=== PATIENT | female | born 1970 | race Caucasian/White ===

== ENCOUNTER → 2017-01-02 | Outpatient (REF) | payer OTHER ==
[~2017-01-02] MED LIST: AUGM875T28 PO; BACL10TA2 PO; DOCU10CA PO; GABA-283 PO; GABA600T PO; MILKSUS PO; OMEP20CA3 PO; OXYC10TA12 PO; OXYC5CAP28 PO; SIME180C PO; XYZA5TAB2 PO
== END ==
LOC: M SFHCLERA 16:32
PROVIDERS: ATTEND Physician Assistant
DX: L02.01 Cutaneous abscess of face (principal)

== ENCOUNTER → 2017-03-02 | Outpatient (REF) | payer OTHER | LOC: M SFHCWAGY 10:16 | PROVIDERS: ATTEND Nurse Practitioner Women's Health | DX: Z12.4 Encounter for screening for malignant neoplasm of cervix (principal) ==

== ENCOUNTER → 2017-03-02 | Outpatient (CLI) | payer OTHER ==
--- NOTE | 2017-03-02 09:06 | REPMRS ---
Patient History The patient states she had a clinical breast exam in 02/2017. Patient is nulliparous. Family history of prostate cancer in father at age 50 or over and colorectal cancer in maternal grandfather at age 50 or over. Taking hormonal contraceptives for 1 year 3 months. Digital Woman Screen Mammo: March 02, 2017 - Exam #: [id number] Bilateral CC and MLO view(s) were taken. Technologist: Usha Dill Technologist Prior study comparison: February 26, 2015, digital woman screen mammo performed at [facility]. January 23, 2014, digital woman screen mammo performed at [facility]. December 08, 2011, digital woman screen mammo performed at [facility]. FINDINGS: There are scattered fibroglandular densities. There is a moderate amount of residual fibroglandular tissue which is fairly symmetric. There is no interval development of dominant mass, architectural distortion, or clustered microcalcification typical of malignancy. There has been no change in the appearance of the mammogram from the prior studies. ASSESSMENT: BI-RADS/ACR category 1 mammogram. Negative. Recommendation Routine screening mammogram of both breasts in 1 year (for women over age 40). This mammogram was interpreted with the aid of an FDA-approved computer-aided dectection system. Electronically Signed By: Wilfredo Carpenter MD 03/02/17 0906
== END ==
LOC: M WHC 08:10
PROVIDERS: ATTEND Nurse Practitioner Women's Health
DX: Z12.31 Encounter for screening mammogram for malignant neoplasm of breast (principal); Z92.0 Personal history of contraception; Z80.42 Family history of malignant neoplasm of prostate; Z80.0 Family history of malignant neoplasm of digestive organs

== ENCOUNTER 2017-10-02 09:24 | Emergency (ER) | payer OTHER | END 2017-10-02 11:08 | disposition home or self-care (01) | LOC: M ED 09:24 | DX: M17.12 Unilateral primary osteoarthritis, left knee (principal); S80.02XA Contusion of left knee, initial encounter; W01.0XXA Fall on same level from slipping, tripping and stumbling without subsequent striking against object, initial encounter; Y92.59 Other trade areas as the place of occurrence of the external cause; Y99.0 Civilian activity done for income or pay; K21.9 Gastro-esophageal reflux disease without esophagitis; Z79.899 Other long term (current) drug therapy | CPT/HCPCS: 73564 ==

== ENCOUNTER → 2017-10-12 | Outpatient (CLI) | payer OTHER ==
[2017-10-12 08:17] LABS: BASO # 0.1 10^3/uL (0.0-0.2); BASO % 0.8 % (0.0-1.0); EOS # 0.1 10^3/uL (0.0-0.50); EOS % 1.5 % (0.0-3.0); HEMATOCRIT 43.5 % (36.0-47.0); HEMOGLOBIN 14.6 g/dl (12.0-15.5); IMMATURE GRANULOCYTE % 0.4 % (0-3.0); LYMPH % 41.7 % (24.0-44.0); MEAN CORPUSCULAR HEMOGLOBIN 29.7 pg (27.0-33.0); MEAN CORPUSCULAR HGB CONC 33.6 g/dl (32.0-36.5); MEAN CORPUSCULAR VOLUME 88.6 fl (80.0-96.0); MONO # 0.8 10^3/uL (0.0-0.8); MONO % 11.1 % (0.0-5.0); NEUTROPHILS # 3.2 10^3/uL (1.8-7.7); NEUTROPHILS % 44.5 % (36.0-66.0); PLATELET COUNT, AUTOMATED 323 10^3/uL (150-450); RED BLOOD COUNT 4.91 10^6/uL (4.00-5.40); RED CELL DISTRIBUTION WIDTH 13.3 % (11.5-14.5); WHITE BLOOD COUNT 7.2 10^3/uL (4.0-10.0)
[2017-10-12 08:56] LABS: ALBUMIN 3.2 GM/DL (3.2-5.2); ALBUMIN/GLOBULIN RATIO 0.91 (1.00-1.93); ALKALINE PHOSPHATASE 112 U/L (45-117); ALT/SGPT 25 U/L (12-78); ANION GAP 7 MEQ/L (8-16); AST/SGOT 18 U/L (7-37); BILIRUBIN,TOTAL 0.5 MG/DL (0.2-1.0); BLOOD UREA NITROGEN 11 MG/DL (7-18); CALCIUM LEVEL 8.2 MG/DL (8.5-10.1); CARBON DIOXIDE LEVEL 27 MEQ/L (21-32); CHLORIDE LEVEL 107 MEQ/L (98-107); CHOLESTEROL LEVEL 176 MG/DL (<200); CREATININE FOR GFR 0.79 MG/DL (0.55-1.30); FREE T4 1.32 NG/DL (0.76-1.46); GLOMERULAR FILTRATION RATE > 60.0 (>58); GLUCOSE, FASTING 84 MG/DL (70-100); HDL CHOLESTEROL 42 MG/DL (>40); LDL CHOLESTEROL 107.2 MG/DL (<100); NON-HDL-C 134 MG/DL; POTASSIUM SERUM 4.1 MEQ/L (3.5-5.1); SODIUM LEVEL 141 MEQ/L (136-145); TOTAL PROTEIN 6.7 GM/DL (6.4-8.2); TRIGLYCERIDES LEVEL 134 MG/DL (<150)
[2017-10-12 09:53] LABS: ESTIMATED AVERAGE GLUCOSE 123 MG/DL (60-110); HEMOGLOBIN A1c 5.9 %
== END ==
LOC: M LAB 07:19
DX: E66.01 Morbid (severe) obesity due to excess calories (principal); K21.9 Gastro-esophageal reflux disease without esophagitis
CPT/HCPCS: 84443

== ENCOUNTER → 2018-03-01 | Outpatient (REF) | payer OTHER | LOC: M SFHCWAGY 09:57 | DX: Z12.4 Encounter for screening for malignant neoplasm of cervix (principal) ==

== ENCOUNTER → 2018-05-31 | Outpatient (CLI) | payer OTHER ==
[2018-05-31 14:33] LABS: ANION GAP 8 MEQ/L (8-16); BLOOD UREA NITROGEN 15 MG/DL (7-18); CARBON DIOXIDE LEVEL 26 MEQ/L (21-32); CHLORIDE LEVEL 105 MEQ/L (98-107); CHOLESTEROL LEVEL 198 MG/DL (<200); CHOLESTEROL RISK RATIO 4.304 (<5); CREATININE FOR GFR 0.73 MG/DL (0.55-1.30); FREE T4 1.19 NG/DL (0.76-1.46); GLOMERULAR FILTRATION RATE > 60.0 (>58); GLUCOSE, FASTING 99 MG/DL (70-100); HDL CHOLESTEROL 46 MG/DL (>40); LDL CHOLESTEROL 131 MG/DL (<100); NON-HDL-C 152 MG/DL; POTASSIUM SERUM 4.5 MEQ/L (3.5-5.1); SODIUM LEVEL 139 MEQ/L (136-145); TRIGLYCERIDES LEVEL 105 MG/DL (<150)
== END ==
LOC: M SMT 09:09
DX: E66.01 Morbid (severe) obesity due to excess calories (principal)
CPT/HCPCS: 84443

== ENCOUNTER → 2019-02-28 | Outpatient (CLI) | payer OTHER ==
[~2019-02-28] MED LIST changes: +ADDE1TAB14 PO; +CELE100C PO; -GABA-283 PO; +GABA-845 PO; -GABA600T PO; +GABA600T4 PO; +MILK120011 PO; -MILKSUS PO; -OMEP20CA3 PO; +OMEP20CA4 PO; +bcp PO
[2019-02-28 11:22] LABS: BLOOD UREA NITROGEN 9 MG/DL (7-18); CALCIUM LEVEL 8.5 MG/DL (8.5-10.1); CARBON DIOXIDE LEVEL 25 MEQ/L (21-32); CHLORIDE LEVEL 106 MEQ/L (98-107); CHOLESTEROL LEVEL 173 MG/DL (<200); CHOLESTEROL RISK RATIO 4.219 (<5); CREATININE FOR GFR 0.76 MG/DL (0.55-1.30); FREE T4 1.11 NG/DL (0.76-1.46); GLOMERULAR FILTRATION RATE > 60.0 (>51); GLUCOSE, FASTING 89 MG/DL (70-100); HDL CHOLESTEROL 41 MG/DL (>40); LDL CHOLESTEROL 89 MG/DL (<100); NON-HDL-C 132 MG/DL; POTASSIUM SERUM 4.2 MEQ/L (3.5-5.1); SODIUM LEVEL 140 MEQ/L (136-145); TRIGLYCERIDES LEVEL 213 MG/DL (<150)
== END ==
LOC: M SMT 08:17
PROVIDERS: ATTEND Physician Assistant
DX: E66.01 Morbid (severe) obesity due to excess calories (principal)

== ENCOUNTER → 2019-03-21 | Outpatient (CLI) | payer OTHER ==
--- NOTE | 2019-03-21 13:42 | REPMRS ---
Patient History The patient states she had a clinical breast exam in 03/2019. Patient is nulliparous. Family history of colorectal cancer at age 50 or over in maternal grandfather, prostate cancer at age 50 or over in father. Taking hormonal contraceptives for 3 years 4 months. 3D TOMOSYNTHESIS WAS PERFORMED. The [facility] lifetime risk for breast cancer is 10.7%. Digital Woman Screen Mammo: March 21, 2019 - Exam #: [id number] Bilateral CC and MLO view(s) were taken. Technologist: Usha Dill, Technologist Prior study comparison: March 02, 2017, digital woman screen mammo performed at [facility]. February 26, 2015, digital woman screen mammo performed at [facility]. FINDINGS: The breast tissue is heterogeneously dense. This may lower the sensitivity of mammography. There has been no change in the appearance of the mammogram from the prior studies. There is a moderate amount of residual fibroglandular tissue which is fairly symmetric. There is no interval development of dominant mass, areas of architectural distortion, or clustered microcalcification typical of malignancy. Assessment: BI-RADS/ACR category 1 mammogram. Negative Mammogram. Recommendation Routine screening mammogram in 1 year (for women over age 40). This mammogram was interpreted with the aid of an FDA-approved computer-aided dectection system. Electronically Signed By: Deshawn Granger MD 03/21/19 5329
== END ==
LOC: M WHC 09:51
PROVIDERS: ATTEND Nurse Practitioner Family
DX: Z12.31 Encounter for screening mammogram for malignant neoplasm of breast (principal)

== ENCOUNTER → 2019-03-21 | Outpatient (REF) | payer OTHER ==
[2019-03-26 08:19] LABS: HPV HYBRID CAPTURE II Negative (Negative)
== END ==
LOC: M SFHCWAGY 11:03
PROVIDERS: ATTEND Nurse Practitioner Family
DX: Z12.4 Encounter for screening for malignant neoplasm of cervix (principal)

== ENCOUNTER → 2019-05-22 | Outpatient (CLI) | payer OTHER ==
[2019-05-22 14:37] LABS: BLOOD UREA NITROGEN 9 MG/DL (7-18); CALCIUM LEVEL 8.2 MG/DL (8.5-10.1); CARBON DIOXIDE LEVEL 27 MEQ/L (21-32); CHLORIDE LEVEL 108 MEQ/L (98-107); GLOMERULAR FILTRATION RATE > 60.0 (>51); GLUCOSE, FASTING 94 MG/DL (70-100); POTASSIUM SERUM 3.9 MEQ/L (3.5-5.1); SODIUM LEVEL 141 MEQ/L (136-145)
[2019-05-22 15:10] LABS: HEMOGLOBIN A1c 6.5 %
== END ==
LOC: M PLALAB 09:24
PROVIDERS: ATTEND Physician Assistant
DX: R73.01 Impaired fasting glucose (principal)

== ENCOUNTER → 2019-08-15 | Outpatient (CLI) | payer OTHER ==
[~2019-08-15] MED LIST changes: +OMEP1CAP73 PO; -OMEP20CA4 PO
[2019-08-15 11:47] LABS: CREATININE, URINE 75.1 MG/DL; MALB URINE SIEMENS 12.8 MG/L
[2019-08-15 11:47] LABS: ALBUMIN 3.4 GM/DL (3.2-5.2); ALT/SGPT 29 U/L (12-78); BILIRUBIN,TOTAL 0.6 MG/DL (0.2-1.0); BLOOD UREA NITROGEN 11 MG/DL (7-18); CALCIUM LEVEL 8.7 MG/DL (8.5-10.1); CARBON DIOXIDE LEVEL 28 MEQ/L (21-32); CHLORIDE LEVEL 105 MEQ/L (98-107); CHOLESTEROL LEVEL 192 MG/DL (<200); CHOLESTEROL RISK RATIO 4.682 (<5); CREATININE FOR GFR 0.81 MG/DL (0.55-1.30); GLOMERULAR FILTRATION RATE > 60.0 (>51); GLUCOSE, FASTING 96 MG/DL (70-100); HDL CHOLESTEROL 41 MG/DL (>40); LDL CHOLESTEROL 110 MG/DL (<100); NON-HDL-C 151 MG/DL; POTASSIUM SERUM 4.1 MEQ/L (3.5-5.1); SODIUM LEVEL 138 MEQ/L (136-145); TOTAL PROTEIN 7.1 GM/DL (6.4-8.2); TRIGLYCERIDES LEVEL 204 MG/DL (<150)
== END ==
LOC: M LAB 10:34
PROVIDERS: ATTEND Physician Assistant
DX: E11.9 Type 2 diabetes mellitus without complications (principal)

== ENCOUNTER → 2019-11-21 | Outpatient (CLI) | payer OTHER ==
[2019-11-21 10:06] LABS: BLOOD UREA NITROGEN 10 MG/DL (7-18); CALCIUM LEVEL 8.3 MG/DL (8.5-10.1); CARBON DIOXIDE LEVEL 24 MEQ/L (21-32); CHLORIDE LEVEL 106 MEQ/L (98-107); CREATININE FOR GFR 0.85 MG/DL (0.55-1.30); GLOMERULAR FILTRATION RATE > 60.0 (>51); GLUCOSE, FASTING 104 MG/DL (70-100); POTASSIUM SERUM 4.6 MEQ/L (3.5-5.1); SODIUM LEVEL 140 MEQ/L (136-145)
[2019-11-21 10:29] LABS: HEMOGLOBIN A1c 6.4 %
== END ==
LOC: M PLALAB 08:14
PROVIDERS: ATTEND Physician Assistant
DX: E11.9 Type 2 diabetes mellitus without complications (principal)

== ENCOUNTER → 2020-02-03 | Outpatient (REF) | payer OTHER, MEDICAID ==
[2020-03-22 21:57] LABS: BASO # 0.1 10^3/uL (0.0-0.2); BASO % 0.8 % (0.0-1.0); EOS # 0.2 10^3/uL (0.0-0.5); EOS % 1.5 % (0.0-3.0); HEMATOCRIT 44.5 % (36.0-47.0); HEMOGLOBIN 14.5 g/dl (12.0-15.5); LYMPH # 4.2 10^3/uL (1.5-5.0); LYMPH % 35.8 % (24.0-44.0); MEAN CORPUSCULAR HEMOGLOBIN 28.9 pg (27.0-33.0); MEAN CORPUSCULAR HGB CONC 32.6 g/dl (32.0-36.5); MEAN CORPUSCULAR VOLUME 88.8 fl (80.0-96.0); MONO # 1.1 10^3/uL (0.0-0.8); MONO % 9.2 % (0.0-5.0); NEUTROPHILS % 51.8 % (36.0-66.0); PLATELET COUNT, AUTOMATED 315 10^3/uL (150-450); RED BLOOD COUNT 5.01 10^6/uL (4.00-5.40); WHITE BLOOD COUNT 11.6 10^3/uL (4.0-10.0)
[2020-03-29 04:54] LABS: ALBUMIN 3.1 GM/DL (3.2-5.2); ALT/SGPT 32 U/L (12-78); BILIRUBIN,TOTAL 0.3 MG/DL (0.2-1.0); BLOOD UREA NITROGEN 12 MG/DL (7-18); CALCIUM LEVEL 8.5 MG/DL (8.5-10.1); CARBON DIOXIDE LEVEL 24 MEQ/L (21-32); CHLORIDE LEVEL 108 MEQ/L (98-107); CHOLESTEROL LEVEL 190 MG/DL (<200); CREATININE FOR GFR 0.84 MG/DL (0.55-1.30); GLOMERULAR FILTRATION RATE > 60.0 (>51); GLUCOSE, FASTING 96 MG/DL (70-100); HDL CHOLESTEROL 38 MG/DL (>40); HEMOGLOBIN A1c 5.9 %; LDL CHOLESTEROL 111 MG/DL (<100); NON-HDL-C 152 MG/DL; POTASSIUM SERUM 4.3 MEQ/L (3.5-5.1); SODIUM LEVEL 139 MEQ/L (136-145); TOTAL PROTEIN 6.5 GM/DL (6.4-8.2); TRIGLYCERIDES LEVEL 203 MG/DL (<150)
== END ==
LOC: M PLALAB 12:14
PROVIDERS: ATTEND Family Medicine
DX: E11.9 Type 2 diabetes mellitus without complications (principal); E78.2 Mixed hyperlipidemia

== ENCOUNTER → 2020-03-26 | Outpatient (CLI) | payer OTHER ==
--- NOTE | 2020-03-26 09:52 | REPMRS ---
Patient History The patient states she had a clinical breast exam in March 2020. Patient is nulliparous. Family history of colorectal cancer at age 50 or over in maternal grandfather, prostate cancer at age 75 in father. Taking hormonal contraceptives for 3 years 4 months. 3D TOMOSYNTHESIS WAS PERFORMED. The [facility] lifetime risk for breast cancer is 10.8%. VOLPARA DENSITY B. Digital Woman Screen Mammo: March 26, 2020 - Exam #: [id number] Bilateral CC and MLO view(s) were taken. Technologist: Isabella Fuentes, Technologist Prior study comparison: March 21, 2019, bilateral digital woman screen mammo performed at [facility]. March 02, 2017, digital woman screen mammo performed at [facility]. FINDINGS: The breast tissue is heterogeneously dense. This may lower the sensitivity of mammography. There has been no change in the appearance of the mammogram from the prior studies. There is a moderate amount of residual fibroglandular tissue which is fairly symmetric. There is no interval development of dominant mass, areas of architectural distortion, or clustered microcalcification typical of malignancy. Assessment: BI-RADS/ACR category 1 mammogram. Negative Mammogram. Recommendation Routine screening mammogram in 1 year (for women over age 40). This mammogram was interpreted with the aid of an FDA-approved computer-aided dectection system. Electronically Signed By: Deshawn Granger MD 03/26/20 0951
== END ==
LOC: M WHC 08:14
PROVIDERS: ATTEND Nurse Practitioner Family
DX: Z12.31 Encounter for screening mammogram for malignant neoplasm of breast (principal); Z79.3 Long term (current) use of hormonal contraceptives

== ENCOUNTER → 2020-03-26 | Outpatient (REF) | payer OTHER | LOC: M SFHCWAGY 18:18 | PROVIDERS: ATTEND Nurse Practitioner Family | DX: Z12.4 Encounter for screening for malignant neoplasm of cervix (principal) ==

== ENCOUNTER → 2020-05-07 | Outpatient (CLI) | payer OTHER ==
[2020-05-07 11:32] LABS: BLOOD UREA NITROGEN 16 MG/DL (7-18); CALCIUM LEVEL 8.2 MG/DL (8.5-10.1); CARBON DIOXIDE LEVEL 26 MEQ/L (21-32); CHLORIDE LEVEL 107 MEQ/L (98-107); CREATININE FOR GFR 0.85 MG/DL (0.55-1.30); GLOMERULAR FILTRATION RATE > 60.0 (>51); GLUCOSE, FASTING 93 MG/DL (70-100); HEMOGLOBIN A1c 5.8 %; POTASSIUM SERUM 4.2 MEQ/L (3.5-5.1); SODIUM LEVEL 140 MEQ/L (136-145)
== END ==
LOC: M PLALAB 08:23
PROVIDERS: ATTEND Physician Assistant
DX: E11.9 Type 2 diabetes mellitus without complications (principal)

== ENCOUNTER → 2020-05-10 | Outpatient (REF) | payer OTHER ==
[2020-05-10 11:37] LABS: MALB URINE SIEMENS 8.4 MG/L; MAU/CREAT RATIO 7.3 MCG/MG (0.0-30.0)
== END ==
LOC: M LAB REF 10:05
PROVIDERS: ATTEND Physician Assistant
DX: E11.9 Type 2 diabetes mellitus without complications (principal)

== ENCOUNTER → 2020-07-09 | Outpatient (CLI) | payer OTHER ==
[2020-07-09 15:42] LABS: BASO # 0.1 10^3/uL (0.0-0.2); BASO % 0.7 % (0.0-1.0); EOS # 0.2 10^3/uL (0.0-0.5); HEMATOCRIT 44.3 % (36.0-47.0); HEMATOCRIT 44.4 % (36.0-47.0); HEMOGLOBIN 14.1 g/dl (12.0-15.5); LYMPH # 2.4 10^3/uL (1.5-5.0); MEAN CORPUSCULAR HEMOGLOBIN 28.5 pg (27.0-33.0); MEAN CORPUSCULAR HGB CONC 31.8 g/dl (32.0-36.5); MEAN CORPUSCULAR VOLUME 89.9 fl (80.0-96.0); MONO # 0.8 10^3/uL (0.0-0.8); MONO % 9.6 % (0.0-5.0); NEUTROPHILS # 4.7 10^3/uL (1.5-8.5); NEUTROPHILS % 57.2 % (36.0-66.0); PLATELET COUNT, AUTOMATED 341 10^3/uL (150-450); RED BLOOD COUNT 4.94 10^6/uL (4.00-5.40); WHITE BLOOD COUNT 8.1 10^3/uL (4.0-10.0)
[2020-07-09 16:00] LABS: HEMOGLOBIN A1c 5.7 %
[2020-07-09 16:19] LABS: ALBUMIN 3.6 GM/DL (3.2-5.2); ALT/SGPT 56 U/L (12-78); BILIRUBIN,TOTAL 0.4 MG/DL (0.2-1.0); BLOOD UREA NITROGEN 10 MG/DL (7-18); CALCIUM LEVEL 8.9 MG/DL (8.5-10.1); CARBON DIOXIDE LEVEL 28 MEQ/L (21-32); CHLORIDE LEVEL 105 MEQ/L (98-107); CREATININE FOR GFR 0.86 MG/DL (0.55-1.30); FERRITIN 70 NG/ML (8-252); GLOMERULAR FILTRATION RATE > 60.0 (>51); GLUCOSE, FASTING 84 MG/DL (70-100); IRON (FE) 55 UG/DL (50-170); PERCENT SATURATION 16.3 % (13.2-45.0); PHOSPHORUS LEVEL 3.3 MG/DL (2.5-4.9); POTASSIUM SERUM 4.4 MEQ/L (3.5-5.1); SODIUM LEVEL 139 MEQ/L (136-145); TOTAL IRON BINDING CAPACITY 338 UG/DL (250-450); TOTAL PROTEIN 6.6 GM/DL (6.4-8.2)
[2020-07-09 17:06] LABS: TOTAL 25(OH) VITAMIN D 46.2 NG/ML (30.0-100.0); VITAMIN B12 LEVEL 945 PG/ML (247-911)
== END ==
LOC: M PLALAB 13:22
PROVIDERS: ATTEND Surgery
DX: K91.2 Postsurgical malabsorption, not elsewhere classified (principal); E55.9 Vitamin D deficiency, unspecified; Z98.84 Bariatric surgery status

== ENCOUNTER → 2020-07-23 | Outpatient (REF) | payer OTHER | LOC: M LAB REF 21:12 | PROVIDERS: ATTEND Physician Assistant | DX: L03.818 Cellulitis of other sites (principal) ==

== ENCOUNTER → 2020-08-02 | Outpatient (CLI) | payer OTHER ==
[2020-08-02 10:29] LABS: BASO # 0.1 10^3/uL (0.0-0.2); BASO % 0.9 % (0.0-1.0); EOS # 0.1 10^3/uL (0.0-0.5); EOS % 1.5 % (0.0-3.0); HEMATOCRIT 46.1 % (36.0-47.0); HEMOGLOBIN 14.2 g/dl (12.0-15.5); LYMPH # 3.4 10^3/uL (1.5-5.0); LYMPH % 43.5 % (24.0-44.0); MEAN CORPUSCULAR HEMOGLOBIN 27.7 pg (27.0-33.0); MEAN CORPUSCULAR HGB CONC 30.8 g/dl (32.0-36.5); MONO # 0.6 10^3/uL (0.0-0.8); MONO % 7.3 % (2.0-8.0); NEUTROPHILS # 3.6 10^3/uL (1.5-8.5); NEUTROPHILS % 46.4 % (36.0-66.0); PLATELET COUNT, AUTOMATED 432 10^3/uL (150-450); RED BLOOD COUNT 5.12 10^6/uL (4.00-5.40); WHITE BLOOD COUNT 7.8 10^3/uL (4.0-10.0)
[2020-08-02 10:52] LABS: HEMOGLOBIN A1c 5.5 %
[2020-08-02 10:58] LABS: ALBUMIN 3.4 GM/DL (3.2-5.2); ALT/SGPT 53 U/L (12-78); BILIRUBIN,TOTAL 0.4 MG/DL (0.2-1.0); BLOOD UREA NITROGEN 10 MG/DL (7-18); CALCIUM LEVEL 9.1 MG/DL (8.5-10.1); CARBON DIOXIDE LEVEL 28 MEQ/L (21-32); CHLORIDE LEVEL 105 MEQ/L (98-107); CREATININE FOR GFR 0.96 MG/DL (0.55-1.30); GLOMERULAR FILTRATION RATE > 60.0 (>51); GLUCOSE, FASTING 97 MG/DL (70-100); POTASSIUM SERUM 4.1 MEQ/L (3.5-5.1); SODIUM LEVEL 140 MEQ/L (136-145); TOTAL PROTEIN 6.8 GM/DL (6.4-8.2)
== END ==
LOC: M PLALAB 08:12
PROVIDERS: ATTEND Family Medicine
DX: E11.9 Type 2 diabetes mellitus without complications (principal)

== ENCOUNTER → 2020-12-07 | Outpatient (CLI) | payer OTHER ==
[~2020-12-07] MED LIST changes: +GABA-283 PO; -GABA-845 PO; -SIME180C PO; +SIME180C25 PO
[2020-12-07 15:37] LABS: BASO # 0.1 10^3/uL (0.0-0.2); BASO % 0.7 % (0.0-1.0); EOS # 0.1 10^3/uL (0.0-0.5); EOS % 1.1 % (0.0-3.0); HEMATOCRIT 44.1 % (36.0-47.0); HEMOGLOBIN 14.1 g/dl (12.0-15.5); LYMPH # 3.1 10^3/uL (1.5-5.0); LYMPH % 36.7 % (24.0-44.0); MEAN CORPUSCULAR HEMOGLOBIN 29.4 pg (27.0-33.0); MEAN CORPUSCULAR VOLUME 92.1 fl (80.0-96.0); MONO # 0.9 10^3/uL (0.0-0.8); MONO % 10.4 % (2.0-8.0); NEUTROPHILS # 4.3 10^3/uL (1.5-8.5); NEUTROPHILS % 50.7 % (36.0-66.0); PLATELET COUNT, AUTOMATED 269 10^3/uL (150-450); RED BLOOD COUNT 4.79 10^6/uL (4.00-5.40); WHITE BLOOD COUNT 8.5 10^3/uL (4.0-10.0)
[2020-12-07 15:52] LABS: HEMOGLOBIN A1c 5.5 %
[2020-12-07 16:02] LABS: HEMATOCRIT 44.1 % (36.0-47.0)
[2020-12-07 16:06] LABS: ALBUMIN 3.3 GM/DL (3.2-5.2); ALT/SGPT 38 U/L (12-78); BILIRUBIN,TOTAL 0.6 MG/DL (0.2-1.0); BLOOD UREA NITROGEN 10 MG/DL (7-18); CALCIUM LEVEL 8.7 MG/DL (8.5-10.1); CARBON DIOXIDE LEVEL 27 MEQ/L (21-32); CHLORIDE LEVEL 108 MEQ/L (98-107); CREATININE FOR GFR 0.69 MG/DL (0.55-1.30); FERRITIN 92 NG/ML (8-252); GLOMERULAR FILTRATION RATE > 60.0 (>51); GLUCOSE, FASTING 88 MG/DL (70-100); IRON (FE) 104 UG/DL (50-170); MAGNESIUM LEVEL 2.1 MG/DL (1.8-2.4); PERCENT SATURATION 34.9 % (13.2-45.0); PHOSPHORUS LEVEL 3.2 MG/DL (2.5-4.9); POTASSIUM SERUM 4.5 MEQ/L (3.5-5.1); SODIUM LEVEL 141 MEQ/L (136-145); TOTAL IRON BINDING CAPACITY 298 UG/DL (250-450); TOTAL PROTEIN 6.1 GM/DL (6.4-8.2)
[2020-12-07 16:12] LABS: TOTAL 25(OH) VITAMIN D 48.3 NG/ML (30.0-100.0)
[2020-12-07 16:13] LABS: VITAMIN B12 LEVEL > 2000 PG/ML (247-911)
== END ==
LOC: M PLALAB 11:58
PROVIDERS: ATTEND Surgery
DX: K91.2 Postsurgical malabsorption, not elsewhere classified (principal); Z98.84 Bariatric surgery status; E55.9 Vitamin D deficiency, unspecified; Z86.39 Personal history of other endocrine, nutritional and metabolic disease

== ENCOUNTER → 2021-02-01 | Outpatient (CLI) | payer OTHER ==
[2021-02-01 10:35] LABS: BASO # 0.1 10^3/uL (0.0-0.2); BASO % 0.7 % (0.0-1.0); EOS # 0.2 10^3/uL (0.0-0.5); EOS % 1.6 % (0.0-3.0); HEMATOCRIT 44.5 % (36.0-47.0); HEMOGLOBIN 14.5 g/dl (12.0-15.5); LYMPH # 3.8 10^3/uL (1.5-5.0); LYMPH % 40.3 % (24.0-44.0); MEAN CORPUSCULAR HEMOGLOBIN 29.6 pg (27.0-33.0); MEAN CORPUSCULAR HGB CONC 32.6 g/dl (32.0-36.5); MEAN CORPUSCULAR VOLUME 90.8 fl (80.0-96.0); MONO # 0.8 10^3/uL (0.0-0.8); MONO % 8.5 % (2.0-8.0); NEUTROPHILS # 4.5 10^3/uL (1.5-8.5); NEUTROPHILS % 48.5 % (36.0-66.0); PLATELET COUNT, AUTOMATED 339 10^3/uL (150-450); WHITE BLOOD COUNT 9.3 10^3/uL (4.0-10.0)
[2021-02-01 10:56] LABS: ALBUMIN 3.3 GM/DL (3.2-5.2); ALT/SGPT 43 U/L (12-78); BILIRUBIN,TOTAL 0.5 MG/DL (0.2-1.0); BLOOD UREA NITROGEN 13 MG/DL (7-18); CALCIUM LEVEL 8.1 MG/DL (8.5-10.1); CARBON DIOXIDE LEVEL 27 MEQ/L (21-32); CHLORIDE LEVEL 107 MEQ/L (98-107); CHOLESTEROL LEVEL 188 MG/DL (<200); CHOLESTEROL RISK RATIO 4.086 (<5); CREATININE FOR GFR 0.78 MG/DL (0.55-1.30); GLOMERULAR FILTRATION RATE > 60.0 (>51); GLUCOSE, FASTING 86 MG/DL (70-100); HDL CHOLESTEROL 46 MG/DL (>40); LDL CHOLESTEROL 117 MG/DL (<100); NON-HDL-C 142 MG/DL; POTASSIUM SERUM 4.3 MEQ/L (3.5-5.1); SODIUM LEVEL 140 MEQ/L (136-145); TOTAL PROTEIN 6.5 GM/DL (6.4-8.2); TRIGLYCERIDES LEVEL 127 MG/DL (<150)
[2021-02-01 10:58] LABS: HEMOGLOBIN A1c 5.4 %
== END ==
LOC: M PLALAB 07:57
PROVIDERS: ATTEND Family Medicine
DX: E11.9 Type 2 diabetes mellitus without complications (principal)

== ENCOUNTER → 2021-02-11 | Outpatient (CLI) | payer OTHER ==
[~2021-02-11] MED LIST changes: +PROHANCE 279.3MG/ML 15ML VIAL ONE; +PROHANCE 279.3MG/ML 5ML VIAL ONE
--- NOTE | 2021-02-11 14:18 | REPVR ---
PROCEDURE INFORMATION: Exam: MR Head Without and With Contrast Exam date and time: 02/11/2021 10:42 AM Age: 50 years old Clinical indication: Benign neoplasm of brain. TECHNIQUE: Imaging protocol: MR of the head without and with intravenous contrast. Contrast material: PROHANCE; Contrast volume: 19 ml; Contrast route: INTRAVENOUS (IV); COMPARISON: No relevant prior studies available. FINDINGS: Brain: There are occasional nonspecific foci of high signal abnormality in the foster radiata and centrum semiovale. These are best seen on the flair images. These foci may represent areas of gliosis, demyelination, and/or chronic ischemic change. Cerebral ventricles: Normal. No ventriculomegaly. Bones/joints: There is evidence of prior right parietal craniotomy. There is a postsurgical cavity with surrounding gliosis/vasogenic edema deep to the craniotomy. There is mild nodular leptomeningeal enhancement along the anterior margin of the right middle cranial fossa. Residual tumor cannot be excluded. Paranasal sinuses: Normal as visualized. No acute sinusitis. Mastoid air cells: Normal as visualized. No mastoid effusion. Orbital cavity: Unremarkable. Soft tissues: Unremarkable. Other findings: Close clinical and imaging followup is recommended. IMPRESSION: 1. There is evidence of prior right parietal craniotomy. There is a postsurgical cavity with surrounding gliosis/vasogenic edema deep to the craniotomy. There is mild nodular leptomeningeal enhancement along the anterior margin of the right middle cranial fossa. Residual tumor cannot be excluded. Direct comparison to prior studies is recommended. Close clinical and imaging followup is also recommended. 2. There are occasional nonspecific foci of high signal abnormality in the foster radiata and centrum semiovale. These are best seen on the flair images. These foci may represent areas of gliosis, demyelination, and/or chronic ischemic change. No acute infarct is identified. Electronically signed by: Jean Claude Horta On 02/11/2021 14:18:12 PM
== END ==
LOC: M PLAIMG 09:42
PROVIDERS: ATTEND Physician Assistant
DX: D32.0 Benign neoplasm of cerebral meninges (principal)
CPT/HCPCS: 70553; A9576

== ENCOUNTER → 2021-03-29 | Outpatient (CLI) | payer OTHER ==
[~2021-03-29] MED LIST changes: -PROHANCE 279.3MG/ML 15ML VIAL ONE; -PROHANCE 279.3MG/ML 5ML VIAL ONE
[2021-03-29 11:57] LABS: BASO # 0.1 10^3/uL (0.0-0.2); BASO % 0.7 % (0.0-1.0); EOS # 0.1 10^3/uL (0.0-0.5); EOS % 1.5 % (0.0-3.0); HEMATOCRIT 44.2 % (36.0-47.0); HEMOGLOBIN 14.3 g/dl (12.0-15.5); LYMPH # 4.3 10^3/uL (1.5-5.0); LYMPH % 48.6 % (24.0-44.0); MEAN CORPUSCULAR HEMOGLOBIN 29.5 pg (27.0-33.0); MEAN CORPUSCULAR HGB CONC 32.4 g/dl (32.0-36.5); MEAN CORPUSCULAR VOLUME 91.3 fl (80.0-96.0); MONO # 0.7 10^3/uL (0.0-0.8); MONO % 8.2 % (2.0-8.0); NEUTROPHILS # 3.5 10^3/uL (1.5-8.5); NEUTROPHILS % 40.5 % (36.0-66.0); PLATELET COUNT, AUTOMATED 351 10^3/uL (150-450); RED BLOOD COUNT 4.84 10^6/uL (4.00-5.40); WHITE BLOOD COUNT 8.7 10^3/uL (4.0-10.0)
[2021-03-29 12:10] LABS: ALBUMIN 3.2 GM/DL (3.2-5.2); ALT/SGPT 34 U/L (12-78); BILIRUBIN,TOTAL 0.5 MG/DL (0.2-1.0); BLOOD UREA NITROGEN 7 MG/DL (7-18); CALCIUM LEVEL 8.9 MG/DL (8.5-10.1); CARBON DIOXIDE LEVEL 27 MEQ/L (21-32); CHLORIDE LEVEL 109 MEQ/L (98-107); CREATININE FOR GFR 0.83 MG/DL (0.55-1.30); GLOMERULAR FILTRATION RATE > 60.0 (>51); GLUCOSE, FASTING 92 MG/DL (70-100); IRON (FE) 89 UG/DL (50-170); PERCENT SATURATION 30.9 % (13.2-45.0); POTASSIUM SERUM 3.7 MEQ/L (3.5-5.1); SODIUM LEVEL 141 MEQ/L (136-145); TOTAL IRON BINDING CAPACITY 288 UG/DL (250-450); TOTAL PROTEIN 6.4 GM/DL (6.4-8.2)
[2021-03-29 12:16] LABS: VITAMIN B12 LEVEL > 2000 PG/ML (247-911)
[2021-03-29 12:19] LABS: ERYTHROCYTE SEDIMENTATION RATE 12 mm/hr (0-30)
[2021-03-29 13:21] LABS: HEMOGLOBIN A1c 5.4 %
== END ==
LOC: M PLALAB 08:31
PROVIDERS: ATTEND Family Medicine
DX: R20.2 Paresthesia of skin (principal)

== ENCOUNTER → 2021-04-05 | Outpatient (CLI) | payer OTHER ==
--- NOTE | 2021-04-05 10:37 | REPMRS ---
Patient History The patient states she had a clinical breast exam in March 2021. Patient is nulliparous. Family history of colorectal cancer at age 50 or over in maternal grandfather, prostate cancer at age 75 in father. Took hormonal contraceptives for 3 years 4 months. Patient states no breast complaints today. Patient has signed MRS History Sheet. Digital Woman Screen Mammo: April 05, 2021 - Exam #: [id number] Bilateral CC and MLO view(s) were taken. Technologist: Isabella Fuentes, Technologist Prior study comparison: March 26, 2020, bilateral digital woman screen mammo performed at [facility]. March 21, 2019, bilateral digital woman screen mammo performed at [facility]. FINDINGS: The breast tissue is heterogeneously dense. This may lower the sensitivity of mammography. Screening. Digital screening (2D) mammography was performed bilaterally in the CC and MLO projections. Additionally, breast tomosynthesis (3D mammography) was performed bilaterally in the CC and MLO projections. Todays exam was compared to the prior exam/exams. By history, the patient has no complaints of a palpable breast abnormality or other significant breast complaints. The breasts are unchanged in size and shape.Once again, dense heterogenous fibroglandular elements are seen bilaterally in a stable appearing pattern but to such a degree that the sensitivity of the mammogram in detecting cancer is decreased. There are no mario-soft tissue densities or spiculated masses. There is no internal architectural distortion. There are no suspicious mario-calcific clusters. Skin thickening or nipple retraction is not present. IMPRESSION: BI-RADS Category 2- Benign Findings. There is no evidence of malignant alteration of the breasts. Followup examination recommended in one year. The Volpara volumetric breast density category is C, there are scattered areas of fibroglandular densities. This mammogram was read with the assistance of [employer]an FDA approved computer aided detection system for mammography. The lifetime Tyrer-Cuzick score is 10.8 % Due to the density of the breasts or Tyrer Cuzick score of 20% or greater, MRI/whole breast screening ultrasound is warranted. Negative x-ray reports should not delay surgical consultation if a dominant or clinically suspicious mass is present. Not all breast cancers can be identified by mammography. Therefore, we recommend that you continue to perform regular breast self-examination and physical examination and then promptly contact your physician of any concerns or changes. Adenosis and dense breasts may obscure an underlying neoplasm. Assessment: BI-RADS/ACR category 2 mammogram. Benign Findings. Recommendation Routine screening mammogram of both breasts in 1 year. Electronically Signed By: Ronal Chin DO 04/05/21 1035
== END ==
LOC: M WHC 08:29
PROVIDERS: ATTEND Nurse Practitioner Women's Health
DX: Z12.31 Encounter for screening mammogram for malignant neoplasm of breast (principal)

== ENCOUNTER 2021-05-13 16:58 | Emergency (ER) | payer OTHER ==
[~2021-05-13] VITALS: Ht 154.9 cm; Wt 94.2 kg
--- OUTSIDE RECORDS SUMMARY | 2021-05-13 17:10 | CCD | Summary of Care ---
Author Author [facility] Organization [facility] Address Unknown Phone Unavailable Care Team Providers Care Scrap Iron Loader Name Role Phone Lucía Cardoza DO PCP Reason for Referral * Diagnostic Radiology (Routine) Referred By Contact Referred To Contact Status Reason Specialty Diagnoses / Procedures Devan Vela NP [address] [facility] 1st Floor [address] [place] [phone] Email: [email or web address] Radiology Diagnoses Status post gamma knife treatment Recurrent meningioma of the brain P rocedures MR Brain with and without Contrast Electronically signed by Devan Vela NP at Reason for Visit * Reason Comments Follow-up Encounter Details Care Team Description Date Type Department Mejia Solano MD [address] [facility] [address] [place] [phone] Status post gamma knife treatment (Prima ry Dx); Recurrent meningioma of the brain; History of craniotomy 02/16/2021 Telemedicine [facility] [address] [facility] 1st Floor [address] [place] [phone] Allergies Comments Active Allergy Reactions Severity Noted Date Hallucinations Amitriptyline 03/10/2020 documented as of this encounter (statuses as of 02/16/2021) Medications End Date Status Medication Sig Dispensed Refills Start Date Active levocetirizine (XYZAL) 5 Take 5 mg by 0 MG tablet mouth every evening Active amphetamine-dextroampheta Take 20 mg by 0 mine (ADDERALL XR) 15 MG mouth every 24 hr capsule morning Active celecoxib (CELEBREX) 200 Take 200 mg 0 MG capsule by mouth Two Times Daily Active omeprazole (PRILOSEC) 20 Take 20 mg by 0 MG capsule mouth daily Active sumatriptan (IMITREX) 25 Take 50 mg by 0 MG tablet mouth as needed for Migraine Active Levonorgest-Eth Estrad Take by mouth 0 91-Day (CAMRESE) 0.15-0.03 &0.01 MG TABS Active Cholecalciferol (VITAMIN Take 2,000 0 D PO) Int'l Units by mouth Active Loratadine 10 MG Oral Take 10 mg by 0 Tablet (CLARITIN) mouth daily Active Trulicity 0.75 MG/0.5ML Inject 0.75 0 Subcutaneous Solution mg into the Pen-injector skin once a (dulaglutide) week Active Baclofen 10 MG Oral Take 10 mg by 0 Tablet (LIORESAL) mouth Three times daily Active Emgality 120 MG/ML Inject into 0 Subcutaneous Solution the skin Prefilled Syringe every 30 (Galcanezumab-gnlm) (thirty) days Active Gabapentin 300 MG Oral Take 300 mg 0 Capsule (NEURONTIN) by mouth Three times daily documented as of this encounter (statuses as of 02/16/2021) Active Problems Problem Noted Date History of gastric bypass 02/16/2021 History of craniotomy 02/16/2021 Status post gamma knife treatment 02/28/2018 Benign meningioma 01/29/2018 Recurrent meningioma of the brain 12/06/2017 Right-sided headache 12/06/2017 documented as of this encounter (statuses as of 02/16/2021) Immunizations Name Administration Dates Next Due documented as of this encounter Social History Date Tobacco Use Types Packs/Day Years Used Never Smoker Smokeless Tobacco: Never Used Comments Alcohol Use Standard Drinks/Week No 0 (1 standard drink = 0.6 o z pure alcohol) Sex Assigned at Date Recorded Not on file documented as of this encounter Last Filed Vital Signs Not on filedocumented in this encounter Progress Notes * Devan Vela, ESTELA - 02/16/2021 1:15 PM EDT Sonja Nino has been called for a follow up visit. The telephone service wa s performed during the state of emergency during the COVID-19 outbreak. I have discussed this request and the patient has given their verbal consent to use Telecommunications in lieu of a [id number] visit in the office. she is a 50 y.o.female, with PMH of DM, migraines, recent gastric bypass surgery and right middle cranial fossa meningioma s/p resection per Dr. Clark in 3. Patient has subsequent recurrence of meningioma and is s/p gamma knife treatm ent per Dr. Solano in 01/2018. We have followed patient regularly with surveillanc e MRI's to evaluate for change in size of recurrent meningioma. It has remained stable and patient has remained asymptomatic. I spoke with patient today for follow up. She tells me she is doing well. She velez s been having her baseline migraines which are secondary to stress. She tells me she is no longer diabetic since her recent gastric bypass surgery in May. Otherwise doing well and denies any new neurological symptoms. Current Outpatient Medications Medication Sig Dispense Refill amphetamine-dextroamphetamine (ADDERALL XR) 15 MG 24 hr capsule Take 20 m g by mouth every morning Baclofen 10 MG Oral Tablet (LIORESAL) Take 10 mg by mouth Three times yolanda ly celecoxib (CELEBREX) 200 MG capsule Take 200 mg by mouth Two Times Daily Cholecalciferol (VITAMIN D PO) Take 2,000 Int'l Units by mouth Emgality 120 MG/ML Subcutaneous Solution Prefilled Syringe (Galcanezumab- gnlm) Inject into the skin every 30 (thirty) days Gabapentin 300 MG Oral Capsule (NEURONTIN) Take 300 mg by mouth Three eran es daily levocetirizine (XYZAL) 5 MG tablet Take 5 mg by mouth every evening Levonorgest-Eth Estrad - (CAMRESE) 0.15-0.03 &0.01 MG TABS Take by mouth Loratadine 10 MG Oral Tablet (CLARITIN) Take 10 mg by mouth daily omeprazole (PRILOSEC) 20 MG capsule Take 20 mg by mouth daily sumatriptan (IMITREX) 25 MG tablet Take 50 mg by mouth as needed for Daljit mattie Trulicity 0.75 MG/0.5ML Subcutaneous Solution Pen-injector (dulaglutide) Inject 0.75 mg into the skin once a week No current facility-administered medications for this visit. Past Medical History: Diagnosis Date GERD (gastroesophageal reflux disease) Headache Low back pain Meningioma 05/04/2003 right middle cranial fossa meningioma Morbid obesity Past Surgical History: Procedure Laterality Date BRAIN TUMOR EXCISION 2002 CARPAL TUNNEL RELEASE Bilateral CHOLECYSTECTOMY COLONOSCOPY KNEE SURGERY 1994 There were no vitals taken for this visit. Physical Exam: There has been no physical exam done secondary to this being a t elephone visit. Imaging/Labs: I examined the MRI Brain from 02/11/21 compared to 02/2020 and 02/03 scan, and it s hows no change in size of the residual/recurrent meningioma in the anterior port ion of the right middle cranial fossa Assessment: 1. Status post gamma knife treatment MR Brain with and without Contrast 2. Recurrent meningioma of the brain MR Brain with and without Contrast 3. History of craniotomy Patient doing well and remains asymptomatic of recurrent meningioma. Discussed i maging with patient today at length and explained the the residual meningioma ap pears stable with no growth. She verbalized understanding. Plan: Follow up in 1 year with MRI Brain I have spent 20 minutes, reviewing imaging and discussing current symptoms, find ings and recommendations. KAMARI Mccain [facility] Neurosurgery documented in this encounter Plan of Treatment Order Schedule Name Type Priority Associated Diag noses Expected: 02/16/2021, Expires: 2 MR Brain with and without Imaging Routine Stat us post gamma knife Contrast treatment Recurrent meningioma of the brain Health Maintenance Due Date Last Done Comments MMR Vaccines (1 of - 1969 Standard series) Varicella Vaccines (1 of 1969 2 - 2-dose childhood series) DTaP,Tdap,and Td Vaccines 12/12/1975 (1 - Tdap) HIV Screening 1981 Cervical Cancer Screening 1989 5 years Breast Cancer Screening 2 2018 years Colon Cancer Screening 10 2018 yrs Influenza Vaccine 03/18/2021 02/27/2020 Pneumococcal Vaccine: 65+ 2033 Years (1 of 1 - PPSV23) COVID-19 Vaccine Completed 09/08/2020, 08/18/2020 HIB Vaccines Aged Out No longer eligible based on patient's age to complete this topic Hepatitis A Vaccines Aged Out No longer eligibl e based on patient's age to complete this topic Hepatitis B Vaccines Aged Out No longer eligibl e based on patient's age to complete this topic IPV Vaccines Aged Out No longer eligible based on patient's age to complete this topic Pneumococcal Vaccine: Aged Out No longer eligib le based on patient's age to Pediatrics (0 to 5 Years) complete this topic and At-Risk Patients (6 to 64 Years) documented as of this encounter Results Not on filedocumented in this encounter Visit Diagnoses Diagnosis Status post gamma knife treatment - Trish estrada Recurrent meningioma of the brain History of craniotomy Other postprocedural status documented in this encounter
--- OUTSIDE RECORDS SUMMARY | 2021-05-13 17:10 | CCD | Continuity of Care Document ---
Author Author Sonja CARDOZA D.O. Organization Unknown Address [address] [place] [address] Phone [phone] Care Team Providers Care Freelance Graphic Designer Name Role Phone Lucía Cardoza D.O. AUTM [phone] [facility] AUTM [phone] Ramon Cleveland MD AUTM [phone] Varun May MD AUTM [phone] Iraj Chu M.D. AUTM [phone] Problems Active Problems Provider Date Headache RAVINDER Calderón Onset: 10/09/2017 Morbid obesity RAVINDER Calderón Onset: 10/09/2017 Difficulty speaking RAVINDER Calderón Onset: 10/09/2017 Gastroesophageal reflux disease RAVINDER Calderón Onset: 10/09/2017 Migraine without aura, not refractory RAVINDER Calderón O nset: 11/23/2017 History of benign meningioma of brain Lucía Cardoza D.O. Onset: 01/03/2018 Benign neoplasm of cerebral meninges Rosana Cook Onset: 03/01/2018 Type 2 diabetes mellitus RAVINDER Calderón Onset: 019 Social History Type Date Description Comments Sex Unknown ETOH Use Denies alcohol use Tobacco Use Start: Unknown Patient has never smoked Recreational Drug Use Denies Drug Use Smoking Status Reviewed: 02/07/21 Patient has never smoked Exercise Type/Frequency Does not exercise Sun Exposure Uses sunscreen Seat Belt/Car Seat Always uses seat belt Allergies, Adverse Reactions, Alerts Active Allergies Criticality Reaction | Severity Comments Date Amitriptyline Unable to assess criticality hallucinati ons 02/12/2020 Inactive Allergies NKDA Unable to assess criticality 09/17/2017 Medications Active Medications SIG Qnty Indications Ordering Provide r Date Omeprazole 20mg Capsules DR Take 1 capsule by mouth once daily 30caps Lucía Cardoza D.O. 0 12/06/2020 Eq Loratadine 10mg Tablets take 1 tablet by mouth once daily 30tabs Rosana Cook.O. 0 12/06/2020 Metronidazole 0.75% Cream apply to face twice a day after washing with gentle cleanser, avoid eyes 45gm L 71.9 Daija CookO. 10/14/2020 Amphetamine-Dextroamphetamine 5mg Tablets one tablet by mouth at 2 pm [id number] 30tabs Rosana Aguayo.O. 05/24/2020 Gabapentin 300mg Capsules take one capsule by mouth in the morning and two capsules in the evening 270caps M51. 16 Rosana Cook.O. 11/27/2019 Emgality 120mg/ml Solution Auto-In ject 1 injection subcutaneously monthly 3ml G43.009 Daija MckeonOPatel 11/07/2019 Amphetamine-Dextroamphet ER 20mg Caps ER 24HR one by mouth every day istop [id number] 30caps F90.0 Rosana Cook.O. 03/27/2019 Baclofen 10mg Tablets take 1 tablet by mouth three times daily as needed 270tabs Rosana Chu.O. 02/06/2019 Soma 350mg Tablets take one tablet by mouth once daily at bedtime as needed istop# [id number] 30tabs Rosana Chu.O. 01/09/2019 Fluconazole 150mg Tablets 1 tab by mouth as needed 1tabs Rosana Cook.O. 11/12 Imitrex 50mg Tablets 1 by mouth as needed if migraine still present after 2 hours repeat dose once max: 4 headaches per month 42tabs Rosana Cook.O. Vitamin B12 1000mcg Tablets ER 1 by mouth every day Unknown Bariatric Multivitamins/Iron Capsules Unknown Medications Administered in Office Medication SIG Qnty Indications Ordering Provider Date Injection Promethazine Hci To 50 MG Injection RAVINDER Calderón 018 Injection Ketorolac Tromethamine Per 15 MG (Toradol) Injection RAVINDER Amaya 03/21/2018 Therapeutic, Prophylactic Or Diagnostic Injection Subq/Im Injection RAVINDER Amaya 03/21/2018 Immunization Administration Single Or Co mbination Injection RAVINDER Calderón Immunizations CPT Code Status Date Vaccine Lot # [id number] Given 10/09/2017 Tetanus, Diphthe evelin Toxoids/Acellular Pertussis Vaccine 7 Or > [id number] Vital Signs Date Vital Result Comment 03/28/2021 1:02pm BP Systolic 138 mmHg BP Diastolic 78 mmHg Height 61.11 inches 5'1.11" Weight 207.38 lb BMI (Body Mass Index) 39.0 kg/m2 Heart Rate 102 /min Respiratory Rate 18 /min Body Temperature 98.3 F O2 % BldC Oximetry 98 % [place] Body Weight 105 lb 02/07/2021 8:54am BP Systolic 124 mmHg BP Diastolic 74 mmHg Height 61.11 inches 5'1.11" Weight 212.00 lb BMI (Body Mass Index) 39.9 kg/m2 Heart Rate 92 /min Respiratory Rate 18 /min Body Temperature 97.3 F O2 % BldC Oximetry 96 % [place] Body Weight 105 lb Results Test Acquired Date Facility Test Result H/L Range Note Comprehensive Metabolic Profil 02/01/2021 [place] [id number] [phone] Glucose, Fasting 86 mg/dL Normal 70-100 Blood Urea Nitrogen 13 mg/dL Normal 7-18 Creatinine For GFR 0.78 mg/dL Normal 0.55-1.30 Glomerular Filtration Rate > 60.0 Normal >51 1 Sodium Level 140 mEq/L Normal 136-145 Potassium Serum 4.3 mEq/L Normal 3.5-5.1 Chloride Level 107 mEq/L Normal 98-107 Carbon Dioxide Level 27 mEq/L Normal 21-32 Anion Gap 6 mEq/L Low 8-16 Calcium Level 8.1 mg/dL Low 8.5-10.1 Ast/Sgot 24 U/L Normal 7-37 Alt/SGPT 43 U/L Normal 12-78 Alkaline Phosphatase 189 U/L High 45-117 Bilirubin,Total 0.5 mg/dL Normal 0.2-1.0 Total Protein 6.5 GM/DL Normal 6.4-8.2 Albumin 3.3 GM/DL Normal 3.2-5.2 Albumin/Globulin Ratio 1.0 Low 1.2-2.2 Hemoglobin A1c 02/01/2021 [facility] n[facility] [address] [place] [address] [phone] Hemoglobin A1c 5.4 % Normal 2 Estimated Average Glucose 108 mg/dL Normal 60-110 CBC With Differential 02/01/[address] [address] [phone] White Blood Count 9.3 10 Normal 4.0-10.0 Red Blood Count 4.90 10 Normal 4.00-5.40 Hemoglobin 14.5 g/dL Normal 12.0-15.5 Hematocrit 44.5 % Normal 36.0-47.0 Mean Corpuscular Volume 90.8 fl Normal 80.0-96.0 Mean Corpuscular Hemoglobin 29.6 pg Normal 27.0-33.0 Mean Corpuscular HGB Conc 32.6 g/dL Normal 32.0-36.5 Red Cell Distribution Width 13.5 % Normal 11.5-14.5 Platelet Count, Automated 339 10 Normal 150-450 Neutrophils % 48.5 % Normal 36.0-66.0 Lymph % 40.3 % Normal 24.0-44.0 Hall % 8.5 % High 2.0-8.0 Eos % 1.6 % Normal 0.0-3.0 Baso % 0.7 % Normal 0.0-1.0 Immature Granulocyte % 0.4 % Normal 0-3.0 Nucleated Red Blood Cell % 0.0 % Normal 0-0 Neutrophils # 4.5 10 Normal 1.5-8.5 Lymph # 3.8 10 Normal 1.5-5.0 Hall # 0.8 10 Normal 0.0-0.8 Eos # 0.2 10 Normal 0.0-0.5 Baso # 0.1 10 Normal 0.0-0.2 Lipid Panel 02/01/2021 [facility] nter [address] [place] [address] [phone] Triglycerides Level 127 mg/dL Normal <150 Cholesterol Level 188 mg/dL Normal <200 HDL Cholesterol 46 mg/dL Normal >40 LDL Cholesterol 117 mg/dL High <100 Non-HDL-C 142 mg/dL Normal Cholesterol Risk Ratio 4.086 Normal <5 1 Units are mL/min/1.73 m2 Chronic Kidney Disease Staging per NKF: Stage I & II GFR >=60 Normal to Mildly Decreased Stage III GFR 30-59 Moderately Decreased Stage IV GFR 15-29 Severely Decreased Stage V GFR <15 Very Little GFR Left ESRD GFR <15 on PATIENT SAFETY COORDINATOR 2 REFERENCE RANGES: <=5.6% NORMAL 5.7-6.4% SUGGESTS IMPAIRED GLUCOSE META BOLISM/PREDIABETIC >= 6.5% ABNORMAL Procedures Date Code Description Status 03/28/2021 34248 Office/Outpatient Established Mo d MDM 30-39 Min Completed 02/07/2021 37407 Office/Outpatient Established Mo d MDM 30-39 Min Completed 10/14/2020 65112 Office/Outpatient Established Lo w MDM 20-29 Min Completed Medical Devices Description No Information Available Encounters Type Date Location Provider Dx Diagnosis Office Visit 03/28/2021 1:00p Family [facility] Lucía Cardoza D.O. 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, lumbar region E78.2 Mixed hyperlipidemia K21.9 Gastro-esophageal reflux dis ease without esophagitis I10 Essential (primary) hyperten herberth D32.0 Benign neoplasm of cerebral meninges Office Visit 10/14/2020 9:20a [facility] Rosana Cook.OPatel L71.9 Rosacea, unspecified Assessments Date Code Description Provider 03/28/2021 R20.2 Paresthesia of skin Rosana Marin.OPatel 03/28/2021 E11.9 Type 2 diabetes mellitus without complications Rosana Chu.OPatel 03/28/2021 Z98.84 Bariatric surgery status Rosana Ko.OPatel 03/28/2021 M51.16 Intervertebral disc disorders with radiculopathy, lumbar region Rosana Cook.OPatel 03/28/2021 E78.2 Mixed hyperlipidemia Rosana Avila.OPatel 03/28/2021 K21.9 Gastro-esophageal reflux disease without esophagitis Rosana Cook.OPatel 03/28/2021 I10 Essential (primary) hypertension Rosana Cook.OPatel 03/28/2021 D32.0 Benign neoplasm of cerebral meni debbiees Rosana Cook.OPatel 02/07/2021 E11.9 Type 2 diabetes mellitus without complications RAVINDER Calderón 02/07/2021 Z98.84 Bariatric surgery status RAVINDER Calderón 02/07/2021 M51.16 Intervertebral disc disorders with radiculopathy, lumbar region RAVINDER Calderón 02/07/2021 E78.2 Mixed hyperlipidemia RAVINDER Wahl 02/07/2021 K21.9 Gastro-esophageal reflux disease without esophagitis RAVINDER Calderón 02/07/2021 I10 Essential (primary) hypertension RAVINDER Calderón 02/07/2021 D32.0 Benign neoplasm of cerebral meni nges RAVINDER Calderón 10/14/2020 L71.9 Rosacea, unspecified Rosana Avila.[place] Plan of Treatment Future Appointment(s):* 05/06/2021 8:20 am - Lucía Cardoza D.O. at [facility] * 08/11/2021 9:30 am - Lucía Cardoza D.O. at [facility] Functional Status Description No Information Available Mental Status Description No Information Available Referrals Refer to Reason for Referral Status Appt Date Iraj Chu M.D. This is a 50 year old female who has know lumbar radiculopathy and is experiencing numbness and tingling in bilateral hands and feet. She has a stable meningioma and is s/p gamma knife with recent stable MRI brain. She has had an ENG at your office previously, she tells me. Please evaluate and treat. Sent [facility] [address] [place] [address] [phone]
--- OUTSIDE RECORDS SUMMARY | 2021-05-13 17:10 | CCD ---
Author Author [employer] Organization [employer] Address Unknown Phone Unavailable Care Team Providers Care Administrative Assistant Front Desk Name Role Phone FrancineWendyNhung Unavailable PROBLEMS Type Condition ICD9-CM Code TPA16-ON Code Onset Dates Condition S tatus W/U Status Risk SNOMED Code Notes Problem Migraine without aura G43.009 Active confirmed 70397457 Problem Cervical high risk HPV (human papillomavirus) test positiv e R87.810 Active confirmed 470799469 Problem Lichenification and lichen simplex chronicus 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 Active confirmed 101473732 Problem Irregular menstrual cycle N92.6 Active confirmed 82717654 ALLERGIES Allergen (clinical drug ingredient) Drug/Non Drug Allergy do cumented on EMR Reaction Allergy Type Onset Date Status tramadol Tramadol([facility] Code:[address]-97) H/A Drug Allergy Active ENCOUNTERS from 1968 to 2021-04-06 Encounter Location Date Provider Diagnosis [facility] [address] [phone] [place] [address] Mar, Nhung Escamilla Routine gynecologica l examination Z01.419 ; Breast cancer screening by mammogram Z12.31 and Asymptomatic postmenopausal status Z78.0 IMMUNIZATIONS Vaccine Route Administration Date Status Influenza 6mo & up Fluzone Unknown January 02, 2017 Other s SOCIAL HISTORY Tobacco Use: Social History Observation Description Date Details (start date - stop date) Never Smoker Sex Assigned At : Social History Observation Description Sex Assigned At Unknown Education: Question Answer Notes Level of Education: Finished High School Audit Question Answer Notes Total Score: 0 Interpretation: Alcohol Education Language: Question Answer Notes Languages spoken: Maori Sikh: Question Answer Notes Sikh 13 Gnosticism Sexual Hx: Question Answer Notes Had sex in the last 12 months (vaginal, oral, or anal)? Yes LMP: 11/2017 Have you ever had an STD? No Prevention Strategies discussed: Condoms with Men only Use protection? Yes How often? All of the time Drug and Alcohol Question Answer Notes Total Score: 0 Interpretation: No problems reported Alcohol Screening: Question Answer Notes Did you have a drink containing alcohol in the past year? No Points 0 Interpretation Negative BMI Care Goal Follow-Up Question Answer Notes Above Normal BMI Follow-Up Giving encouragement to exercise Tobacco Use: Question Answer Notes Are you a: never smoker never smoker REASON FOR REFERRAL No Information VITAL SIGNS Weight 207 lbs Mar, Height 61 in Mar, BMI 39.11 kg/m2 Mar, Blood pressure systolic 118 mm Hg Mar, Blood pressure diastolic 80 mm Hg Mar, MEDICATIONS Medication SIG (Take, Route, Frequency, Duration) Notes Start Da te End Date Status Xyzal 5 MG 1 tablet in the evening Orally Once a day for 30 day(s) Not-Taking Adderall XR 20 MG 1 capsule in the morning Orally Once a day Active Saxenda 18 MG/3ML Subcutaneous Daily Not-Taking Multivital Active Emgality 120 MG/ML as directed Subcutaneous Active SUMAtriptan Succinate 50 MG 1 tablet at least 2 hours between doses as needed Orally as needed Active Gabapentin 300 MG 1 capsule Orally 1 a.m., 2 tabs hs Active Claritin 10 MG 1 tablet Orally Once a day for 30 day(s) Active Jolessa 0.15-0.03 MG 1 tablet Orally Once a day for 91 day(s) October, Not-Taking LoSeasonique 0.1-0.02 & 0.01 MG 1 tablet Orally Once a day for 9 1 day(s) Dec, Not-Taking Baclofen 10 MG 1 tablet with food or milk O rally Three times a day for 30 day(s) Active CeleBREX 200 MG 1 capsule with food Orally Once a day Not-Taking Adderall 15 MG 1 tablet Orally Daily Not-Taking Biotin 10 MG 1 tablet Orally Once a day for 30 day(s) Active Ajovy 225 MG/1.5ML 1.5 ml Subcutaneous for 30 day(s) Not-Taking Bactrim DS 800-160 MG 1 tablet Orally Twice a day for 10 day(s) Dec, Not-Taking Naproxen 500 MG 1 tablet as needed Orally bid for 10 day(s) Dec, Not-Taking Omeprazole 20mg 20mg 1 oral daily Ac tive Vitamin D 1000 UNIT 1 tablet Orally Once a day for 30 day(s) Active Diflucan 150 MG 1 tablet Orally Daily for 1 dose(s) Dec Not-Taking PROCEDURES No Information RESULTS No Results REASON FOR VISIT annual/mammo MEDICAL (GENERAL) HISTORY Type Description Date Medical History brain tumor benign 2002 with recurrence 2017 with Gamma knife shrinking as of 2018 Medical History seasonal allergies Medical History migraine headache Surgical History carpal tunnel release/nestor. 2003, 2009. Surgical History foot surgery 2009 Surgical History arthroscopic knee surgery/left 2011 Surgical History brain tumor-no chemo, no radiation 2002 Surgical History cholycystecotmy 11/02/14 Surgical History colonoscopy/ EGD 08/2014 Surgical History Gastric bypass 05/2020 Hospitalization History gemma knife laser radiation on brain 01/29/2018 Goals Section No Information Health Concerns No Information MEDICAL EQUIPMENT No Information MENTAL STATUS No Information FUNCTIONAL STATUS No Information ASSESSMENTS Encounter Date Diagnosis Assessment Notes Treatment Notes Treatm ent Clinical Notes Mar, Routine gynecological examination (ICD-10 - Z01. 419) Mar, Breast cancer screening by mammogram (ICD-10 - Z 12.31) Mar, Asymptomatic postmenopausal status (ICD-10 - Z78 .0) Pt to report any episodes of pmb or pelvic pain. Advise regular physical activity including weight bearing exercise most days of the week. Reviewed calcium rich foods. HCRA completed and reviewed PLAN OF TREATMENT Treatment Notes Assessment Notes Clinical Notes Asymptomatic postmenopausal status Pt to report any episodes of pmb or pelvic pain. Advise regular physical activity including weight bearing exercise most days of the week. Reviewed calcium rich foods.HCRA completed and reviewed Treatment Notes Test Name Order Date WMM DIGITAL MAMMO SCREENING BILAT (Ultra sound if indicated) [facility] 2021-04-05 Next Appt Details 1 Year Reason:annual/mammo Follow Up:1 Yearannual/mammo Insurance Providers Payer Name Payer Address Payer Phone Insured Name Patient Relati onship to Insured Coverage Start Date Coverage End Date [facility] [employer] [address] [facility] [id number] GRACE AGUILAR self
--- OUTSIDE RECORDS SUMMARY | 2021-05-13 17:10 | CCD | Continuity of Care Document ---
Author Author Sonja ROCK MD Organization Unknown Address [address] [place] [address] Phone [phone] Care Team Providers Care Wholesale Diamond Broker Name Role Phone Ld Aguilar RPA AUTM [phone] Juan Wallace RPA AUTM [phone] Abby Rios MD AUTM [phone] Problems Description No Active Problems Social History Type Date Description Comments Sex Unknown ETOH Use Denies alcohol use ETOH Use Never used alcohol Tobacco Use Start: Unknown Denies Smoking Tobacco Use Start: Unknown Patient has never smoked Smoking Status Reviewed: 03/18/20 Patient has never smoked Allergies and adverse reactions Description No Known Drug Allergies Medications Active Medications SIG Qnty Indications Ordering Provide r Date Gabapentin 600mg Tablets Unknown Imitrex 50mg Tablets Unknown Claritin 10mg Tablets 1 by mouth every day Unknown Omeprazole 20mg Capsules DR Unknown Baclofen 10mg Tablets Juan Wallace [facility] Emgality 120mg/ml Solution Auto-Inject Juan Wallace [facility] Trulicity 0.75mg/0.5 ML Solution Pen-Inject Inject 0.75MG ( 1 Syringe) Subcutaneously Once Weekly Unknown Immunizations Description No Information Available Vital Signs Date Vital Result Comment 04/15/2021 9:20am Height 61 inches 5'1" Weight 206.50 lb BMI (Body Mass Index) 39.0 kg/m2 07/19/2020 8:57am Body Temperature 96.3 F Results Description No Information Available Procedures Description No Information Available Medical Devices Description No Information Available Encounters Description No Information Available Assessments Date Code Description Provider 04/15/2021 M54.16 Radiculopathy, lumbar region Bru nirmala Rock MD 04/15/2021 M47.896 Other spondylosis, lumbar region Iraj Rock MD 04/15/2021 M48.061 Spinal stenosis, lum bar region without neurogenic claudication Iraj Rock MD Plan of Treatment 04/15/2021 - Iraj Rock MD* M54.16 Radiculopathy, lumbar region* Follow up: * f/u after apt with ncn with BLB * M47.896 Other spondylosis, lumbar region * M48.061 Spinal stenosis, lumbar region without neurogenic claudication Functional Status Description No Information Available Mental Status Description No Information Available Referrals Refer to Reason for Referral Status Appt Date Sourav Bradley, PAValenciaC R20.2 PARESTHESIA OF SKIN Created [address] [place] [address] [place] [address] [phone]
--- OUTSIDE RECORDS SUMMARY | 2021-05-13 17:10 | CCD | Continuity of Care Document ---
Author Author Sonja CARDOZA D.O. Organization Unknown Address [address] [place] [address] Phone [phone] Care Team Providers Care Ornamental Rail Installer Name Role Phone Lucía Cardoza D.O. AUTM Gianluca Physical Therapy AUTM [phone] Ramon Cleveland MD AUTM [phone] Varun May MD AUTM [phone] Iraj Chu M.D. AUTM [phone] Problems Active Problems Provider Date Headache RAVINDER [...] one tablet by mouth at 2 pm [id number] 30tabs Rosana Aguayo.O. 05/24/2020 Gabapentin 300mg Capsules take one capsule by mouth in the morning and two capsules in the evening 270caps M51. 16 Rosana Cook.O. 11/27/2019 Emgality 120mg/ml Solution Auto-In ject 1 injection subcutaneously monthly 3ml G43.009 Daija MckeonOPatel 11/07/2019 Amphetamine-Dextroamphet ER 20mg Caps ER 24HR one by mouth every day istop [id number] 30caps F90.0 Rosana Cook.O. 03/27/2019 Baclofen 10mg Tablets take 1 tablet by mouth three times daily as needed 270tabs Rosana Chu.O. 02/06/2019 Soma 350mg Tablets take one tablet by mouth once daily at bedtime as needed istop# [id number] 30tabs Rosana Chu.O. 01/09/2019 Fluconazole 150mg Tablets [...] CPT Code Status Date Vaccine Lot # [id number] Given 10/09/2017 Tetanus, Diphthe evelin Toxoids/Acellular Pertussis Vaccine 7 Or > [id number] Vital Signs Date Vital Result Comment 03/28/2021 1:02pm BP Systolic 138 mmHg BP Diastolic 78 mmHg Height 61.11 inches 5'1.11" Weight 207.38 lb BMI (Body Mass Index) 39.0 kg/m2 Heart Rate 102 /min Respiratory Rate 18 /min Body Temperature 98.3 F O2 % BldC Oximetry 98 % [place] Body Weight 105 lb 02/07/2021 8:54am BP Systolic 124 mmHg BP Diastolic 74 mmHg Height 61.11 inches 5'1.11" Weight 212.00 lb BMI (Body Mass Index) 39.9 kg/m2 Heart Rate 92 /min Respiratory Rate 18 /min Body Temperature 97.3 F O2 % BldC Oximetry 96 % [place] Body Weight 105 lb Results Test Acquired Date Facility Test Result H/L Range Note Comprehensive Metabolic Profil 02/01/2021 [place] [id number] [phone] Glucose, Fasting 86 mg/dL Normal 70-100 Blood [...] Ratio 1.0 Low 1.2-2.2 Hemoglobin A1c 02/01/2021 [facility] [address] [place] [address] [phone] Hemoglobin A1c 5.4 % Normal 2 Estimated Average Glucose 108 mg/dL Normal 60-110 CBC With Differential 02/01/[address] [address] [phone] White Blood Count 9.3 10 Normal 4.0-10.0 [...] 36.0-66.0 Lymph % 40.3 % Normal 24.0-44.0 Josephine % 8.5 % High 2.0-8.0 Eos % 1.6 % Normal 0.0-3.0 Baso % 0.7 % Normal 0.0-1.0 Immature Granulocyte % 0.4 % Normal 0-3.0 Nucleated Red Blood Cell % 0.0 % Normal 0-0 Neutrophils # 4.5 10 Normal 1.5-8.5 Lymph # 3.8 10 Normal 1.5-5.0 Josephine # 0.8 10 Normal 0.0-0.8 Eos # 0.2 10 Normal 0.0-0.5 Baso # 0.1 10 Normal 0.0-0.2 Lipid Panel 02/01/2021 [facility] [address] [place] [address] [phone] Triglycerides Level 127 mg/dL Normal <150 Cholesterol [...] Little GFR Left ESRD GFR <15 on TOP HAT BODY MAKER 2 REFERENCE RANGES: <=5.6% NORMAL 5.7-6.4% SUGGESTS IMPAIRED GLUCOSE META BOLISM/PREDIABETIC >= 6.5% ABNORMAL Procedures Date Code Description Status 03/28/2021 70266 Office/Outpatient Established Mo d MDM 30-39 Min Completed 02/07/2021 92834 Office/Outpatient Established Mo d MDM 30-39 Min Completed 10/14/2020 13043 Office/Outpatient Established Lo w MDM 20-29 Min Completed Medical Devices Description No Information Available Encounters Type Date Location Provider Dx Diagnosis Office Visit 03/28/2021 1:00p Family [facility] Lucía Cardoza D.O. 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, lumbar region E78.2 Mixed hyperlipidemia K21.9 Gastro-esophageal reflux dis ease without esophagitis I10 Essential (primary) hyperten herberth D32.0 Benign neoplasm of cerebral meninges Office Visit 02/07/2021 9:00a [facility] RAVINDER Calderón E11.9 Type 2 diabetes mellitus wit hout complications Z98.84 Bariatric surgery status M51.16 Intervertebral disc disorder s w radiculopathy, lumbar region E78.2 Mixed hyperlipidemia K21.9 Gastro-esophageal reflux dis ease without esophagitis I10 Essential (primary) hyperten herberth D32.0 Benign neoplasm of cerebral meninges Office Visit 10/14/2020 9:20a [facility] Rosana Cook.OPatel L71.9 Rosacea, unspecified Assessments [...] 8:20 am - Lucía Cardoza D.O. at [facility] * 08/11/2021 9:30 am - Lucía Cardoza D.O. at [facility] Functional Status Description No Information Available Mental [...] tells me. Please evaluate and treat. Sent [facility] [address] [place] [address] [phone]
--- OUTSIDE RECORDS SUMMARY | 2021-05-13 17:10 | CCD | Continuity of Care Document ---
Author Author Sonja CARDOZA D.O. Organization Unknown Address [address] [place] [address] Phone [phone] Care Team Providers Care Visual Basic .Net Developer Name Role Phone Lucía Cardoza D.O. AUTM [phone] AUTM [phone] Ramon Cleveland MD AUTM [phone] Varun May MD AUTM [phone] Iraj Chu M.D. AUTM [phone] Problems Active Problems Provider Date Headache RAVINDER [...] Seat Belt/Car Seat Always uses seat belt Allergies and adverse reactions Active Allergies Criticality Reaction | Severity Comments Date Amitriptyline Unable to assess criticality hallucinati ons 02/12/2020 Inactive Allergies NKDA Unable to assess criticality 09/17/2017 Medications Active Medications SIG Qnty Indications Ordering Provide r Date Vitamin B-12 500mcg Tablets Sub 1 by mouth every day Rosana Cook.OPatel 04/[address] Take 1 capsule by mouth once daily 30caps Lucía Cardoza D.O. 0 12/06/2020 Eq Loratadine 10mg Tablets take 1 tablet by mouth once daily 30tabs Lucía Cardoza D.O. 0 12/06/2020 Metronidazole 0.75% Cream apply to face twice a day after washing with gentle cleanser, avoid eyes 45gm L 71.9 Rosana Cook.O. 10/14/2020 Amphetamine-Dextroamphetamine 5mg Tablets one tablet by mouth at 2 pm [id number] 30tabs Lucía De Dios D.O. 05/24/2020 Gabapentin 300mg Capsules take one capsule by mouth in the morning and two capsules in the evening 270caps M51. 16 Rosana Cook.O. 11/27/2019 Emgality 120mg/ml Solution Auto-In ject 1 injection subcutaneously monthly 3ml G43.009 Rosana Mckeon.O. 11/07/2019 Amphetamine-Dextroamphet ER 20mg Caps ER 24HR one by mouth every day istop [id number] 30caps F90.0 Rosana Cook.O. 03/27/2019 Baclofen 10mg Tablets take 1 tablet by mouth three times daily as needed 270tabs Rosana Chu.O. 02/06/2019 Soma 350mg Tablets take one tablet by mouth once daily at bedtime as needed istop# [id number] 30tabs Lucía Marcelino D.O. 01/09/2019 Fluconazole 150mg Tablets 1 tab by mouth as needed 1tabs Rosana Cook.OPatel 11/12 Imitrex 50mg Tablets 1 by mouth as needed if migraine still present after 2 hours repeat dose once max: 4 headaches per month 42tabs Lucía Cardoza D.O. Vitamin B12 1000mcg Tablets ER 1 by [...] CPT Code Status Date Vaccine Lot # [id number] Given 10/09/2017 Tetanus, Diphthe evelin Toxoids/Acellular Pertussis Vaccine 7 Or > [id number] Vital Signs Date Vital Result Comment 03/28/2021 1:02pm BP Systolic 138 mmHg BP Diastolic 78 mmHg Height 61.11 inches 5'1.11" Weight 207.38 lb BMI (Body Mass Index) 39.0 kg/m2 Heart Rate 102 /min Respiratory Rate 18 /min Body Temperature 98.3 F O2 % BldC Oximetry 98 % [place] Body Weight 105 lb 02/07/2021 8:54am BP Systolic 124 mmHg BP Diastolic 74 mmHg Height 61.11 inches 5'1.11" Weight 212.00 lb BMI (Body Mass Index) 39.9 kg/m2 Heart Rate 92 /min Respiratory Rate 18 /min Body Temperature 97.3 F O2 % BldC Oximetry 96 % [place] Body Weight 105 lb Results Test Acquired Date Facility Test Result H/L Range Note Hemoglobin A1c 03/29/2021 [facility] [address] [place] [address] [id number] [phone] Hemoglobin A1c 5.4 % Normal 1 Estimated Average Glucose 108 mg/dL Normal 60-110 Comprehensive Metabolic Profil 03/29/[address] [phone] Glucose, Fasting 92 mg/dL Normal 70-100 Blood Urea Nitrogen 7 mg/dL Normal 7-18 Creatinine For GFR 0.83 mg/dL Normal 0.55-1.30 Glomerular Filtration Rate > 60.0 Normal >51 2 Sodium Level 141 mEq/L Normal 136-145 Potassium Serum 3.7 mEq/L Normal 3.5-5.1 Chloride Level 109 mEq/L High 98-107 Carbon Dioxide Level 27 mEq/L Normal 21-32 Anion Gap 5 mEq/L Low 8-16 Calcium Level 8.9 mg/dL Normal 8.5-10.1 Ast/Sgot 20 U/L Normal 7-37 Alt/SGPT 34 U/L Normal 12-78 Alkaline Phosphatase 185 U/L High 45-117 Bilirubin,Total 0.5 mg/dL Normal 0.2-1.0 Total Protein 6.4 GM/DL Normal 6.4-8.2 Albumin 3.2 GM/DL Normal 3.2-5.2 Albumin/Globulin Ratio 1.0 Low 1.2-2.2 CBC With Differential 03/29/2021 [place] [id number] [phone] White Blood Count 8.7 10 Normal 4.0-10.0 Red Blood Count 4.84 10 Normal 4.00-5.40 Hemoglobin 14.3 g/dL Normal 12.0-15.5 Hematocrit 44.2 % Normal 36.0-47.0 Mean Corpuscular Volume 91.3 fl Normal 80.0-96.0 Mean Corpuscular Hemoglobin 29.5 pg Normal 27.0-33.0 Mean Corpuscular HGB Conc 32.4 g/dL Normal 32.0-36.5 Red Cell Distribution Width 13.3 % Normal 11.5-14.5 Platelet Count, Automated 351 10 Normal 150-450 Neutrophils % 40.5 % Normal 36.0-66.0 Lymph % 48.6 % High 24.0-44.0 [place] % 8.2 % High 2.0-8.0 Eos % 1.5 % Normal 0.0-3.0 Baso % 0.7 % Normal 0.0-1.0 Immature Granulocyte % 0.5 % Normal 0-3.0 Nucleated Red Blood Cell % 0.0 % Normal 0-0 Neutrophils # 3.5 10 Normal 1.5-8.5 Lymph # 4.3 10 Normal 1.5-5.0 [place] # 0.7 10 Normal 0.0-0.8 Eos # 0.1 10 Normal 0.0-0.5 Baso # 0.1 10 Normal 0.0-0.2 Total Iron Binding Capacit 03/29/[address] [address] [phone] Iron (Fe) 89 g/dL Normal 50-170 Total Iron Binding Capacity 288 g/dL Normal 250-450 Percent Saturation 30.9 % Normal 13.2-45.0 Laboratory test finding 03/29/[address] [address] [phone] Vitamin B12 Level > 2000 pg/mL High 247-911 3 Erythrocyte Sedimentation Rate 12 mm/hr Normal 0-30 Lyme Disease SCRN With Confirm 03/29/[address] [address] [phone] Lyme Disease IgG/IgM Antibodie <0.91 ISR Normal 0 .00-0.90 4 Lyme Disease IgM Ab Quantitati <0.80 index Normal 0.00-0.79 5 Laboratory test finding 03/29/[address] [address] [phone] Vitamin B6,Pyridoxal Phosphate 44.4 ug/L High 2 .0-32.8 6 Comprehensive Metabolic Profil 02/01/[address] [address] [phone] Glucose, Fasting 86 mg/dL Normal 70-100 Blood Urea Nitrogen 13 mg/dL Normal 7-18 Creatinine For GFR 0.78 mg/dL Normal 0.55-1.30 Glomerular Filtration Rate > 60.0 Normal >51 7 Sodium Level 140 mEq/L Normal 136-145 Potassium [...] Ratio 1.0 Low 1.2-2.2 Hemoglobin A1c 02/01/[address] [address] [phone] Hemoglobin A1c 5.4 % Normal 8 Estimated Average Glucose 108 mg/dL Normal 60-110 CBC With Differential 02/01/[address] [address] [phone] White Blood Count 9.3 10 Normal 4.0-10.0 [...] 36.0-66.0 Lymph % 40.3 % Normal 24.0-44.0 [place] % 8.5 % High 2.0-8.0 Eos % 1.6 % Normal 0.0-3.0 Baso % 0.7 % Normal 0.0-1.0 Immature Granulocyte % 0.4 % Normal 0-3.0 Nucleated Red Blood Cell % 0.0 % Normal 0-0 Neutrophils # 4.5 10 Normal 1.5-8.5 Lymph # 3.8 10 Normal 1.5-5.0 [place] # 0.8 10 Normal 0.0-0.8 Eos # 0.2 10 Normal 0.0-0.5 Baso # 0.1 10 Normal 0.0-0.2 Lipid Panel 02/01/[address] [address] [phone] Triglycerides Level 127 mg/dL Normal <150 Cholesterol Level 188 mg/dL Normal <200 HDL Cholesterol 46 mg/dL Normal >40 LDL Cholesterol 117 mg/dL High <100 Non-HDL-C 142 mg/dL Normal Cholesterol Risk Ratio 4.086 Normal <5 1 REFERENCE RANGES: <=5.6% NORMAL 5.7-6.4% SUGGESTS IMPAIRED GLUCOSE META BOLISM/PREDIABETIC >= 6.5% ABNORMAL 2 Units are mL/min/1.73 m2 Chronic Kidney Disease Staging per NKF: Stage I & II GFR >=60 Normal to Mildly Decreased Stage III GFR 30-59 Moderately Decreased Stage IV GFR 15-29 Severely Decreased Stage V GFR <15 Very Little GFR Left ESRD GFR <15 on BELT POLISHER 3 VITAMIN B12 NORMAL RANGE NORMAL 247 - 911 PG/ML INDETERMINATE 211 - 246 PG/ML DEFICIENT LESS THAN 211 PG/ML 4 Negative <0.91 Equivocal 0.91 - 1.09 Positive >1.09 5 Negative <0.80 Equivocal 0.80 - 1.19 Positive >1.19 . IgM levels may peak at 3-6 weeks post infection, then gradually decline. 6 This test was developed and its performance characteristics determined by [employer]. It has not been cleared or approved by the Food and Drug Administration. Performed at: - [facility] [address] [id number] [facility]: Renee Trujillo MD, Phone: [phone] Performed at: - [facility] [address] [id number] [facility]: Rell Carver MD, Phone: [phone] Units are mL/min/1.73 m2 Chronic Kidney Disease Staging per NKF: Stage I & II GFR >=60 Normal to Mildly Decreased Stage III GFR 30-59 Moderately Decreased Stage IV GFR 15-29 Severely Decreased Stage V GFR <15 Very Little GFR Left ESRD GFR <15 on BELT POLISHER 8 REFERENCE RANGES: <=5.6% NORMAL 5.7-6.4% SUGGESTS IMPAIRED GLUCOSE META BOLISM/PREDIABETIC >= 6.5% ABNORMAL Procedures Date Code Description Status 03/28/2021 74536 Office/Outpatient Established Mo d MDM 30-39 Min Completed 02/07/2021 76410 Office/Outpatient Established Mo d MDM 30-39 Min Completed 10/14/2020 07302 Office/Outpatient Established Lo w MDM 20-29 Min Completed Medical Devices Description No Information Available Encounters Type Date Location Provider Dx Diagnosis Office Visit 03/28/2021 1:00p [facility] Lucía Cardoza D.O. 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, lumbar region E78.2 Mixed hyperlipidemia K21.9 Gastro-esophageal reflux dis ease without esophagitis I10 Essential (primary) hyperten herberth D32.0 Benign neoplasm of cerebral meninges Office Visit 10/14/2020 9:20a [facility] Rosana Cook.OPatel L71.9 Rosacea, unspecified Assessments Date Code Description Provider 03/28/2021 R20.2 Paresthesia of skin Rosana Marin.OPatel 03/28/2021 E11.9 Type 2 diabetes mellitus without complications Rosana Chu.OPatel 03/28/2021 Z98.84 Bariatric surgery status Rosana Ko.OPatel 03/28/2021 M51.16 Intervertebral disc disorders with radiculopathy, lumbar region Lucía Cardoza D.O. 03/28/2021 E78.2 Mixed hyperlipidemia Lucía Soto D.O. 03/28/2021 K21.9 Gastro-esophageal reflux disease without esophagitis Lucía Cardoza D.O. 03/28/2021 I10 Essential (primary) hypertension Lucía Cardoza D.O. 03/28/2021 D32.0 Benign neoplasm of cerebral meni nges Lucía Cardoza D.O. 02/07/2021 E11.9 Type 2 diabetes mellitus without [...] nges RAVINDER Calderón 10/14/2020 L71.9 Rosacea, unspecified Lucía Soto D.O. Plan of Treatment Future Appointment(s):* 05/06/2021 8:20 am - Lucía Cardoza D.O. at [facility] * 08/11/2021 9:30 am - Lucía Cardoza D.O. at [facility] Functional Status Description No Information Available Mental [...] tells me. Please evaluate and treat. Sent [facility] [address] [place] [address] [phone]
--- OUTSIDE RECORDS SUMMARY | 2021-05-13 17:10 | CCD | Continuity of Care Document ---
Author Author Sonja CARDOZA D.O. Organization Unknown Address [address] [place] [address] Phone [phone] Care Team Providers Care Indoor Landscaper/Gardener Name Role Phone Lucía Cardoza D.O. AUTM [phone] [facility] AUTM [phone] Ramon Cleveland MD AUTM [phone] Varun May MD AUTM [phone] Iraj Chu M.D. AUTM [phone] Problems Active Problems Provider Date Headache RAVINDER [...] one tablet by mouth at 2 pm [id number] 30tabs Rosana Aguayo.O. 05/24/2020 Gabapentin 300mg Capsules take one capsule by mouth in the morning and two capsules in the evening 270caps M51. 16 Lucía Cardoza D.O. 11/27/2019 Emgality 120mg/ml Solution Auto-In ject 1 injection subcutaneously monthly 3ml G43.009 Daija MckeonOPatel 11/07/2019 Amphetamine-Dextroamphet ER 20mg Caps ER 24HR one by mouth every day istop [id number] 30caps F90.0 Rosana Cook.O. 03/27/2019 Baclofen 10mg Tablets take 1 tablet by mouth three times daily as needed 270tabs Rosana Chu.O. 02/06/2019 Soma 350mg Tablets take one tablet by mouth once daily at bedtime as needed istop# [id number] 30tabs Rosana Chu.O. 01/09/2019 Fluconazole 150mg Tablets [...] CPT Code Status Date Vaccine Lot # [id number] Given 10/09/2017 Tetanus, Diphthe evelin Toxoids/Acellular Pertussis Vaccine 7 Or > [id number] Vital Signs Date Vital Result Comment 03/28/2021 1:02pm BP Systolic 138 mmHg BP Diastolic 78 mmHg Height 61.11 inches 5'1.11" Weight 207.38 lb BMI (Body Mass Index) 39.0 kg/m2 Heart Rate 102 /min Respiratory Rate 18 /min Body Temperature 98.3 F O2 % BldC Oximetry 98 % [place] Body Weight 105 lb 02/07/2021 8:54am BP Systolic 124 mmHg BP Diastolic 74 mmHg Height 61.11 inches 5'1.11" Weight 212.00 lb BMI (Body Mass Index) 39.9 kg/m2 Heart Rate 92 /min Respiratory Rate 18 /min Body Temperature 97.3 F O2 % BldC Oximetry 96 % [place] Body Weight 105 lb Results Test Acquired Date Facility Test Result H/L Range Note Comprehensive Metabolic Profil 02/01/2021 [place] [id number] [phone] Glucose, Fasting 86 mg/dL Normal 70-100 Blood [...] Ratio 1.0 Low 1.2-2.2 Hemoglobin A1c 02/01/2021 [facility] [address] [place] [address] [phone] Hemoglobin A1c 5.4 % Normal 2 Estimated Average Glucose 108 mg/dL Normal 60-110 CBC With Differential 02/01/[address] [address] [phone] White Blood Count 9.3 10 Normal 4.0-10.0 [...] 36.0-66.0 Lymph % 40.3 % Normal 24.0-44.0 [place] % 8.5 % High 2.0-8.0 Eos % 1.6 % Normal 0.0-3.0 Baso % 0.7 % Normal 0.0-1.0 Immature Granulocyte % 0.4 % Normal 0-3.0 Nucleated Red Blood Cell % 0.0 % Normal 0-0 Neutrophils # 4.5 10 Normal 1.5-8.5 Lymph # 3.8 10 Normal 1.5-5.0 [place] # 0.8 10 Normal 0.0-0.8 Eos # 0.2 10 Normal 0.0-0.5 Baso # 0.1 10 Normal 0.0-0.2 Lipid Panel 02/01/2021 [facility] [address] [place] [id number] [phone] Triglycerides Level 127 mg/dL Normal <150 Cholesterol [...] Little GFR Left ESRD GFR <15 on ADVISORY INTERN 2 REFERENCE RANGES: <=5.6% NORMAL 5.7-6.4% SUGGESTS IMPAIRED GLUCOSE META BOLISM/PREDIABETIC >= 6.5% ABNORMAL Procedures Date Code Description Status 03/28/2021 18931 Office/Outpatient Established Mo d MDM 30-39 Min Completed 02/07/2021 26595 Office/Outpatient Established Mo d MDM 30-39 Min Completed 10/14/2020 99866 Office/Outpatient Established Lo w MDM 20-29 Min Completed Medical Devices Description No Information Available Encounters Type Date Location Provider Dx Diagnosis Office Visit 03/28/2021 1:00p [facility] Lucía Cardoza D.O. 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 at [facility] * 08/11/2021 9:30 am - Lucía Cardoza D.O. at [facility] Functional Status Description No Information [...] Sent [facility] [address] [place] [address] [phone]
--- OUTSIDE RECORDS SUMMARY | 2021-05-13 17:12 | CCD ---
Author Author [facility] Address Unknown Phone Unavailable Care Team Providers [employer] Account Executive Name Role Phone Shailesh SCHULER [employer] ADVISER STACIE Unavailable [phone] HARINI, Bren. VETERANS ADVISER STACIE Unavailable [phone] HARINI, rBen. VETERANS ADVISER STACIE Unavailable [phone] HARINI, Bren. VETERANS ADVISER STACIE Unavailable [phone] HARINI, Bren. VETERANS ADVISER STACIE Unavailable [phone] HARINI, Bren. VETERANS ADVISER STACIE Unavailable [phone] HARINI, Bren. VETERANS ADVISER STACIE Unavailable [phone] HARINI, Bren. VETERANS ADVISER STACIE Unavailable [phone] HARINI, Bren. VETERANS ADVISER STACIE Unavailable [phone] HARINI, Bren. VETERANS ADVISER STACIE Unavailable [phone] HARINI, A. VETERANS ADVISER STACIE Unavailable [phone] HARINI, A. VETERANS ADVISER STACIE Unavailable [phone] HARINI, A. VETERANS ADVISER STACIE Unavailable [phone] HARINI, A. VETERANS ADVISER STACIE Unavailable [phone] HARINI, A. VETERANS ADVISER STACIE Unavailable [phone] HARINI, A. VETERANS ADVISER STACIE Unavailable [phone] Dusty MCNALLY MD Unavailable Unavailable Dusty MCNALLY MD Unavailable Unavailable Dusty MCNALLY MD Unavailable Unavailable Dusty MCNALLY MD Unavailable Unavailable Dusty MCNALLY MD Unavailable Unavailable Dusty MCNALLY MD Unavailable Unavailable Dusty MCNALLY MD Unavailable Unavailable Dusty MCNALLY MD Unavailable Unavailable Dusty MCNALLY MD Unavailable Unavailable Dusty MCNALLY MD Unavailable Unavailable Dusty MCNALLY MD Unavailable Unavailable Dusty MCNALLY MD Unavailable Unavailable Dusty MCNALLY MD Unavailable Unavailable Dusty MCNALLY MD Unavailable Unavailable Dusty MCNALLY MD Unavailable Unavailable Dusty MCNALLY MD Unavailable Unavailable Dusty MCNALLY MD Unavailable Unavailable Dusty MCNALLY MD Unavailable Unavailable Dusty MCNALLY MD Unavailable Unavailable Dusty MCNALLY MD Unavailable Unavailable Dusty MCNALLY MD Unavailable Unavailable Dusty MCNALLY MD Unavailable Unavailable Dusty MCNALLY MD Unavailable Unavailable Dusty MCNALLY MD Unavailable Unavailable Dusty MCNALLY MD Unavailable Unavailable Dusty MCNALLY MD Unavailable Unavailable Dusty MCNALLY MD Unavailable Unavailable Dusty MCNALLY MD Unavailable Unavailable Dusty MCNALLY MD Unavailable Unavailable Dusty MCNALLY MD Unavailable Unavailable Dusty MCNALLY MD Unavailable Unavailable Dusty MCNALLY MD Unavailable Unavailable Dusty MCNALLY MD Unavailable Unavailable Dusty MCNALLY MD Unavailable Unavailable Dusty MCNALLY MD Unavailable Unavailable Dusty MCNALLY MD Unavailable Unavailable Dusty MCNALLY MD Unavailable Unavailable Dusty MCNALLY MD Unavailable Unavailable Dusty MCNALLY MD Unavailable Unavailable Dusty MCNALLY MD Unavailable Unavailable Dusty MCNALLY MD Unavailable Unavailable Dusty MCNALLY MD Unavailable Unavailable Dusty MCNALLY MD Unavailable Unavailable Dusty MCNALLY MD Unavailable Unavailable Dusty MCNALLY MD Unavailable Unavailable Dusty MCNALLY MD Unavailable Unavailable Dusty MCNALLY MD Unavailable Unavailable Dusty MCNALLY MD Unavailable Unavailable Dusty MCNALLY MD Unavailable Unavailable Dusty MCNALLY MD Unavailable Unavailable Dusty MCNALLY MD Unavailable Unavailable Dusty MCNALLY MD Unavailable Unavailable Dusty MCNALLY MD Unavailable Unavailable Dusty MCNALLY MD Unavailable Unavailable Dusty MCNALLY MD Unavailable Unavailable Dusty MCNALLY MD Unavailable Unavailable Dusty MCNALLY MD Unavailable Unavailable Dusty MCNALLY MD Unavailable Unavailable Dusty MCNALLY MD Unavailable Unavailable Dusty MCNALLY MD Unavailable Unavailable Dusty MCNALLY MD Unavailable Unavailable Dusty MCNALLY MD Unavailable Unavailable Dusty MCNALLY MD Unavailable Unavailable Dusty MCNALLY MD Unavailable Unavailable Dusty MCNALLY MD Unavailable Unavailable Dusty MCNALLY MD Unavailable Unavailable Dusty MCNALLY MD Unavailable Unavailable Dusty MCNALLY MD Unavailable Unavailable Dusty MCNALLY MD Unavailable Unavailable Dusty MCNALLY MD Unavailable Unavailable Dusty MCNALLY MD Unavailable Unavailable Dusty MCNALLY MD Unavailable Unavailable Dusty MCNALLY MD Unavailable Unavailable Dusty MCNALLY MD Unavailable Unavailable Dusty MCNALLY MD Unavailable Unavailable Dusty MCNALLY MD Unavailable Unavailable Dusty MCNALLY MD Unavailable Unavailable Dusty MCNALLY MD Unavailable Unavailable Dusty MCNALLY MD Unavailable Unavailable Dusty MCNALLY MD Unavailable Unavailable Dusty MCNALLY MD Unavailable Unavailable Dusty MCNALLY MD Unavailable Unavailable Dusty MCNALLY MD Unavailable Unavailable Dusty MCNALLY MD Unavailable Unavailable Dusty MCNALLY MD Unavailable Unavailable Dusty MCNALLY MD Unavailable Unavailable Dusty MCNALLY MD Unavailable Unavailable Dusty MCNALLY MD Unavailable Unavailable Dusty MCNALLY MD Unavailable Unavailable Dusty MCNALLY MD Unavailable Unavailable Dusty MCNALLY MD Unavailable Unavailable Dusty MCNALLY MD Unavailable Unavailable Dusty MCNALLY MD Unavailable Unavailable Dusty MCNALLY MD Unavailable Unavailable Dusty MCNALLY MD Unavailable Unavailable Dusty MCNALLY MD Unavailable Unavailable Mandappa, Solange CASAC Unavailable Unavailable Mandappa, Solange CASAC Unavailable Unavailable Mandappa, Solange CASAC Unavailable Unavailable Mandappa, Solange CASAC Unavailable Unavailable ROBERT-AJITH, LUCÍA DO Unavailable Unavailable ROBERT-AJITH, LUCÍA DO Unavailable Unavailable ROBERT-AJITH, LUCÍA DO Unavailable Unavailable ROBERT-AJITH, LUCÍA DO Unavailable Unavailable ROBERT-AJITH, LUCÍA DO Unavailable Unavailable ROBERT-AJITH, LUCÍA DO Unavailable Unavailable ROBERT-AJITH, LUCÍA DO Unavailable Unavailable ROBERT-AJITH, LUCÍA DO Unavailable Unavailable ROBERT-AJITH, LUCÍA DO Unavailable Unavailable ROBERT-AJITH, LUCÍA DO Unavailable Unavailable ROBERT-AJITH, LUCÍA DO Unavailable Unavailable ROBERT-AJITH, LUCÍA DO Unavailable Unavailable ROBERT-AJITH, LUCÍA DO Unavailable Unavailable ROBERT-AJITH, LUCÍA DO Unavailable Unavailable ROBERT-AJITH, LUCÍA DO Unavailable Unavailable RBOERT-AJITH, LUCÍA DO Unavailable Unavailable ROBERT-AJITH, LUCÍA DO Unavailable Unavailable ROBERT-AJITH, LUCÍA DO Unavailable Unavailable ROBERT-AJITH, LUCÍA DO Unavailable Unavailable ROBERT-AJITH, LUCÍA DO Unavailable Unavailable ROBERT-AJITH, LUCÍA DO Unavailable Unavailable ROBERT-AJITH, LUCÍA DO Unavailable Unavailable ROBERT-AJITH, LUCÍA DO Unavailable Unavailable ROBERT-AJITH, LUCÍA DO Unavailable Unavailable ROBERT-AJITH, LUCÍA DO Unavailable Unavailable ROBERT-AJITH, LUCÍA DO Unavailable Unavailable ROBERT-AJITH, LUCÍA DO Unavailable Unavailable ROBERT-AJITH, LUCÍA DO Unavailable Unavailable ROBERT-AJITH, LUCÍA DO Unavailable Unavailable ROBERT-AJITH, LUCÍA DO Unavailable Unavailable ROBERT-AJITH, LUCÍA DO Unavailable Unavailable ROBERT-AJITH, LUCÍA DO Unavailable Unavailable ROBERT-JAITH, LUCÍA DO Unavailable Unavailable ROBERT-AJITH, LUCÍA DO Unavailable Unavailable ROBERT-AJITH, LUCÍA DO Unavailable Unavailable ROBERT-AJITH, LUCÍA DO Unavailable Unavailable ROBERT-AJITH, LUCÍA DO Unavailable Unavailable ROBERT-AJITH, LUCÍA DO Unavailable Unavailable ROBERT-AJITH, LUCÍA DO Unavailable Unavailable ROBERT-AJITH, LUCÍA DO Unavailable Unavailable ROBERT-AJITH, LUCÍA DO Unavailable Unavailable ROBERT-AJITH, LUCÍA DO Unavailable Unavailable ROBERT-AJITH, LUCÍA DO Unavailable Unavailable ROBERT-AJITH, LUCÍA DO Unavailable Unavailable ROBERT-AJITH, LUCÍA DO Unavailable Unavailable ROBERT-AJITH, LUCÍA DO Unavailable Unavailable ROBERT-AJITH, LUCÍA DO Unavailable Unavailable ROBERT-AJITH, LUCÍA DO Unavailable Unavailable ROBERT-AJITH, LUCÍA DO Unavailable Unavailable ROBERT-AJITH, LUCÍA DO Unavailable Unavailable ROBERT-AJITH, LUCÍA DO Unavailable Unavailable ROBERT-AJITH, LUCÍA DO Unavailable Unavailable ROBERT-AJITH, LUCÍA DO Unavailable Unavailable ROBERT-AJITH, LUCÍA DO Unavailable Unavailable ROBERT-AJITH, LUCÍA DO Unavailable Unavailable ROBERT-AJITH, LUCÍA DO Unavailable Unavailable ROBERT-AJITH, LUCÍA DO Unavailable Unavailable ROBERT-AJITH, LUCÍA DO Unavailable Unavailable ROBERT-AJITH, LUCÍA DO Unavailable Unavailable ROBERT-AJITH, LUCÍA DO Unavailable Unavailable ROBERT-AJITH, LUCÍA DO Unavailable Unavailable ROBERT-AJITH, LUCÍA DO Unavailable Unavailable ROBERT-AJITH, LUCÍA DO Unavailable Unavailable ROBERT-AJITH, LUCÍA DO Unavailable Unavailable ROBERT-AJITH, LUCÍA DO Unavailable Unavailable ROBERT-AJITH, LUCÍA DO Unavailable Unavailable ROBERT-AJITH, LUCÍA DO Unavailable Unavailable ROBERT-AJITH, LUCÍA DO Unavailable Unavailable ROBERT-AJITH, LUCÍA DO Unavailable Unavailable ROBERT-AJITH, LUCÍA DO Unavailable Unavailable ROBERT-AJITH, LUCÍA DO Unavailable Unavailable ROBERT-AJITH, LUCÍA DO Unavailable Unavailable ROBERT-AJITH, LUCÍA DO Unavailable Unavailable ROBERT-AJITH, LUCÍA DO Unavailable Unavailable ROBERT-AJITH, LUCÍA DO Unavailable Unavailable ROBERT-AJITH, LUCÍA DO Unavailable Unavailable ROBERT-AJITH, LUCÍA DO Unavailable Unavailable ROBERT-AJITH, LUCÍA DO Unavailable Unavailable ROBERT-AJITH, LUCÍA DO Unavailable Unavailable ROBERT-AJITH, LUCÍA DO Unavailable Unavailable ROBERT-AJITH, LUCÍA DO Unavailable Unavailable ROBERT-AJITH, LUCÍA DO Unavailable Unavailable ROBERT-AJITH, LUCÍA DO Unavailable Unavailable ROBERT-AJITH, LUCÍA DO Unavailable Unavailable Rodrigo, Juan PA Unavailable Unavailable Rodrigo, Juan PA Unavailable Unavailable Rodrigo, Juan PA Unavailable Unavailable Rodrigo, Juan PA Unavailable Unavailable Rodrigo, Juan PA Unavailable Unavailable Rodrigo, Juan PA Unavailable Unavailable Rodrigo, Juan PA Unavailable Unavailable Rodrigo, Juan PA Unavailable Unavailable Rodrigo, Juan PA Unavailable Unavailable Rodrigo, Juan PA Unavailable Unavailable Rodrigo, Juan PA Unavailable Unavailable Rodrigo, Juan PA Unavailable Unavailable Rodrigo, Juan PA Unavailable Unavailable Rodrigo, Juan PA Unavailable Unavailable Rodrigo, Juan PA Unavailable Unavailable Rodrigo, Juan PA Unavailable Unavailable Rodrigo, Juan PA Unavailable Unavailable Rodriog, Juan PA Unavailable Unavailable Rodrigo, Juan PA Unavailable Unavailable Rodrigo, Juan PA Unavailable Unavailable Rodrigo, Juan PA Unavailable Unavailable Rodrigo, Juan PA Unavailable Unavailable Rordigo, Juan PA Unavailable Unavailable Rodrigo, Juan PA Unavailable Unavailable Rodrigo, Juan PA Unavailable Unavailable Rodrigo, Juan PA Unavailable Unavailable Rodrigo, Juan PA Unavailable Unavailable Rodrigo, Juan PA Unavailable Unavailable Rodrigo, Juan PA Unavailable Unavailable Rodrigo, Juan PA Unavailable Unavailable Rodrigo, Juan PA Unavailable Unavailable Rodrigo, Juan PA Unavailable Unavailable Rodrigo, Juan PA Unavailable Unavailable Rodrigo, Juan PA Unavailable Unavailable Rodrigo, Juan PA Unavailable Unavailable Rodrigo, Juan PA Unavailable Unavailable Rodrigo, Juan PA Unavailable Unavailable Rodrigo, Juan PA Unavailable Unavailable Rodrigo, Juan PA Unavailable Unavailable Rodrigo, Juan PA Unavailable Unavailable Rodrigo, Juan PA Unavailable Unavailable Rodrigo, Juan PA Unavailable Unavailable Rodrigo, Juan PA Unavailable Unavailable Rodrigo, Juan PA Unavailable Unavailable Rodrigo, Juan PA Unavailable Unavailable Rodrigo, Juan PA Unavailable Unavailable Rodrigo, Juan PA Unavailable Unavailable Rodrigo, Juan PA Unavailable Unavailable Rodrigo, Juan PA Unavailable Unavailable Rodrigo, Juan PA Unavailable Unavailable Rodrigo, Juan PA Unavailable Unavailable Rodrigo, Juan PA Unavailable Unavailable Rodrigo, Juan PA Unavailable Unavailable Rodrigo, Juan PA Unavailable Unavailable Vasile Chu MD Unavailable Unavailable Vasile Chu MD Unavailable Unavailable Vasile Chu MD Unavailable Unavailable Vasile Chu MD Unavailable Unavailable Chu, Vasile Galo MD Unavailable Unavailable Chu, Vasile Galo MD Unavailable Unavailable Chu, Vasile Galo MD Unavailable Unavailable Chu, Vasile Galo MD Unavailable Unavailable Chu, Vasile Galo MD Unavailable Unavailable Chu, Vasile Galo MD Unavailable Unavailable Chu, Vasile Galo MD Unavailable Unavailable Chu, Vasile Galo MD Unavailable Unavailable Chu, Vasile Galo MD Unavailable Unavailable Chu, Vasile Galo MD Unavailable Unavailable Chu, Vasile Galo MD Unavailable Unavailable Chu, Vasile Galo MD Unavailable Unavailable Chu, Vasile Galo MD Unavailable Unavailable Chu, Vasile Galo MD Unavailable Unavailable Chu, Vasile Galo MD Unavailable Unavailable Chu, Vasile Galo MD Unavailable Unavailable Chu, Vasile Galo MD Unavailable Unavailable Chu, Vasile Galo MD Unavailable Unavailable Chu, Vasile Galo MD Unavailable Unavailable Chu, Vasile Galo MD Unavailable Unavailable Chu, Vasile Galo MD Unavailable Unavailable Chu, Vasile Galo MD Unavailable Unavailable Chu, Vasile Galo MD Unavailable Unavailable Chu, Vasile Galo MD Unavailable Unavailable Chu, Vasile Galo MD Unavailable Unavailable Chu, Vasile Galo MD Unavailable Unavailable Chu, Vasile Galo MD Unavailable Unavailable Chu, Vasile Galo MD Unavailable Unavailable Chu, Vasile Galo MD Unavailable Unavailable Chu, Vasile Galo MD Unavailable Unavailable Chu, Vasile Galo MD Unavailable Unavailable Chu, Vasile Galo MD Unavailable Unavailable Chu, Vasile Galo MD Unavailable Unavailable Chu, Vasile Galo MD Unavailable Unavailable Chu, Vasile Galo MD Unavailable Unavailable Chu, Vasile Galo MD Unavailable Unavailable Chu, Vasile Galo MD Unavailable Unavailable Chu, Vasile Galo MD Unavailable Unavailable Chu, Vasile Galo MD Unavailable Unavailable Chu, Vasile Galo MD Unavailable Unavailable Chu, Vasile Galo MD Unavailable Unavailable Chu, Vasile Galo MD Unavailable Unavailable Chu, Vasile Galo MD Unavailable Unavailable Chu, Vasile Galo MD Unavailable Unavailable Chu, Vasile Galo MD Unavailable Unavailable Chu, Vasile Galo MD Unavailable Unavailable Bradley, M Barratt PA Unavailable Unavailable Bradley, M Barratt PA Unavailable Unavailable Bradley, M Barratt PA Unavailable Unavailable Bradley, M Barratt PA Unavailable Unavailable Bradley, M Barratt PA Unavailable Unavailable Bradley, M Barratt PA Unavailable Unavailable Bradley, M Barratt PA Unavailable Unavailable Bradley, M Barratt PA Unavailable Unavailable Bradley, M Barratt PA Unavailable Unavailable Bradley, M Barratt PA Unavailable Unavailable Bradley, M Barratt PA Unavailable Unavailable Bradley, M Barratt PA Unavailable Unavailable Bradley, M Barratt PA Unavailable Unavailable Bradley, M Barratt PA Unavailable Unavailable Bradley, M Barratt PA Unavailable Unavailable Bradley, M Barratt PA Unavailable Unavailable Bradley, M Barratt PA Unavailable Unavailable Bradley, M Barratt PA Unavailable Unavailable Brdaley, M Barratt PA Unavailable Unavailable Bradley, M Barratt PA Unavailable Unavailable Bradley, M Barratt PA Unavailable Unavailable Bradley, M Barratt PA Unavailable Unavailable Bradley, M Barratt PA Unavailable Unavailable Bradley, M Barratt PA Unavailable Unavailable Bradley, M Barratt PA Unavailable Unavailable Bradley, M Barratt PA Unavailable Unavailable Bradley, M Barratt PA Unavailable Unavailable Bradley, M Barratt PA Unavailable Unavailable Bradley, M Barratt PA Unavailable Unavailable Nizam, Rayozzie TOMLINSON Unavailable Unavailable Nizam, Rayees MD Unavailable Unavailable Nizam, Rayozzie TOMLINSON Unavailable Unavailable Nizam Rayozzie TOMLINSON Unavailable Unavailable Nizam Rayozzie TOMLINSON Unavailable Unavailable Nizam Rayozzie MD Unavailable Unavailable Nizam Rayozzie TOMLINSON Unavailable Unavailable Nizam, Rayozzie MD Unavailable Unavailable Nizam, Rayozzie MD Unavailable Unavailable Nizam Rayozzie TOMLINSON Unavailable Unavailable Nizam Rayozzie MD Unavailable Unavailable Nizam Rayozzie TOMLINSON Unavailable Unavailable Nizam Rayozzie MD Unavailable Unavailable Nizam Rayozzie MD Unavailable Unavailable Nizam, Rayozzie MD Unavailable Unavailable Nizam, Rayozzie MD Unavailable Unavailable Nizam Rayozzie TOMLINSON Unavailable Unavailable Nizam Rayozzie TOMLINSON Unavailable Unavailable Nizam Rayozzie TOMLINSON Unavailable Unavailable Nizam Rayees MD Unavailable Unavailable Nizam Rayozzie MD Unavailable Unavailable Nizam Rayees MD Unavailable Unavailable Nizam Rayozzie MD Unavailable Unavailable Nizam Rayozzie MD Unavailable Unavailable Nizam Rayozzie MD Unavailable Unavailable Nizam Rayozzie MD Unavailable Unavailable Nizam, Rayees MD Unavailable Unavailable Nizam, Rayees MD Unavailable Unavailable Nizam, Rayees MD Unavailable Unavailable Nizam, Rayees MD Unavailable Unavailable Nizam, Rayozzie MD Unavailable Unavailable Nizam, Rayozzie MD Unavailable Unavailable Nizam, Rayozzie MD Unavailable Unavailable Nizam, Rayees MD Unavailable Unavailable Nizam, Rayees MD Unavailable Unavailable Nizam, Rayees MD Unavailable Unavailable Nizam, Rayees MD Unavailable Unavailable Nizam, Rayees MD Unavailable Unavailable Nizam, Rayozzie MD Unavailable Unavailable Nizam, Rayees MD Unavailable Unavailable Nizam, Rayees MD Unavailable Unavailable Nizam, Rayozzie TOMLINSON Unavailable Unavailable Nizam Rayozzie MD Unavailable Unavailable Nizam Rayees MD Unavailable Unavailable Nizam, Rayozzie MD Unavailable Unavailable Nizam, Rayees MD Unavailable Unavailable Nizam, Rayees MD Unavailable Unavailable Nizam, Rayees MD Unavailable Unavailable Nizam, Rayees MD Unavailable Unavailable Nizam Rayozzie MD Unavailable Unavailable Nizam, Rayozzie MD Unavailable Unavailable Nizam, Rayozzie MD Unavailable Unavailable Nizam, Rayees MD Unavailable Unavailable Nizam, Rayees MD Unavailable Unavailable Nizam, Rayees MD Unavailable Unavailable Nizam Rayozzie TOMLINSON Unavailable Unavailable Nizam Rayozzie TOMLINSON Unavailable Unavailable Nizam Rayozzie TOMLINSON Unavailable Unavailable Nizam, Rayozzie TOMLINSON Unavailable Unavailable Nizam, Rayees MD Unavailable Unavailable Nizam, Rayees MD Unavailable Unavailable Nizam, Rayees MD Unavailable Unavailable Nizam Rayozzie TOMLINSON Unavailable Unavailable Nizam Rayozzie MD Unavailable Unavailable Nizajay Rayozzie TOMLINSON Unavailable Unavailable Nizam Rayozzie TOMLINSON Unavailable Unavailable Nizam, Rayozzie TOMLINSON Unavailable Unavailable Nizam Rayozzie TOMLINSON Unavailable Unavailable Nizam Rayozzie TOMLINSON Unavailable Unavailable Nizam Rayozzie TOMLINSON Unavailable Unavailable Nizam Rayozzie TOMLINSON Unavailable Unavailable Nizam Rayozzie TOMLINSON Unavailable Unavailable Nizajay Rayozzie TOMLINSON Unavailable Unavailable Nizam Rayozzie TOMLINSON Unavailable Unavailable Nizam Rayees MD Unavailable Unavailable Nizam, Rayees MD Unavailable Unavailable Nataliazam, Rayees MD Unavailable Unavailable Daren SNELL MD Unavailable Unavailable Daren SNELL MD Unavailable Unavailable Daren SNELL MD Unavailable Unavailable Daren SNELL MD Unavailable Unavailable Daren SNELL MD Unavailable Unavailable Daren SNELL MD Unavailable Unavailable Daren SNELL MD Unavailable Unavailable Daren SNELL MD Unavailable Unavailable Daren SNELL MD Unavailable Unavailable Daren SNELL MD Unavailable Unavailable Daren SNELL MD Unavailable Unavailable Daren SNELL MD Unavailable Unavailable Daren SNELL MD Unavailable Unavailable Daren SNELL MD Unavailable Unavailable Daren SNELL MD Unavailable Unavailable Daren SNELL MD Unavailable Unavailable Daren SNELL MD Unavailable Unavailable Daren SNELL MD Unavailable Unavailable Daren SNELL MD Unavailable Unavailable Daren SNELL MD Unavailable Unavailable Daren SNELL MD Unavailable Unavailable Daren SNELL MD Unavailable Unavailable Daren SNELL MD Unavailable Unavailable Daren SNELL MD Unavailable Unavailable Daren SNELL MD Unavailable Unavailable Daren SNELL MD Unavailable Unavailable CHANNING S MELLISSA TOMLINSON Unavailable Unavailable CHANNING S MELLISSA TOMLINSON Unavailable Unavailable CHANNING S MELLISSA TOMLINSON Unavailable Unavailable CHANNING S MELLISSA TOMLINSON Unavailable Unavailable CAHNNING S MELLISSA TOMLINSON Unavailable Unavailable CHANNING S MELLISSA TOMLINSON Unavailable Unavailable CHANNING S MELLISSA TOMLINSON Unavailable Unavailable CHANNING S MELLISSA TOMLINSON Unavailable Unavailable CHANNING S MELLISSA TOMLINSON Unavailable Unavailable CHANNING S MELLISSA TOMLINSON Unavailable Unavailable CHANNING, S MELLISSA TOMLINSON Unavailable Unavailable CHANNING, S MELLISSA TOMLINSON Unavailable Unavailable CHANNING S MELLISSA TOMLINSON Unavailable Unavailable CHANNING, S MELLISSA TOMLINSON Unavailable Unavailable CHANNING, S MELLISSA TOMLINSON Unavailable Unavailable CHANNING, S MELLISSA TOMLINSON Unavailable Unavailable CHIN, S MELLISSA TOMLINSON Unavailable Unavailable CHANNING, S MELLISSA TOMLINSON Unavailable Unavailable CHANNING S MELLISSA TOMLINSON Unavailable Unavailable CHANNING, S MELLISSA TOMLINSON Unavailable Unavailable CHANNING, S MELLISSA TOMLINSON Unavailable Unavailable CHANNING S MELLISSA TOMLINSON Unavailable Unavailable CHANNING, S MELLISSA TOMLINSON Unavailable Unavailable CHANNING, S MELLISSA TOMLINSON Unavailable Unavailable CHANNING S MELLISSA TOMLINSON Unavailable Unavailable CHANNING S MELLISSA TOMLINSON Unavailable Unavailable CHANNING S MELLISSA TOMLINSON Unavailable Unavailable CHANNING S MELLISSA TOMLINSON Unavailable Unavailable CHANNING, S MELLISSA TOMLINSON Unavailable Unavailable CHANNING S MELLISSA TOMLINSON Unavailable Unavailable CHANNING S MELLISSA TOMLINSON Unavailable Unavailable CHANNING S MELLISSA TOMLINSON Unavailable Unavailable CHANNING S MELLISSA TOMLINSON Unavailable Unavailable CHANNING S MELLISSA TOMLINSON Unavailable Unavailable CHANNING S MELLISSA TOMLINSON Unavailable Unavailable CHANNING S MELLISSA TOMLINSON Unavailable Unavailable CHANNING S MELLISSA TOMLINSON Unavailable Unavailable CHANNING S MELLISSA TOMLINSON Unavailable Unavailable CHANNING S MELLISSA TOMLINSON Unavailable Unavailable CHANNING S MELLISSA TOMLINSON Unavailable Unavailable CHANNING S MELLISSA TOMLINSON Unavailable Unavailable CHANNING S MELLISSA TOMLINSON Unavailable Unavailable CHANNING S MELLISSA TOMLINSON Unavailable Unavailable CHANNING S MELLISSA TOMLINSON Unavailable Unavailable CHANNING S MELLISSA TOMLINSON Unavailable Unavailable CHANNING S MELLISSA TOMLINSON Unavailable Unavailable CHANNING S MELLISSA TOMLINSON Unavailable Unavailable Daren SNELL MD Unavailable Unavailable CHANNING S MELLISSA TOMLINSON Unavailable Unavailable CHANNING S MELLISSA TOMLINSON Unavailable Unavailable CHANNING S MELLISSA TOMLINSON Unavailable Unavailable CHANNING S MELLISSA TOMLINSON Unavailable Unavailable CHANNING S MELLISSA TOMLINSON Unavailable Unavailable CHANNING S MELLISSA TOMLINSON Unavailable Unavailable CHANNING S MELLISSA TOMLINSON Unavailable Unavailable CHANNING S MELLISSA TOMLINSON Unavailable Unavailable CHANNING S MELLISSA TOMLINSON Unavailable Unavailable CHANNIGN S MELLISSA TOMLINSON Unavailable Unavailable CHANNING S MELLISSA TOMLINSON Unavailable Unavailable CHANNING S MELLISSA TOMLINSON Unavailable Unavailable Maring, Dmitry PA Unavailable Unavailable Maring, Dmitry PA Unavailable Unavailable Maring, Dmitry PA Unavailable Unavailable Maring, Dmitry PA Unavailable Unavailable Maring, Dmitry PA Unavailable Unavailable Maring, Dmitry PA Unavailable Unavailable Maring, Dmitry PA Unavailable Unavailable Maring, Dmitry PA Unavailable Unavailable Maring, Dmitry PA Unavailable Unavailable Maring, Dmitry PA Unavailable Unavailable Maring, Dmitry PA Unavailable Unavailable Maring, Dmitry PA Unavailable Unavailable Maring, Dmitry PA Unavailable Unavailable Maring, Dmitry PA Unavailable Unavailable Maring, Dmitry PA Unavailable Unavailable Maring, Dmitry PA Unavailable Unavailable Jeremias Koch MD Unavailable Unavailable Jeremias Koch MD Unavailable Unavailable Jeremias Koch MD Unavailable Unavailable Jeremias Koch MD Unavailable Unavailable Jeremias Koch MD Unavailable Unavailable Jeremias Koch MD Unavailable Unavailable Jeremias Koch MD Unavailable Unavailable Jeremias Koch MD Unavailable Unavailable Obradovic, Vladan Unavailable Unavailable Obradovic, Vladan Unavailable Unavailable Obradovic, Vladan Unavailable Unavailable Obradovic, Vladan Unavailable Unavailable Obradovic, Vladan Unavailable Unavailable Obradovic, Vladan Unavailable Unavailable Obradovic, Vladan Unavailable Unavailable Obradovic, Vladan Unavailable Unavailable Obradovic, Vladan Unavailable Unavailable Obradovic, Vladan Unavailable Unavailable Obradovic, Vladan Unavailable Unavailable Obradovic, Vladan Unavailable Unavailable Obradovic, Vladan Unavailable Unavailable Obradovic, Vladan Unavailable Unavailable Obradovic, Vladan Unavailable Unavailable Obradovic, Vladan Unavailable Unavailable Obradovic, Vladan Unavailable Unavailable Obradovic, Vladan Unavailable Unavailable Obradovic, Vladan Unavailable Unavailable Obradovic, Vladan Unavailable Unavailable Obradovic, Vladan Unavailable Unavailable Obradovic, Vladan Unavailable Unavailable Obradovic, Vladan Unavailable Unavailable Obradovic, Vladan Unavailable Unavailable Obradovic, Vladan Unavailable Unavailable Obradovic, Vladan Unavailable Unavailable Obradovic, Vladan Unavailable Unavailable Obradovic, Vladan Unavailable Unavailable Obradovic, Vladan Unavailable Unavailable Obradovic, Vladan Unavailable Unavailable Obradovic, Vladan Unavailable Unavailable Obradovic, Vladan Unavailable Unavailable Obradovic, Vladan Unavailable Unavailable Obradovic, Vladan Unavailable Unavailable Obradovic, Vladan Unavailable Unavailable Obradovic, Vladan Unavailable Unavailable Obradovic, Vladan Unavailable Unavailable Obradovic, Vladan Unavailable Unavailable Obradovic, Vladan Unavailable Unavailable Obradovic, Vladan Unavailable Unavailable Obradovic, Vladan Unavailable Unavailable Obradovic, Vladan Unavailable Unavailable Obradovic, Vladan Unavailable Unavailable Obradovic, Vladan Unavailable Unavailable Obradovic, Vladan Unavailable Unavailable Obradovic, Vladan Unavailable Unavailable Obradovic, Vladan Unavailable Unavailable Obradovic, Vladan Unavailable Unavailable VanArnam JR, W Mazin PA Unavailable Unavailable VanArnam JR, W Mazin PA Unavailable Unavailable VanArnam JR, W Mazin PA Unavailable Unavailable VanArnam JR, W Mazin PA Unavailable Unavailable VanArnam JR, W Mazin PA Unavailable Unavailable VanArnam JR, W Mazin PA Unavailable Unavailable VanArnam JR, W Mazin PA Unavailable Unavailable VanArnam JR, W Mazin PA Unavailable Unavailable VanArnam JR, W Mazin PA Unavailable Unavailable VanArnam JR, W Mazin PA Unavailable Unavailable VanArnam JR, W Mazin PA Unavailable Unavailable VanArnam JR, W Mazin PA Unavailable Unavailable VanArnam JR, W Mazin PA Unavailable Unavailable VanArnam JR, W Mazin PA Unavailable Unavailable VanArnam JR, W Mazin PA Unavailable Unavailable VanArnam JR, W Mazin PA Unavailable Unavailable VanArnam JR, W Mazin PA Unavailable Unavailable VanArnam JR, W Mazin PA Unavailable Unavailable VanArnam JR, W Mazin PA Unavailable Unavailable VanArnam JR, W Mazin PA Unavailable Unavailable VanArnam JR, W Mazin PA Unavailable Unavailable VanArnam JR, W Mazin PA Unavailable Unavailable VanArnam JR, W Mazin PA Unavailable Unavailable VanArnam JR, W Mazin PA Unavailable Unavailable VanArnam JR, W Mazin PA Unavailable Unavailable VanArnam JR, W Mazin PA Unavailable Unavailable VanArnam JR, W Mazin PA Unavailable Unavailable VanArnam JR, W Mazin PA Unavailable Unavailable VanArnam JR, W Mazin PA Unavailable Unavailable VanArnam JR, W Mazin PA Unavailable Unavailable VanArnam JR, W Mazin PA Unavailable Unavailable VanArnam JR, W Mazin PA Unavailable Unavailable VanArnam JR, W Mazin PA Unavailable Unavailable VanArnam JR, W Mazin PA Unavailable Unavailable VanArnam JR, W Mazin PA Unavailable Unavailable VanArnam JR, W Mazin PA Unavailable Unavailable VanArnam JR, W Mazin PA Unavailable Unavailable VanArnam JR, W Mazin PA Unavailable Unavailable VanArnam JR, W Mazin PA Unavailable Unavailable VanArnam JR, W Mazin PA Unavailable Unavailable VanArnam JR, W Mazin PA Unavailable Unavailable VanArnam JR, W Mazin PA Unavailable Unavailable VanArnam JR, W Mazin PA Unavailable Unavailable Castilano, Uzma PA Unavailable Unavailable Castilano, Uzma PA Unavailable Unavailable Castilano, Uzma PA Unavailable Unavailable Castilano, Uzma PA Unavailable Unavailable Castilano, Uzma PA Unavailable Unavailable Castilano, Uzma PA Unavailable Unavailable Castilano, Uzma PA Unavailable Unavailable Castilano, Uzma PA Unavailable Unavailable Castilano, Uzma PA Unavailable Unavailable Castilano, Uzma PA Unavailable Unavailable Castilano, Uzma PA Unavailable Unavailable Castilano, Uzma PA Unavailable Unavailable Castilano, Uzma PA Unavailable Unavailable Castilano, Uzma PA Unavailable Unavailable Castilano, Uzma PA Unavailable Unavailable Castilano, Uzma PA Unavailable Unavailable Castilano, Uzma PA Unavailable Unavailable Castilano, Uzma PA Unavailable Unavailable Castilano, Uzma PA Unavailable Unavailable Castilano, Uzma PA Unavailable Unavailable Castilano, Uzma PA Unavailable Unavailable Castilano, Uzma PA Unavailable Unavailable Castilano, Uzma PA Unavailable Unavailable Castilano, Uzma PA Unavailable Unavailable Castilano, Uzma PA Unavailable Unavailable Castilano, Uzma PA Unavailable Unavailable Castilano, Uzma PA Unavailable Unavailable Castilano, Uzma PA Unavailable Unavailable Castilano, Uzma PA Unavailable Unavailable Castilano, Uzma PA Unavailable Unavailable Castilano, Uzma PA Unavailable Unavailable Castilano, Uzma PA Unavailable Unavailable Castilano, Uzma PA Unavailable Unavailable Castilano, Uzma PA Unavailable Unavailable Castilano, Uzma PA Unavailable Unavailable Castilano, Uzma PA Unavailable Unavailable Castilano, Uzma PA Unavailable Unavailable Castilano, Uzma PA Unavailable Unavailable Castilano, Uzma PA Unavailable Unavailable Castilano, Uzma PA Unavailable Unavailable Castilano, Uzma PA Unavailable Unavailable Castilano, Uzma PA Unavailable Unavailable Castilano, Uzma PA Unavailable Unavailable Castilano, Uzma PA Unavailable Unavailable Castilano, Uzma PA Unavailable Unavailable Castilano, Uzma PA Unavailable Unavailable Castilano, Uzma PA Unavailable Unavailable Castilano, Uzma PA Unavailable Unavailable Castilano, Uzma PA Unavailable Unavailable Castilano, Uzma PA Unavailable Unavailable Castilano, Uzma PA Unavailable Unavailable Castilano, Uzma PA Unavailable Unavailable Castilano, Uzma PA Unavailable Unavailable Castilano, Uzma PA Unavailable Unavailable Castilano, Uzma PA Unavailable Unavailable Castilano, Uzma PA Unavailable Unavailable Castilano, Uzma PA Unavailable Unavailable Castilano, Uzma PA Unavailable Unavailable Castilano, Uzma PA Unavailable Unavailable Uzma Gold Unavailable Unavailable Re-disclosure Warning The records that you are about to access may contain information from federally-assisted alcohol or drug abuse programs. If such information is present, then the following federally mandated warning applies: This information has been disclosed to you from records protected by federal confidentiality rules (42 CFR part 2). The federal rules prohibit you from making any further disclosure of this information unless further disclosure is expressly permitted by the written consent of the person to whom it pertains or as otherwise permitted by 42 CFR part 2. A general authorization for the release of medical or other information is NOT sufficient for this purpose. The Federal rules restrict any use of the information to criminally investigate or prosecute any alcohol or drug abuse patient.The records that you are about to access may contain highly sensitive health information, the redisclosure of which is protected by Article 27-F of the [place] Public Health law. If you continue you may have access to information: Regarding HIV / AIDS; Provided by facilities licensed or operated by the [place] Office of Mental Health; or Provided by the [place] Office for People With Developmental Disabilities. If such information is present, then the following [place] mandated warning applies: This information has been disclosed to you from confidential records which are protected by state law. State law prohibits you from making any further disclosure of this information without the specific written consent of the person to whom it pertains, or as otherwise permitted by law. Any unauthorized further disclosure in violation of state law may result in a fine or mcfp sentence or both. A general authorization for the release of medical or other information is NOT sufficient authorization for further disc losure. Allergies and Adverse Reactions Type Description Substance Reaction Status Data Source(s ) Propensity to adverse reactions AMITRIPTYLINE Amitriptyline Other (See Comments) High Active [facility] High Family History Family Member Name Family Member Gender Family Member Status Date o f Status Description Data Source(s) Unknown Male Problem MEDENT ([facility]) Unknown Unknown Problem MEDENT ([facility]) Unknown Male Problem MEDENT ([facility]) Unknown Female Problem MEDENT ([facility] Unknown Female Problem MEDENT ([facility] Unknown Female Problem MEDENT ([facility] Unknown Female Unknown Male Encounters Encounter Providers Location Date Indications Data Source(s ) Outpatient Attender: STACIE AGUIRRELLISTER 04/18 02:13:32 PM EST - 05/05/2021 02:57:46 PM EST DocuTap ([facility] ) Outpatient [address] [facility] [id number] 04/05/2021 12:00:00 AM EDT eCW1 ([facility]) Outpatient Attender: LUCÍA PENNINGTON [facility] 03/28/2021 01:00:00 PM EDT [facility] ([facility]) Outpatient Attender: MELLISSA SNELL MD [id number] 02/16/2021 12:00:00 AM EDT [facility] Outpatient Attender: Juan CASTELLON Family [facility] 02/07/2021 09:00:00 AM EDT MEDENT ([facility]) Unknown [address] [facility] [id number] 01/19/2021 12:00:00 AM EDT eCW1 ([facility]) Outpatient Attender: LUCÍA PENNINGTON [facility] 10/14/2020 09:20:00 AM EDT [facility] ([facility]) Outpatient Attender: Dmitry CASTELLON 10/10/19 01:03:18 PM EDT - 10/09/2020 01:40:17 PM EDT [facility] ([facility] ) Outpatient Attender: LUCÍA PENNINGTON [facility] 08/10/2020 08:30:00 AM EST [facility] ([facility]) Office Visit Attender: Sourav CASTELLON Physical Therapy 07:45:00 AM EST MEDENT ([facility]) Outpatient Attender: LUCÍA PENNINGTON [facility] 06/22/2020 08:30:00 AM EST [facility]ENT ([facility]) Outpatient Admitter: Greg LongoriaReferrer: Greg correacelina [facility] 06/09/2020 07:56:[address] [facility] Outpatient Attender: Greg Chacon mitter: Greg LongoriaReferrer: Greg Longoria MOB-MOB.PAT 05/31/2020 12:32:06 PM EST - 05/31/2020 01:43:16 PM EST [facility] Inpatient Attender: Greg LongoriaAdmitter: Greg pace [id number] 05/20/2020 01:37:55 PM EST - 06/15/2020 04:25:00 PM EST [facility] Patient discharged. Outpatient Attender: LUCÍA PENNINGTON DO [facility] 05/19/2020 08:30:00 AM EST MEDENT ([facility]) Outpatient Referrer: Michi Mack MD [facility]OB[facility]MOB.[facility] 2019 11:14:29 AM EST - 05/14/2020 11:14:[address] [facility] Outpatient Attender: HECTOR MCNALLY MDReferrer: LUCÍA DALTON DO 05/07/2020 10:13:25 AM EST [facility] Recurring Patient Referrer: LUCÍA PENNINGTON DO 05/07/2020 09:43:32 AM EST [facility] Outpatient Attender: Mazin Stout JRReferrer: LUCÍA JACOBS DO 04/20/2020 11:51:30 AM EST [facility] Outpatient Attender: Uzma Gold PA Attender: Michi Mack MDAdmitter: Michi Mack MDReferrer: José Miguel Koch MD ES1-SJ. 04/12/2020 01:07: 21 PM EDT - 05/18/2020 04:07:[address] [facility] Patient discharged. Recurring Patient Referrer: LUCÍA PENNINGTON DO 04/12/2020 09:55:10 AM EDT [facility] Recurring Patient Referrer: LUCÍA PENNINGTON DO 04/12/2020 09:43:16 AM EDT [facility] Recurring Patient Referrer: LUCÍA PENNINGTON DO 04/02/2020 10:30:49 AM EDT [facility] Recurring Patient Referrer: LUCÍA PENNINGTON DO 03/26/2020 01:05:32 PM EDT [facility] Outpatient [address] [facility] [address] [facility] [address] 03/26/2020 12:00:00 AM EDT eCW1 ([facility]) Recurring Patient Referrer: LUCÍA PENNINGTON DO 03/23/2020 12:31:55 PM EDT [facility] Recurring Patient Referrer: Solange Sharp CASAC 03/22/2020 10:45:56 AM EDT [facility] Office Visit Attender: Iraj Chu MD Physical Therapy 2019 09:45:00 AM EDT MEDENT ([facility]) Immunizations Vaccine Date Status Description Data Source(s) COVID-19 VACCINE Moderna 04/09/2021 12:00:00 AM EDT completed [facility] Vaccine Series Complete: YESThis Data wa s Submitted to [facility] Via [employer]. COVID-19 VACCINE Pfizer 09/08/2020 12:00:00 AM EDT completed [facility] Vaccine Series Complete: NOThis Data was Submitted to [facility] Via [employer]. COVID-19 VACCINE Pfizer 08/18/2020 12:00:00 AM EST completed [facility] Vaccine Series Complete: NOThis Data was Submitted to [facility] Via [employer]. Medications Medication Brand Name Start Date Product Form Dose Route Admi nistrative Instructions Pharmacy Instructions Status Indications Reaction Description Data Source(s) 150 mg 05/07/2021 12:00:00 AM EST tablet 2 TAKE ONE TABLET BY MOUTH ONCE ON DAY ONE, THEN TAKE 2ND TABLET IN 48 HOURS TAKE ONE TABLET BY MOUTH ONCE ON DAY ONE, THEN TAKE 2ND TABLET IN 48 HOURS SOLD: 05/07/2021 [facility] 875 mg 05/07/2021 12:00:00 AM EST tablet 20 TAKE ONE TABLET BY MOUTH EVERY 12 HOURS FOR 10 DAYS TAKE ONE TABLET BY MOUTH EVERY 12 HOURS FOR 10 DAYS SO LD: 05/07/2021 [facility] Fluticasone propionate 0.05 MG/ACTUAT Metered Dose Jose al [place] 50 mcg/actuation FLUTICASONE PROPIONATE 05/05/2021 12:00:00 AM EST spray,suspension 16 INSTILL 2 SPRAY IN EACH NOSTRIL ONCE DAILY INSTILL 2 SPRAY IN EACH NOSTRIL ONCE DAILY SOLD: 05/05/2021 [facility] Vitamin B 12 0.5 MG Oral Tablet Vitamin B-12 04/07/2021 12:00:00 AM E DT ORAL active MEDENT ([facility]) Omeprazole 20 MG Delayed Release Oral Capsule Omeprazole 12/06/2020 12:00:00 AM EDT ORAL active MEDENT ([facility]) Loratadine 10 MG Oral Tablet Eq Loratadine 12/06/2020 12:00:00 AM EDT ORAL active MEDENT ([facility]) Metronidazole 7.5 MG/ML Topical Cream Metronidazole 10/14/2020 12:00:00 AM EDT active MEDENT ( [facility]) 10 mg 10/09/2020 12:00:00 AM EDT tablet 12 TAKE ONE TABLET BY MOUTH FOUR TIMES A DAY FOR 3 DAYS TAKE ONE TABLET BY MOUTH FOUR TIMES A DAY FOR 3 DAYS SOLD: 10/09/2020 [facility] Cephalexin 500 MG Oral Capsule CEPHALEXIN 07/27/2020 12:00:00 AM EST capsule 30 TAKE ONE CAPSULE BY MOUTH THREE TIMES A DAY FOR 10 DAY S TAKE ONE CAPSULE BY MOUTH THREE TIMES A DAY FOR 10 DAYS SOLD: 07/27/2020 [facility] gabapentin 300 MG Oral Capsule gabapentin (NEURONTIN) capsule 300 mg gabapentin (NEURONTIN) capsule 300 mg 06/15/2020 09:00:00 AM EST 300 mg Oral active 300 mg, Oral, Every morning, First dose on Sun06/15/20 at 0900, Post-op [facility] Medication administered onsite lactated ringers bolus 1,000 mL [id number] 06/15/2020 06:00:00 AM EST 1000 mL Intravenous completed 1,000 mL , Intravenous, Administer over 2 Hours, Once, Sun06/15/20 at 0600, For 1 dose, Post-op [facility] Medication administered onsite ondansetron (ZOFRAN-ODT) disintegrating tablet 8 mg 06/15/2020 06:00:00 AM EST 8 mg Oral active [Order 1 Start] Name: ondansetron (ZOFRAN-ODT) disintegrating tablet 8 mg Signed Summary: 8 mg, Oral, Every 6 hours PRN, nausea, Starting Sun06/15/20 at 0600, Post-op [Order 1 End] [Order 2 Start] N regine: ondansetron (ZOFRAN) injection 8 mg Signed Summary: 8 mg, Intravenous, Every 6 hours PRN, nausea, severe nausea, Starting Sun06/15/20 at 0600, Post-op [Order 2 End] [facility] Medication administered onsite Insulin Lispro 100 UNT/ML Injectable Crystal ution insulin lispro (HumaLOG) injection 4-16 Units insulin lispro (HumaLOG) injection 4-16 Units 06/15/20 12:00:00 AM EST Subcutaneous active 4-1 6 Units, Subcutaneous, Q6HSS, First dose on Sun06/15/20 at 0000, Post-op
Blood Sugar Units of HumaLOG 145-170 4 units 171-220 6 units 221-270 8 units 271-320 10 units 321-370 12 units 371-420 14 units >420 16 units, Call MD
[facility] Medication administered onsite Acetaminophen 325 MG Oral Tablet acetaminophen (TYLENO L) 325 MG tablet acetaminophen (TYLENOL) 325 MG tablet 06/15/2020 12:00:00 AM EST 65 0 mg Oral active Take 2 tablets (650 mg total) by mouth every 6 (six) hours as needed for pain [facility] Ondansetron 4 MG Disintegrating Oral Tab let ondansetron (ZOFRAN-ODT) 4 MG disintegrating tablet ondansetron (ZOFRAN-ODT) 4 MG disintegrating tablet 06/15/2020 12:00:00 AM EST 4 mg Oral active Take 1 tablet (4 mg total) by mouth every 6 (six) hours as needed for nausea [facility] Omeprazole 40 MG Delayed Release Oral Ca psule omeprazole (PRILOSEC) 40 MG capsule omeprazole (PRILOSEC) 40 MG capsule 06/15/2020 12:00:00 AM EST 40 mg Oral active Take 1 capsule (40 m g total) by mouth daily [facility] Acetaminophen 325 MG Oral Tablet acetaminophen (TYLENO L) 325 MG tablet 650 mg acetaminophen (TYLENOL) 325 MG tablet 650 mg 06/15/2020 12:00:00 AM EST 650 mg Oral active 650 mg, Or al, Every 4 hours PRN, mild pain (1-3), for mild pain, headache, or temperature > 101, Starting Tu06/15/20 at 0000, Post- op
To begin after routine doses of tylenol.
[facility] Medication administered onsite 0.4 ML Enoxaparin sodium 100 MG/ML Prefi lled Syringe enoxaparin (LOVENOX) 40 MG/0.4ML SOLN enoxaparin (LOVENOX) 40 MG/0.4ML SOLN 06/15/2020 12:00:00 AM EST 40 mg Subcutaneous active Inject 0.4 mL (40 mg total) under the skin daily for 10 days [facility] Ascorbic Acid 60 MG / Beta Carotene 5000 UNT / Copper Sulfate 40 MG / dl-alpha tocopheryl acetate 30 UNT / Sodium Selenite 0.04 MG / Zinc Oxide 40 MG Oral Tablet Multiple Vitamins-Minerals (MULTIVITAMIN WITH MINERALS) tablet Multiple Vitamins-Minerals (MULTIVITAMIN WITH MINERALS) tablet 06/15/2020 12:00:00 AM EST 2 {tbl} Oral active Take 2 tablets b y mouth daily [facility] Vitamin B 12 0.5 MG Oral Tablet cyanocob alamin ([facility] VITAMIN B-12) 500 MCG tablet cyanocobalamin ([facility] VITAMIN B-12) 500 MCG tablet 06/15/2020 12:0 0:00 AM EST 1000 ug Oral active Take 2 tablets (1,000 mc g total) by mouth daily [facility] Simethicone 80 MG Chewable Tablet simethicone (MYLICON ) 80 MG chewable tablet simethicone (MYLICON) 80 MG chewable tablet 06/15/2020 12:00:00 AM EST 80 mg Oral active Chew 1 tablet (80 mg total) every 6 (six) hours as needed for flatulence [facility] heparin (porcine) injection 5,000 Units [id number] 06/14/20 11:00:00 PM EST 5000 U Subcutaneous active 5,000 Units , Subcutaneous, Every 8 hours (relative), First dose on Sun06/14/20 at 2300, Post-op
If platelet count is less than 100,000 or hematocrit is less than 25, or if there is a 5 point decrea se in hematocrit, do not give the dose and call physician/designee.
[facility] Medication administered onsite Baclofen 20 MG Oral Tablet baclofen (LIORESAL) tablet 10 mg baclofen (LIORESAL) tablet 10 mg 06/14/2020 10:00:00 PM EST 10 mg Oral activ e 10 mg, Oral, 3 times daily, First dose on Sun06/14/20 at 2200, Post-op [facility] Medication administered onsite normal saline flush 0.9 % injection 3 mL [id number] 06/14/2020 10:00:00 PM EST 3 mL Intravenous active 3 mL , Intravenous, QSHIFT, First dose on Sun06/14/20 at 2200, Post-op
Convert to saline lock after discontinuing D5LR IV.
[facility] Medication administered onsite Metoprolol Tartrate 25 MG Oral Tablet me toprolol tartrate (LOPRESSOR) tablet 25 mg metoprolol tartrate (LOPRESSOR) tablet 25 mg 06/14/2020 09:00:00 PM EST 25 mg Oral active 25 mg, Ora l, 2 times daily, First dose on Sun06/14/20 at 2100, Post-op
Hold Lopressor for SBP < 100 mmHg or HR < 60.
[facility] Medication administered onsite Losartan Potassium 25 MG Oral Tablet losartan (COZAAR) tablet 25 mg losartan (COZAAR) tablet 25 mg 06/14/2020 09:00:00 PM EST 25 mg Oral active 25 mg, Oral, Nightly, First dose on Sun06/14/20 at 2100, Post-op [facility] Medication administered onsite gabapentin 300 MG Oral Capsule gabapentin (NEURONTIN) capsule 600 mg gabapentin (NEURONTIN) capsule 600 mg 06/14/2020 09:00:00 PM EST 600 mg Oral active 600 mg, Oral, Nightly, First dose on Sun06/14/20 at 2100, Post-op [facility] Medication administered onsite 1 ML Ketorolac Tromethamine 30 MG/ML Car tridge ketorolac (TORADOL) injection 30 mg ketorolac (TORADOL) injection 30 mg 06/14/2020 08:30:00 PM EST 30 mg Intravenous active 30 mg, Intrav enous, Every 6 hours PRN, severe pain (7-10), Starting Sun06/14/20 at 2030, For 4 doses, Post-op [facility] Medication administered onsite Simethicone 80 MG Chewable Tablet simethicone (MYLICON ) chewable tablet 80 mg simethicone (MYLICON) chewable tablet 80 mg 06/14/2020 08:00:00 PM EST 80 mg Oral active 80 mg, Oral, E very 4 hours (scheduled), First dose on Sun06/14/20 at 2000, Post-op [facility] Medication administered onsite pantoprazole 40 MG Delayed Release Oral Tablet pantoprazole (PROTONIX) EC tablet 40 mg pantoprazole (PROTONIX) EC tablet 40 mg 06/14/2020 07:00:[address] 40 mg Oral active Stress Ulcer Prophylaxis 40 mg, Oral, Daily, Indications: Stress Ulcer Prophylaxis, First dose on Sun06/14/20 at 1900, Post-op [facility] Stress Ulcer Prophylaxis Medication administered onsite Ondansetron 4 MG Disintegrating Oral Tab let ondansetron (ZOFRAN-ODT) disintegrating tablet 8 mg ondansetron (ZOFRAN-ODT) disintegrating tablet 8 mg 06/14/2020 07:00:00 PM EST 8 mg Oral completed 8 mg, Oral, Every 6 hours (scheduled), First dose on Sun06/14/20 at 1900, For 24 hours, Post-op [facility] Medication administered onsite Calcium Chloride 0.001 MEQ/ML / Glucose 50 MG/ML / Potassium Chloride 0.004 MEQ/ML / Sodium Chloride 0.103 MEQ/ML / Sodium Lactate 0.028 MEQ/ML Injectable Solution dextrose 5 % in lactated ringers infusion dextrose 5 % in lactated ringers infusion 06/14/2020 07:00:00 PM EST 150 mL/h Intravenous active at 150 mL/hr, 150 mL/hr, Intravenous, Co ntinuous, Starting Sun06/14/20 at 1900, Post-op
Discontinue IV with adequate PO & convert to saline lock
[facility] Medication administered onsite Acetaminophen 500 MG Oral Tablet acetaminophen (TYLENO L) tablet 1,000 mg acetaminophen (TYLENOL) tablet 1,000 mg 06/14/2020 07:00:00 PM EST 1000 mg Oral active 1,000 mg, Oral , Every 8 hours, First dose on Sun06/14/20 at 1900, For 48 hours, Post-op [facility] Medication administered onsite metoclopramide (REGLAN) injection 10 mg 06/14/2020 05:56:2 6 PM EST 10 mg Intravenous active [Order 1 Star t] Name: metoclopramide (REGLAN) injection 10 mg Signed Summary: 10 mg, Intravenous, Every 6 hours PRN, nausea, not relieved by ondansetron, Starting Sun06/14/20 at 1756, Post-op
Once in PACU then every 6 hours PRN for nausea
[Order 1 End] [Order 2 Start] Name: metoclopramide (REGLAN) tablet 10 mg Signed Summary: 10 mg, Oral, Every 6 hours PRN, nausea, not relieved by ondansetron, Starting Sun06/14/20 at 1756, Post- op
Once in PACU then every 6 hours PRN for nausea
[Order 2 End] [facility] Medication administered onsite Promethazine Hydrochloride 25 MG Oral Ta blet promethazine (PHENERGAN) tablet 12.5 mg promethazine (PHENERGAN) tablet 12.5 mg 06/14/2020 05:56:[address] 12.5 mg Oral active 12.5 mg, O ral, Every 4 hours PRN, nausea, not relieved by prochlorperazine, Starting Sun06/14/20 at 1756, Post-op [facility] Medication administered onsite Prochlorperazine 10 MG Oral Tablet prochlorperazine (C OMPAZINE) tablet 10 mg prochlorperazine (COMPAZINE) tablet 10 mg 06/14/2020 05:56:25 PM EST 10 mg Oral active 10 mg, Oral, E very 6 hours PRN, nausea, not relieved by metoclopramide, Starting Sun06/14/20 at 1756, Post-op [facility] Medication administered onsite Sumatriptan 50 MG Oral Tablet SUMAtriptan (IMITREX) ta blet 50 mg SUMAtriptan (IMITREX) tablet 50 mg 06/14/2020 05:56:25 PM EST 50 mg Oral active 50 mg, Oral, Every 2 hour PRN, migraine, Starting Sun06/14/20 at 1756, Post- op
May repeat dose in 2 hours if no relief. Do not exceed 2 doses in 24 hours.
[facility] Medication administered onsite enalaprilat (VASOTEC) injection 1.25 mg [id number] 06/14/20 05:56:24 PM EST 1.25 mg Intravenous active 1.25 mg, Int ravenous, Every 6 hours PRN, for SBP > 140 mmHg and/or DBP > 90 mmHg, Starting Sun06/14/20 at 1756, Post- op
Mix in 50 mL NS, infuse over 30 minutes via infusion pump. For IVMB on NON-ICU units.
[facility] Medication administered onsite 0.4 ML Enoxaparin sodium 100 MG/ML Prefi lled Syringe enoxaparin (LOVENOX) syringe 40 mg enoxaparin (LOVENOX) syringe 40 mg 06/14/2020 05:56:24 PM EST 40 mg Subcutaneous completed 40 mg, Subcutaneous, Before Discharge, for prophylaxis, Starting Sun06/14/20 at 1756, For 1 dose, Post-op
At discharge. To be administered by patient or significant other.
[facility] Medication administered onsite Clonidine Hydrochloride 0.1 MG Oral Tablet cloNIDine ( CATAPRES) tablet 0.1 mg cloNIDine (CATAPRES) tablet 0.1 mg 06/14/2020 05:56:23 PM EST 0.1 mg Oral active 0.1 mg, Oral, Every 4 hours PRN, high blood pressure, for SBP > 140 mmHg and/or DBP > 90 mmHg, Starting Sun06/14/20 at 1756, Post-op [facility] Medication administered onsite Hydralazine Hydrochloride 20 MG/ML Injec table Solution hydrALAZINE (APRESOLINE) injection 10 mg hydrALAZINE (APRESOLINE) injection 10 mg 06/14/2020 04 :56:25 PM EST 10 mg Intravenous completed 10 mg, Intravenous, Every 20 min PRN, high blood pressure, Starting Sun06/14/20 at 1656, For 2 doses, Intra-op [facility] Medication administered onsite Metoprolol Tartrate 25 MG Oral Tablet me toprolol tartrate (LOPRESSOR) tablet 25 mg metoprolol tartrate (LOPRESSOR) tablet 25 mg 06/14/2020 04:00:00 PM EST 25 mg Oral completed 25 mg, Ora l, Once, Sun06/14/20 at 1600, For 1 dose, PACU (only)
For 1 dose in PACU. Hold for SBP < 100 or HR < 60
[facility] Medication administered onsite Magnesium Chloride 0.45390 MEQ/ML / Pota ssium Chloride 0.0497 MEQ/ML / Sodium Acetate 0.0163 MEQ/ML / Sodium Chloride 0.0899 MEQ/ML / Sodium gluconate 5.02 MG/ML Injectable Solution [Normosol-R] electrolyte-R (NORMOSOL-R/PLASMALYTE-R) solution 1,000 mL electrolyte-R (NORMOSOL-R/PLASMALYTE-R) solution 1,000 mL 06/14/2020 04:00:00 PM EST 1000 mL Intravenous active at 100 mL/hr, 1,000 mL, Intravenous, Continuous, Starting Sun06/14/20 at 1600, PACU (only) [facility] Medication administered onsite Insulin Lispro 100 UNT/ML Injectable Crystal ution insulin lispro (HumaLOG) injection 0-16 Units insulin lispro (HumaLOG) injection 0-16 Units 06/14/20 20 04:00:00 PM EST Subcutaneous aborted 0-1 6 Units, Subcutaneous, Every 1 hour, First dose on Sun06/14/20 at 1600, PACU (only)
PACU Use Only!! Blood Glucose every 1 hour with following coverage: Blood Sugar &a mp;nbsp; Units of HumaLOG 145 - 170 4 units 171 - 220 6 units 221 - 270 &nbsp ; 8 units 271 - 320 &nbsp ; 10 units 321 - 370 &nbsp ; 12 units 371 - 420 &nb sp; 14 units > 420 call MD 16 units > 200 &nbsp ; Call (May need Lantus dose)
[facility] Medication administered onsite 4 ML Labetalol hydrochloride 5 MG/ML Car tridge labetalol (NORMODYNE,TRANDATE) injection 5-20 mg labetalol (NORMODYNE,TRANDATE) injection 5-20 mg 06/14 02:45:14 PM EST Intravenous aborted 5-20 mg, Intravenous, Every 10 min PRN, high blood pressure, Starting 06/14/20 at 1445, PACU (only)
For SBP 140-149 give: Initial dose: &nb sp; &nbsp ; &nbsp ; Labetalol 5 mg ivp over 2 minutes May repeat in 10 minutes with: Labetalol 10 mg ivp over 2 minutes May repeat in 10 minutes with: Labetalol 20 mg ivp over 2 minutes MAXIMUM DOSE 300 MG &a mp;nbsp; HOLD FOR HR LESS THAN 60
[facility] Medication administered onsite 4 ML Labetalol hydrochloride 5 MG/ML Car tridge labetalol (NORMODYNE,TRANDATE) injection 10-40 mg labetalol (NORMODYNE,TRANDATE) injection 10-40 mg 05/19 02:45:14 PM EST Intravenous aborted 10-40 mg, Intravenous, Every 10 min PRN, high blood pressure, For SBP 150-179, Starting 06/14/20 at 1445, PACU (only)
For SBP 150-179 give: Initial dose: &nb sp; &nbsp ; &nbsp ; Labetalol 10 mg IVP over 2 minutes May repeat in 10 minutes with: Labetalol 20 mg IVP over 2 minutes x 1 dose May repeat in 10 minutes with: Labetalol 40 mg IVP over 4 minutes for SBP >/= 150 &n bsp; &nbs p; &nbs p; &n bsp; &a mp;nbsp; - or - &n bsp; &nbs p; &nbs p; Labetalol 20 mg IVP over 2 minutes for SBP 140 to 149 MAXIMUM DOSE 300 MG HOLD FOR HR LESS THAN 60
[facility] Medication administered onsite HYDROmorphone (DILAUDID) injection 0.5 mg [id number] 06/14/2020 02:45:14 PM EST 0.5 mg Intravenous completed 0. 5 mg, Intravenous, Every 5 min PRN, severe pain (7-10), Starting Sun06/14/20 at 1445, For 4 doses, PACU (only) [facility] Medication administered onsite fentaNYL Citrate (PF) (SUBLIMAZE) injection 50 mcg [id number] 06/14/2020 02:45:14 PM EST 50 ug Intravenous aborted 50 mcg, Intravenous, Every 5 min PRN, moderate pain (4 to 6), Starting Sun06/14/20 at 1445, For 4 doses, PACU (only) [facility] Medication administered onsite Albuterol 0.83 MG/ML Inhalant Solution a lbuterol (PROVENTIL) nebulizer solution 2.5 mg albuterol (PROVENTIL) nebulizer solution 2.5 mg 2019 12:00:00 PM EST 2.5 mg completed 2.5 mg , Nebulization, elevator pilot, Sun06/14/20 at 1200, For 1 dose, Pre-op
To be started by pre-op unit
[facility] Medication administered onsite Clonidine Hydrochloride 0.1 MG Oral Tablet cloNIDine ( CATAPRES) tablet 0.1 mg cloNIDine (CATAPRES) tablet 0.1 mg 06/14/2020 12:00:00 PM EST 0.1 mg Oral completed 0.1 mg, Oral, elevator pilot, 06/14 at 1200, For 1 dose, Pre-op [facility] Medication administered onsite Acetaminophen 325 MG Oral Tablet acetaminophen (TYLENO L) 325 MG tablet 975 mg acetaminophen (TYLENOL) 325 MG tablet 975 mg 06/14/2020 12:00:00 PM EST 975 mg Oral completed 975 mg, Or al, elevator pilot, Sun06/14/20 at 1200, For 1 dose, Pre-op
"Maximum dose of acetaminophen is 4,000 mg from all sources in 24 hours."
[facility] Medication administered onsite Alprazolam 0.25 MG Oral Tablet ALPRAZolam (XANAX) tabl et 0.25 mg ALPRAZolam (XANAX) tablet 0.25 mg 06/14/2020 12:00:00 PM EST 0.25 mg Oral completed 0.25 mg, Oral, elevator pilot, Sun06/14/20 at 1200, For 1 dose, Pre-op [facility] Medication administered onsite Tetrahydrocannabinol 2.5 MG Oral Capsule dronabinol (M ARINOL) capsule 5 mg dronabinol (MARINOL) capsule 5 mg 06/14/2020 12:00:00 PM EST 5 mg Oral completed 5 mg, Oral, elevator pilot, Sun 0 at 1200, For 1 dose, Pre-op [facility] Medication administered onsite Prochlorperazine 10 MG Oral Tablet prochlorperazine (C OMPAZINE) tablet 10 mg prochlorperazine (COMPAZINE) tablet 10 mg 06/14/2020 12:00:00 PM EST 10 mg Oral completed 10 mg, Oral, O n call, Sun06/14/20 at 1200, For 1 dose, Pre-op [facility] Medication administered onsite Dexamethasone 4 MG Oral Tablet dexamethasone (DECADRON ) tablet 4 mg dexamethasone (DECADRON) tablet 4 mg 06/14/2020 12:00:00 PM EST 4 mg Oral completed 4 mg, Oral, elevator pilot, Sun 0 at 1200, For 1 dose, Pre-op [facility] Medication administered onsite celecoxib 100 MG Oral Capsule celecoxib (CeleBREX) cap tutu 200 mg celecoxib (CeleBREX) capsule 200 mg 06/14/2020 12:00:00 PM EST 200 mg Oral completed 200 mg, Oral, elevator pilot, 06/14 at 1200, For 1 dose, Pre-op [facility] Medication administered onsite heparin (porcine) injection 5,000 Units [id number] 06/14/20 12:00:00 PM EST 5000 U Subcutaneous completed 5,000 Uni ts, Subcutaneous, elevator pilot, Sun06/14/20 at 1200, For 1 dose, Pre-op
If platelet count is less than 100,000 or hematocrit is less than 25, or if there is a 5 point decrease in hematocrit, do not give the dose and call physician/designee.
[facility] Medication administered onsite gabapentin 600 MG Oral Tablet gabapentin (NEURONTIN) t ablet 600 mg gabapentin (NEURONTIN) tablet 600 mg 06/14/2020 12:00:00 PM EST 600 mg Oral completed 600 mg, Oral, On berna l, Sun06/14/20 at 1200, For 1 dose, Pre-op
Hold if age greater than 70 or chronic renal failure/insufficiency
[facility] Medication administered onsite Calcium Chloride 0.0014 MEQ/ML / Potassi um Chloride 0.004 MEQ/ML / Sodium Chloride 0.103 MEQ/ML / Sodium Lactate 0.028 MEQ/ML Injectable Solution lactated ringers infusion lactated ringers infusion 06/14/2020 12:00:00 PM EST 100 mL/h Intravenous aborted at 100 m L/hr, 100 mL/hr, Intravenous, Continuous, Starting Sun06/14/20 at 1200, Pre-op
Please place IV on left side if able
[facility] Medication administered onsite scopolamine (TRANSDERM-SCOP) 1.5 MG (Bariatric only) 1 patch [id number] 06/14/2020 11:07:14 AM EST 1 {patch} Transdermal aborted 1 patch, Transdermal, Administer over 24 Hours, Every 24 hours (relative), First dose on Sun06/14/20 at 1200, For 1 dose, Pre-op
Scopolamine patch applied behind ear. Hold for any of the followin+ yrs old, hx of glaucoma, hx of vertigo, dementia.
[facility] Medication administered onsite Amphetamine aspartate 1.25 MG / Amphetam ine Sulfate 1.25 MG / Dextroamphetamine saccharate 1.25 MG / Dextroamphetamine Sulfate 1.25 MG Oral Tablet Amphetamine-Dextroamphetamine 05/24/2020 12:00:00 AM EST ORAL active [facility] ([facility]) Losartan Potassium 25 MG Oral Tablet Losartan Potassium 07/2019 12:00:00 AM EST ORAL active [facility] ([facility]) normal saline flush 0.9 % injection 3 mL [id number] 05/18/2020 04:00:00 PM EST 3 mL Intravenous active 3 mL , Intravenous, Every 8 hours (scheduled), First dose on Sun05/18/20 at 1600, PACU (only)
flush per protocol, D/C Main IV fluid if appropriate
[facility] Medication administered onsite 10 ML Atropine Sulfate 0.1 MG/ML Prefill ed Syringe atropine sulfate injection 0.5 mg atropine sulfate injection 0.5 mg 05/18/2020 03:17:05 PM EST 0.5 mg active 0.5 mg, Intrave nous Push, Every 5 min PRN, other, As needed, for heart rate less than 60 BPM and the patient is hemodynamically unstable and/or SBP is less than 90mmHg, Starting Sun05/18/20 at 1517, For 1 day, PACU (only)
Not to exceed a total of 3 mg or 0.04 mg/kg. Max of 6 doses
[facility] Medication administered onsite Albuterol 0.833 MG/ML / Ipratropium Brom deepa 0.167 MG/ML Inhalant Solution ipratropium-albuterol (DUO-NEB) 0.5-2.5 mg/mL nebulizer solution 3 mL ipratropium-albuterol (DUO-NEB) 0.5-2.5 mg/mL nebulizer solution 3 mL 05/18/2020 03:17:05 PM EST 3 mL Inhalation active 3 mL, Inhalation, Once as needed, shortness of breath, Starting Sun05/18/20 at 1517, For 1 dose, PACU (only) [facility] Medication administered onsite ondansetron (ZOFRAN) injection 4 mg [id number] 05/18/2020 03:17:0 5 PM EST 4 mg Intravenous active 4 mg, In travenous, Once as needed, nausea, vomiting, Starting Sun05/18/20 at 1517, For 1 dose, PACU (only)
If not given in last 4 hours
[facility] Medication administered onsite Magnesium Chloride 0.71967 MEQ/ML / Pota ssium Chloride 0.0497 MEQ/ML / Sodium Acetate 0.0163 MEQ/ML / Sodium Chloride 0.0899 MEQ/ML / Sodium gluconate 5.02 MG/ML Injectable Solution [Normosol-R] electrolyte-R (NORMOSOL-R/PLASMALYTE-R) solution 1,000 mL electrolyte-R (NORMOSOL-R/PLASMALYTE-R) solution 1,000 mL 05/18/2020 03:00:00 PM EST 1000 mL Intravenous active at 100 mL/hr, 1,000 mL, Intravenous, Continuous, Starting Sun05/18/20 at 1500, Pre-op [facility] Medication administered onsite 10 mg 04/21/2020 12:00:00 AM EST tablet 15 TAKE ONE TABLET BY MOUTH THREE TIMES A DAY NEEDED FOR PAIN FOR 5 DAYS TAKE ONE TABLET BY MOUTH THREE TIMES A DAY NEEDED FOR PAIN FOR 5 DAYS SOLD: 04/21/2020 [facility] Prednisone 10 MG Oral Tablet Prednisone 11/27/2019 12:00:00 AM EDT completed [facility] ([facility]) Daily Edson (THERAGRAN) per tablet [id number] 1 {tbl} Oral aborted Take 1 tablet by mouth daily [facility] 0.5 ML dulaglutide 3 MG/ML Auto-Injector Dulaglutide (TRULICITY) 1.5 MG/0.5ML SOPN Dulaglutide (TRULICITY) 1.5 MG/0.5ML SOPN 1.5 mg Subcut aneous aborted Inject 1.5 mg under the skin onc e a week On [facility] Omeprazole 20 MG Delayed Release Oral Ca psule omeprazole (PRILOSEC) 20 MG capsule omeprazole (PRILOSEC) 20 MG capsule 20 mg Oral aborted Take 20 mg by mouth daily [facility] Biotin w/ Vitamins C & E (HAIR SKIN & NAILS GUMMIES PO) 1 {tbl} Oral aborted Take 1 tablet by mouth daily [facility] Ascorbic Acid 60 MG / Beta Carotene 5000 UNT / Copper Sulfate 40 MG / dl-alpha tocopheryl acetate 30 UNT / Sodium Selenite 0.04 MG / Zinc Oxide 40 MG Oral Tablet Multiple Vitamins-Minerals (WOMENS 50+ MULTI VITAMIN/MIN) TABS Multiple Vitamins-Minerals (WOMENS 50+ MULTI VITAMIN/MIN) TABS 1 {tbl } Oral aborted Take 1 tablet by mouth daily [facility] Insurance Providers Payer name Policy type / Coverage type Policy ID Covered green party ID Covered green party's relationship to li Policy Li Plan Information [employer] ([place]) Workers Compensation [id number] Self [id number] [employer] [place] Workers Compensation [id number] Self [id number] [facility] (WC) Workers Compensation [id number] Self [id number] [facility] () Workers Compensation [id number] Self [id number] [employer] Commercial [id number] Self [place] [employer] Workers Compensation [id number] Self [id number] [place] [employer] Workers Compensation [id number] Self [id number] [place] [employer] Compensation [id number] Self [id number] [employer] Workers Compensation [id number] Self [id number] [employer] Workers Compensation [id number] Self [id number] Lifetime Benefit Solution [facility] Part B [id number] Self [id number] [employer] Medig[employer] Part B [id number] Self [id number] [employer] Part B [id number] Self [id number] [employer] Workers Compensation [id number] Self [place] () Workers Compensation [id number] Self [id number] [employer] Workers Compensation [id number] Self [place] Lifetime Benefit [facility] [id number] Self [id number] Lif[employer] [facility] [id number] Self [id number] [employer] Commercial [id number] Self Lifetime [employer] Solution [facility] [id number] Self [id number] [employer] U [id number] Self [id number] UMR U Self Umr (pr) Commercial [id number] Self [facility] MEDICAID [id number] xxxxxxxxx [id number] [facility] Comm Plan Medicaid F [id number] SELF [id number] [facility] I [id number] Self [id number] [facility] I [id number] Self [id number] [facility] MEDICAID [id number] Madhavi [id number] [facility] Commercial Insurance Co. [id number] Self [id number] [facility] Commercial Insurance Co. [id number] Self [id number] INSURANCE COVID-19 COVID Madhavi C OVID INSURANCE COVID-19 [id number] [id number] [employer] [id number] SP [id number] [employer] O [id number] S [id number] Lifetime Benefit Solution [facility] [id number] Self [employer] Commercial [id number] Self [employer] Commercial [id number] Self LIF[employer]IME BENEFIT SOLUTIONS [id number] SP [id number] [employer] [id number] SP [id number] UNHC COMMUNITY PLAN MCDHMO [id number] SP [id number] UNHC COMMUNITY PLAN MCDHMO [id number] SP [id number] [facility](MCAID[facility] O [id number] O [id number] [facility]CA[facility]) O [id number] S [id number] [facility] Commercial F [id number] SELF [id number] [place] [id number] SP [id number] [facility] COMMUNITY PLAN MCDHMO [id number] SP [id number] UMR [facility] CARE [id number] SP [id number] UMR O [id number] S [id number] [employer] [id number] SP [id number] UMR [facility] [id number] SP [id number] [facility] [id number] Self [id number] [employer] Commercial [id number] Self [id number] r [facility] [id number] Self [id number] [employer] Commercial [id number] Self [id number] r/[facility] [place] Health Maintenance Organization (O) [id number] Self r Mediulen Part B [id number] 0.0 Self [id number] [employer] Commercial [id number] Self 10 [id number] [employer] Commercial [id number] Self 10 [id number] [employer] Commercial [id number] Self 10 [id number] [employer] Commercial [id number] Self 10 [id number] [employer]IF[employer] O [id number] S [id number] ANSI-Not a Secondary Insurance [id number] [employer] Commercial [id number] Self 10 [id number] [employer] Commercial [id number] Self 10 [id number] [employer] Commercial [id number] Self 10 [id number] [employer] WORKER COMP [id number] SP [id number] [employer] Commercial [id number] Self [employer] Medigap Part B [id number] 2.0 Self [employer] O [id number] S [id number] WILBERT ZHONG O [id number] S [id number] LIFETIME BENEFIT SOLUTPEARL O [id number] S [id number] Problems, Conditions, and Diagnoses Code Display Name Description Problem Type Effective Dates Data Source(s) E66.01 Morbid (severe) obesity due to excess ca lories Morbid (severe) obesity due to excess ca Diagnosis 06/14/2020 09:27:00 AM [facility] U07.1 COVID-19 COVID-19 Diagnosis 06/09/2020 07:56:[address] [facility] K21.9 Gastro-esophageal reflux disease without esophagitis Gastro-esophageal reflux disease without Diagnosis 05/18/2020 11:48:00 AM [facility] K21.9 GERD (gastroesophageal reflux disease) G ERD (gastroesophageal reflux disease) [id number] 06/15/2020 12:00:00 AM [facility] I10 Hypertension Hypertension [id number] 06/15/2020 12:00:00 A M [facility] E66.01 Morbid obesity Morbid obesity [id number] 06/15/2020 12:00: 00 AM [facility] E11.9 Diabetes mellitus Diabetes mellitus [id number] 06/15/2020 12:00:00 AM [facility] G47.30 Sleep apnea Sleep apnea [id number] 06/15/2020 12:00:00 AM [facility] Surgeries/Procedures Procedure Description Date Indications Data Source(s) OFFICE OUTPATIENT VISIT 25 MINUTES 03/28/2021 12:00:00 AM JOHN WEST ([facility]) OFFICE OUTPATIENT VISIT 25 MINUTES 02/07/2021 12:00:00 AM EDChristian MEDEMILY ([facility]) OFFICE OUTPATIENT VISIT 15 MINUTES 10/14/2020 12:00:00 AM EDT JENNA ([facility]) OFFICE OUTPATIENT VISIT 25 MINUTES 08/10/2020 12:00:00 AM EST [facility] ([facility]) ARTHROCENTESIS ASPIR&/INJECTION MAJOR JT/BURSA 021 12:00:00 AM EST [facility] ([facility] ) GLUC BLD GLUC MNTR DEV CLEARED FDA SPEC HOME USE <td>P OCT GLUCOSE</td><td>Routine</td><td>06/15/2020 12:20 PM EST</td><td></td><td> </td> 06/15/2020 05:20:00 PM EST [facility] BLOOD COUNT COMPLETE AUTOMATED <td>CBC</td><td>STAT</t d><td>06/15/2020 11:20 AM EST</td><td></td><td> </td> 06/15/2020 04:20:00 PM EST [facility] GLUC BLD GLUC MNTR DEV CLEARED FDA SPEC HOME USE <td>P OCT GLUCOSE</td><td>Routine</td><td>06/15/2020 5:32 AM EST</td><td></td><td> </td> 06/15/2020 10:32:00 AM EST [facility] GLUC BLD GLUC MNTR DEV CLEARED FDA SPEC HOME USE <td>P OCT GLUCOSE</td><td>Routine</td><td>06/14/2020 11:33 PM EST</td><td></td><td> </td> 06/15/2020 04:33:00 AM EST [facility] GLUC BLD GLUC MNTR DEV CLEARED FDA SPEC HOME USE <td>P OCT GLUCOSE</td><td>Routine</td><td>06/14/2020 7:01 PM EST</td><td></td><td> </td> 06/15/2020 12:01:00 AM EST [facility] GLUC BLD GLUC MNTR DEV CLEARED FDA SPEC HOME USE <td>P OCT GLUCOSE</td><td>Routine</td><td>06/14/2020 4:07 PM EST</td><td></td><td> </td> 06/14/2020 09:07:00 PM EST [facility] GLUC BLD GLUC MNTR DEV CLEARED FDA SPEC HOME USE <td>P OCT GLUCOSE</td><td>Routine</td><td>06/14/2020 2:37 PM EST</td><td></td><td> </td> 06/14/2020 07:37:00 PM EST [facility] GLUC BLD GLUC MNTR DEV CLEARED FDA SPEC HOME USE <td>P OCT GLUCOSE</td><td>Routine</td><td>06/14/2020 11:35 AM EST</td><td></td><td> </td> 06/14/2020 04:35:00 PM EST [facility] ECG ROUTINE ECG W/LEAST 12 LDS TRCG ONLY W/O I&R <td>E CG 12- LEAD</td><td>Routine</td><td>05/31/2020 1:43 PM EST</td><td> Morbid obesity</td><td></td> 05/31/2020 06:43:17 PM EST Morbid obesity [facility] Morbid obesity BLOOD COUNT COMPLETE AUTOMATED <td>CBC</td><td>Routine </td><td>05/31/2020 1:35 PM EST</td><td> Morbid obesity</td><td> </td> 05/31/2020 06:35:00 PM EST Morbid obesity [facility] Morbid obesity BLOOD TYPING ABO <td>TYPE AND SCREEN</td><td> Routine</td><td>05/31/2020 1:35 PM EST</td><td> Morbid obesity</td><td> </td> 05/31/2020 06:35:00 PM EST Morbid obesity [facility] Morbid obesity THYROID STIMULATING HORMONE TSH <td>TSH</td><td>Routin e</td><td>05/31/2020 1:35 PM EST</td><td> Morbid obesity</td><td> </td> 05/31/2020 06:35:00 PM EST Morbid obesity [facility] Morbid obesity HEMOGLOBIN GLYCOSYLATED A1C <td>HEMOGLOBIN A1C</td><td>Routine</td><td>05/31/2020 1:35 PM EST</td><td> Morbid obesity</td><td> </td> 05/31/2020 06:35:00 PM EST Morbid obesity [facility] Morbid obesity COMPREHENSIVE METABOLIC PANEL <td>COMPREHENSIVE METABO LIC PANEL</td><td>Routine</td><td>05/31/2020 1:35 PM EST</td><td> Morbid obesity</td><td> </td> 05/31/2020 06:35:00 PM EST Morbid obesity [facility] Morbid obesity UPPER NDSC BIOPSY SINGLE/MULTIPLE 05/18/2020 12:00:00 AM EST [facility] ([facility] Results ID Date Data Source [id number] 03/29/2021 08:39:00 AM EDT [facility] ([facility]) Name Value Range Interpretation Code Description Data Janeth rce(s) Supporting Document(s) Pyridoxine [Mass/volume] in Serum or Plasma 44.4 ug/L 2.0- 32.8 Above high normal [facility] ([facility]) This test was developed and its performa nce characteristics determined by [facility]. It has not been cleared or approved by the Food and Drug Administration. Performed at: - [facility] [id number] Allergist/Md: Renee Trujillo MD, Phone: [phone] Performed at: [address] [id number] Allergist/Md: Rell Carver MD, Phone: [phone] ID Date Data Source [id number] 03/29/2021 08:39:00 AM EDT [facility] Name Value Range Interpretation Code Description Data Janeth rce(s) Supporting Document(s) Lyme Disease IgG/IgM Antibodie Laboratory test result 0.00-0.90 Normal (applies to non-numeric results) [facility] ([facility]) <content>Negative <0.91</content >
<content>Equivocal 0.91 - 1.09</content>
<content>Positive >1.09</content>
<content></content> Lyme Disease IgM Ab Quantitati Laboratory test result 0.00-0.79 Normal (applies to non-numeric results) [facility] ([facility]) <content>Negative <0.80</content >
<content>Equivocal 0.80 - 1.19</content>
<content>Positive >1.19</content>
<content>.</content>
<content>IgM levels may peak at 3-6 weeks post infection, then</content>
<content>gradually decline.</content>
<content></content> ID Date Data Source [id number] 03/29/2021 08:39:00 AM EDT [facility] ([facility]) Name Value Range Interpretation Code Description Data Janeth rce(s) Supporting Document(s) Cobalamin (Vitamin B12) [Mass/volume] in Serum or Plasma Lab oratory test result 247-911 Above high normal [facility] ([facility]) VITAMIN B12 NORMAL RANGE NORMAL 247 - 911 PG/ML INDETERMINATE 211 - 246 PG/ML DEFICIENT LESS THAN 211 PG/ML Erythrocyte sedimentation rate by Westergren method 12 mm/hr 0-30 Normal (applies to non-numeric results) [facility] ([facility]) ID Date Data Source [id number] 03/29/2021 08:39:00 AM EDT [facility] ([facility]) Name Value Range Interpretation Code Description Data Janeth rce(s) Supporting Document(s) Iron (Fe) 89 ug/dL 50-170 Normal (applies to non-numeric resul ts) [facility] Percent Saturation 30.9 % 13.2-45.0 Normal (applies to non-numer ic results) [facility] Total Iron Binding Capacity 288 ug/dL 250-450 Norm al (applies to non-numeric results) [facility]) ID Date Data Source [id number] 03/29/2021 08:39:00 AM EDT [facility]) Name Value Range Interpretation Code Description Data Janeth rce(s) Supporting Document(s) White Blood Count 8.7 10 4.0-10.0 Normal (applies to non-numeri c results) [facility]) Red Blood Count 4.84 10 4.00-5.40 Normal (applies to non-numeric results) [facility] ([facility]) Mean Corpuscular Volume 91.3 fl 80.0-96.0 Normal ( applies to non-numeric results) [facility] ([facility]) Hematocrit 44.2 % 36.0-47.0 Normal (applies to non-numeric resul ts) [facility]) Hemoglobin 14.3 g/dL 12.0-15.5 Normal (applies to non-numeric resul ts) [facility]) Mean Corpuscular HGB Conc 32.4 g/dL 32.0-36.5 Normal (applies to non-numeric results) [facility] ([facility]) Mean Corpuscular Hemoglobin 29.5 pg 27.0-33.0 Norm al (applies to non-numeric results) [facility] ([facility]) Platelet Count, Automated 351 10 150-450 Normal (applies to non-numeric results) [facility] ([facility]) Red Cell Distribution Width 13.3 % 11.5-14.5 Norm al (applies to non-numeric results) [facility] ([facility]) Neutrophils % 40.5 % 36.0-66.0 Normal (applies to non-numeric re sults) [facility] ([facility]) [place] % 8.2 % 2.0-8.0 Above high normal [facility] ([facility]) Lymph % 48.6 % 24.0-44.0 Above high normal [facility] ([facility]) Eos % 1.5 % 0.0-3.0 Normal (applies to non-numeric resul ts) [facility] ([facility]) Baso % 0.7 % 0.0-1.0 Normal (applies to non-numeric resul ts) [facility] ([facility]) Immature Granulocyte % 0.5 % 0-3.0 Normal (applies to non-n umeric results) [facility] ([facility]) Nucleated Red Blood Cell % 0.0 % 0-0 Normal (applies to n on-numeric results) [facility] ([facility]) Lymph # 4.3 10 1.5-5.0 Normal (applies to non-numeric resul ts) [facility] ([facility]) Neutrophils # 3.5 10 1.5-8.5 Normal (applies to non-numeric re sults) [facility] ([facility]) [place] # 0.7 10 0.0-0.8 Normal (applies to non-numeric resul ts) [facility] ([facility]) Baso # 0.1 10 0.0-0.2 Normal (applies to non-numeric resul ts) [facility] ([facility]) Eos # 0.1 10 0.0-0.5 Normal (applies to non-numeric resul ts) [facility] ([facility]) ID Date Data Source [id number] 03/29/2021 08:39:00 AM EDT [facility] ([facility]) Name Value Range Interpretation Code Description Data Janeth rce(s) Supporting Document(s) Blood Urea Nitrogen 7 mg/dL 7-18 Normal (applies to non-nume iram results) [facility] ([facility]) Glucose, Fasting 92 mg/dL 70-100 Normal (applies to non-numeric results) [facility] ([facility]) Glomerular Filtration Rate Laboratory test result Normal (applies to non- numeric results) [facility] ([facility]) <content>Units are mL/min/1.73 m2</content>
<content></content>
<content>Chronic Kidney Disease Staging per NKF:</content>
<content></content>
<content>Stage I & II GFR >=60 Normal to Mildly Decreased</content>
<content>Stage III GFR 30- 59 Moderately Decreased</content>
<content>Stage IV GFR 15-29 Severely Decreased</content>
<content>Stage V GFR <15 Very Little GFR Left</content>
<content>ESRD GFR <15 on ASSISTANT CASE MANAGER</content>
<content></content> Creatinine For GFR 0.83 mg/dL 0.55-1.30 Normal (applies to non -numeric results) [facility] Sodium Level 141 meq/L 136-145 Normal (applies to non-numeric res ults) [facility] ([facility]) Potassium Serum 3.7 meq/L 3.5-5.1 Normal (applies to non-numeric results) [facility] ([facility]) Chloride Level 109 meq/L 98-107 Above high normal [facility] ([facility]) Carbon Dioxide Level 27 meq/L 21-32 Normal (applies to non-num queta results) [facility] ([facility]) Anion Gap 5 meq/L 8-16 Below low normal [facility] ( [facility]) Calcium Level 8.9 mg/dL 8.5-10.1 Normal (applies to non-numeric re sults) [facility] ([facility]) Ast/Sgot 20 U/L 7-37 Normal (applies to non-numeric resul ts) [facility] ([facility]) Alt/SGPT 34 U/L 12-78 Normal (applies to non-numeric resul ts) [facility] ([facility]) Alkaline Phosphatase 185 U/L 45-117 Above high normal [facility] Total Protein 6.4 GM/DL 6.4-8.2 Normal (applies to non-numeric re sults) [facility] ([facility]) Bilirubin,Total 0.5 mg/dL 0.2-1.0 Normal (applies to non-numeric results) [facility] ([facility]) Albumin 3.2 GM/DL 3.2-5.2 Normal (applies to non-numeric resul ts) [facility] Albumin/Globulin Ratio 1.0 1.2-2.2 Below low normal [facility] ([facility]) ID Date Data Source [id number] 03/29/2021 08:39:00 AM EDT [facility] ([facility]) Name Value Range Interpretation Code Description Data Janeth rce(s) Supporting Document(s) Hemoglobin A1c 5.4 % Normal (applies to non-numeric r esults) [facility]) <content>REFERENCE RANGES:</content><br/ ><content></content>
<content><=5.6% NORMAL</content>
<content>5.7-6.4% SUGGESTS IMPAIRED GLUCOSE METABOLISM/PREDIABETIC</content>
<content>>= 6.5% ABNORMAL</content>
<content></content> Estimated Average Glucose 108 mg/dL 60-110 Normal (applies to non-numeric results) [facility]) ID Date Data Source [id number] 02/16/2021 12:57:11 PM EDT [facility] Name Value Range Interpretation Code Description Data Janeth rce(s) Supporting Document(s) Progress Note [facility] TQXSJc9cTpPBLtVd47/MNSuhVZMha4YsFJizNRp0CJiaDWEyU9NeYDY0jB4gTSM5POcLIrMbDsUuPEYv [facility] [file] AgICAgICAgICAgICAgICAgICAgICAgICAgICAgICAgICAgICAgICAgICAgICAgICAgICAgICAgICAgIC AgICAgICAgICAgICAgICAgICAgICAgICAgICAgICAg ICAgDQogICAgICAgICAgICAgICAgICAgICAgICAgICAgICAgICAgICAgICAgICAgICAgICAgICAgICAg ICAgICAgICAgICAgICAgICAgICAgICAgICAgICAgICAgICAgICAgICAgICAgDQogICAgICAgICAgICAg ICAgICAgICAgICAgICAgICAgICAgICAgICAgICAgIC AgICAgICAgICAgICAgICAgICAgICAgICAgICAgICAgICAgICAgICAgICAgICAgICAgICAgICAgDQogIC AgICAgICAgICAgICAgICAgICAgICAgICAgICAgICAgICAgICAgICAgICAgICAgICAgICAgICAgICAgIC AgICAgICAgICAgICAgICAgICAgICAgICAgICAgICAg ICAgICAgDQogICAgICAgICAgICAgICAgICAgICAgICAgICAgICAgICAgICAgICAgICAgICAgICAgICAg ICAgICAgICAgICAgICAgICAgICAgICAgICAgICAgICAgICAgICAgICAgICAgICAgDQogICAgICAgICAg ICAgICAgICAgICAgICAgICAgICAgICAgICAgICAgIC AgICAgICAgICAgICAgICAgICAgICAgICAgICAgICAgICAgICAgICAgICAgICAgICAgICAgICAgICAgDQ ogICAgICAgICAgICAgICAgICAgICAgICAgICAgICAgICAgICAgICAgICAgICAgICAgICAgICAgICAgIC AgICAgICAgICAgICAgICAgICAgICAgICAgICAgICAg ICAgICAgICAgDQogICAgICAgICAgICAgICAgICAgICAgICAgICAgICAgICAgICAgICAgICAgICAgICAg ICAgICAgICAgICAgICAgICAgICAgICAgICAgICAgICAgICAgICAgICAgICAgICAgICAgDQogICAgICAg ICAgICAgICAgICAgICAgICAgICAgICAgICAgICAgIC AgICAgICAgICAgICAgICAgICAgICAgICAgICAgICAgICAgICAgICAgICAgICAgICAgICAgICAgICAgIC AgDQogICAgICAgICAgICAgICAgICAgICAgICAgICAgICAgICAgICAgICAgICAgICAgICAgICAgICAgIC AgICAgICAgICAgICAgICAgICAgICAgICAgICAgICAg RGEeISRgDMWeRXZaWWi9A0leFNYnNWZiIW8xBEn6Oa2+FLeSQlOtVHM3ibMeeM4EBQ9wu6XmTKkvHCQq n6MbISc3OE9PWKAcCYidOV0NCFskbs8YBQQzFQXfiANZm5ceWuPeVPD1YVOnIrxcFE5BFJAsZ9fsmrLn RWCxHWDSOPskQGKMNWkgHVJGPG1FQeKwS0DnpT50MO MNCj4+TEenujTsSlpXSbC9XCSgi7OcFEw5DL8HAPCwNgjjw9EkOfSnMBVDKBrzQX6UZQV3BAEsRQIaYz 5POAKwV659njNpQS9OYa3XNmFwTI5szd4HGtObMDGdNdbSJtt9AEttDR6CoWVaOIhFtr4ptsFwryZOv9 DlcuVxxRHCPELxD9WxTBLwDXZkNOEwYSjhAzWeYWCq SK0oMyDvBxZhTKY7YJZdEG3cNFlaAW5LRXN0DIksTKAuWCTtM1hTDpGjVFWhBILvpXwgJG9WVkZtC9Ls cmVudCAyOSAwIFINCj4+FPjgtuTaPqbYLxXrDAXvt0BrGGc7TK1TXVGzTTwaOU6TCHVeiL4aZZgoVY1G DyFvIpKaQMXBZvKdD16jjQZzVQk3K9UpVnFgYSMxDu lsZXMgPDwvTmFtZXMgWyBdDQogID4+ID4+EKukHP7FBUlocbGjSYMgGi3PWNKqFDWwIV6dXQMzIQNuW6 W6aSbqBEWLYkOjM9tvlgldWF5eKXFnR570sGxjejWzHFR8ELFiEs3PXFKnUUK5ISDtiWTmVcjoAMSPGQ kvLO3ZvUBrUIG1pH8cUZwpDGMqMQOsS7fCTjWhiRpo DB70yFictkBtcOEbUXo+Rx4JAS7xc3SfVHt5hpLxQPlkBMZdSNteSTMaWPYiHLYuNSB6ZXS8SUGCKzDa TXUuDSSrXJqsIMPpXSGlsa4HIJErZKBhPyT4SAXeNDPuICChFDzeKZBmQMF6TaY4MESxGRYvSE3USoGs ASOgZEYmBEfuQACiETSzek1DWWUtRRNbSJKbSDIhDR UvWHIeUBelBGRxXSC5XBA1GQXqMDXxZA5VHnFvCLFpTXr8OPIgOYHnOSOnyh3KUQSdXGMkBpelISHzVQ NsTHWkGXimJATgQIS5AgIlLGFbADYkUY5JGnZkDLUoKQg3DCmqAXJfMWPhyc0MYSKzKHIsRRm8NuOhEV DuVKPhSUyqNAFnFKL3VKF3TIWhSFGoNW7ZHsJsBSTj VMQjJGaoKODgTKCcyg5LQAUwFJFiNTAtWyJcDHHfUPWkZYuxZGUgAFMxLpF9NLLyJFHxTF7QLpAoEPEd ZKX1KLCeUELhIIBwdc3LULHkODBzRnxoLjHqEGMbHZAwLMpxDKZdUEMqUtBjXVMxQJGqAX0CHgHsUATp EoO3PzZzOIQpYKUrvh9JFZPcCHBcNhvtOCVmLPWyDN AkTGjyLMDrKXNrLOR4LENiOVPjTR5XVoYvJIZlAfW2GFHlPGUjPWVgxz2SPIHtCQQtHRr5JJEuLNQzEQ DbRHuvUWQmDBF6IQXsQWKpTKJxDM7JBeLvWXCaXdFfAGTzCCReKZIxdz4UZJUuLCKbRoR3YSDxWZDeZX WjAZwoUVWgFBB5NNUuJXPwRKVuEK1LIpXrDRYrMuS8 SANzDKZsDVPbzm6FKSUkWQAxUHT7VFXaJKGcVZNzMRpsPHOdJJE4HRH1IJTtUEOgIM6CIrUiGZDgIgd5 JwstYUJsTRXefm6AnAOaqSppxh5EWIrHSw1BxAtiNQNaKRceLo5vqUMwSYNrIQZREe1JdbLoVFZiBQMU NKflQZPsFLXvXCJlEKShRTWvANW0B5PgJFB5VtLiKM HrKUv5YxwyVjW1XdUrJrA6CxChYvBnVWxzKuH4SAjnPiX0UaF7CPb0O6O+WF3xBPk+Ca2Qv0KuubK4ej HpEHdmVFoxBK7JJNWBS8LBSl== ID Date Data Source [id number] 02/01/2021 08:17:00 AM EDT [facility] ([facility]) Name Value Range Interpretation Code Description Data Janeth rce(s) Supporting Document(s) Triglycerides Level 127 mg/dL Normal (applies to non-nume iram results) [facility] ([facility]) Cholesterol Level 188 mg/dL Normal (applies to non-numeri c results) [facility] ([facility]) LDL Cholesterol 117 mg/dL Above high normal [facility] ([facility]) HDL Cholesterol 46 mg/dL Normal (applies to non-numeric results) [facility] ([facility]) Non-HDL-C 142 mg/dL Normal (applies to non-numeric resul ts) [facility] ([facility]) Cholesterol Risk Ratio 4.086 Normal (applies to non-n umeric results) [facility] ([facility]) ID Date Data Source [id number] 02/01/2021 08:17:00 AM EDT [facility] ([facility]) Name Value Range Interpretation Code Description Data Janeth rce(s) Supporting Document(s) White Blood Count 9.3 10 4.0-10.0 Normal (applies to non-numeri c results) [facility] ([facility]) Red Blood Count 4.90 10 4.00-5.40 Normal (applies to non-numeric results) [facility] ([facility]) Hemoglobin 14.5 g/dL 12.0-15.5 Normal (applies to non-numeric resul ts) [facility] ([facility]) Mean Corpuscular Volume 90.8 fl 80.0-96.0 Normal ( applies to non-numeric results) [facility] ([facility]) Mean Corpuscular Hemoglobin 29.6 pg 27.0-33.0 Norm al (applies to non-numeric results) [facility] ([facility]) Hematocrit 44.5 % 36.0-47.0 Normal (applies to non-numeric resul ts) [facility] ([facility]) Mean Corpuscular HGB Conc 32.6 g/dL 32.0-36.5 Normal (applies to non-numeric results) [facility] ([facility]) Red Cell Distribution Width 13.5 % 11.5-14.5 Norm al (applies to non-numeric results) [facility] ([facility]) Platelet Count, Automated 339 10 150-450 Normal (applies to non-numeric results) [facility] ([facility]) Neutrophils % 48.5 % 36.0-66.0 Normal (applies to non-numeric re sults) [facility] ([facility]) Lymph % 40.3 % 24.0-44.0 Normal (applies to non-numeric resul ts) [facility] ([facility]) [place] % 8.5 % 2.0-8.0 Above high normal [facility] ([facility]) Eos % 1.6 % 0.0-3.0 Normal (applies to non-numeric resul ts) [facility] ([facility]) Baso % 0.7 % 0.0-1.0 Normal (applies to non-numeric resul ts) [facility] ([facility]) Immature Granulocyte % 0.4 % 0-3.0 Normal (applies to non-n umeric results) [facility] ([facility]) Nucleated Red Blood Cell % 0.0 % 0-0 Normal (applies to n on-numeric results) [facility] ([facility]) Neutrophils # 4.5 10 1.5-8.5 Normal (applies to non-numeric re sults) [facility] ([facility]) [place] # 0.8 10 0.0-0.8 Normal (applies to non-numeric resul ts) [facility] ([facility]) Lymph # 3.8 10 1.5-5.0 Normal (applies to non-numeric resul ts) [facility] ([facility]) Baso # 0.1 10 0.0-0.2 Normal (applies to non-numeric resul ts) [facility] ([facility]) Eos # 0.2 10 0.0-0.5 Normal (applies to non-numeric resul ts) [facility] ([facility]) ID Date Data Source [id number] 02/01/2021 08:17:00 AM EDT [facility] ([facility]) Name Value Range Interpretation Code Description Data Janeth rce(s) Supporting Document(s) Estimated Average Glucose 108 mg/dL 60-110 Normal (applies to non-numeric results) [facility] Hemoglobin A1c 5.4 % Normal (applies to non-numeric r esults) [facility]) <content>REFERENCE RANGES:</content><br/ ><content></content>
<content><=5.6% NORMAL</content>
<content>5.7-6.4% SUGGESTS IMPAIRED GLUCOSE METABOLISM/PREDIABETIC</content>
<content>>= 6.5% ABNORMAL</content>
<content></content> ID Date Data Source [id number] 02/01/2021 08:17:00 AM EDT [facility] ([facility]) Name Value Range Interpretation Code Description Data Janeth e(s) Supporting Document(s) Blood Urea Nitrogen 13 mg/dL 7-18 Normal (applies to non-nume iram results) [facility] Glucose, Fasting 86 mg/dL 70-100 Normal (applies to non-numeric results) [facility] ([facility]) Creatinine For GFR 0.78 mg/dL 0.55-1.30 Normal (applies to non -numeric results) [facility] ([facility]) Potassium Serum 4.3 meq/L 3.5-5.1 Normal (applies to non-numeric results) [facility] ([facility]) Glomerular Filtration Rate Laboratory test result Normal (applies to non- numeric results) [facility]) <content>Units are mL/min/1.73 m2</content>
<content></content>
<content>Chronic Kidney Disease Staging per NKF:</content>
<content></content>
<content>Stage I & II GFR >=60 Normal to Mildly Decreased</content>
<content>Stage III GFR 30- 59 Moderately Decreased</content>
<content>Stage IV GFR 15-29 Severely Decreased</content>
<content>Stage V GFR <15 Very Little GFR Left</content>
<content>ESRD GFR <15 on ASSISTANT CASE MANAGER</content>
<content></content> Sodium Level 140 meq/L 136-145 Normal (applies to non-numeric res ults) [facility] ([facility]) Chloride Level 107 meq/L 98-107 Normal (applies to non-numeric r esults) [facility] ([facility]) Anion Gap 6 meq/L 8-16 Below low normal [facility] ( [facility]) Carbon Dioxide Level 27 meq/L 21-32 Normal (applies to non-num queta results) [facility] ([facility]) Calcium Level 8.1 mg/dL 8.5-10.1 Below low normal [facility] ([facility]) Ast/Sgot 24 U/L 7-37 Normal (applies to non-numeric resul ts) [facility] ([facility]) Alkaline Phosphatase 189 U/L 45-117 Above high normal [facility] ([facility]) Alt/SGPT 43 U/L 12-78 Normal (applies to non-numeric resul ts) [facility] ([facility]) Bilirubin,Total 0.5 mg/dL 0.2-1.0 Normal (applies to non-numeric results) [facility] ([facility]) Total Protein 6.5 GM/DL 6.4-8.2 Normal (applies to non-numeric re sults) [facility] ([facility]) Albumin 3.3 GM/DL 3.2-5.2 Normal (applies to non-numeric resul ts) [facility] ([facility]) Albumin/Globulin Ratio 1.0 1.2-2.2 Below low normal [facility] ([facility]) ID Date Data Source [id number] 08/02/2020 08:22:00 AM EST [facility] ([facility]) Name Value Range Interpretation Code Description Data Janeth rce(s) Supporting Document(s) Glucose, Fasting 97 mg/dL 70-100 Normal (applies to non-numeric results) [facility] ([facility]) Blood Urea Nitrogen 10 mg/dL 7-18 Normal (applies to non-nume iram results) [facility] ([facility]) Creatinine For GFR 0.96 mg/dL 0.55-1.30 Normal (applies to non -numeric results) [facility] ([facility]) Potassium Serum 4.1 meq/L 3.5-5.1 Normal (applies to non-numeric results) [facility] ([facility]) Glomerular Filtration Rate Laboratory test result Normal (applies to non- numeric results) [facility] ([facility]) <content>Units are mL/min/1.73 m2</content>
<content></content>
<content>Chronic Kidney Disease Staging per NKF:</content>
<content></content>
<content>Stage I & II GFR >=60 Normal to Mildly Decreased</content>
<content>Stage III GFR 30- 59 Moderately Decreased</content>
<content>Stage IV GFR 15-29 Severely Decreased</content>
<content>Stage V GFR <15 Very Little GFR Left</content>
<content>ESRD GFR <15 on ASSISTANT CASE MANAGER</content>
<content></content> Sodium Level 140 meq/L 136-145 Normal (applies to non-numeric res ults) [facility] ([facility]) Chloride Level 105 meq/L 98-107 Normal (applies to non-numeric r esults) [facility] ([facility]) Carbon Dioxide Level 28 meq/L 21-32 Normal (applies to non-num queta results) [facility] ([facility]) Anion Gap 7 meq/L 8-16 Below low normal [facility] Ast/Sgot 40 U/L 7-37 Above high normal [facility] Calcium Level 9.1 mg/dL 8.5-10.1 Normal (applies to non-numeric re sults) [facility] Alt/SGPT 53 U/L 12-78 Normal (applies to non-numeric resul ts) [facility] ([facility]) Bilirubin,Total 0.4 mg/dL 0.2-1.0 Normal (applies to non-numeric results) [facility] Alkaline Phosphatase 156 U/L 45-117 Above high normal [facility] ([facility]) Albumin/Globulin Ratio 1.0 1.2-2.2 Below low normal [facility] ([facility]) Albumin 3.4 GM/DL 3.2-5.2 Normal (applies to non-numeric resul ts) [facility] ([facility]) Total Protein 6.8 GM/DL 6.4-8.2 Normal (applies to non-numeric re sults) [facility] ([facility]) ID Date Data Source [id number] 08/02/2020 08:22:00 AM EST [facility] ([facility]) Name Value Range Interpretation Code Description Data Janeth rce(s) Supporting Document(s) Hemoglobin A1c 5.5 % Normal (applies to non-numeric r esults) [facility] ([facility]) <content>REFERENCE RANGES:</content><br/ ><content></content>
<content><=5.6% NORMAL</content>
<content>5.7-6.4% SUGGESTS IMPAIRED GLUCOSE METABOLISM/PREDIABETIC</content>
<content>>= 6.5% ABNORMAL</content>
<content></content> Estimated Average Glucose 111 mg/dL 60-110 Above high normal [facility] ([facility]) ID Date Data Source [id number] 08/02/2020 08:22:00 AM EST [facility] ([facility]) Name Value Range Interpretation Code Description Data Janeth rce(s) Supporting Document(s) Hemoglobin 14.2 g/dL 12.0-15.5 Normal (applies to non-numeric resul ts) [facility] ([facility]) Red Blood Count 5.12 10 4.00-5.40 Normal (applies to non-numeric results) [facility] ([facility]) White Blood Count 7.8 10 4.0-10.0 Normal (applies to non-numeri c results) [facility] ([facility]) Hematocrit 46.1 % 36.0-47.0 Normal (applies to non-numeric resul ts) [facility] ([facility]) Mean Corpuscular Hemoglobin 27.7 pg 27.0-33.0 Norm al (applies to non-numeric results) [facility] ([facility]) Mean Corpuscular Volume 90.0 fl 80.0-96.0 Normal ( applies to non-numeric results) [facility] ([facility]) Mean Corpuscular HGB Conc 30.8 g/dL 32.0-36.5 Below low normal [facility] ([facility]) Red Cell Distribution Width 14.7 % 11.5-14.5 Above high normal [facility] ([facility]) Platelet Count, Automated 432 10 150-450 Normal (applies to non-numeric results) [facility] ([facility]) Lymph % 43.5 % 24.0-44.0 Normal (applies to non-numeric resul ts) [facility] ([facility]) Neutrophils % 46.4 % 36.0-66.0 Normal (applies to non-numeric re sults) [facility] ([facility]) Eos % 1.5 % 0.0-3.0 Normal (applies to non-numeric resul ts) [facility] ([facility]) [place] % 7.3 % 2.0-8.0 Above high normal [facility] ([facility]) Baso % 0.9 % 0.0-1.0 Normal (applies to non-numeric resul ts) [facility] ([facility]) Immature Granulocyte % 0.4 % 0-3.0 Normal (applies to non-n umeric results) [facility] ([facility]) Nucleated Red Blood Cell % 0.0 % 0-0 Normal (applies to n on-numeric results) [facility] ([facility]) Neutrophils # 3.6 10 1.5-8.5 Normal (applies to non-numeric re sults) [facility] ([facility]) Lymph # 3.4 10 1.5-5.0 Normal (applies to non-numeric resul ts) [facility] ([facility]) Eos # 0.1 10 0.0-0.5 Normal (applies to non-numeric resul ts) [facility] ([facility]) [place] # 0.6 10 0.0-0.8 Normal (applies to non-numeric resul ts) [facility] ([facility]) Baso # 0.1 10 0.0-0.2 Normal (applies to non-numeric resul ts) [facility] ([facility]) ID Date Data Source [id number] 06/15/2020 01:52:29 PM EST [facility] NT INFORMATIONPatient MRN Name Date of Age Gend*PT [id number] Sonja Nino 1970 49 years F IPPT Location Admission Date/Time Visit ID Attending [id number] 06/14/20 0927 --- Greg Longoria MD([id number]) EPI ID CSN Admitting Provider [id number] Greg Longoria MD([id number])Surgical Discharge SummaryElinicole NinoMRN: [id number] date: 06/14/2020Admitting Physician: JESICA Yingischarge date and time:Discharge Orders Placed(From admission, onward) Start Ordered 06/15/20 1347 Discharge patient OnceExpected Discharge Date: 06/15/20Expected Discharge Time: AfternoonDischarge Disposition: Home or Self Care 06/15/20 1348Discharge Physician: Greg Longoria MDAdmission Diagnosis: Morbid obesitySecondary Diagnoses: Principal Problem: Morbid obesityActive Problems: Sleep apnea Diabetes mellitus Hypertension GERD (gastroesophageal reflux disease)Discharge Diagnosis: * Morbid obesity [E66.01] * Fatty liverSurgical Procedures:Procedure(s) with comments:CREATION, GASTRIC BYPASS, SANCHEZ-EN-Y, LAPAROSCOPIC,, WITH LIVER BIOPSY, EXTENSIVELYSIS OF ADHESIONS (N/A) - [facility] TO ASSISTLaparoscopic Sanchez Y Gastric Bypass, antecolic, antegastric, 50 cm PancreaticoBiliary Limb, 150 cm Sanchez Limb,Wedge liver biopsyExtensive lysis of adhesionsEsophagogastrojejunoscopyPast Medical History:Past Medical History:Diagnosis Date ADD (attention deficit disorder) Brain tumor Diabetes mellitus type 2 GERD (gastroesophageal reflux disease) Hypertension Migraines Morbid obesity MRSA (methicillin resistant Staphylococcus aureus) 2017 skin infection Osteoarthritis Sleep apnea doesnt use cpap Spinal stenosisHospital Course & Complications: The patient underwent Procedure(s):CREATION, GASTRIC BYPASS, SANCHEZ-EN-Y, LAPAROSCOPIC,, WITH LIVER BIOPSY, EXTENSIVELYSIS OF ADHESIONS on 06/14/[address] Greg Longoria. There were nointraoperative complications and postoperatively [facility] condition. Up on the floor She was given sips of water andd ilute juice to drink. She also ambulated and used the incentive spirometerappropriately. She had no difficulties voiding. She had adequate paincontrol as well with simethicone and tylenol. Blood sugars were controlledwith sliding scale insulin. [facility] At the time of discharge, Accuchecks and blood pressure were normal.She was tolerating 4 oz of fluid consistently without nausea.Discharge Exam:Vitals: Temp: [97.2 F-98.2 F] 98.2 FHeart Rate: [58-91] 89Resp: [11-20] 14BP: (93-173)/(62-101) 114/74General: No acute distressCVS: Regular, rhythm and ratePulmonary: Respirations unlaboredAbdomen: Soft and benign; incisions c/d/i; no ecchymosisExtremities: No calf tenderness bilaterallyDischarged Condition:goodDisposition: Home or Self CareDischarge Instructions:1) The patient is to follow up in our office in 3-4 weeks.2) The patient is to follow the postoperative bariatric diet found on the [facility].3) The patient is have blood work drawn prior to their postoperativeappointment (per lab slip)4) The patient was given danger signs and symptoms to call about includingfevers, chills, nausea,vomitng, new and/or increased abdominal pain anddiarrhea.Medications: Sonja Nino Medication Instructions MELISA:[id number] Printed on:06/15/20 6880Medication Informationacetaminophen (TYLENOL) 325 MG tabletTake 2 tablets (650 mg total) by mouth every 6 (six) hours as needed for painamphetamine-dextroamphetamine (ADDERALL XR) 20 MG 24 hr capsuleTake 20 mg by mouth every morningamphetamine- dextroamphetamine (ADDERALL) 5 MG tabletTake 5 mg by mouth daily At 2pmbaclofen (LIORESAL) 10 MG tabletTake 10 mg by mouth 3 (three) times a dayBiotin 10 MG TABSTake 10 mg by mouth dailycarisoprodol (SOMA) 350 MG tabletTake 350 mg by mouth daily as needed for muscle spasmscholecalciferol (VITAMIN D3) 25 MCG (1000 UT) capsuleTake 2,000 Units by mouth dailycyanocobalamin (CVS VITAMIN B-12) 500 MCG tabletTake 2 tablets (1,000 mcg total) by mouth dailyenoxaparin (LOVENOX) 40 MG/0.4ML SOLNInject 0.4 mL (40 mg total) under the skin daily for 10 daysgabapentin (NEURONTIN) 300 MG capsuleTake 300 mg by mouth every morninggabapentin (NEURONTIN) 300 MG capsuleTake 600 mg by mouth nightlyGalcanezumab-gnlm (EMGALITY) 120 MG/ML SOAJInject 120 mg under the skin every 30 (thirty) daysloratadine (CLARITIN) 10 MG tabletTake 10 mg by mouth dailylosartan (COZAAR) 25 MG tabletTake 25 mg by mouth nightlyMultiple Vitamins- Minerals (MULTIVITAMIN WITH MINERALS) tabletTake 2 tablets by mouth dailyomeprazole (PRILOSEC) 40 MG capsuleTake 1 capsule (40 mg total) by mouth dailyondansetron (ZOFRAN-ODT) 4 MG disintegrating tabletTake 1 tablet (4 mg total) by mouth every 6 (six) hours as needed for nauseasimethicone (MYLICON) 80 MG chewable tabletChew 1 tablet (80 mg total) every 6 (six) hours as needed for flatulenceSUMAtriptan (IMITREX) 50 MG tabletTake 50 mg by mouth every 2 (two) hours as needed for migraine take one tabletat onset of headache, may repeat onc e in 2 hours if needed. Max of 2 tabs a daySignature: JESICA Yingate: June 15, 2020Time: 1:49 PMCC: Greg Longoria [facility] CITYRajinder: LUCÍA CANSECO DO Name Value Range Interpretation Code Description Data Janeth rce(s) Supporting Document(s) ID Date Data Source [id number] 06/15/2020 01:51:58 PM [facility] CenterPAT[facility] NT INFORMATIONPatient MRN Name Date of Age Gend*PT [id number] Sonja Nino 1970 49 years F IPPT Location Admission Date/Time Visit ID Attending [id number] 06/14/20 0927 --- Greg Longoria MD([id number]) EPI ID CSN Admitting Provider [id number] Greg Longoria MD([id number])CREATION, GASTRIC BYPASS, SANCHEZ-EN-Y, LAPAROSCOPIC, WITH SLEEVE GASTRECTOMY IFINDICATED, WITH LIVER BIOPSY IF INDICATED, WITH HIATAL HERNIA REPAIR IFINDICATED, WITH LAPAROTOMY IF INDICATED Procedure NoteElilaurokaylah Nino CSN:[id number]/28/2020Surgeon(s):SE Yingurgical Assist: Rona Ramirez, PAStaff:OR Recycling Sorter: MARIA ESTHER Leeurgical Assist: GAGANDEEP Zarco Relief Recycling Sorter: Jj Saravia RNOR Relief Scrub: Apolinar Mahan Scrub Person: Hank Taylorocedure(s):CREATION, GASTRIC BYPASS, SANCHEZ-EN-Y, LAPAROSCOPIC,, WITH LIVER BIOPSY, EXTENSIVELYSIS OF ADHESIONSLaparoscopic Sanchez Y Gastric Bypass, antecolic, antegastric, 50 cm PancreaticoBiliary Limb, 150 cm Sanchez Limb,Wedge liver biopsyExtensive lysis of adhesionsEsophagogastrojejunoscopyAnesthesia: GeneralPre-op Diagnosis:Morbid obesity [E66.01]Post-Op Diagnosis Codes: * Morbid obesity [E66.01] * Fatty liverDrains: NoneGrafts/Implants:NoneSpecimens:ID Type Source Tests Collected by TimeA : Liver Biopsy Tissue Tissue SURGICAL PATHOLOGY EXAM Greg Longoria MD06/14/2020 1352Estimated Blood Loss: less than 50 mLBlood Administered: See Anesthesia RecordComplications: NoneFindings: Findings: Consistent with the Operative Diagnosis, extensive lysis ofadhesions from previous open cholecystectomy, central visceral obesity, fattyliver, divided loop gastroenterostomy after pouch creation first, withsubsequent JJA, negative leak test. Umbilical port site fascial closure.All significant tasks completed under the direction of the primary surgeon withthe exception of:Closing - Performed By: Performed By: MAN: Sonja Nino 61 in, 274.9 lb and BMI of 51.94. She meets thecriteria for bariatric surgery as defined in the NIH consensus statement,surgery is medically necessary. We explained the operation, potentialcomplications, what can be expected after surgery, and what to expect for therest of their life. An informed consent discussion was held. The operations Ioffer and their potential complications were discussed. After discussion,patient and I agreed to proceed with a laparoscopic Sanchez-en-Y Gastric Bypass,possible Robotic assisted, possible Sleeve Gastrectomy if hostile abdomen isencountered. Botox education given to patient. This may include repair of aHiatal Hernia if found and a Wedge Liver Biopsy if there is a fatty liver. We covered complications including: , NE, DVT, PE, leaks, sepsis,gallbladder disease, anastomotic ulcers, bleeding, failure of weight loss,malnutrition, need for open surgery, internal and external hernias, and the needfor repeat surgery, among others. We also discussed risk of COVID-19 infectionwhile hospitalized, risks of anesthesia including NE, stroke and . Ptexpressed understanding of all risks and agrees to proceed with surgeryPROCEDURE IN DETAIL: The patient was taken to the operating room and placed onthe operating table in supine position. Next, general anesthesia was induced andhe was intubated. Their abdomen was prepped and draped in a sterile fashion.Afterwards, a time-out was called. The patient's identity, procedure,preoperative antibiotics, subcutaneous heparin and SCDs were all confirmed. I then gained access into the intraabdominal cavity through a 12- mm RUQincision using a 12-mm Optiview port with a 10-mm 0- degree scope. Once inside apneumoperitoneum was established and I placed additional ports after extensiveLOA in RUQ from previous open cholecystectomy in the following configuration:one in supraumbilical area and one 12-mm right lower quadrant ports, two 12-mmleft sided flank ports and one 5-mm epigastric port. I then evaluated liverwhich looked fatty infiltrated and I opted to proceeded to take a wedge liverbiopsy with Harmonic scalpel. I placed the patient in reverse Trendelenburg ~15-20 degree. I changed out with the scope to a long bariatric 45 degree scope.I than used locking grasper via the 5 mm epigastric port and retarcted liverlatching it at the diaphragm. By this I exposed EG - junction. I then dissectedout the angle of his with a [place] grasper behind the hiatus. There was nosignificant hiatal hernia appreciated. Afterwards, I proceeded to identify the root of the mesentery by retracting themesocolon and transverse colon in a cephalad direction. I placed a 3-0 V- Locsuture at the root of the mesentery. This would be used later for closure of theRetro-Sanchez space. I then identified the ligament of Treitz and ran the smallbowel distally. There was no significant pathology.I retrieved small bowel and and counted 50cm of proximal jejunum, from Treitzligament and marked that spot and than counted another 150 cm of small bowel andmarked that spot as well. Than I transected 50 cm bev with EndoGIA 60 mmstapler, white load cartridge, so that by this the proximal end became BP limbthe distal end became Sanchez limb. I placed 3-0 V lock stitch between themesentery of BP limb and 150 cm bev. Than using L-hook device made enterotomiesin BP limb and 150 cm bev and 10 cm away from stapler end of RY limb.I then proceeded to transect the greater omentum with the Harmonic scalpel fromthe colon up to the stomach. By this I gave pathway for RY limb towards thedistal stomach. I then proceeded to create the pouch. Using the wavy graspers and Harmonicscalpel, I did a perigastric dissection 10 cm distal to the GE junction alongthe lesser curvature. Once inside the lesser sac, I placed a stapler with thegreen load cartridge and fired. A 32-Norwegian bougie was used up to help size thepouch. The pouch was completed using multiple firings of blue loads up towardsthe angle of His. Afterwards, I made a gastrotomy at the distal end of my pouchwith L-hook connected to monopolar cautery. I retrieved small bowel, the Sanchez limb and I placed the linear stapler with ablue load cartridge into the gastrotomy and enterotomy and fired creating thegastrojejunostomy. Than I and placed another stapler in both enterotomies of theBP limb and 150 cm bev and fired the stapler (white load) creating thejejunojejunostomy. I then went back to GJ anastomosis and placed a 3-0 V- Locsuture, anti-tension stitches at the crotch of the anastomosis. I closed theremaining defect of the anastomosis with a 3-0 V-loc suture in a runningfashion. A double-layer closure technique was performed. Next, I fliped Sanchez limb and elevated transverse colon and mesocolon and Iretrieved V-lock stitch at Shaffer's space and closed it in continuous fashion.I flipped the RY limb towards right, now and I proceeded to close theintermesenteric defect with a running 3-0 V-Loc suture. Once this was closed, Iinspected the staple line at the jejunojejunostomy with wavy graspers;Hemostasis was excellent. Next, I closed the remaining enterotomy defect with a3-0 V-loc suture in a standard running fashion and double-layer closuretechnique was done. Next, I inspect the staple lines of the pouch and remnant stomach for bleeding.Hemostasis was obtained with bipolar cautery. After this was done, I proceeded to test by anastomosis for leaks. My assistantclamped across the Sanchez limb with the bowel clamp while I passed the endoscopeinto the esophagus, into the pouch, and into the Sanchez limb. I insufflated withair and my autopsy assistant irrigated over the anastomosis with normal saline. Therewere no bubbles seen emanating from the anastomosis; therefore, the test wasnegative and complete. I evacuated the insufflated air and retrieved the scope.Next, I reinspected all staple lines and hemostasis was obtained with bipolarcautery. I inspected the port sites for bleeding which was excellent. Umbilicalport site fascial closure was done. I evacuated the pneumoperitoneum and closedthe skin incisions with 4-0 Vicryl. 0.25% Marcaine was used to infiltrate theskin incisions and dermabond was applied. Sponge, needle, and instrument countswere accurate. The patient was extubated and taken to recovery room in stablecondition. Greg Longoria MD Name Value Range Interpretation Code Description Data [facility](s) Supporting Document(s) ID Date Data Source [id number] 06/15/2020 12:21:51 PM EST [facility] Name Value Range Interpretation Code Description Data Janeth rce(s) Supporting Document(s) POC NOVA GLU 127 mg/dL (70-99) H [facility] ID Date Data Source [id number] 06/15/2020 03:07:35 PM EST [facility] Name Value Range Interpretation Code Description Data Janeth rce(s) Supporting Document(s) WBC 16.9 10*3/uL (4.1-11.0) H [facility] RBC 4.45 10*6/uL (4.00-5.40) [facility] HGB 12.8 g/dL (12.0-16.0) [facility] HCT 38.8 % (36.0-47.0) [facility] MCV 87.1 fL (80.0-95.0) [facility] MCH 28.8 pg (27.0-32.0) [facility] MCHC 33.0 g/dL (32.0-36.0) [facility] RDW 15.2 % (10.5-14.5) H [facility] PLT 238 10*3/uL (150-450) [facility] MPV 10.1 fL (7.1-10.7) [facility] ID Date Data Source [id number] 06/15/2020 05:33:41 AM EST [facility] Name Value Range Interpretation Code Description Data Janeth rce(s) Supporting Document(s) POC NOVA GLU 124 mg/dL (70-99) H [facility] ID Date Data Source [id number] 06/14/2020 11:35:08 PM EST [facility] Name Value Range Interpretation Code Description Data Janeth rce(s) Supporting Document(s) POC NOVA GLU 161 mg/dL (70-99) H [facility] ID Date Data Source [id number] 06/14/2020 07:03:04 PM EST [facility] Name Value Range Interpretation Code Description Data Janeth rce(s) Supporting Document(s) POC NOVA GLU 142 mg/dL (70-99) H [facility] ID Date Data Source [id number] 06/14/2020 04:10:29 PM EST [facility] Name Value Range Interpretation Code Description Data Janeth rce(s) Supporting Document(s) POC NOVA GLU 95 mg/dL (70-99) [facility] ID Date Data Source [id number] 06/16/2020 06:38:59 AM EST [address] [id number]# Surgical Pathology ReportPatient Name: SONJA NINO: 1970Accession #:[id number](s) ReceivedA: Liver biopsyClinical Diagnosis and HistoryMorbid obesityDIAGNOSISLIVER, WEDGE BIOPSY: MODERATE STEATOSIS AND PATCHY MILD CHRONIC PORTAL INFLAMMATIONCommentsAccording to the Hospital Information System, the patient has an elevatedalkaline phosphatase of 140 U/L (45-117). She has a normal bilirubin,AST, and ALT.Sections of the wedge biopsy show moderate, predominantly macrovesicularsteatosis. There is patchy mild chronic portal inflammation. Theinflammatory cells consist predominantly of lymphocytes with a feweosinophils. The bile ducts are unremarkable. PAS stain shows no alpha 1antitrypsin inclusions. Iron stain is negative. Trichrome stain revealsno significant fibrosis. There is no evidence of cirrhosis on thereticulin stain. Gross DescriptionThe specimen is labeled "A liver biopsy". The specimen consists of afocally cauterized wedge shaped fragment of brown-red tissue measuring 1.2 x0.8 x 0.5 cm. The specimen is bisected and entirely submitted permodified liver biopsy protocol as A1 one block. [email or web address] Reported: 06/16/2020Electronically Signed Out By Aditi Mcdonough M.D. [facility] [place] [id number] component performed at [facility], Histopathology, [address] [place] [address], [address].Reported at [facility], [address] [place] [address], [address]. This report may includeimmunohistochemical or in-situ hybridization results. Testing wasdeveloped and the performance characteristics determined by [facility] as required by CLIA '88. The FDA hasdetermined that approval for specific use is not necessary for clinicaluse. The quality of Hematoxylin and Eosin stains and as applicable, forall immunohistochemical and/or special stains, including positive andnegative controls, were reviewed and considered appropriate.ICD cod es E66.01CPT codesA: 18890E, 09464S, 72795N, 06737L, 76640J Name Value Range Interpretation Code Description Data Janeth rce(s) Supporting Document(s) ID Date Data Source [id number] 06/14/2020 02:40:32 PM EST [facility] Name Value Range Interpretation Code Description Data Janeth rce(s) Supporting Document(s) POC NOVA GLU 164 mg/dL (70-99) H [facility] ID Date Data Source [id number] 06/14/2020 01:26:31 PM EST [facility] NT INFORMATIONPatient MRN Name Date of Age Gend*PT [id number] Sonja Nino 1970 49 years F SDAPT Location Admission Date/Time Visit ID Attending Provider --- --- --- --- EPI ID CSN Admitting Provider [id number] ---AirwayPatient location during procedure: ORUrgency: electiveDifficult airway: noAdvanced airway equipment used: noStaffingPerformed by: Terrance Davidson MDIndications and Patient ConditionIndications for airway management: anesthesiaPreoxygenated: yesPatient position: supineIn-line stabilization: noMask ventilation: 0 - not attemptedFinal Airway/ApproachesFinal airway type: ETTNumber of attempts at final approach: 1Number of other approaches attempted: 0Final Airway DetailsFinal ETT airway: ETT - singleCuffed: yesTechnique used for successful ETT placement: regular stylet and directlaryngoscopyCricoid pressure: yesRSI: noInsertion site: oralBlade type/size: MAC 3ETT size: 7.0 mmMeasured from: lipsETT to lips: 21 cmPlacement verified by: + [id number] view: grade IIa - partial view of glottis Name Value Range Interpretation Code Description Data Janeth rce(s) Supporting Document(s) ID Date Data Source [id number] 06/14/2020 12:47:59 PM EST [facility] NT INFORMATIONPatient MRN Name Date of Age Gend*PT [id number] Sonja Nino 1970 49 years F SDAPT Location Admission Date/Time Visit ID [facility] --- Greg Longoria MD([id number]) EPI ID CSN Admitting Provider [id number] Greg Longoria MD([id number])Pre- Procedure History and Physical:The history and physical were reviewed and the patient was examined.There are no changes to the H&P.Greg Longoria MD06/14/20 12:47 PM Name Value Range Interpretation Code Description Data Janeth rce(s) Supporting Document(s) ID Date Data Source [id number] 06/14/2020 11:38:26 AM EST [facility] Name Value Range Interpretation Code Description Data Janeth rce(s) Supporting Document(s) POC NOVA GLU 96 mg/dL (70-99) [facility] ID Date Data Source [id number] 06/13/2020 06:26:13 PM EST [facility] NT INFORMATIONPatient MRN Name Date of Age Gend*PT [id number] Sonja Nino 1970 49 years F SDAPT Location Admission Date/Time Visit ID Attending Provider --- --- --- Greg Longoria MD([id number]) EPI ID CSN Admitting Provider [id number] Greg Longoria MD([id number])Inpatient History & PhysicalSonja NinoMRN:[id number] and Plan:Active Problems: * No active hospital problems. * * Morbid obesity Chief Complaint: "I need to lose weight"History of Present Illness: Sonja Nino 49 yrs old female who suffers fromsevere obesity. Sonja Nino has attempted multiple diets over the years, andhas been able to lose modest amounts of weight, however the weight loss hasnever been sustained. See nutrition history above for weight loss attempts/diethistory noted. Sonja Nino has always tried to lower calories. High weightstatus significantly impacts Sonja Nino 's activities of daily living. Seecomorbidities as above.Past Medical History:Past Medical History:Diagnosis Date ADD (attention deficit disorder) Brain tumor Diabetes mellitus type 2 GERD (gastroesophageal reflux disease) Hypertension Migraines Morbid obesity MRSA (methicillin resistant Staphylococcus aureus) 2017 skin infection Osteoarthritis Sleep apnea doesnt use cpap Spinal stenosisPast Surgical History:Past Surgical History:Procedure Laterality Date BRAIN TUMOR EXCISION 2002 hollis knife also CARPAL TUNNEL RELEASE Bilateral CHOLECYSTECTOMY HEEL SPUR EXCISION Bilateral KNEE ARTHROSCOPY W/ MENISCAL REPAIR Left PANENDOSCOPY N/A 05/18/2020 Procedure: ENDOSCOPY, UPPER GASTROINTESTINAL (GI) TRACT W BIOPSY; Surgeon:Michi Mack MD; Laterality: N/A;Medications:No medications prior to admission.Allergies:AmitriptylineFamily History:Family HistoryProblem Relation Age of Onset Diabetes Mother Brain tumor Father Prostate cancer Father Coronary artery disease Father Malig Hyperthermia Neg HxSocial History:Social HistoryTobacco Use Smoking status: Never Smoker Smokeless tobacco: Never UsedSubstance Use Topics Alcohol use: Never Frequency: Never Drug use: NeverReview of Systems:General: The patient's general health has been goodSkin: No skin lesions or ulcerations, No tattoosRespiratory: Patient denies any shortness of breath, No functional disabilityfrom COPDCardiac: Denies chest pain, No previous PCI/PTCAENT: Denies chronic/recurring oropharyngeal ulcers, Dentition: No dentures, noloose teethEyes: Denies any visual disturbancesMusculoskeletal: Has multiplejoint pain and/or back painUrological: Denies gross hematuria ordysuriaNeurological: Denies chronic headaches/migraines, NoneuropathyPsychiatric: Denies hospitalizations for psychiatric diagnoses, nosuicide attemptsReproductive: PostmenopausalGastrointestinal: No problems withnausea/vomiting/diarrhea/constipation, no history of rectalbleedingHematological: Denies history of DVT or PE, denies family histor y ofDVT or PEEndocrine: No polydipsia/polyuriaSocial History: Single Lives with: family Not Jehovah witness Recreational drug use: none, Alcohol use: nonePhysical Exam:General: Resting comfortably on the exam table in no acute distressHead: No signs of trauma, no hair lossEyes: PERRL. Conjunctiva pink. Sclerae clear, anictericMouth: Tongue midline, normal hard and soft palateNeck: Supple, no masses, thyroid not enlargedLungs: Clear to auscultationHeart: Regular rate and rhythm, no murmursChest: Normal size and shapeAbdomen: Obese, non-tender, active bowel sounds, no massesAbdominal hernia: noneAbdominal scars: KocherSkin: ClearExtremities: Full ROM, no deformitiesVeins: NormalNeurological: Alert and OrientedPsychiatric: Normal affectImpression and Recommendations: Sonja Nino 59 in, 274.9 lb and BMI of51.94. She meets the criteria for bariatric surgery as defined in the NIHconsensus statement, surgery is medically necessary. We explained the operation,potential complications, what can be expected after surgery, and what to expectfor the rest of their life. An informed consent discussion was held. Theoperations I offer and their potential complications were discussed. Afterdiscussion, patient and I agreed to proceed with a laparoscopic Pwfu-vh-TKutywuq Bypass, possible Robotic assisted, possible Sleeve Gastrectomy ifhostile abdomen is encountered. Botox education given to patient. This mayinclude repair of a Hiatal Hernia if found and a Wedge Liver Biopsy if there nahomy fatty liver. We covered complications including: , NE, DVT, PE, leaks, sepsis,gallbladder disease, anastomotic ulcers, bleeding, failure of weight loss,malnutrition, need for open surgery, internal and external hernias, and the needfor repeat surgery, among others. Sonja Nino was counseled about diet,exercise, and behavior modification (yellow sheet diet given) and we will bechecking on this at visits to come. We will plan to get bariatric surgeryscheduled and will ask for Sonja Nino to be seen preoperatively by: primarycare, our dietitian, and any other consults as indicated.Post-operatively I will start patient on 40mg Lovenox everyday for 10 days.All pertinent records reviewed. Endoscopy: was normal. Sonja Nino ready toproceed with surgery.Greg Longoria MD, FACS, FASMBSSignature: Greg Longoria, MDDate: June 13, 2020Time: 6:24 PM Name Value Range Interpretation Code Description Data Janeth rce(s) Supporting Document(s) ID Date Data Source [id number] 06/09/2020 08:00:00 AM EST [facility] Name Value Range Interpretation Code Description Data Janeth rce(s) Supporting Document(s) SARS coronavirus 2 RNA [facility] This lab was ordered by [facility] and reported by [employer]. ID Date Data Source [id number] 06/11/2020 01:06:53 AM EST [facility] Name Value Range Interpretation Code Description Data Janeth rce(s) Supporting Document(s) SARS-COV-2 [facility] Not DetectedReference range: Not Detecte d This nucleic acid amplification test was developed and its performance characteristics determined by [employer]. Nucleic acid amplification tests include PCR and TMA. This test has not been FDA cleared or approved. This test has been authorized by FDA under an Emergency Use Authorization (EUA). This test is only authorized for the duration of time the declaration that circumstances exist justifying the authorization of the emergency use of in vitro diagnostic tests for detection of SARS-CoV-2 virus and/or diagnosis of COVID-19 infection under section 564(b)(1) of the Act, 21 U.S.C. 360bbb-3(b) (1), unless the authorization is terminated or revoked sooner. When diagnostic testing is negative, the possibility of a false negative result should be considered in the context of a patient's recent exposures and the presence of clinical signs and symptoms consistent with COVID- 19. An individual without symptoms of COVID- 19 and who is not shedding SARS -CoV-2 virus would expect to have a negative (not detected) result in this assay. Performed At: [address] [place], [place] [id number] Antonio Correia PhD Ph:[phone] ID Date Data Source [id number] 05/31/2020 01:54:29 PM EST [facility] Name Value Range Interpretation Code Description Data Janeth rce(s) Supporting Document(s) EKG [facility] YTSDDe7qOeUWGjDrs0ZrJyJlROLrIC5xjbo9V5C7hOCmA3PwwNTho1upH9AaL4IsPJCoOUYPXV8WsWXy jb2 [file] i6kz1Y2sLplQbakNX7Rqg5uv2O0cWfvWoytVT3Cib3tq7K1qW+03ZxsW1a92Lj+knOsL9s6+czOz+merchandise executive /P/Pxwgn4+M/WULvb9fCVNA+nnM0s/iXmdWn0YZAjPYbOYhF41kxz1clNqT628TDbLzoIXSyDqCQHQ+a qRJEc+esQoSOyjSIySxPyrtZLY+tSTssQ+usQoTOyj VZmLmU5frOaC6ZOAgPOKIxmIPYBde0WEBiM+JoYmShf7ZNYXeZ96NzpIF5lVeKl3oBoQcRsIbGkncq06 buEq6BjwKRKZiYACMbZEU0AWPKk9fLvVsXcSyGwun837m0D31Uu3LDVRagYQBhCUF5ARJQq1VWhHgIwU xRhljLV/3P8VlY74FVGkg0OAAiG+asYoZ+xdQ4wXqi 8Amhwv2SPimIJYOwvOGQnyp4eLylz116rK5qtrN3M1xB+6Mcob++gif1Duh8TkBce3fYlnkDXBdtTAER voHKPQsY/SMUod+6ywk8jtg8fqvc172U0v5XUL6lHXGwmjZwAtlJ/qMcoe++moshe/Cxj/IxSh/7aB+j+L [file] aJ3S49M//11xE4v2c6z8/poolroom/poolhall manager/t5v5m+env+xt++mb5 wZeVfnwCr0CeuiTNB1i/4fUPf/yS426PxJ9Wwt21+/Wu3JnSwZQ2Y/49EjP2EJho4Wy59u6vIU+0W2F/ untaULqqkGbVdnW+aACFEVlVOKb3cI2vNVg7StQKl794QdKHV4cf/nJ7f7+42iAgeK6/ywG2hre2czq2 3qTj7rvCmeNdojbGvh33bg13mSkcoz1OxI85v9SXdp TQLGzsm+z3oVu3er64+nS5v/l6+0U9s0lznDAInq4xXk3/gLZX7jCeK+Hry+XD3dfb+//snSjU1boAWc uuwW1iyvn05rB00+ZM2v90cy5vNk93fr8ZqKiPaYujhq52/itH37dj81+6gdQZ87X49N7Y9koRy6Ir+v vjI+K4xhka8/wGLJi6H7fN3ddmt4+ul5v/9g2863zf PTcrT75/8+rJIURr//blsPxx/9H5w00lb+Spz47wFq35mv1D+cnN7+8jqnt7jrdkEWbVOY0+/OnoUekw +PkwjfS2rtBC3TDex+Lr23e/3X14t6//nIi14t1FU11zHGTTcrpMo/s+857/6+IJ2FVvU0bBqaw3bfuR 398ekxC1a3IRO+yyzT5i0/4iIP5xTW0ntnmfLn9w+7 U46REmJCsz4w/0/Vzh+MHs8l8j/bV7L+trZ0rBK8l/Cb4Md8qZKA2ct1NpONBwIkLtBY4gxyqnMNJbAO 7ewic5I0XdhDeyEBtIEEYpLp1ekTQmDE7LBBV8PWhxBNEbRYNtJ6UmaV6cY98auHViWwAqLNTPSO8Qmq I7OVW7CYI9EOHdUeJsVRQjWZ70UCGeNUJSZy3dydMb SzxFDoLmAV2kdxn8Y6T8yAGvA329cJfurdUsJP5Ny3WpuOVyGG1CfYCafWAcEXFbXAUxO5aea7VpUCxa DXYZPg7txzZrYqtQGzGsNI6efpb1O5K6xFqgqeCkUBXYVHntDlsbJU1xrLmaztmxE2FrkOYoTMExL6Fb HQLph12DXKYuNZvDGyFfPzQrMgF1ZNM5ITqdHtRzNA KuZQVaOHPsZP1JsWMmWDRbVNYXOCxrJgoiSCKweW8wnMZHv6CfDOoUTA4yVAZOWBoWNcVYFROzGMW1IE P8VUimAS2FoJBlEXG2XCzLMBUSALvAZJfiNbJjc9S3GDDqC9ZyNFTlqxTvSUPHXHjhDptcLR9znVjpej xtZ8ZfnCKiWFRQMGFxLRHoDLNvSKRoR0Sxq6W1K4Ig IBkHCYAGNBpNINfpPzU3x25jwnTZWGKdMPVhEZ4+TE6zq6BaBk7JOPLjXA4zlub5ES7GdQHfCJ9DFCzg gzVsF3bdkwUgEyIdRKCGGE1bF2AwkF36KZV+EiOyGX4asgd2wzJsWxBlCCSqAEGxOUNoVRspGCZaGLHc WMGqNKI8CIK5DIPxEsGeANKtYORjVqVpTUOaNIPwce KRRRIgETZ4EkmbTGOuOZHgNYTrKDtjJRUtTPXrJod9FMKvJJKsGJ2sWbAxENWkXLLnKUQjLiY5YsFzCt KLSZAyDFDrLKKfXkRxHWDmNSYlEFhhZXPhLVOrIFt3RSUbVUGtWG9yQbViEAEfMJFcPQWdNBQgPFNism DFJQYmNTJnHBL0WGUfPQQxJXOtOIkwKWGvCIAzAIY5 XQSrREBaQY7aSxPrXPLnLMC6OzDxVWMrGONkzyBKOAIdBDAxCJF8OUFeVUFqUYExIBshOVSyJQLqFyC7 GMMlCWOdBD2uDqDjQSHrNCN0PWLaHAAqDTAdhtQZBTKyRKOuCDb4UjDrDWRkPIKiBQvbOMRuGPJtTFua RESpLCIrDF1tSxOpIEXsPWPbPIHhQVHsBAGtacFMWA IyZHQsGGG4FtYdJUYdRLQeAIaaSDQeBMEoHDZ0XJHjNAKgXH6iBzVtQHFjHLL5CvIbYVJpFPUfnoJRAN JwSJPtCZSsEGHdTVGbZNDrEPhjTBGxVZDjTkX7MYFaRRNqZZ9ePvSxAGUrKJM9GAMuKTVySINukuCCVG YoEGZqQRShEMQ3XXFaRTEsHGl2naDmqMWcSwb9Uf4I lKuaMID1Bo5WwtYeTGRrZEZZKn8Mh332SRPqMZTZAxo+FmsjtEHnzEzrPGPJYMDvEsXVUAWCL2Y= ID Date Data Source [id number] 05/31/2020 09:33:47 PM EST [facility] Name Value Range Interpretation Code Description Data Janeth rce(s) Supporting Document(s) SODIUM 139 mmol/L (136-145) [facility] POTASSIUM 5.0 mmol/L (3.6-5.2) [facility] CHLORIDE 105 mmol/L (100-108) [facility] CO2 28 mmol/L (22-31) [facility] ANION GAP 6 mmol/L (7-16) L [facility] UREA NITROGEN 15 mg/dL (7-24) [facility] CREATININE 0.86 mg/dL (0.60-1.00) [facility] BUN/CREAT RATIO 17.4 RATIO (10.0-20.0) [facility] GLUCOSE 94 mg/dL (70-99) [facility] CALCIUM 9.2 mg/dL (8.4-10.2) [facility] TOTAL PROTEIN 7.1 g/dL (6.4-8.2) [facility] ALBUMIN 3.6 g/dL (3.5-4.6) [facility] GLOBULIN 3.5 g/dL (2.7-4.3) [facility] ALB/GLOB RATIO 1.0 RATIO [facility] ALKALINE PHOSPHATASE 140 U/L (45-117) H [facility] BILIRUBIN,TOTAL 0.4 mg/dL (0.0-1.0) [facility] PLEASE NOTE:Total bilirubin results may be falselyelevated in patients taking Eltrombopag. AST (SGOT) 36 U/L (11-39) [facility] ALT (SGPT) 61 U/L (12-78) [facility] GFR >60 ml/min/1.73m2 (>59) [facility] GFR ( AMER) >60 ml/min/1.73m2 (>59) [facility] GFR INTERPRETATION [facility] --NORMAL KIDNEY FUNCTION OR MILD DISEASE - GFR >OR= 60CHRONIC KIDNEY DISEASE - GFR 15 - 59RENAL FAILURE - GFR <15 Est. GFR calculation based on the MDRDstudy equation, which assumes a steadystate for creatinine. Est. GFR should notbe used for medication dosing. ID Date Data Source [id number] 05/31/2020 09:08:05 PM EST [facility] Name Value Range Interpretation Code Description Data Janeth rce(s) Supporting Document(s) TSH,ULTRASENSITIVE @ 1.440 mIU/L (0.360-4.170) [facility] ID Date Data Source [id number] 05/31/2020 07:11:56 PM EST [facility] Name Value Range Interpretation Code Description Data Janeth rce(s) Supporting Document(s) HEMOGLOBIN A1C @ 5.9 % (4.0-6.0) [facility] Performed using Siemens [place] immunoassa y.Care must be taken when interpreting JhA9beoecwim in patients with a hemoglobin variantor decreased erythrocyte lifespan. Values 5.7 - 6.4% suggest prediabetes.Values >=6.5% are diagnostic for diabetes.REFERENCE: DIABETES CARE 2018: 41(S13-S27). EST AVERAGE GLUCOSE 123 mg/dL [facility] ID Date Data Source [id number] 05/31/2020 06:39:11 PM EST [facility] SPEC EXP DATE 06/15/2020PATI ENT ABO/Rh O POSITIVEANTIBODY SCREEN NEGATIVETESTING SITE PERFORMED AT [address] [place] [address] Name Value Range Interpretation Code Description Data Janeth rce(s) Supporting Document(s) TYPE AND SCREEN [facility] ID Date Data Source [id number] 05/31/2020 05:44:34 PM EST [facility] Name Value Range Interpretation Code Description Data Janteh rce(s) Supporting Document(s) WBC 8.0 10*3/uL (4.1-11.0) [facility] RBC 5.04 10*6/uL (4.00-5.40) [facility] HGB 14.5 g/dL (12.0-16.0) [facility] HCT 44.0 % (36.0-47.0) [facility] MCV 87.2 fL (80.0-95.0) [facility] MCH 28.7 pg (27.0-32.0) [facility] MCHC 32.9 g/dL (32.0-36.0) [facility] RDW 15.1 % (10.5-14.5) H [facility] PLT 351 10*3/uL (150-450) [facility] MPV 9.2 fL (7.1-10.7) [facility] ID Date Data Source [id number] 05/31/2020 01:28:43 PM EST [facility] CenterPAT[facility] NT INFORMATIONPatient MRN Name Date of Age Gend*PT [id number] Sonja Nino 1970 49 years F OPPT Location Admission Date/Time Visit ID Attending Provider --- --- --- Greg Longoria MD([id number]) EPI ID CSN Admitting Provider [id number] Greg Longoria MD([id number])HISTORY PHYSICALName: Sonja Nino : 1970 Sex: female Care Provider: LUCÍA PENNINGTON DOAttending Physician: Dr. LongoriaInformant: The patient who is reliable.Chief Complaint: OverweightHISTORY OF PRESENT ILLNESS: This is a 49 years old white female with alongstanding history of being overweight. She has tried multiple weight lossmethods. Additionally she tried prescription medication such as phentermine andSaxenda, but has been unable to lose significant weight or sustain the weightloss. She is now ready for surgical intervention.The patient met with Dr. Longoria, options were discussed and they have electedto under go CREATION, GASTRIC BYPASS, SANCHEZ-EN-Y, LAPAROSCOPIC, WITH SLEEVEGASTRECTOMY IF INDICATED, WITH LIVER BIOPSY IF INDICATED, WITH HIATAL HERNIAREPAIR IF INDICATED, WITH LAPAROTOMY IF INDICATED on 06/14/2020.PAST MEDICAL HISTORY:Past Medical History:Diagnosis Date ADD (attention deficit disorder) Brain tumor Diabetes mellitus type 2 GERD (gastroesophageal reflux disease) Hypertension Migraines Morbid obesity MRSA (methicillin resistant Staphylococcus aureus) 2017 skin infection Osteoarthritis Sleep apnea doesnt use cpap Spinal stenosisPAST SURGICAL HISTORY:Past Surgical History:Procedure Laterality Date BRAIN TUMOR EXCISION 2002 hollis knife also CARPAL TUNNEL RELEASE Bilateral CHOLECYSTECTOMY HEEL SPUR EXCISION Bilateral KNEE ARTHROSCOPY W/ MENISCAL REPAIR Left PANENDOSCOPY N/A 05/18/2020 Procedure: ENDOSCOPY, UPPER GASTROINTESTINAL (GI) TRACT W BIOPSY; Surgeon:Michi Mack MD; Laterality: N/A;ALLERGIES:AllergiesAllergen Reactions Amitriptyline Other (See Comments) hallucinationsMEDICATIONS:Prior to Admission medicationsMedication Sig Start Date End Date Taking? Authorizing Provideramphetamine-dextroamphetamine (ADDERALL XR) 20 MG 24 hr capsule Take 20 mg bymouth every morning Historical Provider, baclofen (LIORESAL) 10 MG tablet Take 10 mg by mouth 3 (three) times a dayHistorical Provider, José Antonioarisoprodol (SOMA) 350 MG tablet Take 350 mg by mouth 4 (four) times a day asneeded for muscle spasms Historical Provider, José Antonioholecalciferol (VITAMIN D3) 25 MCG (1000 UT) capsule Take 2,000 Units by mouthdaily Historical Provider, JESICAaily Edson (THERAGRAN) per tablet Take 1 tablet by mouth daily HistoricalProvider, JESICAulaglutide (TRULICITY) 1.5 MG/0.5ML SOPN Inject 1.5 mg under the skin once aweek Historical Provider, gabapentin (NEURONTIN) 300 MG capsule Take 300 mg by mouth 3 (three) times a dayHistorical Provider, Galcanezumab-gnlm (EMGALITY) 120 MG/ML SOAJ Inject under the skin HistoricalProvider, loratadine (CLARITIN) 10 MG tablet Take 10 mg by mouth daily HistoricalProvider, omeprazole (PRILOSEC) 20 MG capsule Take 20 mg by mouth daily HistoricalProvider, SEUMAtriptan (IMITREX) 50 MG tablet Take 50 mg by mouth every 2 (two) hours asneeded for migraine take one tablet at onset of headache, may repeat once in 2hours if needed. Max of 2 tabs a day Historical Provider, SEocial HistoryTobacco Use Smoking status: Never Smoker Smokeless tobacco: Never UsedSubstance Use Topics Alcohol use: Never Frequency: Never Drug use: NeverFamily HistoryProblem Relation Age of Onset Diabetes Mother Brain tumor Father Prostate cancer Father Coronary artery disease Father Malig Hyperthermia Neg HxREVIEW OF SYSTEMS:Constitution: Weight stable, Denies fatigue, fever or chills. Caffeine intake: 4cups/day.HEENT: She uses contacts. Denies any blurred vision, double vision, dizziness,tinnitus, dysphagia or headaches.Respiratory: Denies any shortness of breath, cough, yellow sputum production orwheezing.Cardiovascular: Denies any chest pain, pressure or tightness. Denies anyparoxysmal nocturnal dyspnea or orthopnea.Muscle/Skeletal System: Denies any muscle ache, joint ache or weakness.Neurologic: Reports numbness and tingling in right lateral thigh secondary tospinal stenosis. Denies tremors or syncope.GI: Denies any nausea, vomiting, diarrhea, constipation or melena.: Denies any dysuria, hematuria or nocturia.Endocrine: Denies polyuria, polydipsia or polyphagia. Denies any heat or coldintolerance, or night sweats.Hematology: Denies any bleeding or bruising tendencies.DNR Status: Full Code per the patient.HCP: Yes per patient.PHYSICAL EXAM:General: She is a 49 years old, pleasant white female, in no acute distress attime of examination. Vitals on arrival to the office are BP 149/69 (BP Locat ion:Left upper arm, Patient Position: Sitting) | Pulse 95 | Temp 96.4 F(Temporal) | Ht 1.549 m (5' 1") | Wt (!) 119.3 kg (263 lb) | SpO2 98% | BMI49.69 kg/m Body mass index is 49.69 kg/m ..Skin is pink warm and dry.HEENT: She is normocephalic, atraumatic. [place] conjunctivae. Anicteric sclerae.Pupils are equal, round, reactive to light and accommodation. Extraocularmovements are intact. Ears: Without drainage or lesion. Mouth: Dentition is ingood repair. She has a grade 3 airway. Neck is supple midline without cervicaladenopathy. There is no tonsillo pharyngeal congestion. Mucous membranes aremoist. There are no oral lesions. No jugular distention. No carotid bruit.CHEST/BREAST: A/P less than transverse. Breast exam declined.LUNGS: Clear to auscultation. No wheezes, rhonchi or crackles.HEART: Rate rhythm regular. S1, S2. No murmur, rub or gallop.ABDOMEN: Obese. Bowel sounds positive times four. Soft, non tender. No reboundtenderness. No hepatosplenomegaly. Negative CVAT.GENITAL/RECTAL: Deferred.MUSCLE/SKELETAL: Strength is 5/5. Straddle Bug Operator are equal.NEUROLOGICALLY: Cranial nerves II through XII are grossly intact.VASCULAR: Pulses are symmetrical. No edema.Anesthesia complications: deniesSteroid use: She denies any oral steroid therapy for three weeks or greaterwithin the last 3 months.CSHA Frailty Scale :: 3/10 Managing Well (medical problems are well controlled,but are not regularly active beyond routine walking).IMPRESSION and PLAN:Primary Diagnosis: Morbid obesity surgery as per Dr. Longoria.Secondary Diagnosis and Plan:1. Morbid Obesity Body mass index is 49.69 kg/m .2. Hypertension Continuation of prior to admission anti- hypertensivemedications unless precluded by clinical status.3. Sleep apnea Obstructive Patient to continue with use of home CPAP /BiPAP4. Diabetes Type 2 Routine blood glucose monitoring. Sliding scaleinsulin coverage while inpatient. Hold oral diabetic medications.5. GI prophylaxis Per surgeon6. DVT prophylaxis Early ambulation. Pneumatic compression device.Subcutaneous Heparin or LMW Heparin if clinically indicatedBased on above medical co morbidities, length of stay may be prolonged greaterthan previously anticipated.ALLERGIES:Giaalimeagpad69/14/2020 1:28 PMLyudmichaim Lai, NPThis document or parts of this document, were dictated using [employer] speaking software. A reasonable attempt at proofreading has beenmade to minimize errors. Please call with any questions or corrections. Name Value Range Interpretation Code Description Data Janeth rce(s) Supporting Document(s) ID Date Data Source [id number] 05/20/2020 06:25:23 PM EST [facility] [address] [address]Vbl# Surgical Pathology ReportPatient Name: SONJA NINO: 1970Accession #:[id number](s) ReceivedA: Gastric antrum bxB: GE junction bxClinical Diagnosis and HistoryReflux, gastroparesis, r/o H. pylori DIAGNOSISA. STOMACH, ANTRUM, BIOPSY: BENIGN GASTRIC ANTRAL AND FUNDIC TYPE MUCOSA WITH MILD VASCULARCONGESTION. NO INTESTINAL METAPLASIA, DYSPLASIA, OR H. PYLORI ORGANISMSARE IDENTIFIED. B. GE JUNCTION, BIOPSY: BENIGN SQUAMOCOLUMNAR AND GASTRIC-TYPE MUCOSA WITH MILD CHRONICINFLAMMATION. NO INTESTINAL METAPLASIA OR DYSPLASIA IS SEEN. Gross DescriptionPart A. Received in formalin labeled "gastric antrum biopsy rule out H.pylori" are two brown-pink irregular fragments of tissue measuring 0.3 and0.7 cm. Entirely submitted as A1. Multilevel. Part B. Received in formalin labeled "GE junction biopsy" is a 0.6 cmtan-pink irregular fragment of tissue. Entirely submitted as B1. Multilevel. jglkurt/eric Reported: 05/20/2020Electronically Signed Out By Ld Cleveland MD [facility] [place] [address] 38569dmxBrqfaajry component performed at [facility], Histopathology, [address] [place] [address], [id number].Reported at [facility], [address] [place] [address], [id number]. This report may includeimmunohistochemical or in-situ hybridization results. Testing wasdeveloped and the performance characteristics determined by [facility] [employer] [facility] as required by CLIA '88. The FDA hasdetermined that approval for specific use is not necessary for clinicaluse. The quality of Hematoxylin and Eosin stains and as applicable, forall immunohistochemical and/or special stains, including positive andnegative controls, were reviewed and considered appropriate.ICD codes K21.9CPT codesA: 92618DW: 88933D Name Value Range Interpretation Code Description Data Janeth rce(s) Supporting Document(s) ID Date Data Source [id number] 05/18/2020 03:17:02 PM EST [facility] CenterPATI NT INFORMATIONPatient MRN Name Date of Age Gend*PT [id number] Sonja Nino 1970 49 years F OPPT Location Admission Date/Time Visit ID [facility]18[facility]20 1148 --- Michi Mack MD([id number]) EPI ID CSN Admitting Provider [id number] Michi Mack MD([id number])Endoscopic Gastroduodenoscopy Procedure NotePatient: Sonja NinoSurgery Date: May 18, 2020Surgeon(s):HARRY Patrickre-Operative Diagnosis:Esophageal reflux [K21.9]Post-Op Diagnosis Codes: * Retained food debris in the stomach, rule out Gastroparesis [K31.84] * Irregular squamo-columnar junction (biopsied).Recommendations:1. Gastric emptying study.Procedure(s):ENDOSCOPY, UPPER GASTROINTESTINAL (GI) TRACT W BIOPSYSedation: Monitored Anesthesia Care (MAC) (see anesthesia report).ASA Class: IIIOther Equipment Type Equipment Setting Setting Low Setting High Applied By Endoscope ENDOSCOPE PENTAX [id number] Michi Mack MD Endoscope Pediatric (ENDO)Consent:After obtaining history and performing the physical examination, the procedure,indications, potential complications, including but not limited to bleeding,perforation, infection, adverse medication reaction, and alternatives wereexplained to the patient. Patient appeared to understand the benefits and risksof this procedure. Informed consent was obtained from the patient afterproviding opportunity for questions.Procedure Details:The patient was placed in the left lateral decubitus position and monitored perendoscopy protocol. The gastroscope was inserted into the mouth and advancedunder direct visualization to fourth portion of the duodenum. A carefulinspection was made as the gastroscope was withdrawn, including a retroflexedview of the proximal stomach; findings and interventions are described below.After completion of the examination, the patient was transferred to the recoveryroom.* No implants in log *Findings:Oropharynx: NormalEsophagus: NormalEG Junction: Irregular squamo- columnar junction, without any inflammatorychanges. Biopsied.Cardia: NormalFundus: Retained food in the stomach.Body: NormalAntrum: NormalPylorus: NormalDuodenum Bulb: NormalDuodenum 2nd Portion: NormalSpecimens:ID Type Source Tests Collected by Time DestinationA : gastric antrum bx r/o h pylori Tissue Biopsy SURGICAL PATHOLOGY EXAM MD Nahum 05/18/2020 1506B : GE junction bx Tissue Biopsy SURGICAL PATHOLOGY EXAM Michi Mack MD05/18/2020 1507Complications: None; patient tolerated the procedure well.Estimated Blood Loss: minimalRayekirsten Mack MD05/18/20203:12 PM Name Value Range Interpretation Code Description Data Janeth rce(s) Supporting Document(s) ID Date Data Source [id number] 05/18/2020 02:49:02 PM EST [facility] NT INFORMATIONPatient MRN Name Date of Age Gend*PT [id number] Sonja Nino 1970 49 years F OPPT Location Admission Date/Time Visit ID Attending ProviderOscar Santo 05/18/20 1148 --- Michi Mack MD([id number]) EPI ID CSN Admitting Provider [id number] Michi Mack MD([id number])Inpatient History & PhysicalElinicole NinoMRN:[id number]:1. GERD.2. Pre bariatric surgery endoscopy.Plan:1. Proceed with the upper endoscopy as planned.HPI: Sonja is being considered for bariatric surgery. She is here for herscreening upper endoscopy.Past Medical History:Past Medical History:Diagnosis Date ADD (attention deficit disorder) Brain tumor Diabetes mellitus type 2 Sleep apnea doesnt use cpapPast Surgical History:Past Surgical History:Proc edure Laterality Date BRAIN TUMOR EXCISION hollis knife also CARPAL TUNNEL RELEASE Bilateral CHOLECYSTECTOMY HEEL SPUR EXCISION Bilateral KNEE ARTHROSCOPY W/ MENISCAL REPAIR LeftMedications:Medications Prior to AdmissionMedication Sig Dispense Refill Last Dose amphetamine-dextroamphetamine (ADDERALL XR) 20 MG 24 hr capsule Take 20 mg bymouth every morning 05/17/2020 at Unknown time baclofen (LIORESAL) 10 MG tablet Take 10 mg by mouth 3 (three) times a day05/17/2020 at Unknown time carisoprodol (SOMA) 350 MG tablet Take 350 mg by mouth 4 (four) times a day asneeded for muscle spasms Past Month at Unknown time cholecalciferol (VITAMIN D3) 25 MCG (1000 UT) capsule Take 2,000 Units bymouth daily 05/17/2020 at Unknown time Daily Edson (THERAGRAN) per tablet Take 1 tablet by mouth daily 05/17/2020 atUnknown time Dulaglutide (TRULICITY) 1.5 MG/0.5ML SOPN Inject 1.5 mg under the skin once aweek Past Week at Unknown time gabapentin (NEURONTIN) 300 MG capsule Take 300 mg by mouth 3 (three) times aday 05/17/2020 at Unknown time Galcanezumab-gnlm (EMGALITY) 120 MG/ML SOAJ Inject under the skin Past Monthat Unknown time loratadine (CLARITIN) 10 MG tablet Take 10 mg by mouth daily 05/17/2020 atUnknown time omeprazole (PRILOSEC) 20 MG capsule Take 20 mg by mouth daily 05/17/2020 atUnknown time SUMAtriptan (IMITREX) 50 MG tablet Take 50 mg by mouth every 2 (two) hours asneeded for migraine take one tablet at onset of headache, may repeat once in 2hours if needed. Max of 2 tabs a day Past Month at Unknown timeAllergies:AmitriptylineFamily History:History reviewed. No pertinent family history.Social History:Social HistoryTobacco Use Smoking status: Never Smoker Smokeless tobacco: Never UsedSubstance Use Topics Alcohol use: Never Frequency: Never Drug use: NeverReview of Systems:All systems were reviewed and found negative except for those mentioned in theHPI.Physical Exam:Vital Signs: Temp: [98.4 F] 98.4 FHeart Rate: [92] 92Resp: [18] 18BP: (142)/(81) 142/81General appearance: Pleasant, comfortable, not in acute distress.HEENT: Normocephalic, atraumatic, conjunctivae clear, EOM's intactLungs: Clear to auscultation bilaterally.Cardiovascular: Heart regular rate and rhythm, S1, S2 normal, no murmur, click,rub or gallopAbdomen: soft, non-tender; bowel sounds normal; no masses, no organomegalyExtremities: extremities normal, atraumatic, no cyanosis or edemaLabs, Imaging and Other Diagnostics:Diagnostic tests reviewed:No new labsSignature: Michi Mack, MDDate: May 18, 2020Time: 2:46 PM Name Value Range Interpretation Code Description Data Janeth manuel(s) Supporting Document(s) ID Date Data Source [id number] 05/14/2020 09:10:00 AM EST [facility] Name Value Range Interpretation Code Description Data Janeth manuel(s) Supporting Document(s) SARS coronavirus 2 RNA [facility] This lab was ordered by [facility] and reported by [facility]. ID Date Data Source [id number] 05/16/2020 01:06:38 AM EST [facility] Name Value Range Interpretation Code Description Data [facility](s) Supporting Document(s) SARS-COV-2 [facility]UMTAZ [facility] rukhsana MCCORMACK Not DetectedReference range: Not Detecte d This nucleic acid amplification test was developed and its performance characteristics determined by [employer]. Nucleic acid amplification tests include PCR and TMA. This test has not been FDA cleared or approved. This test has been authorized by FDA under an Emergency Use Authorization (EUA). This test is only authorized for the duration of time the declaration that circumstances exist justifying the authorization of the emergency use of in vitro diagnostic tests for detection of SARS-CoV-2 virus and/or diagnosis of COVID-19 infection under section 564(b)(1) of the Act, 21 U.S.C. 360bbb-3(b) (1), unless the authorization is terminated or revoked sooner. When diagnostic testing is negative, the possibility of a false negative result should be considered in the context of a patient's recent exposures and the presence of clinical signs and symptoms consistent with COVID- 19. An individual without symptoms of COVID- 19 and who is not shedding SARS -CoV-2 virus would expect to have a negative (not detected) result in this assay. Performed At: [employer] [address] [place], [place] [id number] Antonio Correia PhD Ph:[phone] ID Date Data Source [id number] 05/10/2020 07:40:00 AM EST [facility]) Name Value Range Interpretation Code Description Data [facility](s) Supporting Document(s) Angel/Creat Ratio 7.3 MCG/MG 0.0-30.0 Normal (applies to non-numeric results) [facility] ([facility]) THE [employer] STATES THAT MICROALBUMINURIA IS PRESENT IF THE MICROALBUMIN/CREATININE RATIO EXCEEDS 30 MCG/MG. THE THRESHOLD FOR CLINICAL ALBUMINURIA IS REACHED AT 300 MCG/MG. THE CLASSIFICATION OF A PATIENT SHOULD BE BASED UPON AT LEAST 2 OF 3 ABNORMAL RESULTS ON SPECIMENS COLLECTED WITHIN A 3 TO 6 MONTH TIME FRAME. Creatinine, Urine 114.0 mg/dL Normal (applies to non-numer ic results) [facility] ([facility]) Malb Urine Siemens 8.4 mg/L Normal (applies to non-numer ic results) [facility] ([facility]) ID Date Data Source [id number] 05/07/2020 10:13:25 AM EST [facility], PCName: Sonja NinoDOB: 1970Provider: Sherita Mcnally: 05/07/2020 Reason For VisitSonja Nino is here today for Lumba Spine. Sonja Nino is here for evaluation of MRI results. L Spine MRI review, MRI imported The patient has had a course of physical therapy for greater than 4 weeks. Physical therapy and/or home exercise program has not been effective. The patient has not had a course of NSAIDs for greater than 4 weeks. 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 Patient is working at this time at light/partial duty. History of Present IllnessChronic low back painMain problem is axial low back painAlso episodic right anterolateral thigh numbness and burning pain--??? [facility]ore had injections December 2018 with temporary reliefPhysical therapy November through January 2020-minimal benefitStill seeing Dr. Engel for chiropractic treatments The patient complains of pain in the lumbar spine . There is no radiation of pain to the legs. The patient denies signs of bladder dysfunction, bowel dysfunction, cancer/metastasis, infection and myelopathy . The pain is achy . The pain severity is rated 8 out of 10. Pain is aggravated by periods of activity . There is numbness involving the right, anterior and lateral thigh(s). Results[facility]Data [facility] 04/27/2020: Multilevel DDD. No significant stenosis. No herniationReviewed in detail the results of the diagnostic testing. Reviewed the pertinent applicable clinical implications relating to the patient. Also provided a copy of the results for their personal records. Assessment 1. Degenerative lumbar disc (722.52) (M51.36) 2. Lower back pain (724.2) (M54.5) 3. Morbid obesity (278.01) (E66.01) 4. Meralgia paraesthetica (355.1) (G57.10) Condition: Chronicetiology: age-related spine/joint degenerationlevels: L3-4, L4-5 and L5-H5Jarbkbsjxq: Right thigh PlanThe various alternatives and treatment options were discussed with pros and cons, risks, and potential benefits of each option reviewed. She wishes to proceed with care provider. Unfortunately, I have nothing to offer Sonja for direct surgical intervention from an orthopedic surgery standpoint. This document was dictated and electronically signed using [employer] software. A reasonable attempt at proof reading has been made to minimize errors. Please call with any questions. Signatures Electronically signed by : Hector Mcnally M.D.; May 07 2020 10:13AM EST (Author) Name Value Range Interpretation Code Description Data [facility] rce(s) Supporting Document(s) ID Date Data Source [id number] 05/07/2020 08:33:00 AM EST [facility] ([facility]) Name Value Range Interpretation Code Description Data Janeth rce(s) Supporting Document(s) Glucose, Fasting 93 mg/dL 70-100 Normal (applies to non-numeric results) [facility] Creatinine For GFR 0.85 mg/dL 0.55-1.30 Normal (applies to non -numeric results) [facility] ([facility]) Blood Urea Nitrogen 16 mg/dL 7-18 Normal (applies to non-nume iram results) [facility] ([facility]) Glomerular Filtration Rate Laboratory test result Normal (applies to non- numeric results) [facility] ([facility]) <content>Units are mL/min/1.73 m2</content>
<content></content>
<content>Chronic Kidney Disease Staging per NKF:</content>
<content></content>
<content>Stage I & II GFR >=60 Normal to Mildly Decreased</content>
<content>Stage III GFR 30- 59 Moderately Decreased</content>
<content>Stage IV GFR 15-29 Severely Decreased</content>
<content>Stage V GFR <15 Very Little GFR Left</content>
<content>ESRD GFR <15 on ASSISTANT CASE MANAGER</content>
<content></content> Chloride Level 107 meq/L 98-107 Normal (applies to non-numeric r esults) [facility] ([facility]) Sodium Level 140 meq/L 136-145 Normal (applies to non-numeric res ults) [facility] ([facility]) Potassium Serum 4.2 meq/L 3.5-5.1 Normal (applies to non-numeric results) [facility] ([facility]) Anion Gap 7 meq/L 8-16 Below low normal [facility] ( [facility]) Carbon Dioxide Level 26 meq/L 21-32 Normal (applies to non-num queta results) [facility] ([facility]) Calcium Level 8.2 mg/dL 8.5-10.1 Below low normal [facility] ([facility]) ID Date Data Source [id number] 05/07/2020 08:33:00 AM EST [facility] ([facility]) Name Value Range Interpretation Code Description Data Janeth rce(s) Supporting Document(s) Hemoglobin A1c 5.8 % Normal (applies to non-numeric r esults) [facility] ([facility]) <content>REFERENCE RANGES:</content><br/ ><content></content>
<content><=5.6% NORMAL</content>
<content>5.7-6.4% SUGGESTS IMPAIRED GLUCOSE METABOLISM/PREDIABETIC</content>
<content>>= 6.5% ABNORMAL</content>
<content></content> Estimated Average Glucose 120 mg/dL 60-110 Above high normal [facility]) ID Date Data Source [id number] 04/27/2020 12:00:00 AM EST [facility] Hector Mcnally MD Patient Name: JESU [id number] [facility] Date of : 1970SyraKAYE saul [id number] Date of Exam: 04/27/2020#: Fax: [phone] EXAM: MRI LUMBAR SPINE WITHOUT CONTRASTPROCEDURE INFORMATION:Exam: MR Lumbar Spine Without Contrast.Exam date and time: 04/27/2020 1:59 PM Age: 49 years oldClinical indication: Low back painTECHNIQUE: Imaging protocol: Multiplanar magnetic resonance images of thelumbar spine without intravenous contrast.COMPARISON: MRI LUMBAR SPINE WITHOUT&WITH CONTRAST 11/15/2018 12:15 PMFINDINGS:Vertebrae: Examination reveals mild chronic degenerative anterior wedgingof the L1 vertebral body. Otherwise,The lumbar vertebral bodies are normalin height,signal intensity and alignment.No acute fracture or dislocationis seen.Spinal epidural space: There is no evidence of epidural masses orhemorrhage.Spinal cord: The conus medullaris is normal. The cauda equina nerve rootsdemonstrate no crowding or displacement.T12-L1:Moderately reduced in height and T2 signal indicating degeneration.Moderate degenerative endplate changes with Schmorl's nodes. There is amild diffuse posterior bulge causing mild effacement of the thecalsac.There is mild bilateral foraminal stenosis.L1-L2: Moderately reduced in height and T2 signal indicating degeneration.Moderate degenerative endplate changes with Schmorl's nodes. Prominentmarginal anterior osteophytes. Small diffuse posterior herniation. Moderatefacet arthropathy.There is no evidence of spinal canal narrowing. There ismild bilateral foraminal stenosis.L2-L3: There is no significant degenerative disc herniation.The spinalcanal and neural foramina are patent and without significant stenosis.L3-L4: Mildly reduced in height and T2 signal indicating degeneration.Thereis a mild diffuse posterior bulge causing mild effacement of the thecalsac.The facet joints demonstrate moderate degenerative narrowing andsclerosis. There is no evidence of spinal canal narrowing. There is mildbilateral foraminal stenosis.L4-L5: There is a mild diffuse posterior bulge causing mild effacement ofthe thecal sac.The facet joints demonstrate marked degenerative narrowingand sclerosis. There is no evidence of spinal canal narrowing. There ismild bilateral foraminal stenosis.L5-S1: There is no significant degenerative disc herniation.The spinalcanal and neural foramina are patent and without significant stenosis.Moderate facet arthropathy.Soft tissues: The prevertebral soft tissues appear normal.IMPRESSION:MRI of the lumbar spine reveals stable multilevel degenerative spondyliticchanges and degenerative disc disease as described above.Thank you for allowing us to participate in the care of your patient.Dictated and Authenticated by: Amarjit Wilhelm MD 04/27/2020 3:23 PMEastern Time ([place] & [place])VradV/Garcia you for referring SONJA NINO to our office. Electronically Signed - [facility] 04/27/20 16:14 Name Value Range Interpretation Code Description Data Janeth rce(s) Supporting Document(s) ID Date Data Source PAP REQUEST FOR SERVICE 04/14/2020 12:23:58 PM EDT eCW[facility] ([facility]) Name Value Range Interpretation Code Description Data Janeth rce(s) Supporting Document(s) Laboratory studies (set) PAP REQUEST FOR SERVICE [facility] ([facility]) ID Date Data Source [id number] 04/20/2020 11:51:30 AM EST [facility] PCName: Sonja NinoDOB: 1970Provider: Letitia Diaz: 04/12/2020 Reason For VisitSonja Nino is here today for Lumba Spine. Patient is seen at the request of Dr. Lucía Canseco, PCP. Sonja Nino is a new patient. Patient states she been having lower back pain since August 2019. The pain has progressively gotten worse . She states she has lower back pain radiating down right leg. She had recent x-rays done and had MRI done 11-16-2019. She brought CD with her and images are being imported. She had a NCS done 03-10-[address] Webb. The patient is currently residing at home. 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 Patient is not working at this time. History of Present IllnessPatient is a 49-year-old female presents to the office with a chief complaint of constant low back sore for the past 8 months without specific injury. Associate with constant numbness involving the lateral aspect of the right thigh. This numbness started 2 to 3 months ago. There is intermittent burning in this location as well. Denies any additional lower extremity symptoms, lower extremity weakness, or bowel/bladder dysfunction. Symptoms aggravated with prolonged positions, prolonged activities, walking, and standing. Recent treatments include physical therapy and spinal injections with Dr. Kilgore which have not helped. Results/Data XRays previously taken were reviewed today. Outside Images reviewed today were taken at [facility] on 02/27/2020. Site: Lumbar Spine Findings:. No fractures, dislocations, or other significant abnormalities. degenerative disc disease of a mild degree. Results/Data OtherMRI lumbar spine with and without contrast [facility]. Impression: Mild degenerative changes from L3-S1. Minimal central stenosis at L4-5.Lower extremity EMG/NCS performed at [facility] on 03/10/2020. Impression: Possible right meralgia paresthetica. Mild chronic right L5 radiculopathy. AssessmentChronic low back painLateral right thigh paresthesia Plan MRI (SOS) Referral Diagnostic Diagnostic Status: Complete Done: 12Apr2020 Ordered;For: Low back pain, unspecified back pain laterality, unspecified chronicity, unspecified whether sciatica present; Ordered By: Hector Mcnally Performed: Order Comments: Please scheduled MRI at [facility]. Due: 26Apr2020; Last Updated By: Nicolette Flores; 04/19/2020 2:45:32 PMPLEASE GIVE PATIENT CD WITH IMAGES @ APT. THANK YOU!Patient will follow up with: : Dr. Pacheco Ordered Contrast : 01: without gadoLaterality: : _Not Applicable Plan, Assessment and Recommendation(s) The nature of the diagnosis and various treatment alternatives were discussed today, including invasive, operative, and non-operative options. Patient has mild degenerative changes from L2-S1. Possible right meralgia paresthetica. To rule out neurocompression causing her thigh symptoms I am recommending updated MRI lumbar spine. Follow-up to review the results. This document was dictated and electronically signed using Dragon Naturally Speaking software. A reasonable attempt at proof reading has been made to minimize errors. Please call with any questions. Signatures Electronically signed by : Daniel Romero; Apr 20 2020 8:51AM EST (Author) Electronically signed by : Hector Mcnally M.D.; Apr 20 2020 11:51AM EST Name Value Range Interpretation Code Description Data Janeth rce(s) Supporting Document(s) ID Date Data Source [facility] Screening Bilateral (Ultrasound if Indicated ) (3D Mammo) 03/29/2020 10:21:36 AM EDT eCW1 ([facility]) Name Value Range Interpretation Code Description Data Janeth rce(s) Supporting Document(s) [facility] Screening Bilat eral (Ultrasound if Indicated) (3D Mammo) [facility] ([facility]) Procedure Social History Code Duration Value Status Description Data Source(s ) Smoking 04/05/2021 12:00:00 AM EDT Never Smoker completed Never S moker e[facility] ([facility]) Smoking 02/07/2021 12:00:00 AM EDT Patient has never smoked co mpleted Patient has never smoked [facility] ([facility]) Alcohol intake 06/14/2020 12:00:00 AM EST Never completed [facility] Smoking 06/14/2020 12:00:00 AM EST Never smoker completed Never s [facility] Alcohol intake 05/31/2020 12:00:00 AM EST Never completed [facility] Smoking 05/31/2020 12:00:00 AM EST Never smoker completed Never s moker [facility] Alcohol intake 05/18/2020 12:00:00 AM EST Never completed [facility] Smoking 05/18/2020 12:00:00 AM EST Never smoker completed Never s moker [facility] Smoking 03/26/2020 12:00:00 AM EDT Never Smoker completed Never S moker [facility] ([facility]) Smoking 03/26/2020 12:00:00 AM EDT Never Smoker completed Never S moker [facility] ([facility]) Smoking 03/18/2020 12:00:00 AM EDT Patient has never smoked co mpleted Patient has never smoked [facility] ([facility]) Vital Signs ID Date Data Source UNK Name Value Range Interpretation Code Description Data Source(s) Body height 61 [in_i] 61 [in_i] [facility] ([facility]) 5'1" Body weight 206.50 [lb_av] 206.50 [lb_av] [facility] T ([facility]) Body mass index (BMI) [Ratio] 39.0 kg/m2 39.0 k g/m2 [facility] ([facility]) Body weight 207 [lb_av] 207 [lb_av] eCW1 ([facility]) Body height 61 [in_i] 61 [in_i] W1 ([facility]) Body mass index (BMI) [Ratio] 39.11 kg/m2 39.11 kg/m2 W1 ([facility]) Systolic blood pressure 118 mm[Hg] 118 mm[Hg] e CW1 ([facility]) Diastolic blood pressure 80 mm[Hg] 80 mm[Hg] eCW1 ([facility]) Body height 61.11 [in_i] 61.11 [in_i] [facility] ([facility]) 5'1.11" Systolic blood pressure 138 mm[Hg] 138 mm[Hg] M EDENT ([facility]) Diastolic blood pressure 78 mm[Hg] 78 mm[Hg] [facility] ([facility]) Body weight 207.38 [lb_av] 207.38 [lb_av] [facility] T ([facility]) Body mass index (BMI) [Ratio] 39.0 kg/m2 39.0 k g/m2 [facility] ([facility]) Heart rate 102 /min 102 /min [facility] ([facility]) Respiratory rate 18 /min 18 /min [facility] ( [facility]) Body temperature 98.3 [degF] 98.3 [degF] [facility] ([facility]) Oxygen saturation in Arterial blood by Pulse oximetry 98 % 98 % [facility] ([facility]) [place] body weight 105 [lb_av] 105 [lb_av] [facility] T ([facility]) Systolic blood pressure 124 mm[Hg] 124 mm[Hg] M EDENT ([facility]) Heart rate 92 /min 92 /min [facility] ([facility]) Diastolic blood pressure 74 mm[Hg] 74 mm[Hg] [facility] ([facility]) Body height 61.11 [in_i] 61.11 [in_i] [facility] ([facility]) 5'." Body weight 212.00 [lb_av] 212.00 [lb_av] [facility] [facility] Body mass index (BMI) [Ratio] 39.9 kg/m2 39.9 k g/m2 MED[facility] ([facility]) Respiratory rate 18 /min 18 /min [facility] ( [facility]) Body temperature 97.3 [degF] 97.3 [degF] [facility] ([facility]) Oxygen saturation in Arterial blood by Pulse oximetry 96 % 96 % [facility] ([facility]) [place] body weight 105 [lb_av] 105 [lb_av] MEDEN T ([facility]) Diastolic blood pressure 80 mm[Hg] 80 mm[Hg] [facility] ([facility]) Oxygen saturation in Arterial blood by Pulse oximetry 98 % 98 % [facility] ([facility]) Body height 61.11 [in_i] 61.11 [in_i] MEDENT ([facility]) 5'06.28" Systolic blood pressure 130 mm[Hg] 130 mm[Hg] M EDENT ([facility]) Body weight 219.25 [lb_av] 219.25 [lb_av] MEDEN T ([facility]) Body mass index (BMI) [Ratio] 41.3 kg/m2 41.3 k g/m2 [facility] ([facility]) Heart rate 97 /min 97 /min [facility] ([facility]) Respiratory rate 14 /min 14 /min [facility] ( [facility]) Body temperature 98.1 [degF] 98.1 [degF] MED[facility] ([facility]) [place] body weight 105 [lb_av] 105 [lb_av] MEDEN T ([facility]) Body temperature 98.5 [degF] 98.5 [degF] [facility] ([facility]) Heart rate 96 /min 96 /min [facility] ([facility]) Systolic blood pressure 136 mm[Hg] 136 mm[Hg] M EDENT ([facility]) Diastolic blood pressure 84 mm[Hg] 84 mm[Hg] [facility] ([facility]) Body height 61.11 [in_i] 61.11 [in_i] MEDENT ([facility]) 5'06.28" Body weight 236.00 [lb_av] 236.00 [lb_av] MEDEN T ([facility]) Body mass index (BMI) [Ratio] 44.4 kg/m2 44.4 k g/m2 [facility] ([facility]) Respiratory rate 18 /min 18 /min [facility] ( [facility]) Oxygen saturation in Arterial blood by Pulse oximetry 98 % 98 % [facility] ([facility]) [place] body weight 105 [lb_av] 105 [lb_av] MEDEN T ([facility]) Body temperature 96.3 [degF] 96.3 [degF] [facility] ([facility]) Systolic blood pressure 140 mm[Hg] 140 mm[Hg] M EDENT ([facility]) Diastolic blood pressure 78 mm[Hg] 78 mm[Hg] [facility] ([facility]) Body height 61.11 [in_i] 61.11 [in_i] MEDENT ([facility]) 5'06.28" Body weight 250.25 [lb_av] 250.25 [lb_av] MEDEN T ([facility]) Heart rate 85 /min 85 /min [facility] ([facility]) Body mass index (BMI) [Ratio] 47.1 kg/m2 47.1 k g/m2 [facility] ([facility]) Respiratory rate 18 /min 18 /min [facility] ( [facility]) Body temperature 97.7 [degF] 97.7 [degF] [facility] ([facility]) Oxygen saturation in Arterial blood by Pulse oximetry 97 % 97 % MEDEMILY ([facility]) [place] body weight 105 [lb_av] 105 [lb_av] KALYANI T ([facility]) Respiratory rate 14 /min 14 /min [facility] Heart rate 89 /min 89 /min [facility] Body temperature 36.[address] [facility] Oxygen saturation in Arterial blood by Pulse oximetry 93 % 93 % [facility] Systolic blood pressure 114 mm[Hg] 114 mm[Hg] [facility] Diastolic blood pressure 74 mm[Hg] 74 mm[Hg] [facility] Body height 154.9 cm 154.9 cm [facility] Body weight 116.756 kg 116.756 kg [facility] Body mass index (BMI) [Ratio] 48.64 kg/m2 48.64 kg/m2 [facility] Systolic blood pressure 149 mm[Hg] 149 mm[Hg] [facility] Diastolic blood pressure 69 mm[Hg] 69 mm[Hg] [facility] Heart rate 95 /min 95 /min [facility] Body temperature 35.[address] [facility] Body height 154.9 cm 154.9 cm [facility] Body weight 119.296 kg 119.296 kg [facility] Body mass index (BMI) [Ratio] 49.69 kg/m2 49.69 kg/m2 [facility] Oxygen saturation in Arterial blood by Pulse oximetry 98 % 98 % [facility] Diastolic blood pressure 88 mm[Hg] 88 mm[Hg] JENNA ([facility]) Respiratory rate 18 /min 18 /min MEDEMILY ( [facility]) Systolic blood pressure 148 mm[Hg] 148 mm[Hg] Jay TORRES ([facility]) Body height 61.11 [in_i] 61.11 [in_i] JENNA ([facility]) 5'1.11" Body weight 265.38 [lb_av] 265.38 [lb_av] MEDEN T ([facility]) Body mass index (BMI) [Ratio] 50.0 kg/m2 50.0 k g/m2 [facility] ([facility]) Heart rate 92 /min 92 /min [facility] ([facility]) Body temperature 98.4 [degF] 98.4 [degF] [facility] Oxygen saturation in Arterial blood by Pulse oximetry 97 % 97 % [facility] ([facility]) [place] body weight 105 [lb_av] 105 [lb_av] MEDEN T ([facility]) Systolic blood pressure 144 mm[Hg] 144 mm[Hg] [facility] Diastolic blood pressure 85 mm[Hg] 85 mm[Hg] [facility] Heart rate 86 /min 86 /min [facility] Body temperature 36.[address] [facility] Respiratory rate 18 /min 18 /min [facility] Oxygen saturation in Arterial blood by Pulse oximetry 93 % 93 % [facility] Body height 154.9 cm 154.9 cm [facility] Body weight 118.842 kg 118.842 kg [facility] Body mass index (BMI) [Ratio] 49.50 kg/m2 49.50 kg/m2 [facility] Body height 61 [in_i] 61 [in_i] [facility] ([facility] 5'1" Body weight 274.00 [lb_av] 274.00 [lb_av] MEDEN T ([facility]) Body mass index (BMI) [Ratio] 51.8 kg/m2 51.8 k g/m2 [facility] ([facility]) Body weight 263 [lb_av] 263 [lb_av] eCW1 ([facility]) Body height 61 [in_i] 61 [in_i] eCW1 ([facility]) Systolic blood pressure 132 mm[Hg] 132 mm[Hg] e CW1 ([facility]) Diastolic blood pressure 82 mm[Hg] 82 mm[Hg] eCW1 ([facility]) Body mass index (BMI) [Ratio] 49.69 kg/m2 49.69 kg/m2 eCW1 ([facility]) Patient Treatment Plan of Care Planned Activity Planned Date Details Description Data Source (s) Ondansetron 4 MG Disintegrating Oral Tablet 06/15/2020 12:00:00 AM [facility] Acetaminophen 325 MG Oral Tablet 06/15/2020 12:00:00 AM [facility] Omeprazole 40 MG Delayed Release Oral Capsule 06/15/2020 12:00:00 A M [facility] Ascorbic Acid 60 MG / Beta Carotene 5000 UNT / Copper Sulfate 40 MG / dl-alpha tocopheryl acetate 30 UNT / Sodium Selenite 0.04 MG / Zinc Oxide 40 MG Oral Tablet 06/15/2020 12:00:00 AM [facility] 0.4 ML Enoxaparin sodium 100 MG/ML Prefilled Syringe 020 12:00:00 AM [facility] Simethicone 80 MG Chewable Tablet 06/15/2020 12:00:00 AM [facility] Vitamin B 12 0.5 MG Oral Tablet 06/15/2020 12:00:00 AM [facility] Biotin w/ Vitamins C & E (HAIR SKIN & NAILS GUMMIES PO) [facility] Ascorbic Acid 60 MG / Beta Carotene 5000 UNT / Copper Sulfate 40 MG / dl-alpha tocopheryl acetate 30 UNT / Sodium Selenite 0.04 MG / Zinc Oxide 40 MG Oral Tablet [facility] Daily Edson (THERAGRAN) per tablet [facility] 0.5 ML dulaglutide 3 MG/ML Auto-Injector [facility] Omeprazole 20 MG Delayed Release Oral Capsule [facility]
[2021-05-13] MEDS ORDERED: EMGA120I (17:33)
[2021-05-13] MEDS ORDERED: BACL10TA2 (17:33)
[2021-05-13] MEDS ORDERED: AMOX875T (17:33)
[2021-05-13] MEDS ORDERED: FLUC150T (17:33)
[2021-05-13] MEDS ORDERED: KETOROLAC 30 MG/ML 1ML VIAL IM ONE (20:00)
[2021-05-13 20:44] LABS: BASO # 0.1 10^3/uL (0.0-0.2); BASO % 0.5 % (0.0-1.0); EOS % 0.2 % (0.0-3.0); HEMATOCRIT 47.3 % (36.0-47.0); HEMOGLOBIN 15.5 g/dl (12.0-15.5); LYMPH # 2.3 10^3/uL (1.5-5.0); MEAN CORPUSCULAR HEMOGLOBIN 29.8 pg (27.0-33.0); MEAN CORPUSCULAR HGB CONC 32.8 g/dl (32.0-36.5); MONO # 0.8 10^3/uL (0.0-0.8); MONO % 5.3 % (2.0-8.0); NEUTROPHILS # 11.3 10^3/uL (1.5-8.5); NEUTROPHILS % 77.7 % (36.0-66.0); PLATELET COUNT, AUTOMATED 410 10^3/uL (150-450); WHITE BLOOD COUNT 14.6 10^3/uL (4.0-10.0)
--- NOTE | 2021-05-13 21:03 | REPVR ---
PROCEDURE INFORMATION: Exam: CT Abdomen And Pelvis Without Contrast Exam date and time: 05/13/2021 8:03 PM Age: 50 years old Clinical indication: Abdominal pain; Flank; Additional info: Flank pain TECHNIQUE: Imaging protocol: Computed tomography of the abdomen and pelvis without contrast. Radiation optimization: All CT scans at this facility use at least one of these dose optimization techniques: automated exposure control; mA and/or kV adjustment per patient size (includes targeted exams where dose is matched to clinical indication); or iterative reconstruction. COMPARISON: NM GALLBLADDER WITH EF 08/07/2014 8:15 AM FINDINGS: Liver: Normal. No mass. Gallbladder and bile ducts: Status post cholecystectomy. Pancreas: Normal. No ductal dilation. Spleen: Normal. No splenomegaly. Adrenal glands: Normal. No mass. Kidneys and ureters: Slight right perinephric infiltration with mild right hydronephrosis and hydroureter with periureteral edema which extends to a distal ureteral calculus adjacent to the UVJ measuring 3 mm. Stomach and bowel: There has been gastric bypass with collapse of the bypassed stomach. Mild stool and gas throughout much of the colon. There is a left mid abdominal Val-en-Y. Appendix: A normal appendix is seen. Intraperitoneal space: Unremarkable. No free air. No significant fluid collection. Vasculature: There is minimal atherosclerotic calcification of the abdominal aorta. Lymph nodes: Unremarkable. No enlarged lymph nodes. Urinary bladder: Unremarkable as visualized. Reproductive: Unremarkable as visualized. Bones/joints: Unremarkable. No acute fracture. Soft tissues: Unremarkable. IMPRESSION: 1. Distal right ureteral calculus adjacent to the UVJ measuring 3 mm with obstructive uropathy of the right upper tract. 2. Status post cholecystectomy and gastric bypass. Electronically signed by: Varun Gallo On 05/13/2021 21:02:37 PM
[2021-05-13 21:24] LABS: ALBUMIN 3.8 GM/DL (3.2-5.2); ALT/SGPT 47 U/L (12-78); BILIRUBIN,DIRECT 0.1 MG/DL (0.0-0.2); BILIRUBIN,TOTAL 0.5 MG/DL (0.2-1.0); BLOOD UREA NITROGEN 13 MG/DL (7-18); CALCIUM LEVEL 8.8 MG/DL (8.5-10.1); CARBON DIOXIDE LEVEL 25 MEQ/L (21-32); CHLORIDE LEVEL 106 MEQ/L (98-107); CREATININE FOR GFR 1.01 MG/DL (0.55-1.30); GLOMERULAR FILTRATION RATE > 60.0 (>51); GLUCOSE, FASTING 110 MG/DL (70-100); LIPASE 142 U/L (73-393); SODIUM LEVEL 140 MEQ/L (136-145); TOTAL PROTEIN 7.4 GM/DL (6.4-8.2)
[2021-05-13] MEDS ORDERED: TAMSULOSIN 0.4 MG CAP PO ONE (22:00)
[2021-05-13] MEDS ORDERED: BACTRIM 160MG/800MG DS TAB PO ONE (22:00)
[2021-05-13] MEDS ORDERED: traMADol 50 MG TAB PO ONE (22:00)
[2021-05-13] MEDS ORDERED: TRAM50TA2 PO (22:02)
[2021-05-13] MEDS ORDERED: BACT800T5 PO (22:02)
[2021-05-13] MEDS ORDERED: FLOM0.4C39 PO (22:02)
--- OUTSIDE RECORDS SUMMARY | 2021-05-13 22:18 | CCD ---
Author Author [facility] Organization [facility] Address Unknown Phone Unavailable Care Team Providers Care Bindery Production Manager Name Role Phone Shailesh SCHULER FILTER OPERATOR STACIE Unavailable [phone] Shailesh SCHULER FILTER OPERATOR STACIE Unavailable [phone] Shailesh SCHULER FILTER OPERATOR STACIE Unavailable [phone] Shailesh SCHULER FILTER OPERATOR STACIE Unavailable [phone] Shailesh SCHULER FILTER OPERATOR STACIE Unavailable [phone] Shailesh SCHULER FILTER OPERATOR STACIE Unavailable [phone] Shailesh SCHULER FILTER OPERATOR STACIE Unavailable [phone] Shailesh SCHULER FILTER OPERATOR STACIE Unavailable [phone] Shailesh SCHULER FILTER OPERATOR STACIE Unavailable [phone] HARINI, A. FILTER OPERATOR STACIE Unavailable [phone] HARINI, A. FILTER OPERATOR STACIE Unavailable [phone] HARINI, A. FILTER OPERATOR STACIE Unavailable [phone] HARINI, A. FILTER OPERATOR STACIE Unavailable [phone] HARINI, A. FILTER OPERATOR STACIE Unavailable [phone] HARINI, A. FILTER OPERATOR STACIE Unavailable [phone] HARINI, A. FILTER OPERATOR STACIE Unavailable [phone] Mandappa, Solange CASAC Unavailable Unavailable Mandappa, Solange CASAC Unavailable Unavailable Mandappa, Solange CASAC Unavailable Unavailable Mandappa, Solange CASAC Unavailable Unavailable ROBERT-AJITH, LUCAÍ DO Unavailable Unavailable ROBERT-AJITH, LUCÍA DO Unavailable [...] Unavailable Unavailable ROBERT-AJITH, LUCÍA DO Unavailable Unavailable ROBERT-AJTIH, LUCÍA DO Unavailable Unavailable ROBERT-AJITH, LUCÍA DO [...] Unavailable Unavailable ROBERT-AJITH, LUCÍA DO Unavailable Unavailable ROBERT-AIJTH, LUCÍA DO Unavailable Unavailable ROBERT-AJITH, LUCÍA DO [...] Unavailable Unavailable Rodrigo, Juan PA Unavailable Unavailable Rodirgo, Juan PA Unavailable Unavailable Rodrigo, Juan PA [...] Unavailable Unavailable Rodrigo, Juan PA Unavailable Unavailable Chu, L Iraj TOMLINSON Unavailable Unavailable Chu, L Iraj TOMLINSON Unavailable Unavailable Chu, L Iraj TOMLINSON Unavailable Unavailable Chu, L Iraj TOMLINSON Unavailable Unavailable Chu, L Iraj TOMLINSON Unavailable Unavailable Chu, L Iraj TOMLINSON Unavailable Unavailable Chu, Vasile Galo MD Unavailable Unavailable Chu, Vasile Galo MD Unavailable Unavailable Chu, Vasile Galo MD Unavailable Unavailable Chu, L Iraj TOMLINSON Unavailable Unavailable Chu, L Iraj TOMLINSON Unavailable Unavailable Chu, L Iraj TOMLINSON Unavailable Unavailable Chu, L Iraj TOMLINSON Unavailable Unavailable Chu, L Iraj TOMLINSON Unavailable Unavailable Chu, L Iraj TOMLINSON Unavailable Unavailable Chu, L Iraj TOMLINSON Unavailable Unavailable Chu, L Iraj TOMLINSON Unavailable Unavailable Chu, L Iraj TOMLINSON Unavailable Unavailable Chu, L Iraj TOMLINSON Unavailable Unavailable Chu, L Iraj TOMLINSON Unavailable Unavailable Chu, L Iraj TOMLINSON Unavailable Unavailable Chu, L Iraj TOMLINSON Unavailable Unavailable Chu, L Iraj TOMLINSON Unavailable Unavailable Chu, Vasile Galo MD Unavailable Unavailable Chu, Vasile Galo MD Unavailable Unavailable Chu, L Iraj TOMLINSON Unavailable Unavailable Chu, Vasile Galo MD Unavailable Unavailable Chu, L Iraj TOMLINSON Unavailable Unavailable Chu, L Iraj TOMLINSON Unavailable Unavailable Chu, Vasile Galo MD Unavailable Unavailable Chu, L Iraj TOMLINSON Unavailable Unavailable Chu, Vasile Galo MD Unavailable Unavailable Chu, Vasile Galo MD Unavailable Unavailable Chu, L Iraj TOMLINSON Unavailable Unavailable Chu, L Iraj TOMLINSON Unavailable Unavailable Chu, L Iraj TOMLINSON Unavailable Unavailable Chu, L Iraj TOMLINSON Unavailable Unavailable Chu, L Iraj TOMLINSON Unavailable Unavailable Chu, L Iraj TOMLINSON Unavailable Unavailable Chu, L Iraj TOMLINSON Unavailable Unavailable Chu, Vasile Galo MD Unavailable Unavailable Chu, Vasile Galo MD Unavailable Unavailable Chu, L Iraj TOMLINSON Unavailable Unavailable Chu, Vasile Galo MD Unavailable Unavailable Chu, L Iraj TOMLINSON Unavailable Unavailable Chu, L Iraj TOMLINSON Unavailable Unavailable Chu, L Iraj MD Unavailable Unavailable ChuVasile MD Unavailable Unavailable Chu, Vasile Galo MD Unavailable Unavailable Vlad, Vasile Galo MD Unavailable Unavailable Bradley, M [...] Unavailable Bradley, M Barratt PA Unavailable Unavailable Castilano, Uzma PA Unavailable [...] Unavailable Unavailable Castilano, Uzma PA Unavailable Unavailable Michi Mack MD Unavailable Unavailable Michi Mack MD Unavailable Unavailable Michi Mack MD Unavailable Unavailable Michi Mack MD Unavailable Unavailable Michi Mack MD Unavailable Unavailable Michi Mack MD Unavailable Unavailable Michi Mack MD Unavailable Unavailable Michi Mack MD Unavailable Unavailable Michi Mack MD Unavailable Unavailable Michi Mack MD Unavailable Unavailable Michi Mack MD Unavailable Unavailable Michi Mack MD Unavailable Unavailable Michi Mack MD Unavailable Unavailable Michi Mack MD Unavailable Unavailable Michi Mack MD Unavailable Unavailable Michi Mack MD Unavailable Unavailable Michi Mack MD Unavailable Unavailable Michi Mack MD Unavailable Unavailable Nizam, Rayees MD Unavailable Unavailable Nizam Rayees MD Unavailable [...] Unavailable Unavailable Nizam Rayozzie MD Unavailable Unavailable Nigorgem Rayees MD Unavailable Unavailable Nizam Rayozzie MD Unavailable Unavailable Nizam Rayees MD Unavailable Unavailable Nizam, Rayees MD Unavailable Unavailable Nizam, Rayees MD Unavailable Unavailable Nizam, Rayees MD Unavailable Unavailable Nizam Rayees MD Unavailable Unavailable Nizam, Rayees MD Unavailable Unavailable Nizam Rayees MD Unavailable Unavailable Nizam Rayees MD Unavailable [...] Unavailable Unavailable Nizam, Rayees MD Unavailable Unavailable Michi Mack MD Unavailable Unavailable Michi Mack MD Unavailable Unavailable Dusty MCNALLY MD Unavailable [...] Unavailable Unavailable Dusty MCNALLY MD Unavailable Unavailable uDsty MCNALLY MD Unavailable Unavailable Dusty MNCALLY MD Unavailable Unavailable Dusty MCNALLY MD Unavailable [...] Unavailable Unavailable Dusty MCNALLY MD Unavailable Unavailable Dutsy MCNALLY MD Unavailable Unavailable Dusty MCNALLY MD Unavailable Unavailable Dusty MCNALLY MD Unavailable Unavailable Dusty MCNALLY MD Unavailable Unavailable Dusty MCNALLY MD Unavailable Unavailable Maring, Dmitry PA Unavailable Unavailable [...] Unavailable Unavailable Maring, Dmitry PA Unavailable Unavailable Lubinga, K José Miguel MD Unavailable Unavailable Jeremias Koch MD Unavailable [...] VanArnam JR, W Mazin PA Unavailable Unavailable Daren SNELL MD Unavailable Unavailable Daren SNELL MD Unavailable Unavailable Daren SNELL MD Unavailable Unavailable Daren SNELL MD Unavailable Unavailable Daren SNELL MD Unavailable Unavailable Daren SNELL MD Unavailable Unavailable Daren SNELL MD Unavailable Unavailable Daren SNELL MD Unavailable Unavailable CHIN, S MELLISSA TOMLINSON Unavailable Unavailable CHIN, S MELLISSA TOMLINSON Unavailable Unavailable CHIN, S MELLISSA TOMLINSON Unavailable Unavailable CHIN, S MELLISSA TOMLINSON Unavailable Unavailable CHIN, S MELLISSA TOMLINSON Unavailable Unavailable CHIN, S MELLISSA TOMLINSON Unavailable Unavailable CHIN, S MELLISSA TOMLINSON Unavailable Unavailable CHIN, S MELLISSA TOMLINSON Unavailable Unavailable CHIN, S MELLISSA TOMLINSON Unavailable Unavailable CHIN, S MELLISSA TOMLINSON Unavailable Unavailable CHIN, S MELLISSA TOMLINSON Unavailable Unavailable CHIN, S MELLISSA TOMLINSON Unavailable Unavailable CHIN, S MELLISSA TOMLINSON Unavailable Unavailable CHIN, S MELLISSA TOMLINSON Unavailable Unavailable CHIN, S MELLISSA TOMLINSON Unavailable Unavailable CHIN, S MELLISSA TOMLINSON Unavailable Unavailable CHIN, S MELLISSA TOMLINSON Unavailable Unavailable CHIN, S MELLISSA TOMLINSON Unavailable Unavailable CHIN, S MELLISSA Unavailable Unavailable CHIN, S MELLISSA TOMLINSON Unavailable Unavailable CHIN, S MELLISSA TOMLINSON Unavailable Unavailable CHIN, S MELLISSA TOMLINSON Unavailable Unavailable CHIN, S MELLISSA TOMLINSON Unavailable Unavailable CHIN, S MELLISSA TOMLINSON Unavailable Unavailable CHIN, S MELLISSA TOMLINSON Unavailable Unavailable CHIN, S MELLISSA TOMLINSON Unavailable Unavailable CHIN, S MELLISSA TOMLINSON Unavailable Unavailable CHIN, S MELLISSA TOMLINSON Unavailable Unavailable CHANNING, S MELLISSA TOMLINSON Unavailable Unavailable CHIN, S MELLISSA TOMLINSON Unavailable Unavailable CHIN, S MELLISSA TOMLINSON Unavailable Unavailable CHANNING, S MELLISSA TOMLINSON Unavailable Unavailable CHIN, S MELLISSA TOMLINSON Unavailable Unavailable CHIN, S MELLISSA TOMLINSON Unavailable Unavailable CHIN, S MELLISSA TOMLINSON Unavailable Unavailable CHIN, S MELLISSA TOMLINSON Unavailable Unavailable CHANNING, S MELLISSA TOMLINSON Unavailable Unavailable CHIN, S MELLISSA TOMLINSON Unavailable Unavailable CHIN, S MELLISSA TOMLINSON Unavailable Unavailable CHANNING S MELLISSA TOMLINSON Unavailable Unavailable CHANNING S MELLISSA TOMLINSON Unavailable Unavailable CHANNING, S MELLISSA TOMLINSON Unavailable Unavailable CHANNING S MELLISSA TOMLINSON Unavailable Unavailable CHANNING S MELLISSA TOMLINSON Unavailable Unavailable CHANNING S MELLISSA TOMLINSON Unavailable Unavailable CHANNING S MELLISSA TOMLINSON Unavailable Unavailable CHANNING, S MELLISSA TOMLINSON Unavailable Unavailable CHIN, S MELLISSA TOMLINSON Unavailable Unavailable CHANNING S MELLISSA TOMLINSON Unavailable Unavailable CHANNING S MELLISSA TOMLINSON Unavailable Unavailable CHIN S MELLISSA TOMLINSON Unavailable Unavailable CHANNING S MELLISSA TOMLINSON Unavailable Unavailable CHIN, S MELLISSA TOMLINSON Unavailable Unavailable CHIN, S MELLISSA TOMLINSON Unavailable Unavailable CHIN S MELLISSA TOMLINSON Unavailable Unavailable CHANNING S MELLISSA TOMLINSON Unavailable Unavailable CHIN, S MELLISSA TOMLINSON Unavailable Unavailable CHIN, S MELLISSA TOMLINSON Unavailable Unavailable CHANNING S [...] Unavailable CHANNING S MELLISSA TOMLINSON Unavailable Unavailable CHIN S MELLISSA TOMLINSON Unavailable Unavailable CHIN, S MELLISSA TOMLINSON Unavailable Unavailable CHIN, S MELLISSA MD Unavailable Unavailable Daren SNELL MD Unavailable Unavailable Daren SNELL MD Unavailable Unavailable Daren SNELL MD Unavailable Unavailable Daren SNELL MD Unavailable Unavailable Daren SNELL MD Unavailable Unavailable ROBERT-AJITH, LUCÍA DO Unavailable Unavailable [...] Unavailable Unavailable ROBERT-AJITH, LUCÍA DO Unavailable Unavailable ROBETR-AJITH, LUCÍA DO Unavailable Unavailable ROBERT-AJITH, LUCÍA DO Unavailable Unavailable ROBERT-AJITH, LUCÍA DO Unavailable Unavailable ROBERT-AJITH, LUCÍA DO Unavailable Unavailable ROBERT-AJITH, LUCÍA DO Unavailable Unavailable ROBERT-AJITH, LUCÍA DO Unavailable Unavailable ROBERT-AJITH, LUCÍA DO Unavailable Unavailable ROBERT-AJITH, LUCÍA DO Unavailable Unavailable ROBERT-AJITH, LUCÍA DO Unavailable Unavailable ROBRET-AJITH, LUCÍA DO Unavailable Unavailable ROBERT-AJITH, LUCÍA DO [...] Unavailable Unavailable ROBERT-AJITH, LUCÍA DO Unavailable Unavailable Re-disclosure Warning The records that [...] is protected by Article 27-F of the [place] Public Health law. If you continue you may have access to information: Regarding HIV / AIDS; Provided by facilities licensed or operated by the [place] Office of Mental Health; or Provided by the [place] Office for People With Developmental Disabilities. If such information is present, then the following [place] mandated warning applies: This information has been [...] law may result in a fine or longterm sentence or both. A general authorization for the release of medical or other information is NOT sufficient authorization for further disc losure. Allergies and Adverse Reactions Type Description Substance Reaction Status Data Source(s ) Propensity to adverse reactions AMITRIPTYLINE Amitriptyline Other (See Comments) High Active [facility] High Family History Family Member Name Family Member Gender Family Member Status Date o f Status Description Data Source(s) Unknown Male Problem MEDENT ([facility]) Unknown Unknown Problem MEDENT ([facility]) Unknown Male Problem [facility] ([facility]) Unknown Female Problem MEDENT ([facility] Unknown Female Problem MEDENT ([facility] Unknown Female Problem MEDENT ([facility] Unknown Female Unknown Male Encounters Encounter Providers Location Date Indications Data Source(s ) Outpatient Attender: STACIE SCHULER 04/18 02:13:32 PM EST - 05/05/2021 02:57:46 PM EST [facility]uTap ([facility] ) Outpatient [address] [id number] 04/05/2021 12:00:00 AM EDT eCW1 ([facility]) Outpatient Attender: LUCÍA PENNINGTON [facility] 03/28/2021 01:00:00 PM EDT [facility]ENT ([facility]) Outpatient Attender: MELLISSA SNELL MD [id number] 02/16/2021 12:00:00 AM [facility] Outpatient Attender: Juan CASTELLON [facility] 02/07/2021 09:00:00 AM EDT MEDENT ([facility]) Unknown [address] [id number] 01/19/2021 12:00:00 AM EDT eCW1 ([facility]) Outpatient Attender: LUCÍA PENNINGTON [facility] 10/14/2020 09:20:00 AM EDT MED[facility] ([facility]) Outpatient Attender: Dmitry CASTELLON 10/10/19 01:03:18 PM EDT - 10/09/2020 01:40:17 PM EDT [facility]ap ([facility] ) Outpatient Attender: LUCÍA PENNINGTON [facility] 08/10/2020 08:30:00 AM EST MEDENT ([facility]) Office Visit Attender: Sourav CASTELLON Physical Therapy 07:45:00 AM EST MEDENT ([facility]) Outpatient Attender: LUCÍA PENNINGTON [facility] 06/22/2020 08:30:00 AM EST [facility]ENT ([facility]) Outpatient Admitter: Angelicacody LongoriaReferrer: Greg pace MOB-MOB.PAT 06/09/2020 07:56:14 AM Health system Outpatient Attender: Greg Chacon mitter: Greg LongoriaReferrer: Greg Longoria MOB-MOB.PAT 05/31/2020 12:32:06 PM EST - 05/31/2020 01:43:16 PM EST [facility] Inpatient Attender: Divineambrose LongoriaAdmitter: Angelicamarcioambrose pace [id number] 05/20/2020 01:37:55 PM EST - 06/15/2020 04:25:[address] [facility] Patient discharged. Outpatient Attender: LUÍCA PENNINGTON [facility] 05/19/2020 08:30:00 AM EST [facility] ([facility]) Outpatient Referrer: Michi Mack MD MOB-MOB.[facility] 2019 11:14:29 AM EST - 05/14/2020 11:14:34 AM EST [facility] Outpatient Attender: HECTOR MCNALLY MDReferrer: LUCÍA DALTON DO 05/07/2020 10:13:25 AM EST [facility] Recurring Patient Referrer: LUCÍA PENNINGTON DO 05/07/2020 09:43:32 AM EST [facility] Outpatient Attender: Mazin Stout JRReferrer: LUCÍA JACOBS DO 04/20/2020 11:51:30 AM EST [facility] Outpatient Attender: Uzma Gold PA Attender: Michi Mack MDAdmitter: Michi Mack MDReferrer: José Miguel Koch MD [id number] 04/12/2020 01:07: 21 PM EDT - 05/18/2020 04:07:00 PM EST [facility] Patient discharged. Recurring Patient Referrer: LUCÍA MOYAEANOKAREN 04/12/2020 09:55:10 AM EDT [facility] Recurring Patient Referrer: LUCÍA MOYAEANOKAREN 04/12/2020 09:43:16 AM EDT [facility] Recurring Patient Referrer: LUCÍA GORGE PADILLA 04/02/2020 10:30:49 AM EDT [facility] Recurring Patient Referrer: LUCÍA ROBERTValenciaAJITH PADILLA 03/26/2020 01:05:32 PM EDT [facility] Outpatient [address] [id number] 03/26/2020 12:00:00 AM EDT eCW1 ([facility]) Recurring Patient Referrer: LUCÍA PATOBER 03/23/2020 12:31:55 PM EDT [facility] Recurring Patient Referrer: Solange Sharp CASAC 03/22/2020 10:45:56 AM EDT [facility] Office Visit Attender: Iraj Chu MD Physical Therapy 2019 09:45:00 AM EDT MEDEMILY ([facility] ) Immunizations Vaccine Date Status Description Data Source(s) COVID-19 VACCINE Moderna 04/09/2021 12:00:00 AM EDT completed [facility] Vaccine Series Complete: YESThis Data wa s Submitted to [facility] Via [employer]. COVID-19 VACCINE Pfizer 09/08/2020 12:00:00 AM EDT completed [place] Vaccine Series Complete: NOThis Data was Submitted to [facility] Via [employer]. COVID-19 VACCINE Pfizer 08/18/2020 12:00:00 AM EST completed [facility] Vaccine Series Complete: NOThis Data was Submitted to [facility] Via [employer]. Medications Medication Brand Name Start Date Product [...] HOURS FOR 10 DAYS SO LD: 05/07/2021 [facility] Fluticasone propionate 0.05 MG/ACTUAT Metered Dose Jose al [place] 50 mcg/actuation FLUTICASONE PROPIONATE 05/05/2021 12:00:00 AM EST spray,suspension 16 INSTILL 2 SPRAY IN EACH NOSTRIL ONCE DAILY INSTILL 2 SPRAY IN EACH NOSTRIL ONCE DAILY SOLD: 05/05/2021 [employer] Vitamin B 12 0.5 MG Oral Tablet Vitamin B-12 04/07/2021 12:00:00 AM E DT ORAL active MEDENT ([facility]) Omeprazole 20 MG Delayed Release Oral Capsule Omeprazole 12/06/2020 12:00:00 AM EDT ORAL active MEDENT ([facility]) Loratadine 10 MG Oral Tablet Eq Loratadine 12/06/2020 12:00:00 AM EDT ORAL active [facility] ([facility]) Metronidazole 7.5 MG/ML Topical Cream Metronidazole 10/14/2020 12:00:00 AM EDT active [facility] ( [facility]) 10 mg 10/09/2020 12:00:00 AM EDT tablet 12 TAKE ONE TABLET BY MOUTH FOUR TIMES A DAY FOR 3 DAYS TAKE ONE TABLET BY MOUTH FOUR TIMES A DAY FOR 3 DAYS SOLD: 10/09/2020 [facility] Cephalexin 500 MG Oral Capsule CEPHALEXIN 07/27/2020 12:00:00 AM EST capsule 30 TAKE ONE CAPSULE BY MOUTH THREE TIMES A DAY FOR 10 DAY S TAKE ONE CAPSULE BY MOUTH THREE TIMES A DAY FOR 10 DAYS SOLD: 07/27/2020 [facility] gabapentin 300 MG Oral Capsule gabapentin (NEURONTIN) capsule 300 mg gabapentin (NEURONTIN) capsule 300 mg 06/15/2020 09:00:00 AM EST 300 mg Oral active 300 mg, Oral, Every morning, First dose on Sun06/15/20 at 0900, Post-op [facility] Medication administered onsite lactated ringers bolus 1,000 mL [id number] 06/15/2020 06:00:00 AM EST 1000 mL Intravenous completed 1,000 mL , Intravenous, Administer over 2 Hours, Once, Sun06/15/20 at 0600, For 1 dose, Post-op [facility] Medication administered onsite ondansetron (ZOFRAN-ODT) disintegrating [...] Sun06/15/20 at 0600, Post-op [Order 2 End] [facility] Medication administered onsite Insulin Lispro 100 [...] 14 units >420 16 units, Call MD
[facility] Medication administered onsite Acetaminophen 325 MG Oral Tablet acetaminophen (TYLENO L) 325 MG tablet acetaminophen (TYLENOL) 325 MG tablet 06/15/2020 12:00:00 AM EST 65 0 mg Oral active Take 2 tablets (650 mg total) by mouth every 6 (six) hours as needed for pain [facility] Ondansetron 4 MG Disintegrating Oral Tab let ondansetron (ZOFRAN-ODT) 4 MG disintegrating tablet ondansetron (ZOFRAN-ODT) 4 MG disintegrating tablet 06/15/2020 12:00:00 AM EST 4 mg Oral active Take 1 tablet (4 mg total) by mouth every 6 (six) hours as needed for nausea [facility] Omeprazole 40 MG Delayed Release Oral Ca psule omeprazole (PRILOSEC) 40 MG capsule omeprazole (PRILOSEC) 40 MG capsule 06/15/2020 12:00:00 AM EST 40 mg Oral active Take 1 capsule (40 m g total) by mouth daily [facility] Acetaminophen 325 MG Oral Tablet acetaminophen (TYLENO L) 325 MG tablet 650 mg acetaminophen (TYLENOL) 325 MG tablet 650 mg 06/15/2020 12:00:00 AM EST 650 mg Oral active 650 mg, Or al, Every 4 hours PRN, mild pain (1-3), for mild pain, headache, or temperature > 101, Starting 06/15/20 at 0000, Post- op
To begin after routine doses of tylenol.
[facility] Medication administered onsite 0.4 ML Enoxaparin sodium 100 MG/ML Prefi lled Syringe enoxaparin (LOVENOX) 40 MG/0.4ML SOLN enoxaparin (LOVENOX) 40 MG/0.4ML SOLN 06/15/2020 12:00:00 AM EST 40 mg Subcutaneous active Inject 0.4 mL (40 mg total) under the skin daily for 10 days [facility] Ascorbic Acid 60 MG / Beta Carotene 5000 UNT / Copper Sulfate 40 MG / dl-alpha tocopheryl acetate 30 UNT / Sodium Selenite 0.04 MG / Zinc Oxide 40 MG Oral Tablet Multiple Vitamins-Minerals (MULTIVITAMIN WITH MINERALS) tablet Multiple Vitamins-Minerals (MULTIVITAMIN WITH MINERALS) tablet 06/15/2020 12:00:00 AM EST 2 {tbl} Oral active Take 2 tablets b y mouth daily [facility] Vitamin B 12 0.5 MG Oral Tablet cyanocob alamin ([facility] VITAMIN B-12) 500 MCG tablet cyanocobalamin ([facility] VITAMIN B-12) 500 MCG tablet 06/15/2020 12:0 0:00 AM EST 1000 ug Oral active Take 2 tablets (1,000 mc g total) by mouth daily [facility] Simethicone 80 MG Chewable Tablet simethicone (MYLICON ) 80 MG chewable tablet simethicone (MYLICON) 80 MG chewable tablet 06/15/2020 12:00:00 AM EST 80 mg Oral active Chew 1 tablet (80 mg total) every 6 (six) hours as needed for flatulence [facility] heparin (porcine) injection 5,000 Units [id number] 06/14/20 11:00:00 PM EST 5000 U Subcutaneous active 5,000 Units , Subcutaneous, Every 8 hours (relative), First dose on Sun06/14/20 at 2300, Post-op
If platelet count is less than 100,000 or hematocrit is less than 25, or if there is a 5 point decrea se in hematocrit, do not give the dose and call physician/designee.
[facility] Medication administered onsite Baclofen 20 MG Oral Tablet baclofen (LIORESAL) tablet 10 mg baclofen (LIORESAL) tablet 10 mg 06/14/2020 10:00:00 PM EST 10 mg Oral activ e 10 mg, Oral, 3 times daily, First dose on Sun06/14/20 at 2200, Post-op [facility] Medication administered onsite normal saline flush 0.9 % injection 3 mL [id number] 06/14/2020 10:00:00 PM EST 3 mL Intravenous active 3 mL , Intravenous, QSHIFT, First dose on Sun06/14/20 at 2200, Post-op
Convert to saline lock after discontinuing D5LR IV.
[facility] Medication administered onsite Metoprolol Tartrate 25 MG Oral Tablet me toprolol tartrate (LOPRESSOR) tablet 25 mg metoprolol tartrate (LOPRESSOR) tablet 25 mg 06/14/2020 09:00:00 PM EST 25 mg Oral active 25 mg, Ora l, 2 times daily, First dose on Sun06/14/20 at 2100, Post-op
Hold Lopressor for SBP < 100 mmHg or HR < 60.
[facility] Medication administered onsite Losartan Potassium 25 MG Oral Tablet losartan (COZAAR) tablet 25 mg losartan (COZAAR) tablet 25 mg 06/14/2020 09:00:00 PM EST 25 mg Oral active 25 mg, Oral, Nightly, First dose on Sun06/14/20 at 2100, Post-op [facility] Medication administered onsite gabapentin 300 MG Oral Capsule gabapentin (NEURONTIN) capsule 600 mg gabapentin (NEURONTIN) capsule 600 mg 06/14/2020 09:00:00 PM EST 600 mg Oral active 600 mg, Oral, Nightly, First dose on Sun06/14/20 at 2100, Post-op [facility] Medication administered onsite 1 ML Ketorolac Tromethamine 30 MG/ML Car tridge ketorolac (TORADOL) injection 30 mg ketorolac (TORADOL) injection 30 mg 06/14/2020 08:30:00 PM EST 30 mg Intravenous active 30 mg, Intrav enous, Every 6 hours PRN, severe pain (7-10), Starting Sun06/14/20 at 2030, For 4 doses, Post-op [facility] Medication administered onsite Simethicone 80 MG Chewable Tablet simethicone (MYLICON ) chewable tablet 80 mg simethicone (MYLICON) chewable tablet 80 mg 06/14/2020 08:00:00 PM EST 80 mg Oral active 80 mg, Oral, E very 4 hours (scheduled), First dose on Sun06/14/20 at 2000, Post-op [facility] Medication administered onsite pantoprazole 40 MG Delayed Release Oral Tablet pantoprazole (PROTONIX) EC tablet 40 mg pantoprazole (PROTONIX) EC tablet 40 mg 06/14/2020 07:00:[address] 40 mg Oral active Stress Ulcer Prophylaxis 40 mg, Oral, Daily, Indications: Stress Ulcer Prophylaxis, First dose on Sun06/14/20 at 1900, Post-op [facility] Stress Ulcer Prophylaxis Medication administered onsite Ondansetron 4 MG Disintegrating Oral Tab let ondansetron (ZOFRAN-ODT) disintegrating tablet 8 mg ondansetron (ZOFRAN-ODT) disintegrating tablet 8 mg 06/14/2020 07:00:00 PM EST 8 mg Oral completed 8 mg, Oral, Every 6 hours (scheduled), First dose on Sun06/14/20 at 1900, For 24 hours, Post-op [facility] Medication administered onsite Calcium Chloride 0.001 [...] adequate PO & convert to saline lock
[facility] Medication administered onsite Acetaminophen 500 MG Oral Tablet acetaminophen (TYLENO L) tablet 1,000 mg acetaminophen (TYLENOL) tablet 1,000 mg 06/14/2020 07:00:00 PM EST 1000 mg Oral active 1,000 mg, Oral , Every 8 hours, First dose on Sun06/14/20 at 1900, For 48 hours, Post-op [facility] Medication administered onsite metoclopramide (REGLAN) injection [...] hours PRN for nausea
[Order 2 End] [facility] Medication administered onsite Promethazine Hydrochloride 25 MG Oral Ta blet promethazine (PHENERGAN) tablet 12.5 mg promethazine (PHENERGAN) tablet 12.5 mg 06/14/2020 05:56:[address] 12.5 mg Oral active 12.5 mg, O ral, Every 4 hours PRN, nausea, not relieved by prochlorperazine, Starting 06/14/20 at 1756, Post-op [facility] Medication administered onsite Prochlorperazine 10 MG Oral Tablet prochlorperazine (C OMPAZINE) tablet 10 mg prochlorperazine (COMPAZINE) tablet 10 mg 06/14/2020 05:56:25 PM EST 10 mg Oral active 10 mg, Oral, E very 6 hours PRN, nausea, not relieved by metoclopramide, Starting 06/14/20 at 1756, Post-op [facility] Medication administered onsite Sumatriptan 50 MG Oral Tablet SUMAtriptan (IMITREX) ta blet 50 mg SUMAtriptan (IMITREX) tablet 50 mg 06/14/2020 05:56:25 PM EST 50 mg Oral active 50 mg, Oral, Every 2 hour PRN, migraine, Starting 06/14/20 at 1756, Post- op
May repeat dose in 2 hours if no relief. Do not exceed 2 doses in 24 hours.
[facility] Medication administered onsite enalaprilat (VASOTEC) injection 1.25 mg [id number] 06/14/20 05:56:24 PM EST 1.25 mg Intravenous active 1.25 mg, Int ravenous, Every 6 hours PRN, for SBP > 140 mmHg and/or DBP > 90 mmHg, Starting Sun06/14/20 at 1756, Post- op
Mix in 50 mL NS, infuse over 30 minutes via infusion pump. For IVMB on NON-ICU units.
[facility] Medication administered onsite 0.4 ML Enoxaparin sodium 100 MG/ML Prefi lled Syringe enoxaparin (LOVENOX) syringe 40 mg enoxaparin (LOVENOX) syringe 40 mg 06/14/2020 05:56:24 PM EST 40 mg Subcutaneous completed 40 mg, Subcutaneous, Before Discharge, for prophylaxis, Starting Sun06/14/20 at 1756, For 1 dose, Post-op
At discharge. To be administered by patient or significant other.
[facility] Medication administered onsite Clonidine Hydrochloride 0.1 MG Oral Tablet cloNIDine ( CATAPRES) tablet 0.1 mg cloNIDine (CATAPRES) tablet 0.1 mg 06/14/2020 05:56:23 PM EST 0.1 mg Oral active 0.1 mg, Oral, Every 4 hours PRN, high blood pressure, for SBP > 140 mmHg and/or DBP > 90 mmHg, Starting Sun06/14/20 at 1756, Post-op [facility] Medication administered onsite Hydralazine Hydrochloride 20 MG/ML Injec table Solution hydrALAZINE (APRESOLINE) injection 10 mg hydrALAZINE (APRESOLINE) injection 10 mg 06/14/2020 04 :56:25 PM EST 10 mg Intravenous completed 10 mg, Intravenous, Every 20 min PRN, high blood pressure, Starting Sun06/14/20 at 1656, For 2 doses, Intra-op [facility] Medication administered onsite Metoprolol Tartrate 25 MG Oral Tablet me toprolol tartrate (LOPRESSOR) tablet 25 mg metoprolol tartrate (LOPRESSOR) tablet 25 mg 06/14/2020 04:00:00 PM EST 25 mg Oral completed 25 mg, Ora l, Once, Sun06/14/20 at 1600, For 1 dose, PACU (only)
For 1 dose in PACU. Hold for SBP < 100 or HR < 60
[facility] Medication administered onsite Magnesium Chloride 0.70740 MEQ/ML / Pota ssium Chloride 0.0497 MEQ/ML / Sodium Acetate 0.0163 MEQ/ML / Sodium Chloride 0.0899 MEQ/ML / Sodium gluconate 5.02 MG/ML Injectable Solution [Normosol-R] electrolyte-R (NORMOSOL-R/PLASMALYTE-R) solution 1,000 mL electrolyte-R (NORMOSOL-R/PLASMALYTE-R) solution 1,000 mL 06/14/2020 04:00:00 PM EST 1000 mL Intravenous active at 100 mL/hr, 1,000 mL, Intravenous, Continuous, Starting Sun06/14/20 at 1600, PACU (only) [facility] Medication administered onsite Insulin Lispro 100 [...] &nbsp ; Call (May need Lantus dose)
[facility] Medication administered onsite 4 ML Labetalol [...] mp;nbsp; HOLD FOR HR LESS THAN 60
[facility] Medication administered onsite 4 ML Labetalol [...] MG HOLD FOR HR LESS THAN 60
[facility] Medication administered onsite HYDROmorphone (DILAUDID) injection 0.5 mg [id number] 06/14/2020 02:45:14 PM EST 0.5 mg Intravenous completed 0. 5 mg, Intravenous, Every 5 min PRN, severe pain (7-10), Starting Sun06/14/20 at 1445, For 4 doses, PACU (only) [facility] Medication administered onsite fentaNYL Citrate (PF) (SUBLIMAZE) injection 50 mcg [id number] 06/14/2020 02:45:14 PM EST 50 ug Intravenous aborted 50 mcg, Intravenous, Every 5 min PRN, moderate pain (4 to 6), Starting Sun06/14/20 at 1445, For 4 doses, PACU (only) [facility] Medication administered onsite Albuterol 0.83 MG/ML Inhalant Solution a lbuterol (PROVENTIL) nebulizer solution 2.5 mg albuterol (PROVENTIL) nebulizer solution 2.5 mg 2019 12:00:00 PM EST 2.5 mg completed 2.5 mg , Nebulization, scallop dredger, Sun06/14/20 at 1200, For 1 dose, Pre-op
To be started by pre-op unit
[facility] Medication administered onsite Clonidine Hydrochloride 0.1 MG Oral Tablet cloNIDine ( CATAPRES) tablet 0.1 mg cloNIDine (CATAPRES) tablet 0.1 mg 06/14/2020 12:00:00 PM EST 0.1 mg Oral completed 0.1 mg, Oral, scallop dredger, 06/14 at 1200, For 1 dose, Pre-op [facility] Medication administered onsite Acetaminophen 325 MG Oral Tablet acetaminophen (TYLENO L) 325 MG tablet 975 mg acetaminophen (TYLENOL) 325 MG tablet 975 mg 06/14/2020 12:00:00 PM EST 975 mg Oral completed 975 mg, Or al, scallop dredger, Sun06/14/20 at 1200, For 1 dose, Pre-op
"Maximum dose of acetaminophen is 4,000 mg from all sources in 24 hours."
[facility] Medication administered onsite Alprazolam 0.25 MG Oral Tablet ALPRAZolam (XANAX) tabl et 0.25 mg ALPRAZolam (XANAX) tablet 0.25 mg 06/14/2020 12:00:00 PM EST 0.25 mg Oral completed 0.25 mg, Oral, scallop dredger, Sun06/14/20 at 1200, For 1 dose, Pre-op [facility] Medication administered onsite Tetrahydrocannabinol 2.5 MG Oral Capsule dronabinol (M ARINOL) capsule 5 mg dronabinol (MARINOL) capsule 5 mg 06/14/2020 12:00:00 PM EST 5 mg Oral completed 5 mg, Oral, scallop dredger, Sun 0 at 1200, For 1 dose, Pre-op [facility] Medication administered onsite Prochlorperazine 10 MG Oral Tablet prochlorperazine (C OMPAZINE) tablet 10 mg prochlorperazine (COMPAZINE) tablet 10 mg 06/14/2020 12:00:00 PM EST 10 mg Oral completed 10 mg, Oral, O n call, Sun06/14/20 at 1200, For 1 dose, Pre-op [facility] Medication administered onsite Dexamethasone 4 MG Oral Tablet dexamethasone (DECADRON ) tablet 4 mg dexamethasone (DECADRON) tablet 4 mg 06/14/2020 12:00:00 PM EST 4 mg Oral completed 4 mg, Oral, scallop dredger, Sun 0 at 1200, For 1 dose, Pre-op [facility] Medication administered onsite celecoxib 100 MG Oral Capsule celecoxib (CeleBREX) cap tutu 200 mg celecoxib (CeleBREX) capsule 200 mg 06/14/2020 12:00:00 PM EST 200 mg Oral completed 200 mg, Oral, scallop dredger, 06/14 at 1200, For 1 dose, Pre-op [facility] Medication administered onsite heparin (porcine) injection 5,000 Units [id number] 06/14/20 12:00:00 PM EST 5000 U Subcutaneous completed 5,000 Uni ts, Subcutaneous, scallop dredger, Sun06/14/20 at 1200, For 1 dose, Pre-op
If platelet count is less than 100,000 or hematocrit is less than 25, or if there is a 5 point decrease in hematocrit, do not give the dose and call physician/designee.
[facility] Medication administered onsite gabapentin 600 MG Oral Tablet gabapentin (NEURONTIN) t ablet 600 mg gabapentin (NEURONTIN) tablet 600 mg 06/14/2020 12:00:00 PM EST 600 mg Oral completed 600 mg, Oral, On berna l, Sun06/14/20 at 1200, For 1 dose, Pre-op
Hold if age greater than 70 or chronic renal failure/insufficiency
[facility] Medication administered onsite Calcium Chloride 0.0014 MEQ/ML / Potassi um Chloride 0.004 MEQ/ML / Sodium Chloride 0.103 MEQ/ML / Sodium Lactate 0.028 MEQ/ML Injectable Solution lactated ringers infusion lactated ringers infusion 06/14/2020 12:00:00 PM EST 100 mL/h Intravenous aborted at 100 m L/hr, 100 mL/hr, Intravenous, Continuous, Starting Sun06/14/20 at 1200, Pre-op
Please place IV on left side if able
[facility] Medication administered onsite scopolamine (TRANSDERM-SCOP) 1.5 MG (Bariatric only) 1 patch [id number] 06/14/2020 11:07:14 AM EST 1 {patch} Transdermal aborted 1 patch, Transdermal, Administer over 24 Hours, Every 24 hours (relative), First dose on Sun06/14/20 at 1200, For 1 dose, Pre-op
Scopolamine patch applied behind ear. Hold for any of the followin+ yrs old, hx of glaucoma, hx of vertigo, dementia.
[facility] Medication administered onsite Amphetamine aspartate 1.25 MG / Amphetam ine Sulfate 1.25 MG / Dextroamphetamine saccharate 1.25 MG / Dextroamphetamine Sulfate 1.25 MG Oral Tablet Amphetamine-Dextroamphetamine 05/24/2020 12:00:00 AM EST ORAL active [facility] ([facility]) Losartan Potassium 25 MG Oral Tablet Losartan Potassium 07/2019 12:00:00 AM EST ORAL active [facility] ([facility]) normal saline flush 0.9 % injection 3 mL [id number] 05/18/2020 04:00:00 PM EST 3 mL Intravenous active 3 mL , Intravenous, Every 8 hours (scheduled), First dose on Sun05/18/20 at 1600, PACU (only)
flush per protocol, D/C Main IV fluid if appropriate
[facility] Medication administered onsite 10 ML Atropine [...] or 0.04 mg/kg. Max of 6 doses
[facility] Medication administered onsite Albuterol 0.833 MG/ML / Ipratropium Brom deepa 0.167 MG/ML Inhalant Solution ipratropium-albuterol (DUO-NEB) 0.5-2.5 mg/mL nebulizer solution 3 mL ipratropium-albuterol (DUO-NEB) 0.5-2.5 mg/mL nebulizer solution 3 mL 05/18/2020 03:17:05 PM EST 3 mL Inhalation active 3 mL, Inhalation, Once as needed, shortness of breath, Starting Sun05/18/20 at 1517, For 1 dose, PACU (only) [facility] Medication administered onsite ondansetron (ZOFRAN) injection 4 mg [id number] 05/18/2020 03:17:0 5 PM EST 4 mg Intravenous active 4 mg, In travenous, Once as needed, nausea, vomiting, Starting Sun05/18/20 at 1517, For 1 dose, PACU (only)
If not given in last 4 hours
[facility] Medication administered onsite Magnesium Chloride 0.27190 MEQ/ML / Pota ssium Chloride 0.0497 MEQ/ML / Sodium Acetate 0.0163 MEQ/ML / Sodium Chloride 0.0899 MEQ/ML / Sodium gluconate 5.02 MG/ML Injectable Solution [Normosol-R] electrolyte-R (NORMOSOL-R/PLASMALYTE-R) solution 1,000 mL electrolyte-R (NORMOSOL-R/PLASMALYTE-R) solution 1,000 mL 05/18/2020 03:00:00 PM EST 1000 mL Intravenous active at 100 mL/hr, 1,000 mL, Intravenous, Continuous, Starting Sun05/18/20 at 1500, Pre-op [facility] Medication administered onsite 10 mg 04/21/2020 12:00:00 AM EST tablet 15 TAKE ONE TABLET BY MOUTH THREE TIMES A DAY NEEDED FOR PAIN FOR 5 DAYS TAKE ONE TABLET BY MOUTH THREE TIMES A DAY NEEDED FOR PAIN FOR 5 DAYS SOLD: 04/21/2020 [facility] Prednisone 10 MG Oral Tablet Prednisone 11/27/2019 12:00:00 AM EDT completed [facility] ([facility]) Daily Edson (THERAGRAN) per tablet [id number] 1 {tbl} Oral aborted Take 1 tablet by mouth daily [facility] 0.5 ML dulaglutide 3 MG/ML Auto-Injector Dulaglutide (TRULICITY) 1.5 MG/0.5ML SOPN Dulaglutide (TRULICITY) 1.5 MG/0.5ML SOPN 1.5 mg Subcut aneous aborted Inject 1.5 mg under the skin onc e a week On [facility] Omeprazole 20 MG Delayed Release Oral Ca psule omeprazole (PRILOSEC) 20 MG capsule omeprazole (PRILOSEC) 20 MG capsule 20 mg Oral aborted Take 20 mg by mouth daily [facility] Biotin w/ Vitamins C & E (HAIR SKIN & NAILS GUMMIES PO) 1 {tbl} Oral aborted Take 1 tablet by mouth daily [facility] Ascorbic Acid 60 MG / Beta Carotene 5000 UNT / Copper Sulfate 40 MG / dl-alpha tocopheryl acetate 30 UNT / Sodium Selenite 0.04 MG / Zinc Oxide 40 MG Oral Tablet Multiple Vitamins-Minerals (WOMENS 50+ MULTI VITAMIN/MIN) TABS Multiple Vitamins-Minerals (WOMENS 50+ MULTI VITAMIN/MIN) TABS 1 {tbl } Oral aborted Take 1 tablet by mouth daily [facility] Insurance Providers Payer name Policy type / Coverage type Policy ID Covered alliance party ID Covered alliance party's relationship to li Policy Li Plan Information [employer] [place] Compensation [id number] Self [id number] [employer] [place] Workers Compensation [id number] Self [id number] [facility] ([place]) Workers Compensation [id number] Self [id number] [facility] () Workers Compensation [id number] Self [id number] [employer] [id number] Self [employer] Workers Compensation [id number] Self [id number] [employer] Workers Compensation [id number] Self [id number] [employer] Compensation [id number] Self [id number] [employer] () Workers Compensation [id number] Self [id number] [employer] () Workers Compensation [id number] Self [id number] [employer] [facility] [id number] Self [id number] [employer] [facility] [id number] Self [id number] [employer] [facility] [id number] Self [id number] Wilbert Zhong Workers Compensation [id number] Self [employer] () Workers Compensation [id number] Self [id number] [facility] Workers Compensation Back [id number] Self B ack [employer] [facility] [id number] Self [id number] [employer] [facility] [id number] Self [id number] [employer] Commercial [id number] Self [employer] [facility] [id number] Self [id number] [employer] U [id number] Self [id number] UMR U Self Umr (pr) Commercial [id number] Self [facility] MEDICAID [id number] xxxxxxxxx [id number] [facility] Comm Plan Medicaid F [id number] SELF [id number] [facility] I [id number] Self [id number] [facility] I [id number] Self [id number] [facility] MEDICAID [id number] Madhavi [id number] [facility] [employer] [id number] Self [id number] [facility] [employer]. [id number] Self [id number] INSURANCE COVID-19 COVID Madhavi C OVID INSURANCE COVID-19 [id number] [id number] [employer] [id number] SP [id number] [employer] O [id number] S [id number] [employer] Medigap Part B [id number] Self [employer] Commercial [id number] Self [employer] Commercial [id number] Self L[employer] [id number] SP [id number] [employer] CLAIMS [id number] SP [id number] UN COMMUNITY PLAN MCDHMO [id number] SP [id number] [facility] COMMUNITY PLAN MCDHMO [id number] SP [id number] [facility](MCAID[facility] O [id number] O [id number] [facility](MCAID) O [id number] S [id number] [facility] Commercial F [id number] SELF [id number] EMEDNY [id number] SP [id number] [facility] COMMUNITY PLAN MCDHMO [id number] SP [id number] R [facility] [id number] SP [id number] UMR O [id number] S [id number] [employer] [id number] SP [id number] R [facility] [id number] SP [id number] r Medigap Part B [id number] Self [id number] [employer] Commercial [id number] Self [id number] r Medigap Part B [id number] Self [id number] [employer] Commercial [id number] Self [id number] r/[facility] Health Maintenance Organization (O) [id number] Self r Medigap Part B [id number] Self [id number] [employer] Commercial [id number] Self 10 [id number] [employer] Commercial [id number] Self 10 [id number] [employer] Commercial [id number] Self 10 [id number] [employer] Commercial [id number] Self 10 [id number] [employer] O [id number] S [id number] ANSI-Not a Secondary Insurance [id number] [employer] Commercial [id number] Self 10 [id number] [employer] Commercial [id number] Self 10 [id number] [employer] Commercial [id number] Self 10 [id number] [employer] WORKER COMP [id number] SP [id number] [employer] Commercial [id number] Self [employer] Medigap Part B [id number] Self [employer] MANAGEMENT O [id number] S [id number] WILBERT ZHONG O [id number] S [id number] [employer] O [id number] S [id number] Problems, Conditions, and Diagnoses Code Display Name Description Problem Type Effective Dates Data Source(s) E66.01 Morbid (severe) obesity due to excess ca lories Morbid (severe) obesity due to excess ca Diagnosis 06/14/2020 09:27:00 AM [facility] U07.1 COVID-19 COVID-19 Diagnosis 06/09/2020 07:56:14 AM [facility] K21.9 Gastro-esophageal reflux disease without esophagitis Gastro-esophageal reflux disease without Diagnosis 05/18/2020 11:48:00 AM [facility] K21.9 GERD (gastroesophageal reflux disease) G ERD (gastroesophageal reflux disease) [id number] 06/15/2020 12:00:00 AM [facility] I10 Hypertension Hypertension [id number] 06/15/2020 12:00:00 A M [facility] E66.01 Morbid obesity Morbid obesity [id number] 06/15/2020 12:00: 00 AM [facility] E11.9 Diabetes mellitus Diabetes mellitus [id number] 06/15/2020 12:00:00 AM [facility] G47.30 Sleep apnea Sleep apnea [id number] 06/15/2020 12:00:00 AM [facility] Surgeries/Procedures Procedure Description Date Indications Data Source(s) OFFICE OUTPATIENT VISIT 25 MINUTES 03/28/2021 12:00:[address] [facility] ([facility]) OFFICE OUTPATIENT VISIT 25 MINUTES 02/07/2021 12:00:00 AM EDT [facility] ([facility]) OFFICE OUTPATIENT VISIT 15 MINUTES 10/14/2020 12:00:00 AM EDT [facility] ([facility]) OFFICE OUTPATIENT VISIT 25 MINUTES 08/10/2020 12:00:00 AM EST [facility] ([facility]) ARTHROCENTESIS ASPIR&/INJECTION MAJOR JT/BURSA 12:00:00 AM EST [facility] ([facility]) GLUC BLD GLUC MNTR DEV CLEARED FDA SPEC HOME USE <td>P OCT GLUCOSE</td><td>Routine</td><td>06/15/2020 12:20 PM EST</td><td></td><td> </td> 06/15/2020 05:20:00 PM EST [facility] BLOOD COUNT COMPLETE AUTOMATED <td>CBC</td><td>STAT</t d><td>06/15/2020 11:20 AM EST</td><td></td><td> </td> 06/15/2020 04:20:00 PM EST [facility] GLUC BLD GLUC MNTR DEV CLEARED FDA SPEC HOME USE <td>P OCT GLUCOSE</td><td>Routine</td><td>06/15/2020 5:32 AM EST</td><td></td><td> </td> 06/15/2020 10:32:00 AM EST [facility] GLUC BLD GLUC MNTR DEV CLEARED FDA SPEC HOME USE <td>P OCT GLUCOSE</td><td>Routine</td><td>06/14/2020 11:33 PM EST</td><td></td><td> </td> 06/15/2020 04:33:00 AM EST [facility] GLUC BLD GLUC MNTR DEV CLEARED FDA SPEC HOME USE <td>P OCT GLUCOSE</td><td>Routine</td><td>06/14/2020 7:01 PM EST</td><td></td><td> </td> 06/15/2020 12:01:00 AM EST [facility] GLUC BLD GLUC MNTR DEV CLEARED FDA SPEC HOME USE <td>P OCT GLUCOSE</td><td>Routine</td><td>06/14/2020 4:07 PM EST</td><td></td><td> </td> 06/14/2020 09:07:00 PM EST [facility] GLUC BLD GLUC MNTR DEV CLEARED FDA SPEC HOME USE <td>P OCT GLUCOSE</td><td>Routine</td><td>06/14/2020 2:37 PM EST</td><td></td><td> </td> 06/14/2020 07:37:00 PM EST [facility] GLUC BLD GLUC MNTR DEV CLEARED FDA SPEC HOME USE <td>P OCT GLUCOSE</td><td>Routine</td><td>06/14/2020 11:35 AM EST</td><td></td><td> </td> 06/14/2020 04:35:00 PM EST [facility] ECG ROUTINE ECG W/LEAST 12 LDS TRCG ONLY W/O I&R <td>E CG 12- LEAD</td><td>Routine</td><td>05/31/2020 1:43 PM EST</td><td> Morbid obesity</td><td></td> 05/31/2020 06:43:17 PM EST Morbid obesity [facility] Morbid obesity BLOOD COUNT COMPLETE AUTOMATED <td>CBC</td><td>Routine </td><td>05/31/2020 1:35 PM EST</td><td> Morbid obesity</td><td> </td> 05/31/2020 06:35:00 PM EST Morbid obesity [facility] Morbid obesity BLOOD TYPING ABO <td>TYPE AND SCREEN</td><td> Routine</td><td>05/31/2020 1:35 PM EST</td><td> Morbid obesity</td><td> </td> 05/31/2020 06:35:00 PM EST Morbid obesity [facility] Morbid obesity THYROID STIMULATING HORMONE TSH <td>TSH</td><td>Routin e</td><td>05/31/2020 1:35 PM EST</td><td> Morbid obesity</td><td> </td> 05/31/2020 06:35:00 PM EST Morbid obesity [facility] Morbid obesity HEMOGLOBIN GLYCOSYLATED A1C <td>HEMOGLOBIN A1C</td><td>Routine</td><td>05/31/2020 1:35 PM EST</td><td> Morbid obesity</td><td> </td> 05/31/2020 06:35:00 PM EST Morbid obesity [facility] Morbid obesity COMPREHENSIVE METABOLIC PANEL <td>COMPREHENSIVE METABO LIC PANEL</td><td>Routine</td><td>05/31/2020 1:35 PM EST</td><td> Morbid obesity</td><td> </td> 05/31/2020 06:35:00 PM EST Morbid obesity [facility] Morbid obesity UPPER NDSC BIOPSY SINGLE/MULTIPLE 05/18/2020 12:00:00 AM EST [facility] ([facility] Results ID Date Data Source [id number] 03/29/2021 08:39:00 AM EDT [facility] ([facility]) Name Value Range Interpretation Code Description Data Janeth rce(s) Supporting Document(s) Pyridoxine [Mass/volume] in Serum or Plasma 44.4 ug/L 2.0- 32.8 Above high normal [facility] ([facility]) This test was developed and its performa nce characteristics determined by [facility]. It has not been cleared or approved by the Food and Drug Administration. Performed at: - [facility] [address] [id number] Metalworking Specialist: Renee Trujillo MD, Phone: [phone] Performed at: - [facility] [address] [id number] Metalworking Specialist: Rell Carver MD, Phone: [phone] ID Date Data Source [id number] 03/29/2021 08:39:[address] [facility] ([facility]) Name Value Range Interpretation Code Description Data Janeth rce(s) Supporting Document(s) Lyme Disease IgG/IgM Antibodie Laboratory test result 0.00-0.90 Normal (applies to non-numeric results) [facility] ([facility]) <content>Negative <0.91</content >
<content>Equivocal 0.91 - 1.09</content>
<content>Positive >1.09</content>
<content></content> Lyme Disease IgM Ab Quantitati Laboratory test result 0.00-0.79 Normal (applies to non-numeric results) [facility] ([facility]) <content>Negative <0.80</content >
<content>Equivocal 0.80 - 1.19</content>
<content>Positive >1.19</content>
<content>.</content>
<content>IgM levels may peak at 3-6 weeks post infection, then</content>
<content>gradually decline.</content>
<content></content> ID Date Data Source [id number] 03/29/2021 08:39:[address] [facility] ([facility]) Name Value Range Interpretation Code Description Data Janeth rce(s) Supporting Document(s) Cobalamin (Vitamin B12) [Mass/volume] in Serum or Plasma [facility] test result 247-[address] [facility] ([facility]) VITAMIN B12 NORMAL RANGE NORMAL 247 - 911 PG/ML INDETERMINATE 211 - 246 PG/ML DEFICIENT LESS THAN 211 PG/ML Erythrocyte sedimentation rate by Westergren method 12 mm/hr 0-30 Normal (applies to non-numeric results) [facility] ([facility]) ID Date Data Source [id number] 03/29/2021 08:39:[address] [facility] ([facility]) Name Value Range Interpretation Code Description Data Janeth rce(s) Supporting Document(s) Iron (Fe) 89 ug/dL 50-170 Normal (applies to non-numeric resul ts) [facility] ([facility]) Percent Saturation 30.9 % 13.2-45.0 Normal (applies to non-numer ic results) [facility] ([facility]) Total Iron Binding Capacity 288 ug/dL 250-450 Norm al (applies to non-numeric results) [facility] ([facility]) ID Date Data Source [id number] 03/29/2021 08:39:[address] [facility] ([facility]) Name Value Range Interpretation Code Description Data Janeth rce(s) Supporting Document(s) White Blood Count 8.7 10 4.0-10.0 Normal (applies to non-numeri c results) [facility] ([facility]) Red Blood Count 4.84 10 4.00-5.40 Normal (applies to non-numeric results) [facility] ([facility]) Mean Corpuscular Volume 91.3 fl 80.0-96.0 Normal ( applies to non-numeric results) [facility] ([facility]) Hematocrit 44.2 % 36.0-47.0 Normal (applies to non-numeric resul ts) [facility] ([facility]) Hemoglobin 14.3 g/dL 12.0-15.5 Normal (applies to non-numeric resul ts) [facility] ([facility]) Mean Corpuscular HGB Conc 32.4 g/dL 32.0-36.5 Normal (applies to non-numeric results) [facility] ([facility]) Mean Corpuscular Hemoglobin 29.5 pg 27.0-33.0 Norm al (applies to non-numeric results) [facility] ([facility]) Platelet Count, Automated 351 10 150-450 Normal (applies to non-numeric results) [facility] ([facility]) Red Cell Distribution Width 13.3 % 11.5-14.5 Norm al (applies to non-numeric results) [facility] ([facility]) Neutrophils % 40.5 % 36.0-66.0 Normal (applies to non-numeric re sults) [facility] ([facility]) [place] % 8.2 % 2.0-8.0 Above high normal [facility] ([facility]) Lymph % 48.6 % 24.0-44.0 Above high normal [facility] ([facility]) Eos % 1.5 % 0.0-3.0 Normal (applies to non-numeric resul ts) [facility] ([facility]) Baso % 0.7 % 0.0-1.0 Normal (applies to non-numeric resul ts) [facility] ([facility]) Immature Granulocyte % 0.5 % 0-3.0 Normal (applies to non-n umeric results) [facility] ([facility]) Nucleated Red Blood Cell % 0.0 % 0-0 Normal (applies to n on-numeric results) [facility] ([facility]) Lymph # 4.3 10 1.5-5.0 Normal (applies to non-numeric resul ts) [facility] ([facility]) Neutrophils # 3.5 10 1.5-8.5 Normal (applies to non-numeric re sults) [facility] ([facility]) [place] # 0.7 10 0.0-0.8 Normal (applies to non-numeric resul ts) [facility] ([facility]) Baso # 0.1 10 0.0-0.2 Normal (applies to non-numeric resul ts) [facility] ([facility]) Eos # 0.1 10 0.0-0.5 Normal (applies to non-numeric resul ts) [facility] ([facility]) ID Date Data Source [id number] 03/29/2021 08:39:00 AM EDT [facility] ([facility]) Name Value Range Interpretation Code Description Data Janeth rce(s) Supporting Document(s) Blood Urea Nitrogen 7 mg/dL 7-18 Normal (applies to non-nume iram results) [facility] ([facility]) Glucose, Fasting 92 mg/dL 70-100 Normal (applies to non-numeric results) [facility] ([facility]) Glomerular Filtration Rate Laboratory test result Normal (applies to non- numeric results) [facility] ([facility]) <content>Units are mL/min/1.73 m2</content>
<content></content>
<content>Chronic Kidney Disease Staging per NKF:</content>
<content></content>
<content>Stage I & II GFR >=60 Normal to Mildly Decreased</content>
<content>Stage III GFR 30- 59 Moderately Decreased</content>
<content>Stage IV GFR 15-29 Severely Decreased</content>
<content>Stage V GFR <15 Very Little GFR Left</content>
<content>ESRD GFR <15 on POLYMERIZATION OVEN OPERATOR</content>
<content></content> Creatinine For GFR 0.83 mg/dL 0.55-1.30 Normal (applies to non -numeric results) [facility] ([facility]) Sodium Level 141 meq/L 136-145 Normal (applies to non-numeric res ults) [facility] ([facility]) Potassium Serum 3.7 meq/L 3.5-5.1 Normal (applies to non-numeric results) [facility] ([facility]) Chloride Level 109 meq/L 98-107 Above high normal [facility] ([facility]) Carbon Dioxide Level 27 meq/L 21-32 Normal (applies to non-num queta results) [facility] ([facility]) Anion Gap 5 meq/L 8-[address] [facility] ( [facility]) Calcium Level 8.9 mg/dL 8.5-10.1 Normal (applies to non-numeric re sults) [facility] ([facility]) Ast/Sgot 20 U/L 7-37 Normal (applies to non-numeric resul ts) [facility] ([facility]) Alt/SGPT 34 U/L 12-78 Normal (applies to non-numeric resul ts) [facility] ([facility]) Alkaline Phosphatase 185 U/L 45-[address] [facility] ([facility]) Total Protein 6.4 GM/DL 6.4-8.2 Normal (applies to non-numeric re sults) [facility] ([facility]) Bilirubin,Total 0.5 mg/dL 0.2-1.0 Normal (applies to non-numeric results) [facility] ([facility]) Albumin 3.2 GM/DL 3.2-5.2 Normal (applies to non-numeric resul ts) [facility] ([facility]) Albumin/Globulin Ratio 1.0 1.2-2.[address] [facility] ([facility]) ID Date Data Source [id number] 03/29/2021 08:39:[address] [facility] ([facility]) Name Value Range Interpretation Code Description Data Janeth rce(s) Supporting Document(s) Hemoglobin A1c 5.4 % Normal (applies to non-numeric r esults) [facility] ([facility]) <content>REFERENCE RANGES:</content><br/ ><content></content>
<content><=5.6% NORMAL</content>
<content>5.7-6.4% SUGGESTS IMPAIRED GLUCOSE METABOLISM/PREDIABETIC</content>
<content>>= 6.5% ABNORMAL</content>
<content></content> Estimated Average Glucose 108 mg/dL 60-110 Normal (applies to non-numeric results) [facility] ([facility]) ID Date Data Source [id number] 02/16/2021 12:57:11 PM EDT [facility] Name Value Range Interpretation Code Description Data Janeth rce(s) Supporting Document(s) Progress Note [facility] RIXOHt6sNgMXPgMk56/AIQhtMXZyc1HqEHanJFt8TTicTJGzU6MiKDA5tC1sYIM5RQfCVlZaGkRxRJVl [facility] [file] AgICAgICAgICAgICAgICAgICAgICAgICAgICAgICAgICAgICAgICAgICAgICAgICAgICAgICAgICAgIC AgICAgICAgICAgICAgICAgICAgICAgICAgICAgICAg ICAgDQogICAgICAgICAgICAgICAgICAgICAgICAgICAgICAgICAgICAgICAgICAgICAgICAgICAgICAg ICAgICAgICAgICAgICAgICAgICAgICAgICAgICAgICAgICAgICAgICAgICAgDQogICAgICAgICAgICAg ICAgICAgICAgICAgICAgICAgICAgICAgICAgICAgIC AgICAgICAgICAgICAgICAgICAgICAgICAgICAgICAgICAgICAgICAgICAgICAgICAgICAgICAgDQogIC AgICAgICAgICAgICAgICAgICAgICAgICAgICAgICAgICAgICAgICAgICAgICAgICAgICAgICAgICAgIC AgICAgICAgICAgICAgICAgICAgICAgICAgICAgICAg ICAgICAgDQogICAgICAgICAgICAgICAgICAgICAgICAgICAgICAgICAgICAgICAgICAgICAgICAgICAg ICAgICAgICAgICAgICAgICAgICAgICAgICAgICAgICAgICAgICAgICAgICAgICAgDQogICAgICAgICAg ICAgICAgICAgICAgICAgICAgICAgICAgICAgICAgIC AgICAgICAgICAgICAgICAgICAgICAgICAgICAgICAgICAgICAgICAgICAgICAgICAgICAgICAgICAgDQ ogICAgICAgICAgICAgICAgICAgICAgICAgICAgICAgICAgICAgICAgICAgICAgICAgICAgICAgICAgIC AgICAgICAgICAgICAgICAgICAgICAgICAgICAgICAg ICAgICAgICAgDQogICAgICAgICAgICAgICAgICAgICAgICAgICAgICAgICAgICAgICAgICAgICAgICAg ICAgICAgICAgICAgICAgICAgICAgICAgICAgICAgICAgICAgICAgICAgICAgICAgICAgDQogICAgICAg ICAgICAgICAgICAgICAgICAgICAgICAgICAgICAgIC AgICAgICAgICAgICAgICAgICAgICAgICAgICAgICAgICAgICAgICAgICAgICAgICAgICAgICAgICAgIC AgDQogICAgICAgICAgICAgICAgICAgICAgICAgICAgICAgICAgICAgICAgICAgICAgICAgICAgICAgIC AgICAgICAgICAgICAgICAgICAgICAgICAgICAgICAg RNZoFNJsPEOeFAMpGMw7V8zuZSApAWYkVV8fZBj2Do9+CLiIMpFyRUO9pgEioJ3WNI3nw4VlKEhnNWQn h1AaSYk3VN5FNNCtUDwnAN9GCAykan5HYOJaBFVggVTLe1erAcMwODT0HZYkXkzdLQ3WRAAgX0ystuGq OJOmEBZSYAezPZBQTRdcSOIXGX4LEiAkP5TmpN44XG MNCj4+ROskroSbIkbEYyG3ATLtq8AwSCm4JP8HSDXyWgfwh1KbJoYkKLSJKQwpOR2GPPL0YNJrUWRnZo 8TSTFqN591whVdYY4FIn1IEmBbZO2tnn0JFwImTAYiOhfYAac3REhfGX6FhJKjVLjEtb7pwrFpouUSf1 VyghCbaHXOXRTkA4ZmTFIkIJErOAGnEZvcQpYfVQEa AV3uAsChNbGnHZA9MBJmNU7iDYwqZN7YPAQ2ZPwzKBIiIUEpJ8bGNgFvWAYnUXFrbDkwZG5UJwZdH4Zq cmVudCAyOSAwIFINCj4+MLckkoYkApsTAbRaPQMmk6TsTHm7QV0VERHnVNdzOG2HRJYuqC1uCTpvKJ9S IlIdPdPwIIFDDdRkH67fuPItUXu6Y9JvRfDfXCRiPj lsZXMgPDwvTmFtZXMgWyBdDQogID4+ID4+JHviYN4TENbplcClACDyJr6EBAShYDVeVR0fQVPqQYBoX6 M3qCsaAVPMVmCxE1bqgoniTD5oVYKnV013nUgcmtNyQJD2WIKhWz9RGBRnFBD0BMZzpHQnUlslGJCWCK hgFK4ZtDEbJKW8eR6eLLdsOXXaMDOwX5oNAfDdjOxl MA17mSknshMsvGDqRUv+Vm7XCB5hq0MwCCh9vzQpMJpnIITyGFyiXCPcROIfKNNpHDM0RYZ9OLEXNzIz VCGdZGYxMQzhIJNfZXHkka2LFJSkNYJoCpM9THYrCQSnOFPnEKhuHEOhZIO3EkI4BBTlBLUzMZ4CQaJq HUErCRAwCZdoCQNjXVJjps0PBWIjRLGbJXKfAUAaBM WrQSMaNSpoUGJsXYD2XHM5XVFhLXNyFX6UDgMiTBIiADk0HCPwJUWbTJVsjy2PNBFdYRXbSmrtJOUhVP SoPFDpXDhgGBXmXFS4UaWmAGOkDOHqKO7EPyAoQQGxZBu3CQpaCUKsKANdhz6IUZPkNFOmKDz2LhAcTM DsDHUhMBbqPNIoUMB3NZQ9CSRiRJTdLR5BNyDvHTLv OBCuQVrzQYOvWAZvdk9WYOOcYLJpHFQfAfNePLDwIGVrXZttBCFfWRKvBaA4WWLdYFKpSX8TYjSbMRMx QEJ1NJDlILCzKCUtgz4BDMWcUOBdXjeuWcNqBDNpBNGfDJiyJVJcXPUcLfBlTBEtJKApUT0AEiVfCYUq ZuG5AhFqNGBfMCMmrz9TZBDyBGBcAmjcDEJeTINbRA JnBQgaEQRnUIGsVXG4JVCvOXLyMM2DNqEkZTEoJhS0QLDuCKKrMPVgtm6AJNTnCAItXEy3MEBqGAOnVD OfNCkhYVScETX6ANHcWVNoJKNwOT3EDjBwDJRhFqJjVVNkALTlISTmfj8YLKCjIFQbOwI5MPMyGMHuVK KsHFflRROsVWJ6UPLsTATtZTIaJV6DNbSsNXNrMwX0 MOCeSQUaUEOgfr0VHAHsEEXyQML4BWVaAZKiXTZiRDanBQLvAJZ4YMY8HYPnLXRuAF9KGvFhSHTtKbg4 ZeqdDJNpOXLytf3VzTCsxJbmce6LCXfKKm7BbCttYYTiTAkuKl1hzNLgMHYlYYIHMn1TkdTwZNMdRNXL RTogXNYwEFSzLMBzPYEwOBUkAMG7S7IaLLX1IsLpQC PdHQg8GmmqElC1QzPeHdN1NaMeJjQjIAseEcW6ZUndCtG3GsW5OMo1V2Z+GC7dNCa+Ka7Bo1ZpvsY9jw XbUFqrRWtqBJ1GNJVZK7FXPs== ID Date Data Source [id number] 02/01/2021 08:17:[address] [facility] ([facility]) Name Value Range Interpretation Code Description Data Janeth rce(s) Supporting Document(s) Triglycerides Level 127 mg/dL Normal (applies to non-nume iram results) [facility] ([facility]) Cholesterol Level 188 mg/dL Normal (applies to non-numeri c results) [facility] ([facility]) LDL Cholesterol 117 mg/dL Above high normal [facility] ([facility]) HDL Cholesterol 46 mg/dL Normal (applies to non-numeric results) [facility] ([facility]) Non-HDL-C 142 mg/dL Normal (applies to non-numeric resul ts) [facility] ([facility]) Cholesterol Risk Ratio 4.086 Normal (applies to non-n umeric results) [facility] ([facility]) ID Date Data Source [id number] 02/01/2021 08:17:[address] [facility] ([facility]) Name Value Range Interpretation Code Description Data Janeth rce(s) Supporting Document(s) White Blood Count 9.3 10 4.0-10.0 Normal (applies to non-numeri c results) [facility] ([facility]) Red Blood Count 4.90 10 4.00-5.40 Normal (applies to non-numeric results) [facility] ([facility]) Hemoglobin 14.5 g/dL 12.0-15.5 Normal (applies to non-numeric resul ts) [facility] ([facility]) Mean Corpuscular Volume 90.8 fl 80.0-96.0 Normal ( applies to non-numeric results) [facility] ([facility]) Mean Corpuscular Hemoglobin 29.6 pg 27.0-33.0 Norm al (applies to non-numeric results) [facility] ([facility]) Hematocrit 44.5 % 36.0-47.0 Normal (applies to non-numeric resul ts) [facility] ([facility]) Mean Corpuscular HGB Conc 32.6 g/dL 32.0-36.5 Normal (applies to non-numeric results) [facility] ([facility]) Red Cell Distribution Width 13.5 % 11.5-14.5 Norm al (applies to non-numeric results) [facility] ([facility]) Platelet Count, Automated 339 10 150-450 Normal (applies to non-numeric results) [facility] ([facility]) Neutrophils % 48.5 % 36.0-66.0 Normal (applies to non-numeric re sults) [facility] ([facility]) Lymph % 40.3 % 24.0-44.0 Normal (applies to non-numeric resul ts) [facility] ([facility]) [place] % 8.5 % 2.0-8.0 Above high normal [facility] ([facility]) Eos % 1.6 % 0.0-3.0 Normal (applies to non-numeric resul ts) [facility] ([facility]) Baso % 0.7 % 0.0-1.0 Normal (applies to non-numeric resul ts) [facility] ([facility]) Immature Granulocyte % 0.4 % 0-3.0 Normal (applies to non-n umeric results) [facility] ([facility]) Nucleated Red Blood Cell % 0.0 % 0-0 Normal (applies to n on-numeric results) [facility] ([facility]) Neutrophils # 4.5 10 1.5-8.5 Normal (applies to non-numeric re sults) [facility] ([facility]) [place] # 0.8 10 0.0-0.8 Normal (applies to non-numeric resul ts) [facility] ([facility]) Lymph # 3.8 10 1.5-5.0 Normal (applies to non-numeric resul ts) [facility] ([facility]) Baso # 0.1 10 0.0-0.2 Normal (applies to non-numeric resul ts) [facility] ([facility]) Eos # 0.2 10 0.0-0.5 Normal (applies to non-numeric resul ts) [facility] ([facility]) ID Date Data Source [id number] 02/01/2021 08:17:[address] [facility] ([facility]) Name Value Range Interpretation Code Description Data Janeth rce(s) Supporting Document(s) Estimated Average Glucose 108 mg/dL 60-110 Normal (applies to non-numeric results) [facility] ([facility]) Hemoglobin A1c 5.4 % Normal (applies to non-numeric r esults) [facility] ([facility]) <content>REFERENCE RANGES:</content><br/ ><content></content>
<content><=5.6% NORMAL</content>
<content>5.7-6.4% SUGGESTS IMPAIRED GLUCOSE METABOLISM/PREDIABETIC</content>
<content>>= 6.5% ABNORMAL</content>
<content></content> ID Date Data Source [id number] 02/01/2021 08:17:[address] [facility] ([facility]) Name Value Range Interpretation Code Description Data Janeth rce(s) Supporting Document(s) Blood Urea Nitrogen 13 mg/dL 7-18 Normal (applies to non-nume iram results) [facility] ([facility]) Glucose, Fasting 86 mg/dL 70-100 Normal (applies to non-numeric results) [facility] ([facility]) Creatinine For GFR 0.78 mg/dL 0.55-1.30 Normal (applies to non -numeric results) [facility] ([facility]) Potassium Serum 4.3 meq/L 3.5-5.1 Normal (applies to non-numeric results) [facility] ([facility]) Glomerular Filtration Rate Laboratory test result Normal (applies to non- numeric results) [facility] ([facility]) <content>Units are mL/min/1.73 m2</content>
<content></content>
<content>Chronic Kidney Disease Staging per NKF:</content>
<content></content>
<content>Stage I & II GFR >=60 Normal to Mildly Decreased</content>
<content>Stage III GFR 30- 59 Moderately Decreased</content>
<content>Stage IV GFR 15-29 Severely Decreased</content>
<content>Stage V GFR <15 Very Little GFR Left</content>
<content>ESRD GFR <15 on POLYMERIZATION OVEN OPERATOR</content>
<content></content> Sodium Level 140 meq/L 136-145 Normal (applies to non-numeric res ults) [facility] ([facility]) Chloride Level 107 meq/L 98-107 Normal (applies to non-numeric r esults) [facility] ([facility]) Anion Gap 6 meq/L 8-16 Below low normal [facility] ( [facility]) Carbon Dioxide Level 27 meq/L 21-32 Normal (applies to non-num queta results) [facility] ([facility]) Calcium Level 8.1 mg/dL 8.5-10.1 Below low normal [facility] ([facility]) Ast/Sgot 24 U/L 7-37 Normal (applies to non-numeric resul ts) [facility] ([facility]) Alkaline Phosphatase 189 U/L 45-117 Above high normal [facility] ([facility]) Alt/SGPT 43 U/L 12-78 Normal (applies to non-numeric resul ts) [facility] ([facility]) Bilirubin,Total 0.5 mg/dL 0.2-1.0 Normal (applies to non-numeric results) [facility] ([facility]) Total Protein 6.5 GM/DL 6.4-8.2 Normal (applies to non-numeric re sults) [facility] ([facility]) Albumin 3.3 GM/DL 3.2-5.2 Normal (applies to non-numeric resul ts) [facility] ([facility]) Albumin/Globulin Ratio 1.0 1.2-2.2 Below low normal [facility] ([facility]) ID Date Data Source [id number] 08/02/2020 08:22:00 AM EST [facility] ([facility]) Name Value Range Interpretation Code Description Data Janeth rce(s) Supporting Document(s) Glucose, Fasting 97 mg/dL 70-100 Normal (applies to non-numeric results) [facility] ([facility]) Blood Urea Nitrogen 10 mg/dL 7-18 Normal (applies to non-nume iram results) [facility] ([facility]) Creatinine For GFR 0.96 mg/dL 0.55-1.30 Normal (applies to non -numeric results) [facility] ([facility]) Potassium Serum 4.1 meq/L 3.5-5.1 Normal (applies to non-numeric results) [facility] ([facility]) Glomerular Filtration Rate Laboratory test result Normal (applies to non- numeric results) [facility] ([facility]) <content>Units are mL/min/1.73 m2</content>
<content></content>
<content>Chronic Kidney Disease Staging per NKF:</content>
<content></content>
<content>Stage I & II GFR >=60 Normal to Mildly Decreased</content>
<content>Stage III GFR 30- 59 Moderately Decreased</content>
<content>Stage IV GFR 15-29 Severely Decreased</content>
<content>Stage V GFR <15 Very Little GFR Left</content>
<content>ESRD GFR <15 on POLYMERIZATION OVEN OPERATOR</content>
<content></content> Sodium Level 140 meq/L 136-145 Normal (applies to non-numeric res ults) [facility] ([facility]) Chloride Level 105 meq/L 98-107 Normal (applies to non-numeric r esults) [facility] ([facility]) Carbon Dioxide Level 28 meq/L 21-32 Normal (applies to non-num queta results) [facility] ([facility]) Anion Gap 7 meq/L 8-16 Below low [facility] Ast/Sgot 40 U/L 7-37 Above high normal [facility] Calcium Level 9.1 mg/dL 8.5-10.1 Normal (applies to non-numeric re sults) [facility] ([facility]) Alt/SGPT 53 U/L 12-78 Normal (applies to non-numeric resul ts) [facility] ([facility]) Bilirubin,Total 0.4 mg/dL 0.2-1.0 Normal (applies to non-numeric results) [facility]) Alkaline Phosphatase 156 U/L 45-117 Above high normal [facility] ([facility]) Albumin/Globulin Ratio 1.0 1.2-2.2 Below low normal [facility] ([facility]) Albumin 3.4 GM/DL 3.2-5.2 Normal (applies to non-numeric resul ts) [facility] ([facility]) Total Protein 6.8 GM/DL 6.4-8.2 Normal (applies to non-numeric re sults) [facility] ([facility]) ID Date Data Source [id number] 08/02/2020 08:22:00 AM EST [facility] [facility]) Name Value Range Interpretation Code Description Data Janeth rce(s) Supporting Document(s) Hemoglobin A1c 5.5 % Normal (applies to non-numeric r esults) [facility] ([facility]) <content>REFERENCE RANGES:</content><br/ ><content></content>
<content><=5.6% NORMAL</content>
<content>5.7-6.4% SUGGESTS IMPAIRED GLUCOSE METABOLISM/PREDIABETIC</content>
<content>>= 6.5% ABNORMAL</content>
<content></content> Estimated Average Glucose 111 mg/dL 60-110 Above high normal [facility] ([facility]) ID Date Data Source [id number] 08/02/2020 08:22:00 AM EST [facility] ([facility]) Name Value Range Interpretation Code Description Data Janeth rce(s) Supporting Document(s) Hemoglobin 14.2 g/dL 12.0-15.5 Normal (applies to non-numeric resul ts) [facility] ([facility]) Red Blood Count 5.12 10 4.00-5.40 Normal (applies to non-numeric results) [facility] ([facility]) White Blood Count 7.8 10 4.0-10.0 Normal (applies to non-numeri c results) [facility] ([facility]) Hematocrit 46.1 % 36.0-47.0 Normal (applies to non-numeric resul ts) [facility] ([facility]) Mean Corpuscular Hemoglobin 27.7 pg 27.0-33.0 Norm al (applies to non-numeric results) [facility] ([facility]) Mean Corpuscular Volume 90.0 fl 80.0-96.0 Normal ( applies to non-numeric results) [facility] ([facility]) Mean Corpuscular HGB Conc 30.8 g/dL 32.0-36.5 Below low normal [facility] ([facility]) Red Cell Distribution Width 14.7 % 11.5-14.5 Above high normal [facility] ([facility]) Platelet Count, Automated 432 10 150-450 Normal (applies to non-numeric results) [facility] ([facility]) Lymph % 43.5 % 24.0-44.0 Normal (applies to non-numeric resul ts) [facility] ([facility]) Neutrophils % 46.4 % 36.0-66.0 Normal (applies to non-numeric re sults) [facility] ([facility]) Eos % 1.5 % 0.0-3.0 Normal (applies to non-numeric resul ts) [facility] ([facility]) [place] % 7.3 % 2.0-8.0 Above high normal [facility] ([facility]) Baso % 0.9 % 0.0-1.0 Normal (applies to non-numeric resul ts) [facility] ([facility]) Immature Granulocyte % 0.4 % 0-3.0 Normal (applies to non-n umeric results) [facility] ([facility]) Nucleated Red Blood Cell % 0.0 % 0-0 Normal (applies to n on-numeric results) [facility] ([facility]) Neutrophils # 3.6 10 1.5-8.5 Normal (applies to non-numeric re sults) [facility] ([facility]) Lymph # 3.4 10 1.5-5.0 Normal (applies to non-numeric resul ts) [facility] ([facility]) Eos # 0.1 10 0.0-0.5 Normal (applies to non-numeric resul ts) [facility] ([facility]) [place] # 0.6 10 0.0-0.8 Normal (applies to non-numeric resul ts) [facility] ([facility]) Baso # 0.1 10 0.0-0.2 Normal (applies to non-numeric resul ts) [facility] ([facility]) ID Date Data Source [id number] 06/15/2020 01:52:29 PM EST [facility] NT INFORMATIONPatient MRN Name Date of Age Gend*PT [id number] Margie Ninonicole Montano 1970 49 years F IPPT Location Admission Date/Time Visit ID Attending [id number] 06/14/20926 --- Greg Longoria MD([id number]) EPI ID CSN Admitting Provider [id number] Greg Longoria MD([id number])Surgical Discharge SummaryElinicole NinoMRN: [id number] date: 06/14/2020Admitting Physician: JESICA Yingischarge date and [...] LIVER BIOPSY, EXTENSIVELYSIS OF ADHESIONS (N/A) - [facility] RAVINDER TO ASSISTLaparoscopic Sanchez Y Gastric Bypass, antecolic, [...] complications [facility]. [facility] on the floor She was given sips of water andd ilute juice to drink. She also ambulated and used the incentive spirometerappropriately. She had no difficulties voiding. She had adequate paincontrol as well with simethicone and tylenol. Blood sugars were controlledwith sliding scale insulin. The patient had no diarrhea while in thehospital. At the time of discharge, Accuchecks and [...] the postoperative bariatric diet found on the greensheet.3) The patient is have blood work drawn prior to their postoperativeappointment (per lab slip)4) The patient was given danger signs and symptoms to call about includingfevers, chills, nausea,vomitng, new and/or increased abdominal pain anddiarrhea.Medications: Sonja Nino Medication Instructions MELISA:[id number] Printed on:06/15/20 1349Medication Informationacetaminophen (TYLENOL) 325 MG tabletTake 2 tablets [...] JESICA Yingate: June 15, 2020Time: 1:49 PMCC: JOSÉ ANTONIO YingC: LUCÍA CANSECO DO Name Value Range Interpretation Code Description Data Janeth rce(s) Supporting Document(s) ID Date Data Source [id number] 06/15/2020 01:51:58 PM EST [facility]PAT[facility] NT INFORMATIONPatient MRN Name Date of Age Gend*PT [id number] Sonja Nino 1970 49 years F IPPT Location Admission Date/Time Visit ID Attending [id number] 06/14/20 0927 --- Greg Longoria MD([id number]) EPI ID CSN Admitting Provider [id number] Greg Longoria MD([id number])CREATION, GASTRIC BYPASS, SANCHEZ-EN-Y, LAPAROSCOPIC, WITH SLEEVE GASTRECTOMY IFINDICATED, WITH LIVER BIOPSY IF INDICATED, WITH HIATAL HERNIA REPAIR IFINDICATED, WITH LAPAROTOMY IF INDICATED Procedure NoteElinicole Nino CSN:[id number]/28/2020Surgeon(s):SE Yingurgical Assist: Michela Zarcoaff:OR Documentation Specialist: MARIA ESTHER Leeurgical Assist: GAGANDEEP Zarco Relief Documentation Specialist: Jj Saravia RNOR Relief Scrub: Apolinar Mahan Scrub Person: Hank Osborneure(s):CREATION, GASTRIC BYPASS, SANCHEZ-EN-Y, LAPAROSCOPIC,, WITH LIVER BIOPSY, [...] fatty liver. We covered complications including: , CA, DVT, PE, leaks, sepsis,gallbladder disease, anastomotic ulcers, bleeding, failure of weight loss,malnutrition, need for open surgery, internal and external hernias, and the needfor repeat surgery, among others. We also discussed risk of COVID-19 infectionwhile hospitalized, risks of anesthesia including CA, stroke and . Ptexpressed understanding of all [...] dissectedout the angle of his with a Sami grasper behind the hiatus. There was nosignificant [...] with thegreen load cartridge and fired. A 32-Romanian bougie was used up to help size [...] Sanchez limb. I insufflated withair and my assistant merchandise manager irrigated over the anastomosis with normal saline. [...] rce(s) Supporting Document(s) ID Date Data Source [id number] 06/15/2020 12:21:51 PM EST [facility] Name Value Range Interpretation Code Description Data Janeth rce(s) Supporting Document(s) POC NOVA GLU 127 mg/dL (70-99) H [facility] [place] [facility] [place] PERFORMED BY [facility] CLINICAL STAFF ID Date Data Source [id number] 06/15/2020 03:07:35 PM EST [facility] Name Value Range Interpretation Code Description Data Janeth rce(s) Supporting Document(s) WBC 16.9 10*3/uL (4.1-11.0) H [facility] RBC 4.45 10*6/uL (4.00-5.40) [facility] HGB 12.8 g/dL (12.0-16.0) [facility] HCT 38.8 % (36.0-47.0) [facility] MCV 87.1 fL (80.0-95.0) [facility] MCH 28.8 pg (27.0-32.0) [facility] MCHC 33.0 g/dL (32.0-36.0) [facility] RDW 15.2 % (10.5-14.5) H [facility] PLT 238 10*3/uL (150-450) [facility] MPV 10.1 fL (7.1-10.7) [facility] ID Date Data Source [id number] 06/15/2020 05:33:41 AM EST [facility] Name Value Range Interpretation Code Description Data Janeth rce(s) Supporting Document(s) POC NOVA GLU 124 mg/dL (70-99) H [facility] [place] [facility] [place] [facility] ID Date Data Source [id number] 06/14/2020 11:35:08 PM EST [facility] Name Value Range Interpretation Code Description Data Janeth rce(s) Supporting Document(s) POC NOVA GLU 161 mg/dL (70-99) H [facility] [facility] [place] [facility] ID Date Data Source [id number] 06/14/2020 07:03:04 PM EST [facility] Name Value Range Interpretation Code Description Data Janeth rce(s) Supporting Document(s) POC NOVA GLU 142 mg/dL (70-99) H [facility] PERFORMED BY [facility] ID Date Data Source [id number] 06/14/2020 04:10:29 PM EST [facility] Name Value Range Interpretation Code Description Data Janeth rce(s) Supporting Document(s) POC NOVA GLU 95 mg/dL (70-99) [facility] PERFORMED BY [facility] ID Date Data Source [id number] 06/16/2020 06:38:59 AM EST [facility] rukhsana [facility] [address] [place], [place] [address]Jsf# Surgical Pathology ReportPatient Name: SONJA NINO: 1970Accession #:[id number](s) ReceivedA: Liver biopsyClinical Diagnosis and HistoryMorbid obesityDIAGNOSISLIVER, [...] 06/16/2020Electronically Signed Out By Aditi Mcdonough M.D. [facility], [place] [address]fjzGlsmfpppv component performed at [facility], [address], [place], [address].Reported at [facility], [address], [place], [address]. This report may includeimmunohistochemical or in-situ hybridization results. Testing wasdeveloped and the performance characteristics determined by [facility] as required by CLIA '88. The FDA hasdetermined that approval for specific use is not necessary for clinicaluse. The quality of Hematoxylin and Eosin stains and as applicable, forall immunohistochemical and/or special stains, including positive andnegative controls, were reviewed and considered appropriate.ICD cod es E66.01CPT codesA: 22329D, 78503F, 26147D, 31788R, 26957W Name Value Range Interpretation Code Description Data Janeth rce(s) Supporting Document(s) ID Date Data Source [id number] 06/14/2020 02:40:32 PM EST [facility] Name Value Range Interpretation Code Description Data Janeth rce(s) Supporting Document(s) POC NOVA GLU 164 mg/dL (70-99) H [facility] [place] PERFORMED BY [facility] ID Date Data Source [id number] 06/14/2020 01:26:31 PM EST [facility] ServicesPAT[facility] NT INFORMATIONPatient MRN Name Date of Age Gend*PT [id number] Sonja Nino 1970 49 years F SDAPT Location Admission Date/Time Visit ID Attending Provider --- --- --- --- EPI ID CSN Admitting Provider [id number] ---AirwayPatient location during procedure: ORUrgency: electiveDifficult airway: [...] to lips: 21 cmPlacement verified by: + [id number] view: grade IIa - partial view of glottis Name Value Range Interpretation Code Description Data Janeth rce(s) Supporting Document(s) ID Date Data Source [id number] 06/14/2020 12:47:59 PM EST [facility] NT INFORMATIONPatient MRN Name Date of Age Gend*PT [id number] Sonja Nino 1970 49 years F SDAPT Location Admission Date/Time Visit ID [facility] 06/14/20926 --- Greg Longoria MD([id number]) EPI ID CSN Admitting Provider [id number] Greg Longoria MD([id number])Pre- Procedure History and Physical:The history and physical were reviewed and the patient was examined.There are no changes to the H&P.Greg Longoria MD06/14/20 12:47 PM Name Value Range Interpretation Code Description Data Janeth rce(s) Supporting Document(s) ID Date Data Source [id number] 06/14/2020 11:38:26 AM EST [facility] [place] Name Value Range Interpretation Code Description Data Janeth rce(s) Supporting Document(s) POC NOVA GLU 96 mg/dL (70-99) [facility] [place] [facility] [place] [facility] ID Date Data Source [id number] 06/13/2020 06:26:13 PM EST [facility] NT INFORMATIONPatient MRN Name Date of Age Gend*PT [id number] Sonja Nino 1970 49 years F SDAPT Location Admission Date/Time Visit ID Attending Provider --- --- --- Greg Longoria MD([id number]) EPI ID CSN Admitting Provider [id number] Greg Longoria MD([id number])Inpatient History & PhysicalSonja SamsonN:[id number] and Plan:Active Problems: * No active hospital [...] I agreed to proceed with a laparoscopic Dftj-cy-HCjspfxy Bypass, possible Robotic assisted, possible Sleeve Gastrectomy ifhostile abdomen is encountered. Botox education given to patient. This mayinclude repair of a Hiatal Hernia if found and a Wedge Liver Biopsy if there nahomy fatty liver. We covered complications including: , CA, DVT, PE, leaks, sepsis,gallbladder disease, anastomotic ulcers, [...] with surgery.Greg Longoria MD, FACS, FASMBSSignature: Greg Longoria MDDate: June 13, 2020Time: 6:24 PM Name Value Range Interpretation Code Description Data Janeth rce(s) Supporting Document(s) ID Date Data Source [id number] 06/09/2020 08:00:00 AM EST [facility] Name Value Range Interpretation Code Description Data Janeth rce(s) Supporting Document(s) SARS coronavirus 2 RNA [facility] This lab was ordered by [facility] and reported by [facility]. ID Date Data Source [id number] 06/11/2020 01:06:53 AM EST [facility] Name Value Range Interpretation Code Description Data Janeth rce(s) Supporting Document(s) SARS-COV-2 MUMTAZ [facility] Not DetectedReference range: Not Detecte d This nucleic acid amplification test was developed and its performance characteristics determined by [employer]. Nucleic acid amplification tests include PCR and [...] detected) result in this assay. Performed At: [facility] [place], [place] [id number] Antonio Mcfarlane A PhD Ph:[phone] ID Date Data Source [id number] 05/31/2020 01:54:29 PM EST [facility] Name Value Range Interpretation Code Description Data Janeth rce(s) Supporting Document(s) EKG [facility] WTCKQe6rJnWTUpOqv8LbYjPiIVFiBM0khzw7C7K5oDGnL4TcjJYkd2yqX0EvZ9RzLOIqSRVQYH9UbYGz jb2 [file] d7jn6D7bWzgViehSN9Cqf3wc7P9dFmsBasdWE8Vxn2mu7M2bP+70ZhqG2h01Kr+cnRtG4u3+czOz+city detective /P/Pxwgn4+M/VFWfn5qCWOH+nnM0s/rYsvOo1OKEcHSvTAfP39txp6ilAlL109LAzGsnQIKtXcYFED+a qRJEc+esQoSOyjSIySxPyrtZLY+tSTssQ+usQoTOyj FDwHkA2wtNiS9AMBcLQXXvjAPQAhu9UIWlY+JsNyWsx9WGHZpA32DccXO4zEcXt5aDmLuWyPvWkwoo98 wkHe5GkaQHWAwLXPAtDEF2TLVDk5pNbJmPuDvQemq734c5H41Vn5UVVPkqPTKpDEU8VCUBy4LMmDmEmL xRhljLV/7V1TzB01OARkl4GNUsC+asYoZ+asM0tYeq 0Sazhh9CGlvSYZHqdOUYkzf6kFivd424tD1xbeO2P2lZ+6Mcob++jwt7Qoq6QeWje8tKssdKJTeiOMYM voHKPQsY/SMUod+1qvd9tgx3weew735E9g3MPY2jTAViuuJeOzdH/qMcoe++moshe/Cxj/IxSh/7aB+j+L [file] lN0B57J//34oY5h7v6v2/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60-1.00) [facility] BUN/CREAT RATIO 17.4 RATIO (10.0-20.0) [facility] GLUCOSE 94 mg/dL (70-99) [facility] CALCIUM 9.2 mg/dL (8.4-10.2) [facility] TOTAL PROTEIN 7.1 g/dL (6.4-8.2) [facility] ALBUMIN 3.6 g/dL (3.5-4.6) [facility] GLOBULIN 3.5 g/dL (2.7-4.3) [facility] ALB/GLOB RATIO 1.0 RATIO [facility] ALKALINE PHOSPHATASE 140 U/L (45-117) H [facility] BILIRUBIN,TOTAL 0.4 mg/dL (0.0-1.0) [facility] [place] [facility] PLEASE NOTE:Total bilirubin results may be falselyelevated in patients taking Eltrombopag. AST (SGOT) 36 U/L (11-39) [facility] ALT (SGPT) 61 U/L (12-78) [facility] GFR >60 ml/min/1.73m2 (>59) [facility] GFR ( AMER) >60 ml/min/1.73m2 (>59) [facility] GFR INTERPRETATION [facility] --NORMAL KIDNEY FUNCTION OR MILD DISEASE - GFR >OR= 60CHRONIC KIDNEY DISEASE - GFR 15 - 59RENAL FAILURE - GFR <15 Est. GFR calculation based on the MDRDstudy equation, which assumes a steadystate for creatinine. Est. GFR should notbe used for medication dosing. ID Date Data Source [id number] 05/31/2020 09:08:05 PM EST [facility] Name Value Range Interpretation Code Description Data Janeth rce(s) Supporting Document(s) TSH,ULTRASENSITIVE @ 1.440 mIU/L (0.360-4.170) [facility] ID Date Data Source [id number] 05/31/2020 07:11:56 PM EST [facility] Name Value Range Interpretation Code Description Data Janeth rce(s) Supporting Document(s) HEMOGLOBIN A1C @ 5.9 % (4.0-6.0) [facility] Performed using Siemens Parkman immunoassa y.Care must be taken when interpreting RzH4zcqvwnbq in patients with a hemoglobin variantor decreased erythrocyte lifespan. Values 5.7 - 6.4% suggest prediabetes.Values >=6.5% are diagnostic for diabetes.REFERENCE: DIABETES CARE 2018: 41(S13-S27). EST AVERAGE GLUCOSE 123 mg/dL [facility] ID Date Data Source [id number] 05/31/2020 06:39:11 PM EST [facility] SPEC EXP DATE 06/15/2020PATI ENT ABO/Rh O POSITIVEANTIBODY SCREEN NEGATIVETESTING SITE PERFORMED AT [address] [place] [address] Name Value Range Interpretation Code Description Data Janeth rce(s) Supporting Document(s) TYPE AND SCREEN [facility] ID Date Data Source [id number] 05/31/2020 05:44:34 PM EST [facility] Name Value Range Interpretation Code Description Data Janeth rce(s) Supporting Document(s) WBC 8.0 10*3/uL (4.1-11.0) [facility] [facility] [place] RBC 5.04 10*6/uL (4.00-5.40) [facility] HGB 14.5 g/dL (12.0-16.0) [facility] HCT 44.0 % (36.0-47.0) [facility] MCV 87.2 fL (80.0-95.0) [facility] MCH 28.7 pg (27.0-32.0) [facility] MCHC 32.9 g/dL (32.0-36.0) [facility] RDW 15.1 % (10.5-14.5) H [facility] PLT 351 10*3/uL (150-450) [facility] MPV 9.2 fL (7.1-10.7) [facility] ID Date Data Source [id number] 05/31/2020 01:28:43 PM EST [facility] NT INFORMATIONPatient MRN Name Date of Age Gend*PT [id number] Sonja Nino 1970 49 years F OPPT Location Admission Date/Time Visit ID Attending Provider --- --- --- Greg Longoria MD([id number]) EPI ID CSN Admitting Provider [id number] Greg Longoria MD([id number])HISTORY PHYSICALName: Sonja Nino : 1970 Sex: female [...] warm and dry.HEENT: She is normocephalic, atraumatic. Park conjunctivae. Anicteric sclerae.Pupils are equal, round, reactive [...] hepatosplenomegaly. Negative CVAT.GENITAL/RECTAL: Deferred.MUSCLE/SKELETAL: Strength is 5/5. Commis Chef are equal.NEUROLOGICALLY: Cranial nerves II through XII [...] of stay may be prolonged greaterthan previously anticipated.ALLERGIES:Yebahpefxkfnc48/14/2020 1:28 RICKytrish Lai, ESTELAThis document or parts of this document, were dictated using Boosket software. A reasonable attempt at proofreading has beenmade to minimize errors. Please call with any questions or corrections. Name Value Range Interpretation Code Description Data Janeth rce(s) Supporting Document(s) ID Date Data Source [id number] 05/20/2020 06:25:23 PM EST [facility] [address] [address]Mvd# Surgical Pathology ReportPatient Name: SONJA NINO: 1970Accession #:[id number](s) ReceivedA: Gastric antrum bxB: GE junction bxClinical [...] 05/20/2020Electronically Signed Out By Ld Cleveland MD [facility] [place] [address]haEwubnjutq component performed at [facility] myRete [facility]iThe[facility] Medical[facility], [facility], [address] [place] [address], [address].Reported at [facility], [address] [place] [address], [address]. This report may includeimmunohistochemical or in-situ hybridization results. Testing wasdeveloped and the performance characteristics determined by [employer] as required by CLIA '88. The FDA hasdetermined that approval for specific use is not necessary for clinicaluse. The quality of Hematoxylin and Eosin stains and as applicable, forall immunohistochemical and/or special stains, including positive andnegative controls, were reviewed and considered appropriate.ICD codes K21.9CPT codesA: 93730YA: 86752V Name Value Range Interpretation Code Description Data Janeth rce(s) Supporting Document(s) ID Date Data Source [id number] 05/18/2020 03:17:02 PM EST [facility] Services[facility] NT INFORMATIONPatient MRN Name Date of Age Gend*PT [id number] Sonja Nino 1970 49 years F OPPT Location Admission Date/Time Visit ID Attending ProviderEndo [place] 05/18/20 1148 --- Michi Mack MD([id number]) EPI ID CSN Admitting Provider [id number] Michi Mack MD([id number])Endoscopic Gastroduodenoscopy Procedure NotePatient: [facility] Date: May 18, 2020Surgeon(s):HARRY Patrickre-Operative Diagnosis:Esophageal reflux [K21.9]Post-Op Diagnosis Codes: * Retained food debris in the stomach, rule out Gastroparesis [K31.84] * Irregular squamo-columnar junction (biopsied).Recommendations:1. Gastric emptying study.Procedure(s):ENDOSCOPY, UPPER GASTROINTESTINAL (GI) TRACT W BIOPSYSedation: Monitored Anesthesia Care (MAC) (see anesthesia report).ASA Class: IIIOther Equipment Type Equipment Setting Setting Low Setting High Applied By Endoscope ENDOSCOPE PENTAX [id number] Michi Mack MD Endoscope Pediatric (ENDO)Consent:After obtaining [...] patient tolerated the procedure well.Estimated Blood Loss: minimalRayees MD Martina05/18/20203:12 PM Name Value Range Interpretation Code Description Data Janeth rce(s) Supporting Document(s) ID Date Data Source [id number] 05/18/2020 02:49:02 PM EST [facility] Services[facility] NT INFORMATIONPatient MRN Name Date of Age Gend*PT [id number] Sonja Nino 1970 49 years F OPPT Location Admission Date/Time Visit ID [facility] 05/18/20 1148 --- Michi Mack MD([id number]) EPI ID CSN Admitting Provider [id number] Michi Mack MD([id number])Inpatient History & PhysicalElinicole NinoMRN:[id number]:1. GERD.2. Pre bariatric surgery endoscopy.Plan:1. Proceed with [...] rce(s) Supporting Document(s) ID Date Data Source [id number] 05/14/2020 09:10:00 AM EST [facility] Name Value Range Interpretation Code Description Data Janeth rce(s) Supporting Document(s) SARS coronavirus 2 RNA [facility] This lab was ordered by [facility] [place] [facility] and reported by [facility]. ID Date Data Source [id number] 05/16/2020 01:06:38 AM EST [facility] [place] rukhsana [facility] Name Value Range Interpretation Code Description Data [facility](s) Supporting Document(s) SARS-COV-2 MUMTAZ [facility] rukhsana [facility] Not DetectedReference range: Not Detecte d This nucleic acid amplification test was developed and its performance characteristics determined by [employer]. Nucleic acid amplification tests include PCR and [...] detected) result in this assay. Performed At: [place], [place] [id number] Antonio Correia PhD Ph:[phone] ID Date Data Source [id number] 05/10/2020 07:40:[address] [facility] [facility]) Name Value Range Interpretation Code Description Data [facility](s) Supporting Document(s) Angel/Creat Ratio 7.3 MCG/MG 0.0-30.0 Normal (applies to non-numeric results) [facility]) THE [employer] STATES THAT MICROALBUMINURIA IS PRESENT IF THE MICROALBUMIN/CREATININE RATIO EXCEEDS 30 MCG/MG. THE THRESHOLD FOR CLINICAL ALBUMINURIA IS REACHED AT 300 MCG/MG. THE CLASSIFICATION OF A PATIENT SHOULD BE BASED UPON AT LEAST 2 OF 3 ABNORMAL RESULTS ON SPECIMENS COLLECTED WITHIN A 3 TO 6 MONTH TIME FRAME. Creatinine, Urine 114.0 mg/dL Normal (applies to non-numer ic results) [facility] ([facility]) Malb Urine Siemens 8.4 mg/L Normal (applies to non-numer ic results) [facility] ([facility]) ID Date Data Source [id number] 05/07/2020 10:13:25 AM EST [facility], PCName: Sonja NinoDOB: 1970Provider: Hector McnallyMEIR: 05/07/2020 Reason For VisitAnajesus Nino is here today for Lumba Spine. Sonja Nino is here for evaluation of MRI results. L Spine MRI review, MRI imported The patient has had a course of physical therapy for greater than 4 weeks. Physical therapy and/or home exercise program has not been effective. The patient has not had a course of NSAIDs for greater than 4 weeks. 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 Patient is working at this time at light/partial duty. History of Present IllnessChronic low back painMain problem is axial low back painAlso episodic right anterolateral thigh numbness and burning pain--??? Meralgia parestheticaSeeing [facility] orth[facility]icsWas seeing [facility] Kilgore had injections December 2018 [...] the right, anterior and lateral thigh(s). Results/Data OtherMRI lumbar [facility] radiology 04/27/2020: Multilevel DDD. No significant stenosis. [...] Chronicetiology: age-related spine/joint degenerationlevels: L3-4, L4-5 and L5-G3Ejhjtlaqqw: Right thigh PlanThe various alternatives and treatment options were discussed with pros and cons, risks, and potential benefits of each option reviewed. She wishes to proceed with hearing care professional. Unfortunately, I have nothing to offer Sonja for direct surgical intervention from an orthopedic surgery standpoint. This document was dictated and electronically signed using [employer] software. A reasonable attempt at proof reading has been made to minimize errors. Please call with any questions. Signatures Electronically signed by : Hector Mcnally M.D.; May 07 2020 10:13AM EST (Author) Name Value Range Interpretation Code Description [facility] Supporting Document[facility]s) ID Date Data Source [id number] 05/07/2020 08:33:00 AM EST [facility] ([facility]) Name Value Range Interpretation Code Description Data Janeth rce(s) Supporting Document(s) Glucose, Fasting 93 mg/dL 70-100 Normal (applies to non-numeric results) [facility] ([facility]) Creatinine For GFR 0.85 mg/dL 0.55-1.30 Normal (applies to non -numeric results) [facility] ([facility]) Blood Urea Nitrogen 16 mg/dL 7-18 Normal (applies to non-nume iram results) [facility] ([facility]) Glomerular Filtration Rate Laboratory test result Normal (applies to non- numeric results) [facility] ([facility]) <content>Units are mL/min/1.73 m2</content>
<content></content>
<content>Chronic Kidney Disease Staging per NKF:</content>
<content></content>
<content>Stage I & II GFR >=60 Normal to Mildly Decreased</content>
<content>Stage III GFR 30- 59 Moderately Decreased</content>
<content>Stage IV GFR 15-29 Severely Decreased</content>
<content>Stage V GFR <15 Very Little GFR Left</content>
<content>ESRD GFR <15 on POLYMERIZATION OVEN OPERATOR</content>
<content></content> Chloride Level 107 meq/L 98-107 Normal (applies to non-numeric r esults) [facility] ([facility]) Sodium Level 140 meq/L 136-145 Normal (applies to non-numeric res ults) [facility] ([facility]) Potassium Serum 4.2 meq/L 3.5-5.1 Normal (applies to non-numeric results) [facility] ([facility]) Anion Gap 7 meq/L 8-16 Below low normal [facility] ( [facility]) Carbon Dioxide Level 26 meq/L 21-32 Normal (applies to non-num queta results) [facility] ([facility]) Calcium Level 8.2 mg/dL 8.5-10.1 Below low normal [facility] ([facility]) ID Date Data Source [id number] 05/07/2020 08:33:00 AM EST [facility] ([facility]) Name Value Range Interpretation Code Description Data Janeth rce(s) Supporting Document(s) Hemoglobin A1c 5.8 % Normal (applies to non-numeric r esults) [facility] ([facility]) <content>REFERENCE RANGES:</content><br/ ><content></content>
<content><=5.6% NORMAL</content>
<content>5.7-6.4% SUGGESTS IMPAIRED GLUCOSE METABOLISM/PREDIABETIC</content>
<content>>= 6.5% ABNORMAL</content>
<content></content> Estimated Average Glucose 120 mg/dL 60-[address] high [address] [facility]) ID Date Data Source [id number] 04/27/2020 12:00:00 AM EST [facility] Hector Mcnally MD Patient Name: JESU [id number] [facility] Date of : 1970SyKAYE [id number] Date of Exam: 04/27/2020#: Fax: [phone] EXAM: [...] MD 04/27/2020 3:23 PMEastern Time ([place] & [place])VradV/efracTnevink you for referring SONJA NINO to our office. Electronically Signed - [facility] 04/27/20 16:14 Name Value Range Interpretation Code Description Data Janeth rce(s) Supporting Document(s) ID Date Data Source PAP REQUEST FOR SERVICE 04/14/2020 12:23:58 PM EDT eCW1 ([facility]) Name Value Range Interpretation Code Description Data Janeth rce(s) Supporting Document(s) Laboratory studies (set) PAP REQUEST FOR SERVICE eCW1 ([facility]) ID Date Data Source [id number] 04/20/2020 11:51:30 AM EST [facility] PCName: Sonja NinoDOB: 1970Provider: Letitia [...] The patient is currently residing at home. 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 Patient is not working [...] Outside Images reviewed today were taken at [facility] on 02/27/2020. Site: Lumbar Spine Findings:. No fractures, dislocations, or other significant abnormalities. degenerative disc disease of a mild degree. Results/Data OtherMRI lumbar spine with and without contrast performed at [facility] on 11/15[facility]. Impression: Mild degenerative changes from L3-S1. Minimal central stenosis at L4-5.Lower extremity EMG/NCS performed at [facility] on 03/10/2020. Impression: Possible right meralgia paresthetica. Mild chronic right L5 radiculopathy. AssessmentChronic low back painLateral right thigh paresthesia Plan MRI (SOS) Referral Diagnostic Diagnostic Status: Complete Done: 12Apr2020 Ordered;For: Low back pain, unspecified back pain laterality, unspecified chronicity, unspecified whether sciatica present; Ordered By: Hector Mcnally Performed: Order Comments: Please scheduled MRI at [facility]. Due: 26Apr2020; Last Updated By: Nicolette Flores; [...] document was dictated and electronically signed using [employer] software. A reasonable attempt at proof reading has been made to minimize errors. Please call with any questions. Signatures Electronically signed by : Daniel Romero; Apr 20 2020 8:51AM EST (Author) Electronically signed by : Hector Mcnally M.D.; Apr 20 2020 11:51AM EST Name Value Range Interpretation Code Description Data Janeth rce(s) Supporting Document(s) ID Date Data Source [facility] Screening Bilateral (Ultrasound if Indicated ) (3D Mammo) 03/29/2020 10:21:36 AM EDT eCW1 ([facility]) Name Value Range Interpretation Code Description Data Janeth rce(s) Supporting Document(s) WW[facility] Screening Bilat eral (Ultrasound if Indicated) (3D Mammo) eCW1 ([facility]) Procedure Social History Code Duration Value Status Description Data Source(s ) Smoking 04/05/2021 12:00:00 AM EDT Never Smoker completed Never S moker eCW1 ([facility]) Smoking 02/07/2021 12:00:00 AM EDT Patient has never smoked co mpleted Patient has never smoked [facility] ([facility]) Alcohol intake 06/14/2020 12:00:00 AM EST Never completed [facility] Smoking 06/14/2020 12:00:00 AM EST [facility] 05/31/2020 12:00:00 AM EST Never completed [facility] Smoking 05/31/2020 12:00:00 AM EST Never smoker completed Never s moker [facility] Alcohol intake 05/18/2020 12:00:00 AM EST Never completed [facility] Smoking 05/18/2020 12:00:00 AM EST Never smoker completed Never s moker [facility] Smoking 03/26/2020 12:00:00 AM EDT Never Smoker completed Never S moker eCW1 ([facility]) Smoking 03/26/2020 12:00:00 AM EDT Never Smoker completed Never S moker eCW1 ([facility]) Smoking 03/18/2020 12:00:00 AM EDT Patient has never smoked co mpleted Patient has never smoked [facility] ([facility]) Vital Signs ID Date Data Source UNK Name Value Range Interpretation Code Description Data Source(s) Body height 61 [in_i] 61 [in_i] [facility] ([facility]) 5'1" Body weight 206.50 [lb_av] 206.50 [lb_av] [facility] T ([facility]) Body mass index (BMI) [Ratio] 39.0 kg/m2 39.0 k g/m2 [facility] ([facility]) Body weight 207 [lb_av] 207 [lb_av] eCW1 ([facility]) Body height 61 [in_i] 61 [in_i] W1 ([facility]) Body mass index (BMI) [Ratio] 39.11 kg/m2 39.11 kg/m2 eCW1 ([facility]) Systolic blood pressure 118 mm[Hg] 118 mm[Hg] e CW1 ([facility]) Diastolic blood pressure 80 mm[Hg] 80 mm[Hg] eCW1 ([facility]) Body height 61.11 [in_i] 61.11 [in_i] [facility] ([facility]) 5'1.11" Systolic blood pressure 138 mm[Hg] 138 mm[Hg] M EDENT ([facility]) Diastolic blood pressure 78 mm[Hg] 78 mm[Hg] [facility] ([facility]) Body weight 207.38 [lb_av] 207.38 [lb_av] [facility] T ([facility]) Body mass index (BMI) [Ratio] 39.0 kg/m2 39.0 k g/m2 [facility] ([facility]) Heart rate 102 /min 102 /min [facility] ([facility]) Respiratory rate 18 /min 18 /min [facility] ( [facility]) Body temperature 98.3 [degF] 98.3 [degF] [facility] ([facility]) Oxygen saturation in Arterial blood by Pulse oximetry 98 % 98 % [facility] ([facility]) Batson body weight 105 [lb_av] 105 [lb_av] [facility] ([facility]) Systolic blood pressure 124 mm[Hg] 124 mm[Hg] [facility] Heart rate 92 /min 92 /min [facility] ([facility]) Diastolic blood pressure 74 mm[Hg] 74 mm[Hg] [facility] ([facility]) Body height 61.11 [in_i] 61.11 [in_i] [facility] ([facility]) 5'06.28" Body weight 212.00 [lb_av] 212.00 [lb_av] [facility] T ([facility]) Body mass index (BMI) [Ratio] 39.9 kg/m2 39.9 k g/m2 [facility] Respiratory rate 18 /min 18 /min [facility] ( [facility]) Body temperature 97.3 [degF] 97.3 [degF] [facility] ([facility]) Oxygen saturation in Arterial blood by Pulse oximetry 96 % 96 % [facility] Batson body weight 105 [lb_av] 105 [lb_av] [facility] ([facility]) Diastolic blood pressure 80 mm[Hg] 80 mm[Hg] [facility] Body height 61.11 [in_i] 61.11 [in_i] [facility] ([facility]) " Oxygen saturation in Arterial blood by Pulse oximetry 98 % 98 % [facility] ([facility]) Systolic blood pressure 130 mm[Hg] 130 mm[Hg] M EDENT ([facility]) Body weight 219.25 [lb_av] 219.25 [lb_av] [facility] ([facility]) Body mass index (BMI) [Ratio] 41.3 kg/m2 41.3 k g/m2 [facility] ([facility]) Heart rate 97 /min 97 /min [facility] ([facility]) Respiratory rate 14 /min 14 /min [facility] ( [facility]) Body temperature 98.1 [degF] 98.1 [degF] [facility] ([facility]) Batson body weight 105 [lb_av] 105 [lb_av] [facility] ([facility]) Heart rate 96 /min 96 /min [facility] ([facility]) Systolic blood pressure 136 mm[Hg] 136 mm[Hg] M [facility] ([facility]) Diastolic blood pressure 84 mm[Hg] 84 mm[Hg] [facility] ([facility]) Body height 61.11 [in_i] 61.11 [in_i] [facility] ([facility]) 5'1.11" Respiratory rate 18 /min 18 /min [facility] ( [facility]) Body temperature 98.5 [degF] 98.5 [degF] [facility] ([facility]) Body weight 236.00 [lb_av] 236.00 [lb_av] [facility] ([facility]) Body mass index (BMI) [Ratio] 44.4 kg/m2 44.4 k g/m2 [facility] ([facility]) Oxygen saturation in Arterial blood by Pulse oximetry 98 % 98 % [facility] ([facility]) Batson body weight 105 [lb_av] 105 [lb_av] [facility] T ([facility]) Body temperature 96.3 [degF] 96.3 [degF] [facility] ([facility]) Systolic blood pressure 140 mm[Hg] 140 mm[Hg] M EDENT ([facility]) Diastolic blood pressure 78 mm[Hg] 78 mm[Hg] [facility] ([facility]) Body height 61.11 [in_i] 61.11 [in_i] [facility] ([facility]) 5'1.11" Body weight 250.25 [lb_av] 250.25 [lb_av] [facility] ([facility]) Body mass index (BMI) [Ratio] 47.1 kg/m2 47.1 k g/m2 [facility] ([facility]) Heart rate 85 /min 85 /min [facility] ([facility]) Respiratory rate 18 /min 18 /min [facility] ( [facility]) Body temperature 97.7 [degF] 97.7 [degF] [facility] ([facility]) Oxygen saturation in Arterial blood by Pulse oximetry 97 % 97 % [facility] ([facility]) Batson body weight 105 [lb_av] 105 [lb_av] [facility] ([facility]) Respiratory rate 14 /min 14 /min [facility] Heart rate 89 /min 89 /min [facility] Body temperature 36.78 Ivett 36.78 Ivett [facility] Oxygen saturation in Arterial blood by Pulse oximetry 93 % 93 % [facility] Systolic blood pressure 114 mm[Hg] 114 mm[Hg] [facility] Diastolic blood pressure 74 mm[Hg] 74 mm[Hg] [facility] Body height 154.9 cm 154.9 cm [facility] Body weight 116.756 kg 116.756 kg [facility] Body mass index (BMI) [Ratio] 48.64 kg/m2 48.64 kg/m2 [facility] Systolic blood pressure 149 mm[Hg] 149 mm[Hg] [facility] Diastolic blood pressure 69 mm[Hg] 69 mm[Hg] [facility] Heart rate 95 /min 95 /min [facility] Body temperature 35.78 Ivett 35.78 Ivett [facility] Body height 154.9 cm 154.9 cm [facility] Body weight 119.296 kg 119.296 kg [facility] Body mass index (BMI) [Ratio] 49.69 kg/m2 49.69 kg/m2 [facility] Oxygen saturation in Arterial blood by Pulse oximetry 98 % 98 % [facility] Diastolic blood pressure 88 mm[Hg] 88 mm[Hg] [facility] ([facility]) Respiratory rate 18 /min 18 /min [facility] ( [facility]) Body height 61.11 [in_i] 61.11 [in_i] [facility] ([facility]) 5'1.11" Systolic blood pressure 148 mm[Hg] 148 mm[Hg] M [facility] ([facility]) Body weight 265.38 [lb_av] 265.38 [lb_av] [facility] T ([facility]) Body temperature 98.4 [degF] 98.4 [degF] [facility] Oxygen saturation in Arterial blood by Pulse oximetry 97 % 97 % [facility] ([facility]) Batson body weight 105 [lb_av] 105 [lb_av] [facility] ([facility]) Body mass index (BMI) [Ratio] 50.0 kg/m2 50.0 k g/m2 [facility] Heart rate 92 /min 92 /min [facility] ([facility]) Systolic blood pressure 144 mm[Hg] 144 mm[Hg] [facility] Diastolic blood pressure 85 mm[Hg] 85 mm[Hg] [facility] Heart rate 86 /min 86 /min [facility] Body temperature 36.33 Ivett 36.33 Ivett [facility] Respiratory rate 18 /min 18 /min [facility] Oxygen saturation in Arterial blood by Pulse oximetry 93 % 93 % [facility] Body height 154.9 cm 154.9 cm [facility] Body weight 118.842 kg 118.842 kg [facility] Body mass index (BMI) [Ratio] 49.50 kg/m2 49.50 kg/m2 [facility] Body height 61 [in_i] 61 [in_i] [facility] 5'1" Body weight 274.00 [lb_av] 274.00 [lb_av] [facility] T ([facility]) Body mass index (BMI) [Ratio] 51.8 kg/m2 51.8 k g/m2 [facility] ([facility]) Body weight 263 [lb_av] 263 [lb_av] eCW1 ([facility]) Body height 61 [in_i] 61 [in_i] eCW1 ([facility]) Systolic blood pressure 132 mm[Hg] 132 mm[Hg] e CW1 ([facility]) Diastolic blood pressure 82 mm[Hg] 82 mm[Hg] eCW1 ([facility]) Body mass index (BMI) [Ratio] 49.69 kg/m2 49.69 kg/m2 eCW1 ([facility]) Patient Treatment Plan of Care Planned Activity Planned Date Details Description Data Source (s) Ondansetron 4 MG Disintegrating Oral Tablet 06/15/2020 12:00:00 AM [facility] Acetaminophen 325 MG Oral Tablet 06/15/2020 12:00:00 AM [facility] Omeprazole 40 MG Delayed Release Oral Capsule 06/15/2020 12:00:00 A M [facility] Ascorbic Acid 60 MG / Beta Carotene 5000 UNT / Copper Sulfate 40 MG / dl-alpha tocopheryl acetate 30 UNT / Sodium Selenite 0.04 MG / Zinc Oxide 40 MG Oral Tablet 06/15/2020 12:00:00 AM [facility] 0.4 ML Enoxaparin sodium 100 MG/ML Prefilled Syringe 020 12:00:00 AM [facility] Simethicone 80 MG Chewable Tablet 06/15/2020 12:00:00 AM [facility] Vitamin B 12 0.5 MG Oral Tablet 06/15/2020 12:00:00 AM [facility] Biotin w/ Vitamins C & E (HAIR SKIN & NAILS GUMMIES PO) [facility] Ascorbic Acid 60 MG / Beta Carotene 5000 UNT / Copper Sulfate 40 MG / dl-alpha tocopheryl acetate 30 UNT / Sodium Selenite 0.04 MG / Zinc Oxide 40 MG Oral Tablet [facility] Daily Edson (THERAGRAN) per tablet [facility] 0.5 ML dulaglutide 3 MG/ML Auto-Injector [facility] Omeprazole 20 MG Delayed Release Oral Capsule [facility]
[2021-05-13] MEDS ORDERED: NORCO, ANEXSIA 5/325MG TABLET (HYDROcodone/ACETAMINOPHEN) PO ONE (22:40)
[2021-05-13] MEDS ORDERED: NORCO 5/325MG TABLET (BULK FOR ED) PO ONE (22:40)
[2021-05-13 22:46] VITALS: BP 150/88
== END 2021-05-13 23:01 | disposition home or self-care (01) ==
LOC: M ED 16:58
DX: N39.0 Urinary tract infection, site not specified (principal); N20.1 Calculus of ureter; E66.9 Obesity, unspecified; K21.9 Gastro-esophageal reflux disease without esophagitis; Z79.2 Long term (current) use of antibiotics; Z79.899 Other long term (current) drug therapy; Z88.8 Allergy status to other drugs, medicaments and biological substances; Z98.0 Intestinal bypass and anastomosis status; Z98.890 Other specified postprocedural states; Z86.011 Personal history of benign neoplasm of the brain
CPT/HCPCS: 74176; 80048; 80076; 81001; 83690; 85025; 87086; 96372; 99284; J1885

== ENCOUNTER → 2021-05-17 | Outpatient (REF) ==
[~2021-05-17] MED LIST changes: +AMOX875T; +BACL10TA2; +BACT800T5 PO; +EMGA120I; +FLOM0.4C39 PO; +FLUC150T9; +TRAM50TA2 PO
== END ==
LOC: M EMP 12:18
PROVIDERS: ATTEND Nurse Practitioner Adult Health
DX: Z11.52 Encounter for screening for COVID-19 (principal)

== ENCOUNTER → 2021-05-17 | Outpatient (REF) | payer OTHER ==
[2021-05-23 16:09] LABS: CA Oxalate Dihy 20 % (.); Ca Ox Monohydrate 80 % (.); Size 3x2 mm (.)
== END ==
LOC: M LAB REF 17:23
PROVIDERS: ATTEND Physician Assistant
DX: N20.1 Calculus of ureter (principal)

== ENCOUNTER → 2021-06-15 | Outpatient (CLI) | payer OTHER ==
[~2021-06-15] MED LIST changes: +FLUC150T; -FLUC150T9
--- NOTE | 2021-06-15 08:42 | REP ---
INDICATION: RT LOWER LEG R/O DVT. COMPARISON: None. TECHNIQUE: Multiple ultrasonographic images of the deep venous structures of the right lower extremity were obtained from the inguinal ligament to the ankle. Venous compression techniques, color doppler imaging, and augmentation techniques were also obtained where appropriate. As per the ACR guidelines the anterior tibial vein can not be effectively evaluated. Only compression techniques in the calf on the peroneal and posterior tibial veins was attempted/performed. FINDINGS: There is no abnormal echogenic material seen within any of the visualized deep venous structures that would suggest acute thrombosis. Coaptation is unremarkable throughout. Doppler interrogation shows an expected response to respiratory variability and augmentation in the thigh. Compression techniques in the calf showed no abnormality. The color flow images show what appears to be a normal vascular pattern throughout the thigh. IMPRESSION: There is no ultrasonographic evidence of deep venous thrombosis involving any of the visualized deep venous structures of the right lower extremity as described above. <Electronically signed by Ronal Chin > 06/15/21 [id number]
== END ==
LOC: M RAD 07:09
PROVIDERS: ATTEND Physician Assistant
DX: M79.661 Pain in right lower leg (principal)

== ENCOUNTER → 2021-06-18 | Outpatient (CLI) | payer OTHER ==
[2021-06-18 12:10] LABS: BASO # 0.1 10^3/uL (0.0-0.2); EOS # 0.1 10^3/uL (0.0-0.5); EOS % 1.5 % (0.0-3.0); HEMATOCRIT 40.6 % (36.0-47.0); HEMATOCRIT 41.8 % (36.0-47.0); HEMOGLOBIN 13.5 g/dl (12.0-15.5); LYMPH % 59.7 % (24.0-44.0); MEAN CORPUSCULAR HEMOGLOBIN 29.4 pg (27.0-33.0); MEAN CORPUSCULAR HGB CONC 32.3 g/dl (32.0-36.5); MEAN CORPUSCULAR VOLUME 91.1 fl (80.0-96.0); MONO # 0.7 10^3/uL (0.0-0.8); MONO % 8.1 % (2.0-8.0); NEUTROPHILS # 2.5 10^3/uL (1.5-8.5); NEUTROPHILS % 29.3 % (36.0-66.0); PLATELET COUNT, AUTOMATED 326 10^3/uL (150-450); RED BLOOD COUNT 4.59 10^6/uL (4.00-5.40); WHITE BLOOD COUNT 8.4 10^3/uL (4.0-10.0)
[2021-06-18 12:38] LABS: ALBUMIN 3.2 GM/DL (3.2-5.2); ALT/SGPT 32 U/L (12-78); BILIRUBIN,TOTAL 0.5 MG/DL (0.2-1.0); BLOOD UREA NITROGEN 8 MG/DL (7-18); CARBON DIOXIDE LEVEL 26 MEQ/L (21-32); CHLORIDE LEVEL 108 MEQ/L (98-107); CREATININE FOR GFR 0.69 MG/DL (0.55-1.30); FERRITIN 91 NG/ML (8-252); GLOMERULAR FILTRATION RATE > 60.0 (>51); GLUCOSE, FASTING 97 MG/DL (70-100); IRON (FE) 124 UG/DL (50-170); MAGNESIUM LEVEL 2.1 MG/DL (1.8-2.4); PERCENT SATURATION 40.5 % (13.2-45.0); POTASSIUM SERUM 3.9 MEQ/L (3.5-5.1); SODIUM LEVEL 139 MEQ/L (136-145); TOTAL IRON BINDING CAPACITY 306 UG/DL (250-450); TOTAL PROTEIN 6.2 GM/DL (6.4-8.2)
[2021-06-18 13:01] LABS: HEMOGLOBIN A1c 5.3 %
[2021-06-20 09:52] LABS: TOTAL 25(OH) VITAMIN D 57.8 NG/ML (30.0-100.0); VITAMIN B12 LEVEL > 2000 PG/ML (247-911)
== END ==
LOC: M LAB 11:29
PROVIDERS: ATTEND Physician Assistant Surgical
DX: K91.2 Postsurgical malabsorption, not elsewhere classified (principal); Z98.84 Bariatric surgery status; Z86.39 Personal history of other endocrine, nutritional and metabolic disease; E55.9 Vitamin D deficiency, unspecified

== ENCOUNTER 2021-07-22 07:06 | Emergency (ER) | payer OTHER ==
[~2021-07-22] VITALS: Ht 154.9 cm; Wt 92.2 kg
[~2021-07-22 07:06] MED LIST changes: -FLUC150T; +FLUC150T9
[2021-07-22 07:07] VITALS: BP 155/97
[2021-07-22 08:22] LABS: BASO # 0.1 10^3/uL (0.0-0.2); BASO % 0.6 % (0.0-1.0); EOS # 0.1 10^3/uL (0.0-0.5); EOS % 1.6 % (0.0-3.0); HEMATOCRIT 40.7 % (36.0-47.0); HEMOGLOBIN 13.3 g/dl (12.0-15.5); LYMPH # 3.7 10^3/uL (1.5-5.0); LYMPH % 46.8 % (24.0-44.0); MEAN CORPUSCULAR HEMOGLOBIN 29.7 pg (27.0-33.0); MEAN CORPUSCULAR HGB CONC 32.7 g/dl (32.0-36.5); MEAN CORPUSCULAR VOLUME 90.8 fl (80.0-96.0); MONO # 0.8 10^3/uL (0.0-0.8); MONO % 10.5 % (2.0-8.0); NEUTROPHILS # 3.2 10^3/uL (1.5-8.5); NEUTROPHILS % 40.2 % (36.0-66.0); PLATELET COUNT, AUTOMATED 308 10^3/uL (150-450); RED BLOOD COUNT 4.48 10^6/uL (4.00-5.40)
[2021-07-22 08:40] LABS: ALBUMIN 3.6 GM/DL (3.2-5.2); ALT/SGPT 29 U/L (12-78); BILIRUBIN,TOTAL 0.4 MG/DL (0.2-1.0); BLOOD UREA NITROGEN 16 MG/DL (7-18); CALCIUM LEVEL 8.6 MG/DL (8.5-10.1); CARBON DIOXIDE LEVEL 23 MEQ/L (21-32); CHLORIDE LEVEL 111 MEQ/L (98-107); CREATININE FOR GFR 0.82 MG/DL (0.55-1.30); GLOMERULAR FILTRATION RATE > 60.0 (>51); GLUCOSE, FASTING 95 MG/DL (70-100); SODIUM LEVEL 141 MEQ/L (136-145); TOTAL PROTEIN 6.6 GM/DL (6.4-8.2)
[2021-07-22 08:46] LABS: ERYTHROCYTE SEDIMENTATION RATE 17 mm/hr (0-30)
== END 2021-07-22 09:12 | disposition home or self-care (01) ==
LOC: M ED 07:06
DX: I83.11 Varicose veins of right lower extremity with inflammation (principal); I83.812 Varicose veins of left lower extremity with pain; L91.8 Other hypertrophic disorders of the skin; K21.9 Gastro-esophageal reflux disease without esophagitis; F90.9 Attention-deficit hyperactivity disorder, unspecified type; D33.2 Benign neoplasm of brain, unspecified; Z88.8 Allergy status to other drugs, medicaments and biological substances; Z79.899 Other long term (current) drug therapy

== ENCOUNTER → 2021-07-30 | Outpatient (CLI) | payer OTHER ==
[2021-07-30 10:19] LABS: BASO # 0.1 10^3/uL (0.0-0.2); BASO % 0.7 % (0.0-1.0); EOS # 0.2 10^3/uL (0.0-0.5); HEMATOCRIT 46.9 % (36.0-47.0); HEMOGLOBIN 15.2 g/dl (12.0-15.5); LYMPH # 3.3 10^3/uL (1.5-5.0); LYMPH % 43.6 % (24.0-44.0); MEAN CORPUSCULAR HEMOGLOBIN 30.1 pg (27.0-33.0); MEAN CORPUSCULAR HGB CONC 32.4 g/dl (32.0-36.5); MEAN CORPUSCULAR VOLUME 92.9 fl (80.0-96.0); MONO # 0.7 10^3/uL (0.0-0.8); MONO % 8.5 % (2.0-8.0); NEUTROPHILS # 3.4 10^3/uL (1.5-8.5); NEUTROPHILS % 44.9 % (36.0-66.0); RED BLOOD COUNT 5.05 10^6/uL (4.00-5.40); WHITE BLOOD COUNT 7.6 10^3/uL (4.0-10.0)
[2021-07-30 10:43] LABS: HEMOGLOBIN A1c 5.3 %
[2021-07-30 11:01] LABS: ALT/SGPT 28 U/L (12-78); BILIRUBIN,TOTAL 0.7 MG/DL (0.2-1.0); BLOOD UREA NITROGEN 12 MG/DL (7-18); CALCIUM LEVEL 8.5 MG/DL (8.5-10.1); CARBON DIOXIDE LEVEL 26 MEQ/L (21-32); CHLORIDE LEVEL 107 MEQ/L (98-107); CHOLESTEROL LEVEL 182 MG/DL (<200); CHOLESTEROL RISK RATIO 4.232 (<5); CREATININE FOR GFR 0.78 MG/DL (0.55-1.30); GLOMERULAR FILTRATION RATE > 60.0 (>51); GLUCOSE, FASTING 69 MG/DL (70-100); HDL CHOLESTEROL 43 MG/DL (>40); NON-HDL-C 139 MG/DL; POTASSIUM SERUM 4.2 MEQ/L (3.5-5.1); SODIUM LEVEL 142 MEQ/L (136-145); TRIGLYCERIDES LEVEL 151 MG/DL (<150)
[2021-07-30 11:02] LABS: ALBUMIN 3.6 GM/DL (3.2-5.2); FREE T4 1.17 NG/DL (0.76-1.46); LDL CHOLESTEROL 109 MG/DL (<100); THYROID STIMULATING HORMONE 0.646 uIU/ML (0.358-3.740); TOTAL PROTEIN 6.9 GM/DL (6.4-8.2)
[2021-07-30 11:19] LABS: MALB URINE SIEMENS 6.5 MG/L
== END ==
LOC: M LAB 08:10 → M PLALAB 08:10
PROVIDERS: ATTEND Physician Assistant
DX: E78.2 Mixed hyperlipidemia (principal); E11.9 Type 2 diabetes mellitus without complications; Z98.84 Bariatric surgery status

== ENCOUNTER → 2021-08-03 | Outpatient (REF) | payer OTHER | LOC: M SFHCWAGY 12:57 | PROVIDERS: ATTEND Obstetrics & Gynecology | DX: N93.9 Abnormal uterine and vaginal bleeding, unspecified (principal) ==

== ENCOUNTER → 2021-08-15 | Outpatient (CLI) | payer OTHER ==
[2021-08-15 15:18] LABS: RHEUMATOID FACTOR QUANT < 10.0 IU/ML (<15.0); TOTAL PROTEIN 6.4 GM/DL (6.4-8.2)
[2021-08-15 15:20] LABS: VITAMIN B12 LEVEL > 2000 PG/ML
[2021-08-15 15:21] LABS: FOLATE 21.7 NG/ML
[2021-08-15 19:10] LABS: HEMOGLOBIN A1c 5.5 %
== END ==
LOC: M LAB 13:21
PROVIDERS: ATTEND Psychiatry & Neurology Neurology
DX: G62.9 Polyneuropathy, unspecified (principal); R20.2 Paresthesia of skin

== ENCOUNTER → 2021-11-20 | Outpatient (CLI) | payer OTHER ==
[2021-11-20 09:39] LABS: BASO # 0.1 10^3/uL (0.0-0.2); BASO % 0.9 % (0.0-1.0); EOS # 0.1 10^3/uL (0.0-0.5); EOS % 1.6 % (0.0-3.0); HEMATOCRIT 44.2 % (36.0-47.0); HEMOGLOBIN 14.2 g/dl (12.0-15.5); LYMPH # 3.9 10^3/uL (1.5-5.0); LYMPH % 50.3 % (24.0-44.0); MEAN CORPUSCULAR HEMOGLOBIN 30.2 pg (27.0-33.0); MEAN CORPUSCULAR HGB CONC 32.1 g/dl (32.0-36.5); MONO # 0.6 10^3/uL (0.0-0.8); NEUTROPHILS % 39.1 % (36.0-66.0); PLATELET COUNT, AUTOMATED 294 10^3/uL (150-450); WHITE BLOOD COUNT 7.7 10^3/uL (4.0-10.0)
[2021-11-20 09:55] LABS: HEMOGLOBIN A1c 5.5 %
[2021-11-20 10:16] LABS: ALBUMIN 3.1 GM/DL (3.2-5.2); ALT/SGPT 26 U/L (12-78); BILIRUBIN,TOTAL 0.4 MG/DL (0.2-1.0); BLOOD UREA NITROGEN 6 MG/DL (7-18); CALCIUM LEVEL 8.6 MG/DL (8.5-10.1); CARBON DIOXIDE LEVEL 29 MEQ/L (21-32); CHLORIDE LEVEL 109 MEQ/L (98-107); CHOLESTEROL LEVEL 152 MG/DL (<200); CREATININE FOR GFR 0.78 MG/DL (0.55-1.30); FREE T4 0.95 NG/DL (0.76-1.46); GLOMERULAR FILTRATION RATE > 60.0 (>51); GLUCOSE, FASTING 86 MG/DL (70-100); HDL CHOLESTEROL 38 MG/DL (>40); IRON (FE) 57 UG/DL (50-170); LDL CHOLESTEROL 85 MG/DL (<100); NON-HDL-C 114 MG/DL; PERCENT SATURATION 16.8 % (13.2-45.0); POTASSIUM SERUM 4.6 MEQ/L (3.5-5.1); SODIUM LEVEL 143 MEQ/L (136-145); TOTAL IRON BINDING CAPACITY 339 UG/DL (250-450); TOTAL PROTEIN 6.4 GM/DL (6.4-8.2); TRIGLYCERIDES LEVEL 147 MG/DL (<150)
== END ==
LOC: M LAB 08:58
PROVIDERS: ATTEND Family Medicine
DX: E11.9 Type 2 diabetes mellitus without complications (principal)

== ENCOUNTER → 2022-01-13 | Outpatient (CLI) | payer OTHER ==
[~2022-01-13] MED LIST changes: +PROHANCE 279.3MG/ML 15ML VIAL ONE; +PROHANCE 279.3MG/ML 5ML VIAL ONE
== END ==
LOC: M PLAIMG 09:48
PROVIDERS: ATTEND Neurological Surgery
DX: D32.0 Benign neoplasm of cerebral meninges (principal); Z92.3 Personal history of irradiation
CPT/HCPCS: 70553; A9576

== ENCOUNTER → 2022-02-27 | Outpatient (CLI) | payer OTHER ==
[~2022-02-27] MED LIST changes: -PROHANCE 279.3MG/ML 15ML VIAL ONE; -PROHANCE 279.3MG/ML 5ML VIAL ONE
[2022-02-27 09:27] LABS: BASO # 0.1 10^3/uL (0.0-0.2); BASO % 0.7 % (0.0-1.0); EOS # 0.1 10^3/uL (0.0-0.5); EOS % 1.7 % (0.0-3.0); HEMOGLOBIN 14.5 g/dl (12.0-15.5); LYMPH # 3.4 10^3/uL (1.5-5.0); MEAN CORPUSCULAR HEMOGLOBIN 29.4 pg (27.0-33.0); MEAN CORPUSCULAR HGB CONC 31.5 g/dl (32.0-36.5); MEAN CORPUSCULAR VOLUME 93.3 fl (80.0-96.0); MONO # 0.6 10^3/uL (0.0-0.8); MONO % 8.2 % (2.0-8.0); NEUTROPHILS # 3.5 10^3/uL (1.5-8.5); NEUTROPHILS % 45.1 % (36.0-66.0); PLATELET COUNT, AUTOMATED 278 10^3/uL (150-450); RED BLOOD COUNT 4.93 10^6/uL (4.00-5.40); WHITE BLOOD COUNT 7.7 10^3/uL (4.0-10.0)
[2022-02-27 10:08] LABS: HEMOGLOBIN A1c 5.5 %
[2022-02-27 10:15] LABS: ALBUMIN 3.5 GM/DL (3.2-5.2); ALT/SGPT 26 U/L (12-78); BILIRUBIN,TOTAL 0.4 MG/DL (0.2-1.0); BLOOD UREA NITROGEN 7 MG/DL (7-18); CALCIUM LEVEL 8.9 MG/DL (8.5-10.1); CARBON DIOXIDE LEVEL 30 MEQ/L (21-32); CHLORIDE LEVEL 105 MEQ/L (98-107); CHOLESTEROL LEVEL 175 MG/DL (<200); CHOLESTEROL RISK RATIO 3.723 (<5); CREATININE FOR GFR 0.78 MG/DL (0.55-1.30); FREE T4 1.03 NG/DL (0.76-1.46); GLOMERULAR FILTRATION RATE > 60.0 (>51); GLUCOSE, FASTING 88 MG/DL (70-100); HDL CHOLESTEROL 47 MG/DL (>40); LDL CHOLESTEROL 100 MG/DL (<100); NON-HDL-C 128 MG/DL; POTASSIUM SERUM 4.3 MEQ/L (3.5-5.1); SODIUM LEVEL 139 MEQ/L (136-145); TOTAL PROTEIN 6.6 GM/DL (6.4-8.2); TRIGLYCERIDES LEVEL 142 MG/DL (<150)
[2022-02-27 10:51] LABS: TOTAL 25(OH) VITAMIN D 64.9 NG/ML (30.0-100.0)
== END ==
LOC: M LAB 07:32
PROVIDERS: ATTEND Nurse Practitioner Adult Health
DX: E11.9 Type 2 diabetes mellitus without complications (principal)

== ENCOUNTER → 2022-05-26 | Outpatient (CLI) | payer OTHER | LOC: M WHC 07:22 | PROVIDERS: ATTEND Nurse Practitioner Family | DX: Z12.31 Encounter for screening mammogram for malignant neoplasm of breast (principal) ==

== ENCOUNTER → 2022-05-26 | Outpatient (REF) | payer OTHER | LOC: M PLALAB 10:29 | PROVIDERS: ATTEND Nurse Practitioner Family | DX: Z12.4 Encounter for screening for malignant neoplasm of cervix (principal) ==

== ENCOUNTER 2022-08-28 09:14 | Emergency (ER) | payer OTHER ==
[~2022-08-28] VITALS: Ht 154.9 cm; Wt 91.2 kg
[~2022-08-28 09:14] MED LIST changes: -GABA-282; -LORA-674
[2022-08-28] MEDS ORDERED: LORA-674 (09:37)
[2022-08-28] MEDS ORDERED: GABA-282 (09:37)
[2022-08-28 10:07] VITALS: BP 179/88
== END 2022-08-28 10:08 | disposition home or self-care (01) ==
LOC: M ED 09:14
DX: R22.32 Localized swelling, mass and lump, left upper limb (principal); M25.511 Pain in right shoulder; G89.29 Other chronic pain; E11.9 Type 2 diabetes mellitus without complications; G43.909 Migraine, unspecified, not intractable, without status migrainosus; D33.2 Benign neoplasm of brain, unspecified; Z88.8 Allergy status to other drugs, medicaments and biological substances

== ENCOUNTER → 2022-08-28 | Outpatient (CLI) | payer OTHER ==
[~2022-08-28] MED LIST changes: +GABA-282; +LORA-674
[2022-08-28 09:14] LABS: BASO # 0.1 10^3/uL (0.0-0.2); BASO % 1.2 % (0.0-1.0); EOS # 0.3 10^3/uL (0.0-0.5); EOS % 3.2 % (0.0-3.0); HEMATOCRIT 46.1 % (36.0-47.0); HEMOGLOBIN 14.9 g/dl (12.0-15.5); LYMPH # 3.2 10^3/uL (1.5-5.0); LYMPH % 37.9 % (24.0-44.0); MEAN CORPUSCULAR HGB CONC 32.3 g/dl (32.0-36.5); MEAN CORPUSCULAR VOLUME 92.8 fl (80.0-96.0); MONO # 0.7 10^3/uL (0.0-0.8); MONO % 8.9 % (2.0-8.0); NEUTROPHILS % 48.6 % (36.0-66.0); PLATELET COUNT, AUTOMATED 332 10^3/uL (150-450); RED BLOOD COUNT 4.97 10^6/uL (4.00-5.40); WHITE BLOOD COUNT 8.3 10^3/uL (4.0-10.0)
[2022-08-28 09:44] LABS: HEMOGLOBIN A1c 5.5 % (4.0-6.0)
[2022-08-28 09:48] LABS: ALBUMIN 3.7 G/DL (3.2-5.2); ALKALINE PHOSPHATASE 179 U/L (46-116); ALT/SGPT 23 U/L (7.0-40); AST/SGOT 24 U/L (<34); BILIRUBIN,TOTAL 0.7 MG/DL (0.3-1.2); BLOOD UREA NITROGEN 10 MG/DL (9-23); CALCIUM LEVEL 9.1 MG/DL (8.5-10.1); CARBON DIOXIDE LEVEL 29 MMOL/L (20-31); CHLORIDE LEVEL 103 MMOL/L (98-107); CHOLESTEROL LEVEL 191 MG/DL (<200); CHOLESTEROL RISK RATIO 4.12 (<5); CREATININE FOR GFR 0.78 MG/DL (0.55-1.30); FREE T4 1.17 NG/DL (0.89-1.76); GLOMERULAR FILTRATION RATE > 60.0 (>51); GLUCOSE, FASTING 96 MG/DL (60-100); HDL CHOLESTEROL 46.3 MG/DL (>40); LDL CHOLESTEROL 115.5 MG/DL (<100); NON-HDL-C 144.7 MG/DL; SODIUM LEVEL 139 MMOL/L (136-145); THYROID STIMULATING HORMONE 1.715 uIU/ML (0.55-4.78); TOTAL PROTEIN 6.7 G/DL (5.7-8.2); TRIGLYCERIDES LEVEL 146 MG/DL (<150)
[2022-08-28 09:49] LABS: CREATININE, URINE 57.5 MG/DL
[2022-08-28 09:50] LABS: MALB URINE SIEMENS < 3.0 MG/L; MAU/CREAT RATIO 5.2 MCG/MG (0.0-30.0)
== END ==
LOC: M LAB 08:32
PROVIDERS: ATTEND Family Medicine
DX: E11.9 Type 2 diabetes mellitus without complications (principal)

== ENCOUNTER → 2022-09-19 | Outpatient (CLI) | payer OTHER ==
[~2022-09-19] MED LIST changes: +GABA-282; +LORA-674
== END ==
LOC: M SOG 07:50
PROVIDERS: ATTEND Physician Assistant
DX: M79.642 Pain in left hand (principal); M79.645 Pain in left finger(s)

== ENCOUNTER → 2022-09-21 | Outpatient (CLI) | payer OTHER | LOC: M SLEEP HO 10:42 | PROVIDERS: ATTEND Physician Assistant | DX: G47.10 Hypersomnia, unspecified (principal) ==

== ENCOUNTER → 2023-01-11 | Outpatient (CLI) | payer OTHER | LOC: M PLAIMG 08:05 | PROVIDERS: ATTEND Physician Assistant | DX: M47.26 Other spondylosis with radiculopathy, lumbar region (principal) ==

== ENCOUNTER → 2023-01-11 | Outpatient (CLI) | payer OTHER ==
[~2023-01-11] MED LIST changes: +PROHANCE 279.3MG/ML 15ML VIAL ONE; +PROHANCE 279.3MG/ML 5ML VIAL ONE
== END ==
LOC: M PLAIMG 08:16
PROVIDERS: ATTEND Physician Assistant
DX: Z92.3 Personal history of irradiation (principal); D32.0 Benign neoplasm of cerebral meninges

== ENCOUNTER 2023-02-24 10:46 | Emergency (ER) | payer OTHER ==
[~2023-02-24] VITALS: Ht 154.9 cm; Wt 90.9 kg
[~2023-02-24 10:46] MED LIST changes: -GABA-283 PO; +GABA-284 PO; +LORA-1041; -LORA-674; -PROHANCE 279.3MG/ML 15ML VIAL ONE; -PROHANCE 279.3MG/ML 5ML VIAL ONE
[2023-02-24] MEDS ORDERED: KETOROLAC 60MG 2ML VIAL IM ONE (12:50)
[2023-02-24 13:02] VITALS: TEMP 97; O2SAT 99
[2023-02-24 13:05] VITALS: BP 168/102
== END 2023-02-24 13:12 | disposition home or self-care (01) ==
LOC: M ED 10:46
DX: M54.50 Low back pain, unspecified (principal); D49.6 Neoplasm of unspecified behavior of brain; Z88.8 Allergy status to other drugs, medicaments and biological substances; Z79.899 Other long term (current) drug therapy
CPT/HCPCS: 72110; 72220; 96372; 99283; J1885

== ENCOUNTER → 2023-05-08 | Outpatient (REF) | LOC: M EMP 14:31 | PROVIDERS: ATTEND Family Medicine | DX: Z11.52 Encounter for screening for COVID-19 (principal) ==

== ENCOUNTER 2023-06-06 08:34 | Emergency (ER) | payer OTHER ==
[~2023-06-06] VITALS: Ht 154.9 cm; Wt 97.7 kg
[2023-06-06] MEDS ORDERED: KETOROLAC 30 MG/ML 1ML VIAL IV ONE (09:25)
[2023-06-06 10:16] LABS: BASO # 0.1 10^3/uL (0.0-0.2); BASO % 0.8 % (0.0-1.0); EOS # 0.1 10^3/uL (0.0-0.5); EOS % 0.7 % (0.0-3.0); HEMATOCRIT 45.1 % (36.0-47.0); LYMPH # 2.6 10^3/uL (1.5-5.0); LYMPH % 28.7 % (24.0-44.0); MEAN CORPUSCULAR HEMOGLOBIN 30.6 pg (27.0-33.0); MEAN CORPUSCULAR HGB CONC 33.3 g/dl (32.0-36.5); MONO # 0.7 10^3/uL (0.0-0.8); MONO % 7.3 % (2.0-8.0); NEUTROPHILS # 5.7 10^3/uL (1.5-8.5); NEUTROPHILS % 62.1 % (36.0-66.0); PLATELET COUNT, AUTOMATED 303 10^3/uL (150-450); WHITE BLOOD COUNT 9.2 10^3/uL (4.0-10.0)
[2023-06-06] MEDS ORDERED: BIOT1CAP2 PO (10:37)
[2023-06-06] MEDS ORDERED: MULT-90 PO (10:37)
[2023-06-06 10:48] LABS: ALBUMIN 4.1 G/DL (3.2-5.2); BILIRUBIN,DIRECT 0.2 MG/DL (<0.4); BILIRUBIN,TOTAL 0.7 MG/DL (0.3-1.2); TOTAL PROTEIN 7.3 G/DL (5.7-8.2)
[2023-06-06] MEDS ORDERED: KETO10TAB PO (10:57)
[2023-06-06] MEDS ORDERED: FLOM0.4C39 PO (10:57)
[2023-06-06 11:08] VITALS: BP 167/93; TEMP 98.1; O2SAT 98
== END 2023-06-06 11:09 | disposition home or self-care (01) ==
LOC: M ED 08:34
DX: N21.1 Calculus in urethra (principal); K57.30 Diverticulosis of large intestine without perforation or abscess without bleeding; Z87.442 Personal history of urinary calculi; Z79.899 Other long term (current) drug therapy; Z88.8 Allergy status to other drugs, medicaments and biological substances
CPT/HCPCS: 74176; 80047; 80076; 81001; 83690; 84702; 85025; 87086; 96374; 99284; J1885

== ENCOUNTER → 2023-06-20 | Outpatient (REF) | payer OTHER ==
[~2023-06-20] MED LIST changes: +BIOT1CAP2 PO; +KETO10TAB PO; +MULT-90 PO
== END ==
LOC: M SFHCWAGY 13:04
PROVIDERS: ATTEND Nurse Practitioner Family
DX: Z12.4 Encounter for screening for malignant neoplasm of cervix (principal)

== ENCOUNTER → 2023-07-04 | Outpatient (CLI) | payer OTHER ==
[~2023-07-04] MED LIST changes: +D-101000 PO; -GABA-282; +GABA-282 PO; +IMIT50TA PO
[2023-07-04 09:04] LABS: APPEARANCE, URINE HAZY (CLEAR); BACTERIA, URINE AUTO NEGATIVE (NEGATIVE); BILIRUBIN, URINE AUTO NEGATIVE (NEGATIVE); BLOOD, URINE BLOOD 1+ (NEGATIVE); COLOR, URINE YELLOW (YELLOW); GLUCOSE, URINE (UA) AUTO NEGATIVE (NEGATIVE); KETONE, URINE AUTO NEGATIVE (NEGATIVE); LEUKOCYTE ESTERASE, URINE AUTO TRACE (NEGATIVE); MUCUS, URINE SMALL (NEGATIVE); NITRITE, URINE AUTO NEGATIVE (NEGATIVE); PROTEIN, URINE AUTO NEGATIVE (NEGATIVE); RBC, URINE AUTO 4 /HPF (0-3); SPECIFIC GRAVITY URINE AUTO 1.009 (1.002-1.035); SQUAMOUS EPITHELIAL CELL UR AU 0 /HPF (0-6); UROBILINOGEN, URINE AUTO 0.2 mg/dL (0.0-2.0); WBC, URINE AUTO 1 /HPF (0-3)
[2023-07-04 09:11] LABS: HEMATOCRIT 41.2 % (36.0-47.0); HEMOGLOBIN 13.4 g/dl (12.0-15.5); MEAN CORPUSCULAR HGB CONC 32.5 g/dl (32.0-36.5); MEAN CORPUSCULAR VOLUME 92.4 fl (80.0-96.0); PLATELET COUNT, AUTOMATED 328 10^3/uL (150-450); RED BLOOD COUNT 4.46 10^6/uL (4.00-5.40); WHITE BLOOD COUNT 8.1 10^3/uL (4.0-10.0)
[2023-07-04 09:30] LABS: BLOOD UREA NITROGEN 16 MG/DL (9-23); CALCIUM LEVEL 8.6 MG/DL (8.5-10.1); CARBON DIOXIDE LEVEL 29 MMOL/L (20-31); CHLORIDE LEVEL 106 MMOL/L (98-107); CREATININE FOR GFR 0.87 MG/DL (0.55-1.30); GLOMERULAR FILTRATION RATE > 60.0 (>51); GLUCOSE, FASTING 89 MG/DL (60-100); SODIUM LEVEL 140 MMOL/L (136-145)
== END ==
LOC: M RAD 07:23
PROVIDERS: ATTEND Physician Assistant
DX: Z01.818 Encounter for other preprocedural examination (principal); N20.0 Calculus of kidney

== ENCOUNTER → 2023-07-04 | Outpatient (CLI) | payer OTHER ==
[~2023-07-04] MED LIST changes: +OXYB5TAB11 PO
== END ==
LOC: M LAB 07:36
PROVIDERS: ATTEND Urology
DX: Z01.818 Encounter for other preprocedural examination (principal); N20.0 Calculus of kidney; Z53.9 Procedure and treatment not carried out, unspecified reason

== ENCOUNTER 2023-07-06 07:14 | Day surgery (SDC) | payer OTHER ==
[~2023-07-06] VITALS: Ht 154.9 cm; Wt 96.8 kg
[~2023-07-06 07:14] MED LIST changes: -OXYB5TAB11 PO; +ceFAZolin SOD 2 GM in IV 1 EA IV ONE
[2023-07-06] MEDS ORDERED: LR 1,000 ML IV SCH (07:25)
[2023-07-06] MEDS ORDERED: MIDAZOLAM INJ 2MG/2ML VIAL As Ordered ONE (08:16)
[2023-07-06] MEDS ORDERED: LIDOCAINE 2% 100MG/5ML SDV (FOR ANES.) As Ordered ONE (08:16)
[2023-07-06] MEDS ORDERED: fentaNYL 100 MCG/2 ML INJECTION As Ordered ONE (08:16)
[2023-07-06] MEDS ORDERED: ONDANSETRON 4MG 2ML VIAL As Ordered ONE (08:16)
[2023-07-06] MEDS ORDERED: propofoL 200 MG/20 ML VIAL As Ordered ONE (08:16)
[2023-07-06] MEDS ORDERED: ISOVUE-M 300 61% 15ML VIAL As Ordered ONE (09:17)
[2023-07-06] MEDS ORDERED: ACETAMINOPHEN 1000MG 100ML IV BAG As Ordered ONE (10:27)
[2023-07-06] MEDS ORDERED: oxyCODONE 5MG TAB PO PRN (10:40)
[2023-07-06] MEDS ORDERED: fentaNYL 100 MCG/2 ML INJECTION IV PRN (10:40)
[2023-07-06] MEDS ORDERED: ONDANSETRON 4MG 2ML VIAL IV PRN (10:40)
[2023-07-06] MEDS ORDERED: MORPHINE 2 MG/ML 1ML VIAL IV PRN (10:40)
[2023-07-06] MEDS ORDERED: OXYB5TAB11 PO (10:55)
[2023-07-06] MEDS ORDERED: oxyBUTYnin 5 MG TAB PO PRN (11:15)
[2023-07-06] MEDS ORDERED: PERCOCET 5MG/325MG TAB PO PRN (11:15)
[2023-07-06 12:25] VITALS: BP 159/89; TEMP 97.3; O2SAT 99
== END 2023-07-06 12:29 | disposition home or self-care (01) ==
LOC: M SDC 07:14
PROVIDERS: ATTEND Urology
DX: N20.2 Calculus of kidney with calculus of ureter (principal); R06.83 Snoring; M48.00 Spinal stenosis, site unspecified; G43.909 Migraine, unspecified, not intractable, without status migrainosus; Z88.8 Allergy status to other drugs, medicaments and biological substances; Z79.899 Other long term (current) drug therapy; Z79.891 Long term (current) use of opiate analgesic
CPT/HCPCS: 52332; 52352; 52356; 74420; 82365; C1769; C1894; C2617; J0131; J1100; J2250; J2405; J3010; Q9967

== ENCOUNTER 2023-07-15 18:24 | Emergency (ER) | payer OTHER ==
[~2023-07-15] VITALS: Ht 154.9 cm; Wt 96.4 kg
[~2023-07-15 18:24] MED LIST changes: +OXYB5TAB11 PO; -ceFAZolin SOD 2 GM in IV 1 EA IV ONE
[2023-07-15 18:52] LABS: VENOUS BASE EXCESS -2.6 (-2.0-2.0); VENOUS HCO3 22.2 MMOL/L (23.0-27.0); VENOUS O2 SATURATION 86.9 % (60.0-80.0); VENOUS PARTIAL PRESSURE CO2 38.6 mmHg (38.0-50.0); VENOUS PARTIAL PRESSURE O2 52.4 mmHg (30.0-50.0); VENOUS PH 7.377 UNITS (7.330-7.430); VENOUS TOTAL CO2 23.4 MMOL/L (24.0-28.0)
[2023-07-15 18:59] LABS: BASO # 0.1 10^3/uL (0.0-0.2); BASO % 0.5 % (0.0-1.0); EOS # 0.1 10^3/uL (0.0-0.5); EOS % 0.6 % (0.0-3.0); HEMATOCRIT 39.4 % (36.0-47.0); HEMOGLOBIN 13.2 g/dl (12.0-15.5); LYMPH # 2.7 10^3/uL (1.5-5.0); LYMPH % 21.8 % (24.0-44.0); MEAN CORPUSCULAR HEMOGLOBIN 30.3 pg (27.0-33.0); MEAN CORPUSCULAR HGB CONC 33.5 g/dl (32.0-36.5); MEAN CORPUSCULAR VOLUME 90.4 fl (80.0-96.0); MONO # 0.8 10^3/uL (0.0-0.8); MONO % 6.7 % (2.0-8.0); NEUTROPHILS # 8.8 10^3/uL (1.5-8.5); NEUTROPHILS % 69.9 % (36.0-66.0); PLATELET COUNT, AUTOMATED 346 10^3/uL (150-450); RED BLOOD COUNT 4.36 10^6/uL (4.00-5.40); WHITE BLOOD COUNT 12.5 10^3/uL (4.0-10.0)
[2023-07-15 19:20] LABS: ALKALINE PHOSPHATASE 161 U/L (46-116); ALT/SGPT 26 U/L (7.0-40); AST/SGOT 26 U/L (<34); BILIRUBIN,DIRECT 0.3 MG/DL (<0.4); BILIRUBIN,TOTAL 0.7 MG/DL (0.3-1.2); BLOOD UREA NITROGEN 14 MG/DL (9-23); CALCIUM LEVEL 8.2 MG/DL (8.5-10.1); CARBON DIOXIDE LEVEL 22 MMOL/L (20-31); CHLORIDE LEVEL 100 MMOL/L (98-107); CREATININE FOR GFR 0.97 MG/DL (0.55-1.30); GLOMERULAR FILTRATION RATE > 60.0 (>51); GLUCOSE, FASTING 171 MG/DL (60-100); POTASSIUM SERUM 3.2 MMOL/L (3.5-5.1); SODIUM LEVEL 134 MMOL/L (136-145); TOTAL PROTEIN 6.1 G/DL (5.7-8.2)
[2023-07-15] MEDS ORDERED: KEPP1TAB2 PO (20:23)
[2023-07-15 20:30] VITALS: BP 133/86; TEMP 97.9; O2SAT 97
[2023-07-15] MEDS ORDERED: levETIRAcetam INJection 1,000 MG in D5W 100 ML IV ONE (21:00)
== END 2023-07-15 20:52 | disposition home or self-care (01) ==
LOC: M ED 18:24 → EDBD 18:24 → M ED 20:52
DX: G40.89 Other seizures (principal); Z88.8 Allergy status to other drugs, medicaments and biological substances; Z79.2 Long term (current) use of antibiotics; Z79.899 Other long term (current) drug therapy; Z79.810 Long term (current) use of selective estrogen receptor modulators (SERMs)
CPT/HCPCS: 70450; 72125; 80047; 80048; 80076; 82140; 82803; 83605; 83930; 84443; 85025; 87486; 87581; 87633; 87798; 93005; 93041; 94760; 96365; 99285; J1953

== ENCOUNTER → 2023-08-08 | Outpatient (CLI) | payer OTHER ==
[~2023-08-08] MED LIST changes: +KEPP1TAB2 PO; -OXYB5TAB11 PO; +OXYB5TAB14 PO; +PROHANCE 279.3MG/ML 15ML VIAL As Ordered ONE; +PROHANCE 279.3MG/ML 5ML VIAL As Ordered ONE
== END ==
LOC: M RAD 13:52
PROVIDERS: ATTEND Physician Assistant
DX: D32.0 Benign neoplasm of cerebral meninges (principal)
CPT/HCPCS: 70553; A9576

== ENCOUNTER → 2023-10-29 | Outpatient (CLI) | payer BC ==
[~2023-10-29] MED LIST changes: -PROHANCE 279.3MG/ML 15ML VIAL As Ordered ONE; -PROHANCE 279.3MG/ML 5ML VIAL As Ordered ONE
[2023-10-29 10:05] LABS: BASO # 0.1 10^3/uL (0.0-0.2); BASO % 0.8 % (0.0-1.0); EOS # 0.1 10^3/uL (0.0-0.5); EOS % 1.4 % (0.0-3.0); HEMATOCRIT 47.3 % (36.0-47.0); HEMOGLOBIN 15.5 g/dl (12.0-15.5); LYMPH # 3.5 10^3/uL (1.5-5.0); LYMPH % 47.3 % (24.0-44.0); MEAN CORPUSCULAR HEMOGLOBIN 30.2 pg (27.0-33.0); MEAN CORPUSCULAR HGB CONC 32.8 g/dl (32.0-36.5); MEAN CORPUSCULAR VOLUME 92.2 fl (80.0-96.0); MONO # 0.6 10^3/uL (0.0-0.8); NEUTROPHILS # 3.1 10^3/uL (1.5-8.5); NEUTROPHILS % 42.1 % (36.0-66.0); PLATELET COUNT, AUTOMATED 338 10^3/uL (150-450); RED BLOOD COUNT 5.13 10^6/uL (4.00-5.40); WHITE BLOOD COUNT 7.4 10^3/uL (4.0-10.0)
[2023-10-29 10:17] LABS: IRON (FE) 69 UG/DL (50-170); TOTAL IRON BINDING CAPACITY 345 UG/DL (250-425)
[2023-10-29 10:21] LABS: ALBUMIN 3.6 G/DL (3.2-5.2); ALKALINE PHOSPHATASE 184 U/L (46-116); ALT/SGPT 34 U/L (7.0-40); AST/SGOT 25 U/L (<34); BILIRUBIN,TOTAL 0.4 MG/DL (0.3-1.2); BLOOD UREA NITROGEN 10 MG/DL (9-23); CALCIUM LEVEL 9.4 MG/DL (8.5-10.1); CARBON DIOXIDE LEVEL 30 MMOL/L (20-31); CHLORIDE LEVEL 104 MMOL/L (98-107); CREATININE FOR GFR 0.78 MG/DL (0.55-1.30); FERRITIN 74.1 NG/ML (7.3-270.7); FOLATE > 24.0 NG/ML (>5.4); FREE T4 1.04 NG/DL (0.89-1.76); GLOMERULAR FILTRATION RATE > 60.0 (>51); GLUCOSE, FASTING 95 MG/DL (60-100); POTASSIUM SERUM 4.4 MMOL/L (3.5-5.1); SODIUM LEVEL 140 MMOL/L (136-145); THYROID STIMULATING HORMONE 1.079 uIU/ML (0.55-4.78); TOTAL 25(OH) VITAMIN D 62.2 NG/ML (20.0-100.0); TOTAL PROTEIN 6.5 G/DL (5.7-8.2); VITAMIN B12 LEVEL 1849 PG/ML (211-911)
[2023-10-29 10:22] LABS: HEMOGLOBIN A1c 5.2 % (4.0-6.0)
== END ==
LOC: M PLALAB 06:56
PROVIDERS: ATTEND Physician Assistant
DX: E11.9 Type 2 diabetes mellitus without complications (principal); Z98.84 Bariatric surgery status

== ENCOUNTER → 2023-12-17 | Outpatient (REF) | LOC: M EMP 10:24 | PROVIDERS: ATTEND Family Medicine | DX: Z11.52 Encounter for screening for COVID-19 (principal) ==

== ENCOUNTER → 2024-01-14 | Outpatient (CLI) | payer BC | LOC: M RAD 08:19 | PROVIDERS: ATTEND Urology | DX: N20.0 Calculus of kidney (principal) ==

== ENCOUNTER → 2024-02-04 | Outpatient (CLI) | payer BC ==
[2024-02-04 08:42] LABS: HEMOGLOBIN A1c 5.2 % (4.0-6.0)
[2024-02-04 08:49] LABS: ALBUMIN 3.3 G/DL (3.2-5.2); ALKALINE PHOSPHATASE 162 U/L (46-116); ALT/SGPT 23 U/L (7.0-40); AST/SGOT 17 U/L (<34); BILIRUBIN,TOTAL 0.4 MG/DL (0.3-1.2); BLOOD UREA NITROGEN 6 MG/DL (9-23); CALCIUM LEVEL 8.8 MG/DL (8.5-10.1); CARBON DIOXIDE LEVEL 29 MMOL/L (20-31); CHLORIDE LEVEL 107 MMOL/L (98-107); CREATININE FOR GFR 0.69 MG/DL (0.55-1.30); GLOMERULAR FILTRATION RATE > 60.0 (>51); GLUCOSE, FASTING 77 MG/DL (60-100); POTASSIUM SERUM 3.8 MMOL/L (3.5-5.1); SODIUM LEVEL 141 MMOL/L (136-145); TOTAL PROTEIN 6.3 G/DL (5.7-8.2)
[2024-02-04 08:49] LABS: CREATININE, URINE 112.8 MG/DL; MALB URINE SIEMENS < 3.0 MG/L; MAU/CREAT RATIO 2.6 MCG/MG (0.0-30.0)
[2024-02-04 08:51] LABS: FREE T4 1.02 NG/DL (0.89-1.76)
== END ==
LOC: M LAB 07:19
PROVIDERS: ATTEND Physician Assistant
DX: E11.9 Type 2 diabetes mellitus without complications (principal); N95.1 Menopausal and female climacteric states

== ENCOUNTER 2024-02-07 14:19 | Emergency (ER) | payer OTHER, BC ==
[~2024-02-07] VITALS: Ht 154.9 cm; Wt 81.8 kg
[2024-02-07] MEDS ORDERED: SEMA0.257 SQ (14:54)
[2024-02-07] MEDS ORDERED: LIDO5DIS41 TOP (15:30)
[2024-02-07] MEDS: KETOROLAC 60MG 2ML VIAL IM ONE (16:05)
[2024-02-07] MEDS: ACETAMINOPHEN 325 MG TAB PO ONE (16:06)
[2024-02-07 16:16] VITALS: BP 180/81; TEMP 98.1; O2SAT 99
== END 2024-02-07 16:19 | disposition home or self-care (01) ==
LOC: M ED 14:19
DX: S43.51XA Sprain of right acromioclavicular joint, initial encounter (principal); S46.011A Strain of muscle(s) and tendon(s) of the rotator cuff of right shoulder, initial encounter; Y92.9 Unspecified place or not applicable; Y93.9 Activity, unspecified; Y99.0 Civilian activity done for income or pay; K21.9 Gastro-esophageal reflux disease without esophagitis; Z88.8 Allergy status to other drugs, medicaments and biological substances; Z79.2 Long term (current) use of antibiotics; Z79.810 Long term (current) use of selective estrogen receptor modulators (SERMs); Z79.4 Long term (current) use of insulin; Z79.899 Other long term (current) drug therapy
CPT/HCPCS: 73030; 96372; 99283; J1885

== ENCOUNTER → 2024-03-10 | Outpatient (CLI) | payer BC ==
[~2024-03-10] MED LIST changes: +GABA-1490 PO; -GABA600T4 PO; +LIDO5DIS41 TOP; +PROHANCE 279.3MG/ML 15ML VIAL ONE; +SEMA0.257 SQ
== END ==
LOC: M PLAIMG 07:15
PROVIDERS: ATTEND Physician Assistant
DX: D32.0 Benign neoplasm of cerebral meninges (principal)

== ENCOUNTER → 2024-06-27 | Outpatient (CLI) | payer BC, OTHER ==
[~2024-06-27] MED LIST changes: +GABA-1172 PO; -GABA-282 PO; -PROHANCE 279.3MG/ML 15ML VIAL ONE; -SIME180C25 PO; +SIME1CAP4 PO
== END ==
LOC: M RAD 06:49
PROVIDERS: ATTEND Physician Assistant
DX: M75.121 Complete rotator cuff tear or rupture of right shoulder, not specified as traumatic (principal); M25.511 Pain in right shoulder

== ENCOUNTER → 2024-08-03 | Outpatient (CLI) | payer BC ==
[2024-08-03 09:05] LABS: BASO # 0.1 10^3/uL (0.0-0.2); BASO % 0.8 % (0.0-1.0); EOS # 0.1 10^3/uL (0.0-0.5); EOS % 1.5 % (0.0-3.0); HEMATOCRIT 44.8 % (36.0-47.0); HEMOGLOBIN 14.5 g/dl (12.0-15.5); LYMPH # 4.8 10^3/uL (1.5-5.0); LYMPH % 55.5 % (24.0-44.0); MEAN CORPUSCULAR HEMOGLOBIN 29.5 pg (27.0-33.0); MEAN CORPUSCULAR HGB CONC 32.4 g/dl (32.0-36.5); MEAN CORPUSCULAR VOLUME 91.1 fl (80.0-96.0); MONO # 0.6 10^3/uL (0.0-0.8); MONO % 7.5 % (2.0-8.0); NEUTROPHILS % 34.5 % (36.0-66.0); PLATELET COUNT, AUTOMATED 355 10^3/uL (150-450); RED BLOOD COUNT 4.92 10^6/uL (4.00-5.40); WHITE BLOOD COUNT 8.6 10^3/uL (4.0-10.0)
[2024-08-03 09:57] LABS: HEMOGLOBIN A1c 5.2 % (4.0-6.0)
[2024-08-03 10:17] LABS: ALBUMIN 3.6 G/DL (3.2-5.2); ALKALINE PHOSPHATASE 162 U/L (35-104); ALT/SGPT 26 U/L (7.0-40); AST/SGOT 20 U/L (<34); BILIRUBIN,TOTAL 0.5 MG/DL (0.3-1.2); BLOOD UREA NITROGEN 10 MG/DL (9-23); CALCIUM LEVEL 8.9 MG/DL (8.5-10.1); CARBON DIOXIDE LEVEL 31 MMOL/L (20-31); CHLORIDE LEVEL 104 MMOL/L (98-107); CREATININE FOR GFR 0.78 MG/DL (0.55-1.30); FERRITIN 135.6 NG/ML (7.3-270.7); FOLATE > 24.0 NG/ML (>5.4); GLOMERULAR FILTRATION RATE > 60.0 (>51); GLUCOSE, FASTING 86 MG/DL (60-100); IRON (FE) 82 UG/DL (50-170); PERCENT SATURATION 24.4 % (13.2-45.0); POTASSIUM SERUM 3.7 MMOL/L (3.5-5.1); SODIUM LEVEL 143 MMOL/L (136-145); TOTAL IRON BINDING CAPACITY 336 UG/DL (250-425); TOTAL PROTEIN 6.7 G/DL (5.7-8.2)
[2024-08-03 10:43] LABS: VITAMIN B12 LEVEL > 2000 PG/ML (211-911)
== END ==
LOC: M LAB 08:04
PROVIDERS: ATTEND Physician Assistant
DX: Z98.84 Bariatric surgery status (principal)

== ENCOUNTER → 2024-08-19 | Outpatient (CLI) | payer BC | LOC: M PLAIMG 06:35 | PROVIDERS: ATTEND Physician Assistant | DX: R56.9 Unspecified convulsions (principal) ==

== ENCOUNTER → 2024-08-21 | Outpatient (CLI) | payer BC ==
[~2024-08-21] MED LIST changes: +PROHANCE 279.3MG/ML 15ML VIAL ONE
== END ==
LOC: M PLAIMG 07:34
PROVIDERS: ATTEND Physician Assistant
DX: R56.9 Unspecified convulsions (principal)

== ENCOUNTER → 2024-09-16 | Outpatient (CLI) | payer BC ==
[~2024-09-16] MED LIST changes: -PROHANCE 279.3MG/ML 15ML VIAL ONE
== END ==
LOC: M WHC 08:03
PROVIDERS: ATTEND Obstetrics & Gynecology
DX: Z12.31 Encounter for screening mammogram for malignant neoplasm of breast (principal)

== ENCOUNTER → 2025-01-20 | Outpatient (CLI) | payer BC ==
[~2025-01-20] MED LIST changes: -FLOM0.4C39 PO; +LIDO1ADH93 TOP; -LIDO5DIS41 TOP; +TAMS-18 PO
== END ==
LOC: M RAD 07:30
PROVIDERS: ATTEND Urology
DX: N20.0 Calculus of kidney (principal)

== ENCOUNTER → 2025-02-12 | Outpatient (REF) | payer BC ==
[2025-02-12 21:24] LABS: APPEARANCE, URINE CLOUDY (CLEAR); BACTERIA, URINE AUTO NEGATIVE (NEGATIVE); BILIRUBIN, URINE AUTO NEGATIVE (NEGATIVE); BLOOD, URINE BLOOD 2+ (NEGATIVE); GLUCOSE, URINE (UA) AUTO NEGATIVE (NEGATIVE); KETONE, URINE AUTO NEGATIVE (NEGATIVE); LEUKOCYTE ESTERASE, URINE AUTO 3+ (NEGATIVE); MUCUS, URINE SMALL (NEGATIVE); NITRITE, URINE AUTO NEGATIVE (NEGATIVE); PROTEIN, URINE AUTO 2+ mg/dL (NEGATIVE); RBC, URINE AUTO 14 /HPF (0-3); SPECIFIC GRAVITY URINE AUTO 1.017 (1.002-1.035); SQUAMOUS EPITHELIAL CELL UR AU 1 /HPF (0-6); UROBILINOGEN, URINE AUTO 0.2 mg/dL (0.0-2.0); WBC, URINE AUTO TNTC /HPF (0-3)
== END ==
LOC: M LAB REF 20:55
PROVIDERS: ATTEND Physician Assistant
DX: N39.0 Urinary tract infection, site not specified (principal)

== ENCOUNTER → 2025-03-02 | Outpatient (CLI) | payer BC ==
[2025-03-02 08:53] LABS: BASO # 0.1 10^3/uL (0.0-0.2); BASO % 1.0 % (0.0-1.0); EOS # 0.2 10^3/uL (0.0-0.5); EOS % 2.1 % (0.0-3.0); LYMPH # 3.0 10^3/uL (1.5-5.0); LYMPH % 41.6 % (24.0-44.0); MONO # 0.7 10^3/uL (0.0-0.8); MONO % 10.2 % (2.0-8.0); NEUTROPHILS # 3.2 10^3/uL (1.5-8.5); NEUTROPHILS % 44.4 % (36.0-66.0); PLATELET COUNT, AUTOMATED 345 10^3/uL (150-450)
[2025-03-02 09:24] LABS: ALT/SGPT 91.0 U/L (7.0-40); AST/SGOT 35.0 U/L (<34); CALCIUM LEVEL 8.8 MG/DL (8.5-10.1); CARBON DIOXIDE LEVEL 30.0 MMOL/L (20-31); CHLORIDE LEVEL 106.0 MMOL/L (98-107); CREATININE FOR GFR 0.84 MG/DL (0.55-1.30); GLOMERULAR FILTRATION RATE 81.5 (>51); POTASSIUM SERUM 4.4 MMOL/L (3.5-5.1); SODIUM LEVEL 141.0 MMOL/L (136-145)
[2025-03-02 09:26] LABS: VITAMIN B12 LEVEL 1336.0 PG/ML (211-911)
[2025-03-02 09:47] LABS: ESTIMATED AVERAGE GLUCOSE 108.0 MG/DL (60-110)
== END ==
LOC: M LAB 07:26
PROVIDERS: ATTEND Physician Assistant
DX: E11.9 Type 2 diabetes mellitus without complications (principal); Z98.84 Bariatric surgery status

== ENCOUNTER → 2025-03-23 | Outpatient (CLI) | payer BC ==
[~2025-03-23] MED LIST changes: +PROHANCE 279.3MG/ML 15ML VIAL As Ordered ONE
== END ==
LOC: M RAD 08:53
PROVIDERS: ATTEND Neurological Surgery
DX: D32.0 Benign neoplasm of cerebral meninges (principal); Z92.3 Personal history of irradiation; Z98.890 Other specified postprocedural states; G93.89 Other specified disorders of brain; Z86.73 Personal history of transient ischemic attack (TIA), and cerebral infarction without residual deficits
CPT/HCPCS: 70553; A9576